=== PATIENT | male | born 1940 | race Caucasian/White ===

== ENCOUNTER 2019-01-07 20:50 | Emergency (ER) | payer MEDICARE, BC ==
[2019-01-07] MEDS ORDERED: Adenocard IV 6 MG/2 ML IV ONE ×2 (21:03→21:07)
[2019-01-07] MEDS ORDERED: Sodium Chloride 0.9% 1000 ML 1,000 ML ONE (21:03)
--- NOTE | 2019-01-07 21:14 | ERPHSYRPT ---
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 He denies any shortness of breath no nausea no chest pain. Past medical history includes high blood pressure, diabetes type 2, osteoarthritis, atrial fibrillation, SVT, bilateral knee arthroplasty, bilateral shoulder replacement, osteoarthritis past surgical history includes appendectomy, hernia surgery, bilateral knee replacement, bilateral shoulder replacement Social history patient states occasional alcohol use denies tobacco use Timing/Duration: today (one hour prior to arrival) Severity: moderate Modifying Factors: Improves With: nothing Associated Symptoms: other (rapid heart rate, dizziness.), No nausea, No vomiting, No abdominal pain, No shortness of breath, No heartburn, No diaphoresis, No cough, No chills, No chest pain, No fever, No headaches, No loss of appetite, No malaise, No rash, No syncope, No seizure, No weakness Allergies/Adverse Reactions: No Known Drug Allergies Allergy (Verified 01/07/19 20:57) Home Medications: Carvedilol 3.125 mg [Coreg 3.125 MG] 3.125 mg PO BID 01/12/16 [History] Clopidogrel Bisulfate 75 mg [PLAVIX 75 MG Tablet] 75 mg PO DAILY 01/12/16 [History] Famotidine [Pepcid] 40 mg PO HS 01/12/16 [History] Ferrous Sulfate 325 mg [Feosol 325 mg] 325 mg PO BID 01/12/16 [History] Glipizide [Glucotrol Xl] 10 mg PO BID 01/12/16 [History] Insulin Glargine [Lantus Insulin] 20 unit SQ DAILY 01/12/16 [History] Metformin HCl [Metformin HCl ER] 1,000 mg PO BID 01/12/16 [History] Simvastatin 10 mg PO HS 01/12/16 [History] Hx Tetanus, Diphtheria Vaccination/Date Given: Yes Hx Influenza Vaccination/Date Given: No Hx Pneumococcal Vaccination/Date Given: No - Review of Systems Constitutional: No Fever, No Chills Eyes: No Symptoms Ears, Nose, & Throat: No Symptoms Respiratory: No Cough, No Dyspnea Cardiac: Palpitations, Other (rapid heart rate), No Chest Pain, No Edema, No Orthopnea, No PND Abdominal/Gastrointestinal: No Abdominal Pain, No Nausea, No Vomiting, No Diarrhea Genitourinary Symptoms: No Dysuria Musculoskeletal: No Back Pain, No Neck Pain Skin: No Rash Neurological: Dizziness, No Focal Weakness, No Gait Changes, No Headache, No Irritability, No Lethargy, No Paralysis, No Parasthesia, No Seizure, No Sensory Changes, No Speech Changes, No Tics, No Tremors, No Vertigo Psychological: No Symptoms Endocrine: No Symptoms All Other Systems: Reviewed and Negative - Past Medical History Pertinent Past Medical History: Yes Neurological History: Peripheral Neuropathy Cardiac History: Arrhythmia Respiratory History: Sleep Apnea Endocrine Medical History: Diabetes Type II Musculoskeletal History: Osteoarthritis Other Medical History: A-fib, B TSA, B TKA - Past Surgical History Past Surgical History: Yes Gastrointestinal: Appendectomy, Hernia Repair Musculoskeletal: Joint Replacement, Orthopedic Surgery - Social History Smoking Status: Never smoker Exposure to second hand smoke: No Drug Use: none Patient Lives Alone: No - Nursing Vital Signs Nursing Vital Signs: Initial Vital Signs Temperature 98.1 F 01/07/19 20:57 Pulse Rate 162 H 01/07/19 20:57 Respiratory Rate 22 01/07/19 20:57 Blood Pressure 96/77 01/07/19 20:57 O2 Sat by Pulse Oximetry 96 01/07/19 20:57 Pain Scale Pain Intensity 0 - Physical Exam General Appearance: mild distress, alert Eye Exam: PERRL/EOMI (mild stress it really d), eyes nml inspection Ears, Nose, Throat Exam: normal ENT inspection, TMs normal, pharynx normal, moist mucous membranes Neck Exam: normal inspection, non-tender, supple, full range of motion Respiratory Exam: normal breath sounds, lungs clear, No respiratory distress Cardiovascular Exam: normal heart sounds, normal peripheral pulses, tachycardia , capillary refill <2 sec Gastrointestinal/Abdomen Exam: soft Back Exam: normal inspection, normal range of motion, No CVA tenderness, No vertebral tenderness Extremity Exam: normal inspection, normal range of motion, pelvis stable Neurologic Exam: alert, oriented x 3, cooperative, baggage handler II-XII nml as tested, normal mood/affect, nml cerebellar function, nml station & gait, sensation nml, No motor deficits Skin Exam: normal color, warm, dry, No rash Lymphatic Exam: No adenopathy SpO2 Interpretation: normal (95%) - Course Nursing assessment & vital signs reviewed: Yes EKG Interpreted by Me: RATE (168bpm), NORMAL AXIS, Other (EKG: Supraventricular tacchycardia, 168 bpm, complete right bundle branch block ) Ordered Tests: Active Orders 24 hr Category Date Time Status Biological Technician STAT Care 01/07/19 21:13 Active EKG-ER Only STAT Care 01/07/19 21:07 Active IV Insertion STAT Care 01/07/19 21:07 Active IV Insertion-2nd Peripheral STAT Care 01/07/19 21:26 Active Pulse Oximetry (ED) STAT Care 01/07/19 21:07 Active CBC W DIFF Stat Lab 01/07/19 21:10 Completed CMP Stat Lab 01/07/19 21:10 Completed D-DIMER QUANTITATION Stat Lab 01/07/19 21:10 Completed PROTIME WITH INR Stat Lab 01/07/19 21:10 Completed PTT Stat Lab 01/07/19 21:10 Completed TROPONIN Q3H Lab 01/07/19 21:10 Completed TROPONIN Q3H Lab 01/08/19 00:23 Completed TROPONIN Q3H Lab 01/08/19 03:15 Ordered TROPONIN Q3H Lab 01/08/19 06:15 Ordered TROPONIN Q3H Lab 01/08/19 09:15 Ordered Medication Summary Generic Name Dose Route Start Last Admin Trade Name Freq PRN Reason Stop Dose Admin Sodium Chloride 1,000 mls @ 100 mls/hr 01/07/19 21:15 01/07/19 21:01 Sodium Chloride 0.9% 1000 Ml IV 02/06/19 21:14 100 mls/hr .Q10H VAUGHN Administration Discontinued Medications Generic Name Dose Route Start Last Admin Trade Name Freq PRN Reason Stop Dose Admin Adenosine Confirm 01/07/19 21:03 Adenocard Iv 6 Mg/2 Ml Administered 01/07/19 21:04 Dose 6 mg IV .STK-MED ONE Adenosine 6 mg 01/07/19 21:07 01/07/19 21:02 Adenocard Iv 6 Mg/2 Ml IV 01/07/19 21:08 6 mg STAT ONE Administration Sodium Chloride Confirm 01/07/19 21:03 Sodium Chloride 0.9% 1000 Ml Administered 01/07/19 21:04 Dose 1,000 mls @ ud .ROUTE .STK-MED ONE Lorazepam 1 mg 01/07/19 21:32 01/07/19 21:36 Ativan 1 Mg PO 01/07/19 21:33 1 mg STAT ONE Administration Lorazepam Confirm 01/07/19 21:35 Ativan 1 Mg Administered 01/07/19 21:36 Dose 1 mg .ROUTE .STK-MED ONE Lab/Rad Data: Laboratory Result Diagrams 01/07/19 21:10 01/07/19 21:10 Laboratory Results 01/08/19 01/07/19 01/07/19 Range/Units 00:23 21:10 21:10 WBC (4.0-10.5) K/mm3 RBC (4.1-5.6) M/mm3 Hgb (12.5-18.0) gm/dl Hct (42-50) % MCV (78-100) fl MCH (26-32) pg MCHC (32-36) g/dl RDW (11.5-14.0) % Plt Count (150-450) K/mm3 MPV (6-9.5) fl Gran % (36.0-66.0) % Eos # (Auto) (0-0.5) Absolute Lymphs (auto) (1.0-4.6) Absolute Monos (auto) (0.0-1.3) Lymphocytes % (24.0-44.0) % Monocytes % (0.0-12.0) % Eosinophils % (0.00-5.0) % Basophils % (0.0-0.4) % Absolute Granulocytes (1.4-6.9) Basophils # (0-0.4) PT 14.4 H (8.83-12.87) SECONDS INR 1.24 (0.8-3.0) APTT 27.4 (24.1-36.1) SECONDS D-Dimer < 215 L (215-500) ng/mL Sodium (137-145) mmol/L Potassium (3.5-5.1) mmol/L Chloride (98-107) mmol/L Carbon Dioxide (22-30) mmol/L Anion Gap (5-15) MEQ/L BUN (9-20) mg/dL Creatinine (0.66-1.25) mg/dL Estimated GFR ML/MIN Glucose (74-106) mg/dL Calcium (8.4-10.2) mg/dL Total Bilirubin (0.2-1.3) mg/dL AST (17-59) U/L ALT (0-50) U/L Alkaline Phosphatase (38-126) U/L Troponin I < 0.012 < 0.012 (0.000-0.034) ng/mL Serum Total Protein (6.3-8.2) g/dL Albumin (3.5-5.0) g/dL 01/07/19 01/07/19 Range/Units 21:10 21:10 WBC 6.7 (4.0-10.5) K/mm3 RBC 4.46 (4.1-5.6) M/mm3 Hgb 14.0 (12.5-18.0) gm/dl Hct 39.3 L (42-50) % MCV 88.1 (78-100) fl MCH 31.4 (26-32) pg MCHC 35.6 (32-36) g/dl RDW 12.8 (11.5-14.0) % Plt Count 234 (150-450) K/mm3 MPV 9.4 (6-9.5) fl Gran % 40.0 (36.0-66.0) % Eos # (Auto) 0.58 H (0-0.5) Absolute Lymphs (auto) 2.45 (1.0-4.6) Absolute Monos (auto) 0.94 (0.0-1.3) Lymphocytes % 36.4 (24.0-44.0) % Monocytes % 14.0 H (0.0-12.0) % Eosinophils % 8.6 H (0.00-5.0) % Basophils % 1.0 (0.0-0.4) % Absolute Granulocytes 2.69 (1.4-6.9) Basophils # 0.07 (0-0.4) PT (8.83-12.87) SECONDS INR (0.8-3.0) APTT (24.1-36.1) SECONDS D-Dimer (215-500) ng/mL Sodium 133 L (137-145) mmol/L Potassium 4.1 (3.5-5.1) mmol/L Chloride 93 L (98-107) mmol/L Carbon Dioxide 26 (22-30) mmol/L Anion Gap 17.8 H (5-15) MEQ/L BUN 21 H (9-20) mg/dL Creatinine 0.95 (0.66-1.25) mg/dL Estimated GFR > 60.0 ML/MIN Glucose 232 H (74-106) mg/dL Calcium 9.3 (8.4-10.2) mg/dL Total Bilirubin 0.50 (0.2-1.3) mg/dL AST 28 (17-59) U/L ALT 22 (0-50) U/L Alkaline Phosphatase 100 (38-126) U/L Troponin I (0.000-0.034) ng/mL Serum Total Protein 7.4 (6.3-8.2) g/dL Albumin 4.5 (3.5-5.0) g/dL - Progress Progress: improved Progress Note: 01/07/19 21:14 78-year-old white male with history of diabetes, high blood pressure, atrial fibrillation,, SVT, who is on Elequis, Arrives with complaint of sudden onset of rapid heart rate one hour prior to arrival states he had some mild dizziness with this no chest pain no shortness of breath. Patient arrives with an EKG and monitor which shows SVT 1 68 bpm normal axis complete right bundle branch block changes are rate related. Patient is given adenosine 6 mg IV with conversion EKG dated 01/07/2019 at 9:09 PM Sinus rhythm 93 bpm complete right bundle branch block no acute ST or T wave changes Patient without chest pain Will go ahead and obtain CBC CMP troponin and d-dimer patient is receiving IV normal saline at 100 mL per hour. 01/07/19 22:27 This is a 78-year-old white male with history of diabetes high blood pressure atrial fibrillation and SVT who is on Elequis, patient arrives with complaint of a sensation of a rapid heart rate which occurred approximately one hour prior to arrival. When the patient arrived in the emergency room patient had a SVT on EKG rate was 167 bpm temperature is 90.8 one respiration 22 blood pressure 96/77 sats were 95% he denies any chest pain he did state he had some mild dizziness Patient apparently is on cold rag he is also on [place] in addition to his other medications Patient is given adenosine 6 mg IV with conversion of his rhythm repeat EKG is remarkable for sinus rhythm 93 bpm normal axis complete right bundle-branch block no acute ST or T wave changes. Patient was also given IV normal saline at 100 mL per hour as well as Ativan 1 mg by mouth. Patient has had no further problems I had discussed possibly coming in for observation patient will not do this he states he will not come in the hospital until after his 's . I've contacted Dr. Farmer image consultant for Dr. Perez he states that we may release the patient. The patient did give conflicting reports as to whether or not he is taking his Coreg he told his nurse he might have missed a few doses he tells me he has been taking it. Will go ahead and plan on discharging the patient he is in no pain at this time he is in normal sinus rhythm on monitor vitals are stable. Patient is to follow-up with Dr. Perez he is to call the office and arrange follow-up appointment he is return for acute distress or for severe symptoms. 01/08/19 01:08 Patient had asked for medication for anxiety apparently his recently he was given 1 mg of Ativan. Patient has had no problems since arrival and initial SVT. Troponins were repeated and normal patient did not want admission or transfer. I did talk with Dr. Farmer as noted above. Will release patient will write for a small amount of Ativan (0.5 mg orally 3 times a day as needed for anxiety #8 tablets) Patient to contact Dr. Perez tomorrow to arrange follow-up appointment, Patient to return for acute distress or for severe symptoms, - Departure Time of Disposition: 01:11 Departure Disposition: Home Clinical Impression: SVT (supraventricular tachycardia) Condition: Fair Critical Care Time: No Referrals: BENNIE GARCIA [Primary Care Provider] - Instructions: Arrhythmias (DC) Additional Instructions: Return home., Rest Medications as prescribed by your family doctor and Dr. Perez. Ativan as prescribed. Follow up with Dr Perez or your family doctor. Return for acute distress or for severe symptoms. Prescriptions: Lorazepam 0.5 mg [Ativan 0.5 MG] 0.5 mg PO TIDPRN #9 tablet
[2019-01-07] MEDS ORDERED: Sodium Chloride 0.9% 1000 ML 1,000 ML IV SCH (21:15)
[2019-01-07 21:20] LABS: Basophil (Absolute #) 0.07 (0-0.4); Eosinophil % 8.6 % (0.00-5.0); Eosinophil (Absolute #) 0.58 (0-0.5); Granulocyte Absolute (ANC) 2.69 (1.4-6.9); Hematocrit 39.3 % (42-50); Lymphocyte (Absolute #) 2.45 (1.0-4.6); Lymphocytes % 36.4 % (24.0-44.0); Mean Cell Volume 88.1 fl (78-100); Mean Corpuscular Hemoglobin 31.4 pg (26-32); Mean Corpuscular Hgb Concent. 35.6 g/dl (32-36); Mean Platelet Volume 9.4 fl (6-9.5); Monocyte (Absolute #) 0.94 (0.0-1.3); Platelet Count 234 K/mm3 (150-450); Red Blood Count 4.46 M/mm3 (4.1-5.6); Red Cell Distribution Width 12.8 % (11.5-14.0); White Blood Count 6.7 K/mm3 (4.0-10.5)
[2019-01-07 21:28] LABS: INR 1.24 (0.8-3.0); PROTIME 14.4 SECONDS (8.83-12.87)
[2019-01-07 21:31] LABS: PTT 27.4 SECONDS (24.1-36.1)
[2019-01-07 21:32] LABS: ALBUMIN 4.5 g/dL (3.5-5.0); ALKALINE PHOSPHATASE 100 U/L (38-126); ANION GAP 17.8 MEQ/L (5-15); BLOOD UREA NITROGEN 21 mg/dL (9-20); CHLORIDE 93 mmol/L (98-107); Calcium 9.3 mg/dL (8.4-10.2); Carbon Dioxide 26 mmol/L (22-30); Creatinine 1 0.95 mg/dL (0.66-1.25); Glucose 232 mg/dL (74-106); Potassium 4.1 mmol/L (3.5-5.1); SGOT/AST 28 U/L (17-59); SGPT/ALT 22 U/L (0-50); SODIUM 133 mmol/L (137-145); Total Protein 7.4 g/dL (6.3-8.2)
[2019-01-07] MEDS ORDERED: Ativan 1 MG PO ONE (21:32)
[2019-01-07] MEDS ORDERED: Ativan 1 MG ONE (21:35)
[2019-01-07 21:38] LABS: D-DIMER QUANTITATION < 215 ng/mL (215-500)
[2019-01-07 22:40] VITALS: O2SAT 96
[2019-01-08 01:09] VITALS: BP 118/80; PULSE 83
== END 2019-01-08 01:28 | disposition home or self-care (01) ==
LOC: ED 20:50
DX: I47.1 Supraventricular tachycardia (principal); E11.9 Type 2 diabetes mellitus without complications; I10 Essential (primary) hypertension; M19.90 Unspecified osteoarthritis, unspecified site; I48.91 Unspecified atrial fibrillation; Z79.899 Other long term (current) drug therapy
CPT/HCPCS: 36000; 36415; 80053; 82962; 84484; 85025; 85379; 85610; 85730; 93005; 93041; 96360; 96361; 96374; 99284; J0153; A9270-GY

== ENCOUNTER 2019-10-11 16:54 | Inpatient (IN) | payer MEDICARE, BC ==
--- NOTE | 2019-10-11 16:56 | ERPHSYRPT ---
- History of Present Illness Time Seen by Provider: 10/11/19 16:55 Source: patient, family Exam Limitations: no limitations Physician History: 79 y/o diabetic white male with h/o htn and chronic afib presents with left knee pain after a fall. he felt a pop and has had pain in left knee ever since. additionally, pt has had a 4 day h/o abdominal pain and assoc n/v/d. pt has a h/ o irritable bowel syndrome and diverticulitis and bilat knee replacement. pt underwent a recent plain xray of left knee and was negative for acute process. however, left knee pain worse and having difficult bearing weight. pt lives alone Method of Injury: fell Occurred: days ago Quality: aching (left knee) Severity of Pain-Max: moderate Severity of Pain-Current: moderate Lower Extremities Pain: knee: left Modifying Factors: Improves With: movement Associated Symptoms: unable to bear weight Allergies/Adverse Reactions: No Known Drug Allergies Allergy (Verified 10/11/19 17:18) Home Medications: Clopidogrel Bisulfate 75 mg [PLAVIX 75 MG Tablet] 75 mg PO DAILY 01/12/16 [History] Famotidine [Pepcid] 40 mg PO HS 01/12/16 [History] Ferrous Sulfate 325 mg [Feosol 325 mg] 325 mg PO BID 01/12/16 [History] Glipizide [Glucotrol Xl] 10 mg PO BID 01/12/16 [History] Metformin HCl [Metformin HCl ER] 1,000 mg PO BID 01/12/16 [History] Amiodarone HCl 1 tab PO DAILY 10/11/19 [History] Ascorbic Acid [Vitamin C] 250 mg PO BID 10/11/19 [History] Atorvastatin Calcium 80 mg PO HS 10/11/19 [History] Cinnamon Bark [Cinnamon] 1,000 mg PO DAILY 10/11/19 [History] Desloratadine [Clarinex] 1 tab PO DAILY 10/11/19 [History] Furosemide 20 mg [Lasix 20 mg] 1 tab PO DAILY 10/11/19 [History] Gabapentin 100 mg PO TID 10/11/19 [History] Insulin Glargine,Hum.rec.anlog [Joseagldustin Sanchez U-100] 35 units SQ DAILY [History] Insulin Lispro [Humalog Pb Kwikpen] 1 unit SQ DAILY PRN PRN 10/11/19 [ History] Lidocaine [Lidocaine Pain Relief] 1 patch TOP DAILY 10/11/19 [History] Losartan/Hydrochlorothiazide [Losartan-Hctz 100-25 mg Tab] 1 tab PO DAILY [History] Magnesium Oxide [Magnesium] 400 mg PO DAILY 10/11/19 [History] Multivitamin [Multivitamins] 1 tab PO DAILY 10/11/19 [History] Potassium Chloride 10 Meq Tab* [Klor Con 10 MEQ] 2 tab PO DAILY 10/11/19 [ History] Vit B6/Me-Thfolate/Me-B12/Ala [Nufola Capsule] 1 tab PO DAILY 10/11/19 [History] Warfarin Sodium 2.5 mg [Coumadin 2.5 MG] 1 tab PO DAILY 10/11/19 [History] Hx Tetanus, Diphtheria Vaccination/Date Given: Yes Hx Influenza Vaccination/Date Given: No Hx Pneumococcal Vaccination/Date Given: No - Review of Systems Constitutional: No Symptoms Eyes: No Symptoms Ears, Nose, & Throat: No Symptoms Respiratory: No Symptoms Cardiac: No Symptoms Abdominal/Gastrointestinal: Abdominal Pain, Nausea, Vomiting, Diarrhea Genitourinary Symptoms: No Symptoms Musculoskeletal: Fall, Injury (left knee) Skin: No Symptoms Neurological: No Symptoms Psychological: No Symptoms Endocrine: No Symptoms Hematologic/Lymphatic: No Symptoms Immunological/Allergic: No Symptoms All Other Systems: Reviewed and Negative - Past Medical History Pertinent Past Medical History: Yes Neurological History: Other Cardiac History: Arrhythmia, Hypertension Respiratory History: No Pertinent History Endocrine Medical History: Diabetes Type II Musculoskeletal History: Osteoarthritis GI Medical History: No Pertinent History History: No Pertinent History Psycho-Social History: No Pertinent History Male Reproductive Disorders: No Pertinent History Other Medical History: CYST REMOVED FROM SPINE IN 07/14; B TKA; HAD PRE-EXISTING R FOOT DROP AT TIMES - Past Surgical History Past Surgical History: Yes Neuro Surgical History: No Pertinent History Cardiac: No Pertinent History Respiratory: No Pertinent History Gastrointestinal: Appendectomy, Hernia Repair Genitourinary: No Pertinent History Musculoskeletal: Joint Replacement, Orthopedic Surgery Male Surgical History: No Pertinent History Other Surgical History: pattie knees and Pattie shoulders - Social History Smoking Status: Never smoker Exposure to second hand smoke: No Drug Use: none Patient Lives Alone: No - Nursing Vital Signs Nursing Vital Signs: Initial Vital Signs Temperature 98.1 F 10/11/19 17:04 Pulse Rate 100 H 10/11/19 17:04 Respiratory Rate 20 10/11/19 17:04 Blood Pressure 126/71 10/11/19 17:04 O2 Sat by Pulse Oximetry 94 L 10/11/19 17:04 Pain Scale Pain Intensity 7 - Physical Exam General Appearance: mild distress, alert, anxiety Eyes, Ears, Nose, Throat Exam: normal ENT inspection, moist mucous membranes Neck Exam: normal inspection, non-tender, supple, full range of motion Cardiovascular/Respiratory Exam: chest non-tender, normal breath sounds, regular rate/rhythm, heart sounds normal, no respiratory distress Gastrointestinal/Abdominal Exam: guarding (no rebound), tenderness (mild diffuse ) Back Exam: normal inspection, normal range of motion, No CVA tenderness, No vertebral tenderness Hips Exam: bilateral: non-tender, normal inspection, normal range of motion, no evidence of injury Legs Exam: bilateral leg: non-tender, normal inspection, normal range of motion , no evidence of injury Knees Exam: bilateral knee: no evidence of injury, soft tissue tenderness Ankle Exam: bilateral ankle: non-tender, normal inspection, normal range of motion, no evidence of injury Foot Exam: bilateral foot: non-tender, normal inspection, normal range of motion , no evidence of injury Neuro/Tendon Exam: normal sensation, normal motor functions, normal tendon functions Mental Status Exam: alert, oriented x 3 Skin Exam: normal color, warm, dry SpO2 Interpretation: normal O2 Delivery: Room Air - Course Nursing assessment & vital signs reviewed: Yes Ordered Tests: Active Orders 24 hr Category Date Time Status IV Insertion STAT Care 10/11/19 18:33 Active ABDOMEN AND PELVIS W/0 CONTRAS [CT] Stat Exams 10/11/19 18:33 Taken LOWER EXTREMITY WO CONTRAST [CT] Stat Exams 10/11/19 18:34 Taken AMYLASE Stat Lab 10/11/19 19:15 Completed CBC W DIFF Stat Lab 10/11/19 19:15 Completed CMP Stat Lab 10/11/19 19:15 Completed LIPASE Stat Lab 10/11/19 19:15 Completed Lactic Acid Stat Lab 10/11/19 19:23 Results Manual Differential NC Stat Lab 10/11/19 19:15 Completed UA W/RFX UR CULTURE Stat Lab 10/11/19 20:20 Completed Transfer Order Routine Transfer 10/11/19 Ordered Medication Summary Generic Name Dose Route Start Last Admin Trade Name Mag PRN Reason Stop Dose Admin Sodium Chloride 1,000 mls @ 100 mls/hr 10/11/19 18:45 10/11/19 18:43 Sodium Chloride 0.9% 1000 Ml IV 11/10/19 18:44 100 mls/hr .Q10H VAUGHN Administration Discontinued Medications Generic Name Dose Route Start Last Admin Trade Name Mag PRN Reason Stop Dose Admin Metronidazole 500 mg in 100 mls @ 200 mls/hr 10/11/19 19:38 10/11/19 19:51 Flagyl 500 Mg Ivpb IV 10/11/19 20:07 200 mls/hr STAT STA Administration Metronidazole Confirm 10/11/19 19:47 Flagyl 500 Mg Ivpb Administered 10/11/19 19:48 Dose 500 mg in 100 mls @ ud IV .STK-MED ONE Ondansetron HCl 4 mg 10/11/19 18:33 10/11/19 18:43 Zofran 4 Mg/2 Ml Vial IV 10/11/19 18:34 4 mg STAT ONE Administration Ondansetron HCl Confirm 10/11/19 18:41 Zofran 4 Mg/2 Ml Vial Administered 10/11/19 18:42 Dose 4 mg .ROUTE .STK-MED ONE Potassium Chloride 10 meq 10/11/19 19:58 10/11/19 20:08 Klor Con 10 Meq PO 10/11/19 19:59 10 meq STAT ONE Administration Potassium Chloride Confirm 10/11/19 20:07 Klor Con 10 Meq Administered 10/11/19 20:08 Dose 10 meq PO .STK-MED ONE Lab/Rad Data: Laboratory Result Diagrams 10/11/19 19:15 10/11/19 19:15 Laboratory Results 10/11/19 10/11/19 10/11/19 Range/Units 20:20 19:23 19:15 WBC (4.0-10.5) K/mm3 RBC (4.1-5.6) M/mm3 Hgb (12.5-18.0) gm/dl Hct (42-50) % MCV (78-100) fl MCH (26-32) pg MCHC (32-36) g/dl RDW (11.5-14.0) % Plt Count (150-450) K/mm3 MPV (6-9.5) fl Absolute Granulocytes (1.4-6.9) Sodium 133 L (137-145) mmol/L Potassium 3.1 L (3.5-5.1) mmol/L Chloride 95 L (98-107) mmol/L Carbon Dioxide 25 (22-30) mmol/L Anion Gap 15.2 H (5-15) MEQ/L BUN 23 H (9-20) mg/dL Creatinine 0.96 (0.66-1.25) mg/dL Estimated GFR > 60.0 ML/MIN Glucose 193 H (74-106) mg/dL Lactic Acid 2.3 H (0.4-2.0) Calcium 8.0 L (8.4-10.2) mg/dL Total Bilirubin 0.70 (0.2-1.3) mg/dL AST 26 (17-59) U/L ALT 18 (0-50) U/L Alkaline Phosphatase 63 (38-126) U/L Serum Total Protein 7.0 (6.3-8.2) g/dL Albumin 3.5 (3.5-5.0) g/dL Amylase < 30 L (30-110) U/L Lipase 22 L (23-300) U/L Urine Color MARIA INES (YELLOW) Urine Appearance SLIGHTLY CLOUDY (CLEAR) Urine pH 5.0 (5-6) Ur Specific [place] 1.023 (1.005-1.025) Urine Protein 30 (Negative) Urine Ketones NEGATIVE (NEGATIVE) Urine Blood LARGE (0-5) Manuel/ul Urine Nitrite NEGATIVE (NEGATIVE) Urine Bilirubin NEGATIVE (NEGATIVE) Urine Urobilinogen NEGATIVE (0-1) mg/dL Ur Leukocyte Esterase NEGATIVE (NEGATIVE) Urine WBC (Auto) 0-2 (0-5) /HPF Urine RBC (Auto) >101 (0-2) /HPF U Epithel Cells (Auto) NONE (FEW) /HPF Urine Bacteria (Auto) NONE (NEGATIVE) /HPF Urine Mucus (Auto) SLIGHT (NEGATIVE) /HPF Urine Culture Reflexed NO (NO) Urine Glucose NEGATIVE (NEGATIVE) mg/dL 15/19 Range/Units 19:15 WBC 9.4 (4.0-10.5) K/mm3 RBC 4.15 (4.1-5.6) M/mm3 Hgb 12.9 (12.5-18.0) gm/dl Hct 36.6 L (42-50) % MCV 88.2 (78-100) fl MCH 31.1 (26-32) pg MCHC 35.2 (32-36) g/dl RDW 13.4 (11.5-14.0) % Plt Count 246 (150-450) K/mm3 MPV 9.2 (6-9.5) fl Absolute Granulocytes 6.24 (1.4-6.9) Sodium (137-145) mmol/L Potassium (3.5-5.1) mmol/L Chloride (98-107) mmol/L Carbon Dioxide (22-30) mmol/L Anion Gap (5-15) MEQ/L BUN (9-20) mg/dL Creatinine (0.66-1.25) mg/dL Estimated GFR ML/MIN Glucose (74-106) mg/dL Lactic Acid (0.4-2.0) Calcium (8.4-10.2) mg/dL Total Bilirubin (0.2-1.3) mg/dL AST (17-59) U/L ALT (0-50) U/L Alkaline Phosphatase (38-126) U/L Serum Total Protein (6.3-8.2) g/dL Albumin (3.5-5.0) g/dL Amylase (30-110) U/L Lipase (23-300) U/L Urine Color (YELLOW) Urine Appearance (CLEAR) Urine pH (5-6) Ur Specific [place] (1.005-1.025) Urine Protein (Negative) Urine Ketones (NEGATIVE) Urine Blood (0-5) Manuel/ul Urine Nitrite (NEGATIVE) Urine Bilirubin (NEGATIVE) Urine Urobilinogen (0-1) mg/dL Ur Leukocyte Esterase (NEGATIVE) Urine WBC (Auto) (0-5) /HPF Urine RBC (Auto) (0-2) /HPF U Epithel Cells (Auto) (FEW) /HPF Urine Bacteria (Auto) (NEGATIVE) /HPF Urine Mucus (Auto) (NEGATIVE) /HPF Urine Culture Reflexed (NO) Urine Glucose (NEGATIVE) mg/dL - Progress Progress: improved, pain not gone completely, re-examined Progress Note: 10/11/19 20:58 ct abd/pelvis-mild enterocolitis ct left knee-no acute process spoke with dr. galloway. i reviewed pt hx, condition, labs, and ct results. she accepts pt for admission. Discussed with : Clara Will see patient in: hospital (full admit) Counseled pt/family regarding: lab results, diagnosis, rad results - Departure Departure Disposition: In-patient Admission Clinical Impression: Enterocolitis, Hypokalemia, Chronic atrial fibrillation Condition: Fair Critical Care Time: No Referrals: MARLON SCHROEDER MD [Primary Care Provider] -
[2019-10-11] MEDS ORDERED: Zofran 4 MG/2 ML VIAL IV ONE (18:33)
[2019-10-11] MEDS ORDERED: Zofran 4 MG/2 ML VIAL ONE (18:41)
[2019-10-11] MEDS ORDERED: Sodium Chloride 0.9% 1000 ML 1,000 ML ONE (18:41)
[2019-10-11] MEDS ORDERED: Sodium Chloride 0.9% 1000 ML 1,000 ML IV SCH (18:45)
[2019-10-11 19:27] LABS: Lactic Acid 2.3 (0.4-2.0)
[2019-10-11 19:37] LABS: Absolute Neutrophil Ct (ANC) 6.24 (1.4-6.9); Hematocrit 36.6 % (42-50); Hemoglobin 12.9 gm/dl (12.5-18.0); Mean Cell Volume 88.2 fl (78-100); Mean Corpuscular Hemoglobin 31.1 pg (26-32); Mean Corpuscular Hgb Concent. 35.2 g/dl (32-36); Mean Platelet Volume 9.2 fl (6-9.5); Platelet Count 246 K/mm3 (150-450); Red Blood Count 4.15 M/mm3 (4.1-5.6); Red Cell Distribution Width 13.4 % (11.5-14.0); White Blood Count 9.4 K/mm3 (4.0-10.5)
[2019-10-11] MEDS ORDERED: FLAGYL 500 MG IVPB 500 MG/100 ML BAG IV STA (19:38)
[2019-10-11 19:47] LABS: ALBUMIN 3.5 g/dL (3.5-5.0); ALKALINE PHOSPHATASE 63 U/L (38-126); AMYLASE < 30 U/L (30-110); ANION GAP 15.2 MEQ/L (5-15); BLOOD UREA NITROGEN 23 mg/dL (9-20); CHLORIDE 95 mmol/L (98-107); Carbon Dioxide 25 mmol/L (22-30); Creatinine 1 0.96 mg/dL (0.66-1.25); Glucose 193 mg/dL (74-106); LIPASE 22 U/L (23-300); Potassium 3.1 mmol/L (3.5-5.1); SGOT/AST 26 U/L (17-59); SGPT/ALT 18 U/L (0-50); SODIUM 133 mmol/L (137-145)
[2019-10-11] MEDS ORDERED: FLAGYL 500 MG IVPB 500 MG/100 ML BAG IV ONE (19:47)
[2019-10-11] MEDS ORDERED: Klor Con 10 MEQ PO ONE ×2 (19:58→20:07)
[2019-10-11 20:32] LABS: Appearance SLIGHTLY CLOUDY (CLEAR); Bilirubin NEGATIVE (NEGATIVE); Blood LARGE Ery/ul (0-5); Glucose NEGATIVE (NEGATIVE); Ketones NEGATIVE (NEGATIVE); Leukocyte Esterase NEGATIVE (NEGATIVE); Mucus SLIGHT /HPF (NEGATIVE); Nitrite NEGATIVE (NEGATIVE); Protein,Urine Dip 30 (Negative); Specific Gravity 1.023 (1.005-1.025); Urobilinogen NEGATIVE mg/dL (0-1); WBC 0-2 /HPF (0-5)
[2019-10-11 20:34] LABS: RBC >101 /HPF (0-2)
[2019-10-11] MEDS ORDERED: Zofran 4 MG/2 ML VIAL IV PRN (21:44)
[2019-10-11] MEDS ORDERED: TYLENOL 325 MG PO PRN (21:44)
[2019-10-11 21:56] LABS: ATYPICAL LYMPHS 2 %; BAND 43 % (0.0-2.0); Dohle Bodies 2+; Lymphocytes 25 % (24-44); Metamyelocyte 1 %; Monocyte 11 % (0.0-12.0); Neutrophils 18 % (36.-66.); Platelet Estimate NORMAL (NORMAL); Total Cells Counted 100; Toxic Granulation 1+
--- NOTE | 2019-10-11 22:17 | XRAY ---
Indication: Pain following fall. Multiple contiguous axial images obtained through the left knee. Two-dimensional sagittal and coronal reformatted images obtained. Comparison: None There has been total knee arthroplasty with prosthesis producing extreme beam artifact limiting these levels. No gross acute fracture, dislocation, or suspicious bony lesions. Extensive scattered vascular calcifications. Visualized noncontrasted soft tissues unremarkable. Impression: Extreme beam artifact from total knee arthroplasty limits exam. Scattered arteriosclerotic disease. Remaining CT left knee is negative. Comment: Preliminary interpretation was made by [facility]. No discrepancy. CTDI 28.07
[2019-10-11 22:19] LABS: Adenovirus F 40/41 NEGATIVE (NEGATIVE); Astrovirus NEGATIVE (NEGATIVE); C. Difficile Organism NEGATIVE (NEGATIVE); Campylobacter POSITIVE (NEGATIVE); Cryptosporidium NEGATIVE (NEGATIVE); Cyclospora cayentanensis NEGATIVE (NEGATIVE); Entamoeaba histolytica NEGATIVE (NEGATIVE); Enteroaggregative E.coli NEGATIVE (NEGATIVE); Enteropathogenic E.coli POSITIVE (NEGATIVE); Enterotoxigenic E.coli NEGATIVE (NEGATIVE); Giardia lamblia NEGATIVE (NEGATIVE); Norovirus GI/GII NEGATIVE (NEGATIVE); Plesiomonas shigelloides NEGATIVE (NEGATIVE); Rotavirus A NEGATIVE (NEGATIVE); Salmonella NEGATIVE (NEGATIVE); Sapovirus NEGATIVE (NEGATIVE); Shiga-like toxin prod.E.coli NEGATIVE (NEGATIVE); Vibrio NEGATIVE (NEGATIVE); Vibrio cholerae NEGATIVE (NEGATIVE); Yersinia enterocolitica NEGATIVE (NEGATIVE)
--- NOTE | 2019-10-11 22:21 | XRAY ---
Indication: Abdominal pain. Nausea and vomiting. Multiple contiguous axial images obtained through the abdomen and pelvis without contrast as ordered. Comparison: None Lung bases demonstrates scattered fibrosis/scarring bilaterally. No infiltrate or effusion. Heart is borderline enlarged. Mild fluid distended stomach, small bowel, and large bowel loops throughout with fluid leveling, gastroenterocolitis versus ileus. Right lower quadrant surgical clips. No focal bowel dilatation, obstruction, or free fluid/air. Gallbladder mildly distended without gallstones. Tiny calcified hepatic/splenic granulomas. Enlarged prostate gland impresses on the base of the bladder. Remaining liver, pancreas, adrenal glands, kidneys, ureters, and bladder appear unremarkable for noncontrast exam. Moderate scattered vascular calcifications without AAA. Osseous structures demonstrates mild/moderate degenerative changes throughout the thoracolumbar spine and mild degenerative changes of both hips. Impression: 1. Mild fluid distended stomach, small bowel, and large bowel loops with fluid leveling, gastroenterocolitis versus ileus. 2. Mildly distended gallbladder. Gallbladder sonogram may yield further information if clinically warranted. 3. Enlarged prostate gland and evidence for old granulomatous disease. Comment: Preliminary interpretation was made by [facility]. No critical discrepancy. CTDI 20.96
[2019-10-11] MEDS ORDERED: Lantus Insulin SQ SCH (23:16)
[2019-10-12] MEDS ORDERED: Glucotrol 5 MG ONE (00:32)
[2019-10-12] MEDS: Sodium Chloride 0.9% W/ 20 mEq KCl/LITER 1,000 ML IV SCH ×2 (00:36→13:16)
[2019-10-12] MEDS: Pepcid 20 MG PO SCH ×2 (00:37→21:21)
[2019-10-12] MEDS: Coreg 6.25 MG PO SCH ×3 (00:38→21:21)
[2019-10-12] MEDS: Neurontin 100 MG PO SCH ×4 (00:41→21:21)
[2019-10-12] MEDS: Glucotrol Xl 10 MG PO SCH ×3 (00:42→17:54)
[2019-10-12 00:51] LABS: Appearance CLOUDY (CLEAR); Bilirubin NEGATIVE (NEGATIVE); Blood LARGE Ery/ul (0-5); Glucose NEGATIVE (NEGATIVE); Ketones NEGATIVE (NEGATIVE); Leukocyte Esterase NEGATIVE (NEGATIVE); Mucus MANY /HPF (NEGATIVE); Nitrite NEGATIVE (NEGATIVE); Protein,Urine Dip 100 (Negative); RBC >101 /HPF (0-2); Specific Gravity 1.025 (1.005-1.025); Urobilinogen NEGATIVE mg/dL (0-1)
[2019-10-12 00:52] LABS: Bacteria FEW /HPF (NEGATIVE)
[2019-10-12] MEDS ORDERED: Levofloxacin 500MG/100ML D5W 500 MG/100 ML BAG IV SCH (01:00)
[2019-10-12] MEDS: FLAGYL 500 MG IVPB 500 MG/100 ML BAG IV SCH ×4 (01:13→19:15)
[2019-10-12 05:48] LABS: Hematocrit 34.3 % (42-50); Mean Cell Volume 88.2 fl (78-100); Mean Corpuscular Hemoglobin 30.8 pg (26-32); Platelet Count 227 K/mm3 (150-450); Red Blood Count 3.89 M/mm3 (4.1-5.6); Red Cell Distribution Width 13.6 % (11.5-14.0); White Blood Count 9.7 K/mm3 (4.0-10.5)
[2019-10-12 06:04] LABS: BLOOD UREA NITROGEN 24 mg/dL (9-20); CHLORIDE 99 mmol/L (98-107); Calcium 7.5 mg/dL (8.4-10.2); Carbon Dioxide 24 mmol/L (22-30); Creatinine 1 0.85 mg/dL (0.66-1.25); Glucose 175 mg/dL (74-106); Potassium 3.4 mmol/L (3.5-5.1); SODIUM 133 mmol/L (137-145)
[2019-10-12 06:12] LABS: INR 6.02 (0.8-3.0)
[2019-10-12 06:34] LABS: BAND 42 % (0.0-2.0); Eosinophil 1 % (0.00-3.0); Lymphocytes 13 % (24-44); Monocyte 11 % (0.0-12.0); Neutrophils 33 % (36.-66.); Platelet Estimate NORMAL (NORMAL); Total Cells Counted 100
[2019-10-12 06:35] LABS: ANISOCYTOSIS 1+; Poikilocytosis 1+; Toxic Granulation 1+
[2019-10-12] MEDS: Glucophage 500 MG PO SCH (08:27)
--- NOTE | 2019-10-12 17:05 | PCM.HP ---
History of Present Illness - Chief Complaint Chief Complaint: nausea vomiting ,diarrhea,abdominal pain,difficulty walking - left knee pain History of Present Illness: is a 79 year old male who presented to ER C/O abdominal pain, nausea and diarrhea with 1 episode of vomiting at the onset. States he ate popcorn and a balogna sandwhich a few hours before the symptoms started and the diarrhea has persisted. 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 - Review of Systems Constitutional: Weakness Respiratory: No Cough, No Short Of Breath Cardiac: Edema (is on Lasix), Other (denies chest pain or syncope) Abdominal/Gastrointestinal: Abdominal Pain, Nausea, Vomiting, Diarrhea Genitourinary Symptoms: Urinary Retention, Other (BPH) Musculoskeletal: Fall (left knee pain) Skin: No Rash Neurological: Focal Weakness (notices some loss of strength lef leg), Gait Changes, Paralysis (LUE) Psychological: No Symptoms Endocrine: Other (DM2) Hematologic/Lymphatic: Easy Bleeding (is on Coumadin and tests home INR) Immunological/Allergic: No Symptoms Medications & Allergies Home Medications: Home Medication List Carvedilol 6.25 mg [Coreg 6.25 MG] 6.25 mg PO BID #60 tablet 01/12/16 [Rx Confirmed 10/11/19] Clopidogrel Bisulfate 75 mg [PLAVIX 75 MG Tablet] 75 mg PO DAILY 01/12/16 [History Confirmed 10/11/19] Famotidine [Pepcid] 40 mg PO HS 01/12/16 [History Confirmed 10/11/19] Ferrous Sulfate 325 mg [Feosol 325 mg] 325 mg PO BID 01/12/16 [History Confirmed 10/11/19] Glipizide [Glucotrol Xl] 10 mg PO BID 01/12/16 [History Confirmed 10/11/19] Metformin HCl [Metformin HCl ER] 1,000 mg PO BID 01/12/16 [History Confirmed ] Amiodarone HCl 1 tab PO DAILY 10/11/19 [History Confirmed 10/11/19] Ascorbic Acid [Vitamin C] 250 mg PO BID 10/11/19 [History Confirmed 10/11/19] Atorvastatin Calcium 80 mg PO HS 10/11/19 [History Confirmed 10/11/19] Cinnamon Bark [Cinnamon] 1,000 mg PO DAILY 10/11/19 [History Confirmed 10/11/19] Desloratadine [Clarinex] 1 tab PO DAILY 10/11/19 [History Confirmed 10/11/19] Furosemide 20 mg [Lasix 20 mg] 1 tab PO DAILY 10/11/19 [History Confirmed 10/11/19] Gabapentin 100 mg PO TID 10/11/19 [History Confirmed 10/11/19] Insulin Glargine,Hum.rec.anlog [Basaglar Kwikpen U-100] 35 units SQ DAILY [History Confirmed 10/11/19] Lidocaine [Lidocaine Pain Relief] 1 patch TOP DAILY PRN 10/11/19 [History Confirmed 10/11/19] Losartan/Hydrochlorothiazide [Losartan-Hctz 100-25 mg Tab] 0.5 tab PO DAILY [History Confirmed 10/11/19] Magnesium Oxide [Magnesium] 400 mg PO DAILY 10/11/19 [History Confirmed 10/11/19 ] Multivitamin [Multivitamins] 1 tab PO DAILY 10/11/19 [History Confirmed 10/11/19 ] Potassium Chloride 10 Meq Tab* [Klor Con 10 MEQ] 2 tab PO DAILY 10/11/19 [ History Confirmed 10/11/19] Vit B6/Me-Thfolate/Me-B12/Ala [Nufola Capsule] 1 tab PO DAILY 10/11/19 [History Confirmed 10/11/19] Warfarin Sodium 2 mg [Coumadin 2 MG] 2 mg PO DAILY 10/11/19 [History Confirmed 10/11/19] Allergies/Adverse Reactions: Allergies Allergy/AdvReac Type Severity Reaction Status Date / Time No Known Drug Allergies Allergy Verified 10/11/19 17:18 - Past Medical History Past Medical History: Yes Neurological History: Paralysis (LUE), Peripheral Neuropathy, Stroke (MARCH 2019) , Other ENT History: No Pertinent History Cardiac History: Arrhythmia, High Cholesterol, Hypertension CARDIAC HISTORY: Other (CAF) Respiratory History: Sleep Apnea Endocrine Medical History: Diabetes Type II Musculoskelatal History: Arthritis, Osteoarthritis GI Medical History: No Pertinent History, Diverticulosis, Polyps History: No Pertinent History, Other (BPH) Pyscho-Social History: No Pertinent History Male Reproductive Disorders: No Pertinent History Comment: CYST REMOVED FROM SPINE IN 07/14; B TKA; HAD PRE-EXISTING R FOOT DROP AT TIMES - Past Surgical History Past Surgical History: Yes Neuro Surgical History: No Pertinent History Cardiac History: No Pertinent History Respiratory Surgery: No Pertinent History GI Surgical History: Appendectomy, Hernia Repair Genitourinary Surgical Hx: No Pertinent History Musculskeletal Surgical Hx: Joint Replacement, Orthopedic Surgery Male Surgical History: No Pertinent History Other Surgical History: pattie knees and Pattie shoulders - Social History Smoking Status: Never smoker Exposure to second hand smoke: Yes Alcohol: Rarely Drug Use: none - Physical Exam Vital Signs: Vital Signs - 24 hr Temp Pulse Resp BP BP Pulse Ox 10/12/19 16:00 16 10/12/19 12:00 18 10/12/19 11:08 97.8 F 93 H 20 135/73 93 L 10/12/19 08:00 20 10/12/19 07:07 98 F 84 20 129/62 95 10/12/19 06:57 95 10/12/19 04:00 23 10/12/19 03:39 98.0 F 89 23 108/56 96 10/12/19 00:00 97.9 F 99 H 20 127/59 93 L 10/11/19 22:36 93 L 10/11/19 22:14 98.3 F 92 H 18 132/63 98 10/11/19 21:18 116 H 118/64 97 10/11/19 20:09 104 H 23 114/69 96 10/11/19 19:16 104 H 26 H 139/68 10/11/19 18:35 101 H 26 H 159/80 97 10/11/19 17:04 98.1 F 100 H 20 126/71 94 L Oxygen-Last 24 hours O2 Percentage 2 Liters = 28% O2 Percentage 2 Liters = 28% General Appearance: no apparent distress, obese Neurologic Exam: alert, oriented x 3, cooperative, No normal mood/affect Eye Exam: PERRL/EOMI Ears, Nose, Throat Exam: normal ENT inspection Neck Exam: normal inspection Respiratory Exam: normal breath sounds (no rales,ronchi or wheeze) Cardiovascular Exam: irregular (rate 70s) Gastrointestinal/Abdomen Exam: soft, tenderness (periumbilical,no guarding,no rebound.), distention (increased BS) Male Genitalia Exam: prostate enlargement (per nursing noted when inserting catheter) Back Exam: other (no CVA tenderness) Extremity Exam: paralysis, pedal edema, other (left knee not red or hot,ER Xray negative for acute changes) Skin Exam: normal color, warm Results - Labs Lab/Micro Results: Lab Results-Last 24 Hours 10/11/19 10/11/19 10/11/19 Range/Units 19:15 19:15 19:23 WBC 9.4 (4.0-10.5) K/mm3 RBC 4.15 (4.1-5.6) M/mm3 Hgb 12.9 (12.5-18.0) gm/dl Hct 36.6 L (42-50) % MCV 88.2 (78-100) fl MCH 31.1 (26-32) pg MCHC 35.2 (32-36) g/dl RDW 13.4 (11.5-14.0) % Plt Count 246 (150-450) K/mm3 MPV 9.2 (6-9.5) fl Absolute Granulocytes 6.24 (1.4-6.9) Segmented Neutrophils 18 L (36.-66.) % Band Neutrophils 43 H (0.0-2.0) % Lymphocytes (Manual) 25 (24-44) % Monocytes (Manual) 11 (0.0-12.0) % Eosinophils (Manual) (0.00-3.0) % Metamyelocytes 1 % Atypical Lymphocytes 2 % Toxic Granulation 1+ Dohle Bodies 2+ Platelet Estimate NORMAL (NORMAL) RBC Morphology NORMAL Poikilocytosis Anisocytosis PT (8.83-12.87) SECONDS INR (0.8-3.0) Sodium 133 L (137-145) mmol/L Potassium 3.1 L (3.5-5.1) mmol/L Chloride 95 L (98-107) mmol/L Carbon Dioxide 25 (22-30) mmol/L Anion Gap 15.2 H (5-15) MEQ/L BUN 23 H (9-20) mg/dL Creatinine 0.96 (0.66-1.25) mg/dL Estimated GFR > 60.0 ML/MIN Glucose 193 H (74-106) mg/dL Lactic Acid 2.3 H (0.4-2.0) Calcium 8.0 L (8.4-10.2) mg/dL Total Bilirubin 0.70 (0.2-1.3) mg/dL AST 26 (17-59) U/L ALT 18 (0-50) U/L Alkaline Phosphatase 63 (38-126) U/L Serum Total Protein 7.0 (6.3-8.2) g/dL Albumin 3.5 (3.5-5.0) g/dL Amylase < 30 L (30-110) U/L Lipase 22 L (23-300) U/L Urine Color (YELLOW) Urine Appearance (CLEAR) Urine pH (5-6) Ur Specific Sur[place] (1.005-1.025) Urine Protein (Negative) Urine Ketones (NEGATIVE) Urine Blood (0-5) Manuel/ul Urine Nitrite (NEGATIVE) Urine Bilirubin (NEGATIVE) Urine Urobilinogen (0-1) mg/dL Ur Leukocyte Esterase (NEGATIVE) Urine WBC (Auto) (0-5) /HPF Urine RBC (Auto) (0-2) /HPF U Hyaline Cast (Auto) (0-2) /LPF U Epithel Cells (Auto) (FEW) /HPF Urine Bacteria (Auto) (NEGATIVE) /HPF Urine Mucus (Auto) (NEGATIVE) /HPF Urine Culture Reflexed (NO) Urine Glucose (NEGATIVE) mg/dL Stl C. cayetanensis PCR (NEGATIVE) Stl Adenov F 40/41 PCR (NEGATIVE) Stool Astrovirus (PCR) (NEGATIVE) Stool Cryptosporidium PCR (NEGATIVE) Stool EPEC (PCR) (NEGATIVE) Stool EAEC (PCR) (NEGATIVE) Stl E. histolytica PCR (NEGATIVE) Stl P. shigelloides PCR (NEGATIVE) Stool Sapovirus (PCR) (NEGATIVE) St Y.enterocolitica PCR (NEGATIVE) Stool Vibrio (PCR) (NEGATIVE) Stl Vibrio cholerae PCR (NEGATIVE) Stl Norovirus GI/GII PCR (NEGATIVE) Campylobacter (PCR) (NEGATIVE) C. difficile (PCR) (NEGATIVE) Enterotoxigenic E. coli (NEGATIVE) E.coli Shiga Toxins (NEGATIVE) Giardia lamblia (NEGATIVE) Rotavirus A (PCR) (NEGATIVE) Salmonella (PCR) (NEGATIVE) Shigella (PCR) (NEGATIVE) 10/11/19 10/11/19 10/11/19 Range/Units 20:15 20:20 22:32 WBC (4.0-10.5) K/mm3 RBC (4.1-5.6) M/mm3 Hgb (12.5-18.0) gm/dl Hct (42-50) % MCV (78-100) fl MCH (26-32) pg MCHC (32-36) g/dl RDW (11.5-14.0) % Plt Count (150-450) K/mm3 MPV (6-9.5) fl Absolute Granulocytes (1.4-6.9) Segmented Neutrophils (36.-66.) % Band Neutrophils (0.0-2.0) % Lymphocytes (Manual) (24-44) % Monocytes (Manual) (0.0-12.0) % Eosinophils (Manual) (0.00-3.0) % Metamyelocytes % Atypical Lymphocytes % Toxic Granulation Dohle Bodies Platelet Estimate (NORMAL) RBC Morphology Poikilocytosis Anisocytosis PT (8.83-12.87) SECONDS INR (0.8-3.0) Sodium (137-145) mmol/L Potassium (3.5-5.1) mmol/L Chloride (98-107) mmol/L Carbon Dioxide (22-30) mmol/L Anion Gap (5-15) MEQ/L BUN (9-20) mg/dL Creatinine (0.66-1.25) mg/dL Estimated GFR ML/MIN Glucose (74-106) mg/dL Lactic Acid 2.0 (0.4-2.0) Calcium (8.4-10.2) mg/dL Total Bilirubin (0.2-1.3) mg/dL AST (17-59) U/L ALT (0-50) U/L Alkaline Phosphatase (38-126) U/L Serum Total Protein (6.3-8.2) g/dL Albumin (3.5-5.0) g/dL Amylase (30-110) U/L Lipase (23-300) U/L Urine Color MARIA INES (YELLOW) Urine Appearance SLIGHTLY CLOUDY (CLEAR) Urine pH 5.0 (5-6) Ur Specific [place] 1.023 (1.005-1.025) Urine Protein 30 (Negative) Urine Ketones NEGATIVE (NEGATIVE) Urine Blood LARGE (0-5) Manuel/ul Urine Nitrite NEGATIVE (NEGATIVE) Urine Bilirubin NEGATIVE (NEGATIVE) Urine Urobilinogen NEGATIVE (0-1) mg/dL Ur Leukocyte Esterase NEGATIVE (NEGATIVE) Urine WBC (Auto) 0-2 (0-5) /HPF Urine RBC (Auto) >101 (0-2) /HPF U Hyaline Cast (Auto) (0-2) /LPF U Epithel Cells (Auto) NONE (FEW) /HPF Urine Bacteria (Auto) NONE (NEGATIVE) /HPF Urine Mucus (Auto) SLIGHT (NEGATIVE) /HPF Urine Culture Reflexed NO (NO) Urine Glucose NEGATIVE (NEGATIVE) mg/dL Stl C. cayetanensis PCR NEGATIVE (NEGATIVE) Stl Adenov F 40/41 PCR NEGATIVE (NEGATIVE) Stool Astrovirus (PCR) NEGATIVE (NEGATIVE) Stool Cryptosporidium PCR NEGATIVE (NEGATIVE) Stool EPEC (PCR) POSITIVE A (NEGATIVE) Stool EAEC (PCR) NEGATIVE (NEGATIVE) Stl E. histolytica PCR NEGATIVE (NEGATIVE) Stl P. shigelloides PCR NEGATIVE (NEGATIVE) Stool Sapovirus (PCR) NEGATIVE (NEGATIVE) St Y.enterocolitica PCR NEGATIVE (NEGATIVE) Stool Vibrio (PCR) NEGATIVE (NEGATIVE) Stl Vibrio cholerae PCR NEGATIVE (NEGATIVE) Stl Norovirus GI/GII PCR NEGATIVE (NEGATIVE) Campylobacter (PCR) POSITIVE A (NEGATIVE) C. difficile (PCR) NEGATIVE (NEGATIVE) Enterotoxigenic E. coli NEGATIVE (NEGATIVE) E.coli Shiga Toxins NEGATIVE (NEGATIVE) Giardia lamblia NEGATIVE (NEGATIVE) Rotavirus A (PCR) NEGATIVE (NEGATIVE) Salmonella (PCR) NEGATIVE (NEGATIVE) Shigella (PCR) NEGATIVE (NEGATIVE) 10/12/19 10/12/19 10/12/19 Range/Units 00:31 05:43 05:43 WBC 9.7 (4.0-10.5) K/mm3 RBC 3.89 L (4.1-5.6) M/mm3 Hgb 12.0 L (12.5-18.0) gm/dl Hct 34.3 L (42-50) % MCV 88.2 (78-100) fl MCH 30.8 (26-32) pg MCHC 35.0 (32-36) g/dl RDW 13.6 (11.5-14.0) % Plt Count 227 (150-450) K/mm3 MPV 9.0 (6-9.5) fl Absolute Granulocytes (1.4-6.9) Segmented Neutrophils 33 L (36.-66.) % Band Neutrophils 42 H (0.0-2.0) % Lymphocytes (Manual) 13 L (24-44) % Monocytes (Manual) 11 (0.0-12.0) % Eosinophils (Manual) 1 (0.00-3.0) % Metamyelocytes % Atypical Lymphocytes % Toxic Granulation 1+ Dohle Bodies Platelet Estimate NORMAL (NORMAL) RBC Morphology ABNORMAL Poikilocytosis 1+ Anisocytosis 1+ PT (8.83-12.87) SECONDS INR (0.8-3.0) Sodium 133 L (137-145) mmol/L Potassium 3.4 L (3.5-5.1) mmol/L Chloride 99 (98-107) mmol/L Carbon Dioxide 24 (22-30) mmol/L Anion Gap 13.0 (5-15) MEQ/L BUN 24 H (9-20) mg/dL Creatinine 0.85 (0.66-1.25) mg/dL Estimated GFR > 60.0 ML/MIN Glucose 175 H (74-106) mg/dL Lactic Acid (0.4-2.0) Calcium 7.5 L (8.4-10.2) mg/dL Total Bilirubin (0.2-1.3) mg/dL AST (17-59) U/L ALT (0-50) U/L Alkaline Phosphatase (38-126) U/L Serum Total Protein (6.3-8.2) g/dL Albumin (3.5-5.0) g/dL Amylase (30-110) U/L Lipase (23-300) U/L Urine Color MARIA INES (YELLOW) Urine Appearance CLOUDY (CLEAR) Urine pH 5.0 (5-6) Ur Specific Sur[place] 1.025 (1.005-1.025) Urine Protein 100 (Negative) Urine Ketones NEGATIVE (NEGATIVE) Urine Blood LARGE (0-5) Manuel/ul Urine Nitrite NEGATIVE (NEGATIVE) Urine Bilirubin NEGATIVE (NEGATIVE) Urine Urobilinogen NEGATIVE (0-1) mg/dL Ur Leukocyte Esterase NEGATIVE (NEGATIVE) Urine WBC (Auto) 16-25 (0-5) /HPF Urine RBC (Auto) >101 (0-2) /HPF U Hyaline Cast (Auto) 6-10 (0-2) /LPF U Epithel Cells (Auto) NONE (FEW) /HPF Urine Bacteria (Auto) FEW (NEGATIVE) /HPF Urine Mucus (Auto) MANY (NEGATIVE) /HPF Urine Culture Reflexed ORDERED SEPARATELY (NO) Urine Glucose NEGATIVE (NEGATIVE) mg/dL Stl C. cayetanensis PCR (NEGATIVE) Stl Adenov F 40/41 PCR (NEGATIVE) Stool Astrovirus (PCR) (NEGATIVE) Stool Cryptosporidium PCR (NEGATIVE) Stool EPEC (PCR) (NEGATIVE) Stool EAEC (PCR) (NEGATIVE) Stl E. histolytica PCR (NEGATIVE) Stl P. shigelloides PCR (NEGATIVE) Stool Sapovirus (PCR) (NEGATIVE) St Y.enterocolitica PCR (NEGATIVE) Stool Vibrio (PCR) (NEGATIVE) Stl Vibrio cholerae PCR (NEGATIVE) Stl Norovirus GI/GII PCR (NEGATIVE) Campylobacter (PCR) (NEGATIVE) C. difficile (PCR) (NEGATIVE) Enterotoxigenic E. coli (NEGATIVE) E.coli Shiga Toxins (NEGATIVE) Giardia lamblia (NEGATIVE) Rotavirus A (PCR) (NEGATIVE) Salmonella (PCR) (NEGATIVE) Shigella (PCR) (NEGATIVE) 10/12/19 Range/Units 05:43 WBC (4.0-10.5) K/mm3 RBC (4.1-5.6) M/mm3 Hgb (12.5-18.0) gm/dl Hct (42-50) % MCV (78-100) fl MCH (26-32) pg MCHC (32-36) g/dl RDW (11.5-14.0) % Plt Count (150-450) K/mm3 MPV (6-9.5) fl Absolute Granulocytes (1.4-6.9) Segmented Neutrophils (36.-66.) % Band Neutrophils (0.0-2.0) % Lymphocytes (Manual) (24-44) % Monocytes (Manual) (0.0-12.0) % Eosinophils (Manual) (0.00-3.0) % Metamyelocytes % Atypical Lymphocytes % Toxic Granulation Dohle Bodies Platelet Estimate (NORMAL) RBC Morphology Poikilocytosis Anisocytosis PT 70.0 H (8.83-12.87) SECONDS INR 6.02 H* (0.8-3.0) Sodium (137-145) mmol/L Potassium (3.5-5.1) mmol/L Chloride (98-107) mmol/L Carbon Dioxide (22-30) mmol/L Anion Gap (5-15) MEQ/L BUN (9-20) mg/dL Creatinine (0.66-1.25) mg/dL Estimated GFR ML/MIN Glucose (74-106) mg/dL Lactic Acid (0.4-2.0) Calcium (8.4-10.2) mg/dL Total Bilirubin (0.2-1.3) mg/dL AST (17-59) U/L ALT (0-50) U/L Alkaline Phosphatase (38-126) U/L Serum Total Protein (6.3-8.2) g/dL Albumin (3.5-5.0) g/dL Amylase (30-110) U/L Lipase (23-300) U/L Urine Color (YELLOW) Urine Appearance (CLEAR) Urine pH (5-6) Ur Specific Surprise (1.005-1.025) Urine Protein (Negative) Urine Ketones (NEGATIVE) Urine Blood (0-5) Manuel/ul Urine Nitrite (NEGATIVE) Urine Bilirubin (NEGATIVE) Urine Urobilinogen (0-1) mg/dL Ur Leukocyte Esterase (NEGATIVE) Urine WBC (Auto) (0-5) /HPF Urine RBC (Auto) (0-2) /HPF U Hyaline Cast (Auto) (0-2) /LPF U Epithel Cells (Auto) (FEW) /HPF Urine Bacteria (Auto) (NEGATIVE) /HPF Urine Mucus (Auto) (NEGATIVE) /HPF Urine Culture Reflexed (NO) Urine Glucose (NEGATIVE) mg/dL Stl C. cayetanensis PCR (NEGATIVE) Stl Adenov F 40/41 PCR (NEGATIVE) Stool Astrovirus (PCR) (NEGATIVE) Stool Cryptosporidium PCR (NEGATIVE) Stool EPEC (PCR) (NEGATIVE) Stool EAEC (PCR) (NEGATIVE) Stl E. histolytica PCR (NEGATIVE) Stl P. shigelloides PCR (NEGATIVE) Stool Sapovirus (PCR) (NEGATIVE) St Y.enterocolitica PCR (NEGATIVE) Stool Vibrio (PCR) (NEGATIVE) Stl Vibrio cholerae PCR (NEGATIVE) Stl Norovirus GI/GII PCR (NEGATIVE) Campylobacter (PCR) (NEGATIVE) C. difficile (PCR) (NEGATIVE) Enterotoxigenic E. coli (NEGATIVE) E.coli Shiga Toxins (NEGATIVE) Giardia lamblia (NEGATIVE) Rotavirus A (PCR) (NEGATIVE) Salmonella (PCR) (NEGATIVE) Shigella (PCR) (NEGATIVE) - Radiology Impressions Radiology Exams & Impressions: Radiology Procedures Category Date Time Status ABDOMEN AND PELVIS W/0 CONTRAS [CT] Stat Exams 10/11/19 18:33 Completed LOWER EXTREMITY WO CONTRAST [CT] Stat Exams 10/11/19 18:34 Completed - Other Procedures and Tests Respiratory Therapy 10/11/19 22:36 Oxygen Nasal Cannula 2 lpm Assessment/Plan (1) Enterocolitis Current Visit: Yes Status: Acute Assessment & Plan: Camplobacter and EPEC per GIpanel, IV LEvaquin and Flagyl. Code(s): K52.9 - NONINFECTIVE GASTROENTERITIS AND COLITIS, UNSPECIFIED (2) Chronic atrial fibrillation Current Visit: Yes Status: Chronic Assessment & Plan: controlled rate,continue current meds. Code(s): I48.20 - CHRONIC ATRIAL FIBRILLATION, UNSPECIFIED (3) nursing home (current) use of 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 Current Visit: Yes Status: Chronic Assessment & Plan: Coumadin held due to INR=6 Code(s): Z79.01 - SCREEN [employer]END[employer] (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 OF 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 (4) History of CVA with residual deficit Current Visit: Yes Status: Resolved Code(s): I69.30 - UNSPECIFIED SEQUELAE OF CEREBRAL INFARCTION
[2019-10-12] MEDS: Vitamin C 500 MG PO SCH (21:21)
[2019-10-12] MEDS: FEOSOL 325 MG PO SCH (21:21)
[2019-10-12] MEDS: Levofloxacin 500MG/100ML D5W 500 MG/100 ML BAG IV SCH (21:22)
[2019-10-13] MEDS: FLAGYL 500 MG IVPB 500 MG/100 ML BAG IV SCH ×4 (00:16→16:33)
[2019-10-13] MEDS: Sodium Chloride 0.9% W/ 20 mEq KCl/LITER 1,000 ML IV SCH ×2 (02:14→16:46)
[2019-10-13 06:22] LABS: PROTIME 74.1 SECONDS (8.83-12.87)
[2019-10-13 06:24] LABS: INR 6.27 (0.8-3.0)
[2019-10-13] MEDS: Glucophage 500 MG PO SCH (08:21)
[2019-10-13] MEDS: Glucotrol Xl 10 MG PO SCH ×3 (08:21→16:00)
[2019-10-13] MEDS: Vitamin C 500 MG PO SCH ×2 (10:35→21:28)
[2019-10-13] MEDS: Coreg 6.25 MG PO SCH ×2 (10:35→21:28)
[2019-10-13] MEDS: FEOSOL 325 MG PO SCH ×2 (10:35→21:28)
[2019-10-13] MEDS: Neurontin 100 MG PO SCH ×3 (10:35→21:28)
[2019-10-13 15:40] LABS: ISTAT CREA 0.7 mg/dL (0.6-1.3)
[2019-10-13 15:42] LABS: Hematocrit 33.1 % (42-50); Hemoglobin 11.5 gm/dl (12.5-18.0); Mean Corpuscular Hemoglobin 30.9 pg (26-32); Mean Corpuscular Hgb Concent. 34.7 g/dl (32-36); Mean Platelet Volume 9.1 fl (6-9.5); Platelet Count 230 K/mm3 (150-450); Red Blood Count 3.72 M/mm3 (4.1-5.6); Red Cell Distribution Width 13.9 % (11.5-14.0); White Blood Count 7.9 K/mm3 (4.0-10.5)
[2019-10-13] MEDS ORDERED: Klor Con 10 MEQ PO ONE (16:26)
[2019-10-13] MEDS ORDERED: Calcium 500MG W/Vit D Tablet ONE (16:26)
[2019-10-13] MEDS: Klor Con 10 MEQ PO SCH ×2 (16:33→19:23)
[2019-10-13] MEDS: Calcium 500MG W/Vit D Tablet PO SCH ×2 (16:33→19:22)
[2019-10-13] MEDS: NovoLOG Insulin SQ PRN ×2 (16:35→21:30)
[2019-10-13] MEDS ORDERED: Cordarone 200 MG PO ONE (19:45)
[2019-10-13] MEDS ORDERED: Cozaar 50 MG PO ONE (19:45)
[2019-10-13] MEDS ORDERED: LASIX 20 MG PO ONE (19:45)
[2019-10-13] MEDS ORDERED: hydroDIURIL 25 MG PO ONE (19:45)
[2019-10-13] MEDS ORDERED: CLARITIN 10 MG PO ONE (19:45)
[2019-10-13] MEDS ORDERED: THERAGRAN MULTIVITAMIN PO ONE (19:45)
[2019-10-13] MEDS: Pepcid 20 MG PO SCH (21:28)
[2019-10-13] MEDS: Levofloxacin 500MG/100ML D5W 500 MG/100 ML BAG IV SCH (21:28)
--- NOTE | 2019-10-13 22:39 | PCM.NOTE ---
Date and Time: 10/13/192233 - Review of Systems Constitutional: Other (was up in chair 4 hours today.), No Fever, No Chills Respiratory: No Cough, No Short Of Breath Cardiac: No Chest Pain, No Edema, No Syncope Abdominal/Gastrointestinal: Abdominal Pain (mild now in periumbilical area), Diarrhea (has improvedonly 1 episode so far today and ) Genitourinary Symptoms: Hematuria, Other (has indwelling catheter and INR is elevated still) Psychological: No Symptoms Objective Exam Neurologic Exam: alert, oriented x 3 Skin Exam: normal color, warm, dry Respiratory Exam: normal breath sounds Cardiovascular Exam: other (rate 90s) Gastrointestinal/Abdomen Exam: soft (increased BS,tender periumbilical-mild,no guarding) OBJECTIVE DATA Vital Signs: Vital Signs - 24 hr Temp Pulse Resp BP Pulse Ox 10/13/19 20:00 18 10/13/19 19:41 96 10/13/19 19:33 98.4 F 73 18 136/63 98 10/13/19 16:46 97.7 F 76 20 126/72 96 10/13/19 15:05 18 10/13/19 12:29 97.6 F 76 18 112/55 96 10/13/19 12:00 18 10/13/19 08:00 20 10/13/19 07:52 95 10/13/19 07:39 98 F 68 20 109/55 97 10/13/19 06:00 91 L 10/13/19 04:00 19 10/13/19 03:39 97.6 F 78 19 128/65 97 10/13/19 00:00 18 10/12/19 23:52 98.2 F 82 18 119/59 95 Oxygen-Last 24 hours O2 Percentage 3 Liters = 32% O2 Percentage 2 Liters = 28% O2 Percentage 3 Liters = 32% O2 Percentage 2 Liters = 28% Pain Assessment - Last Documented Pain Intensity 0 Pain Scale Used 0-10 Pain Scale Intake and Output: Intake & Output 10/11/19 10/12/19 10/13/19 10/14/19 11:59 11:59 11:59 11:59 Intake Total 1574 4258 120 Output Total 700 2200 1000 Balance 874 8 -880 Weight 85 kg 89.1 kg Lab Results: Lab Results-Last 24 Hours 10/12/19 10/13/19 10/13/19 Range/Units 00:39 05:40 15:02 WBC (4.0-10.5) K/mm3 RBC (4.1-5.6) M/mm3 Hgb (12.5-18.0) gm/dl Hct (42-50) % MCV (78-100) fl MCH (26-32) pg MCHC (32-36) g/dl RDW (11.5-14.0) % Plt Count (150-450) K/mm3 MPV (6-9.5) fl PT 74.1 H (8.83-12.87) SECONDS INR 6.27 H* (0.8-3.0) Sodium Direct 137 L (138-146) mmol/L Potassium 3.3 L (3.5-4.9) mmol/L Chloride 100 (98-109) mmol/L Carbon Dioxide 21 L (24-29) mmol/L Venous BUN 14 (8-26) mg/dL Creatinine 0.7 (0.6-1.3) mg/dL Glucose 234 H (70-105) mg/dL Ionized Calcium 1.10 L (1.12-1.32) mmol/L Stool Occult Bld Scrn NEGATIVE (NEGATIVE) 10/13/19 Range/Units 15:25 WBC 7.9 (4.0-10.5) K/mm3 RBC 3.72 L (4.1-5.6) M/mm3 Hgb 11.5 L (12.5-18.0) gm/dl Hct 33.1 L (42-50) % MCV 89.0 (78-100) fl MCH 30.9 (26-32) pg MCHC 34.7 (32-36) g/dl RDW 13.9 (11.5-14.0) % Plt Count 230 (150-450) K/mm3 MPV 9.1 (6-9.5) fl PT (8.83-12.87) SECONDS INR (0.8-3.0) Sodium Direct (138-146) mmol/L Potassium (3.5-4.9) mmol/L Chloride (98-109) mmol/L Carbon Dioxide (24-29) mmol/L Venous BUN (8-26) mg/dL Creatinine (0.6-1.3) mg/dL Glucose (70-105) mg/dL Ionized Calcium (1.12-1.32) mmol/L Stool Occult Bld Scrn (NEGATIVE) Multi-Disciplinary Progress Notes: Multi-Disciplinary Progress Notes 10/13/19 02:43 Respiratory Note by Marichuy Dorsey CHANGED PT TO OXYMASK DUE TO MOUTH BREATHING AND DECREASED SATS. SATS UP TO 97% ON 3L OXYMASK. Initialized on 10/13/19 02:43 - END OF NOTE Assessment/Plan (1) Enterocolitis Current Visit: Yes Status: Acute Assessment & Plan: clinically improved Code(s): K52.9 - NONINFECTIVE GASTROENTERITIS AND COLITIS, UNSPECIFIED (2) Chronic atrial fibrillation Current Visit: Yes Status: Chronic Code(s): I48.20 - CHRONIC ATRIAL FIBRILLATION, UNSPECIFIED (3) penitentiary (current) use of 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 Current Visit: Yes Status: Chronic Assessment & Plan: elevated INR-continue to hold Coumadin and test daily Code(s): Z79.01 - ACADEMIC REGISTRAR (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 OF 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 (4) History of CVA with residual deficit Current Visit: Yes Status: Resolved Code(s): I69.30 - UNSPECIFIED SEQUELAE OF CEREBRAL INFARCTION (5) Hypokalemia Current Visit: Yes Status: Acute Assessment & Plan: restarted oral potassium and is in IV also ,monitor Code(s): E87.6 - HYPOKALEMIA
[2019-10-14] MEDS: FLAGYL 500 MG IVPB 500 MG/100 ML BAG IV SCH ×5 (00:13→23:35)
[2019-10-14] MEDS: Sodium Chloride 0.9% W/ 20 mEq KCl/LITER 1,000 ML IV SCH ×2 (03:52→20:17)
[2019-10-14 05:18] LABS: Hematocrit 31.5 % (42-50); Hemoglobin 10.8 gm/dl (12.5-18.0); Mean Corpuscular Hgb Concent. 34.3 g/dl (32-36); Mean Platelet Volume 9.6 fl (6-9.5); Platelet Count 246 K/mm3 (150-450); Red Cell Distribution Width 13.9 % (11.5-14.0); White Blood Count 8.5 K/mm3 (4.0-10.5)
[2019-10-14 05:22] LABS: Mean Corpuscular Hemoglobin 30.8 pg (26-32)
[2019-10-14 05:44] LABS: Basophil 1 % (0.0-1.0); Eosinophil 2 % (0.00-3.0); Lymphocytes 27 % (24-44); Monocyte 6 % (0.0-12.0); Neutrophils 64 % (36.-66.); Total Cells Counted 100
[2019-10-14 05:45] LABS: Toxic Granulation 1+
[2019-10-14 05:46] LABS: PROTIME 60.4 SECONDS (8.83-12.87); Platelet Estimate NORMAL (NORMAL); Poikilocytosis 1+; Polychromasia 1+
[2019-10-14 05:47] LABS: INR 5.17 (0.8-3.0)
[2019-10-14] MEDS ORDERED: LIDOCAINE TOP PRN (07:20)
[2019-10-14] MEDS ORDERED: Lidoderm Patch 5% TOP PRN (07:29)
[2019-10-14] MEDS: Glucophage 500 MG PO SCH (07:49)
[2019-10-14] MEDS: Glucotrol Xl 10 MG PO SCH ×2 (07:50→17:04)
[2019-10-14] MEDS: Lantus Insulin SQ SCH (07:50)
--- NOTE | 2019-10-14 08:19 | PCM.NOTE ---
Date and Time: 10/14/19817 Subjective Assessment: still has some diarrhea but is improving well, no specific problems or concerns. tolerating po Objective Exam General Appearance: no apparent distress, alert Skin Exam: normal color, warm, dry Respiratory Exam: normal breath sounds, lungs clear, No respiratory distress Cardiovascular Exam: regular rate/rhythm, normal heart sounds Gastrointestinal/Abdomen Exam: soft, No tenderness, No mass Extremity Exam: normal inspection, normal range of motion OBJECTIVE DATA Vital Signs: Vital Signs - 24 hr Temp Pulse Resp BP Pulse Ox 10/14/19 07:59 98.0 F 119 H 23 149/78 96 10/14/19 06:57 95 10/14/19 04:00 97.9 F 106 H 17 145/70 94 L 10/14/19 00:00 20 10/13/19 23:39 98.4 F 108 H 20 140/60 97 10/13/19 20:00 18 10/13/19 19:41 96 10/13/19 19:33 98.4 F 73 18 136/63 98 10/13/19 16:46 97.7 F 76 20 126/72 96 10/13/19 15:05 18 10/13/19 12:29 97.6 F 76 18 112/55 96 10/13/19 12:00 18 Oxygen-Last 24 hours O2 Percentage 3 Liters = 32% O2 Percentage 3 Liters = 32% O2 Percentage 3 Liters = 32% Pain Assessment - Last Documented Pain Intensity 0 Pain Scale Used FLACC Intake and Output: Intake & Output 10/11/19 10/12/19 10/13/19 10/14/19 11:59 11:59 11:59 11:59 Intake Total 1574 4258 3038 Output Total 700 2200 1625 Balance 874 2058 1413 Weight 85 kg 89.1 kg 88.7 kg Lab Results: Lab Results-Last 24 Hours 10/13/19 10/13/19 10/14/19 Range/Units 15:02 15:25 04:40 WBC 7.9 (4.0-10.5) K/mm3 RBC 3.72 L (4.1-5.6) M/mm3 Hgb 11.5 L (12.5-18.0) gm/dl Hct 33.1 L (42-50) % MCV 89.0 (78-100) fl MCH 30.9 (26-32) pg MCHC 34.7 (32-36) g/dl RDW 13.9 (11.5-14.0) % Plt Count 230 (150-450) K/mm3 MPV 9.1 (6-9.5) fl Segmented Neutrophils (36.-66.) % Lymphocytes (Manual) (24-44) % Monocytes (Manual) (0.0-12.0) % Eosinophils (Manual) (0.00-3.0) % Basophils (Manual) (0.0-1.0) % Toxic Granulation Platelet Estimate (NORMAL) RBC Morphology Polychromasia Poikilocytosis PT 60.4 H (8.83-12.87) SECONDS INR 5.17 H* (0.8-3.0) Sodium Direct 137 L (138-146) mmol/L Potassium 3.3 L (3.5-4.9) mmol/L Chloride 100 (98-109) mmol/L Carbon Dioxide 21 L (24-29) mmol/L Venous BUN 14 (8-26) mg/dL Creatinine 0.7 (0.6-1.3) mg/dL Glucose 234 H (70-105) mg/dL Ionized Calcium 1.10 L (1.12-1.32) mmol/L 10/14/19 10/14/19 Range/Units 04:40 04:40 WBC 8.5 (4.0-10.5) K/mm3 RBC 3.50 L (4.1-5.6) M/mm3 Hgb 10.8 L (12.5-18.0) gm/dl Hct 31.5 L (42-50) % MCV 90.0 (78-100) fl MCH 30.8 (26-32) pg MCHC 34.3 (32-36) g/dl RDW 13.9 (11.5-14.0) % Plt Count 246 (150-450) K/mm3 MPV 9.6 H (6-9.5) fl Segmented Neutrophils 64 (36.-66.) % Lymphocytes (Manual) 27 (24-44) % Monocytes (Manual) 6 (0.0-12.0) % Eosinophils (Manual) 2 (0.00-3.0) % Basophils (Manual) 1 (0.0-1.0) % Toxic Granulation 1+ Platelet Estimate NORMAL (NORMAL) RBC Morphology ABNORMAL Polychromasia 1+ Poikilocytosis 1+ PT (8.83-12.87) SECONDS INR (0.8-3.0) Sodium Direct (138-146) mmol/L Potassium (3.5-4.9) mmol/L Chloride (98-109) mmol/L Carbon Dioxide (24-29) mmol/L Venous BUN (8-26) mg/dL Creatinine (0.6-1.3) mg/dL Glucose SUPERVISOR CRACK OFF (70-105) mg/dL Ionized Calcium (1.12-1.32) mmol/L Assessment/Plan (1) Enterocolitis Current Visit: Yes Status: Acute Assessment & Plan: continue levaquin/flagyl, clinically improving. 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
[2019-10-14] MEDS ORDERED: B12 PO SCH (10:00)
[2019-10-14] MEDS ORDERED: DESLORATADINE PO SCH (10:00)
[2019-10-14] MEDS ORDERED: INSULIN GLARGINE HUM REC ANLOG 35 UNIT SQ SCH (10:00)
[2019-10-14] MEDS ORDERED: LOSARTAN PO SCH (10:00)
[2019-10-14] MEDS ORDERED: ALA PO SCH (10:00)
[2019-10-14] MEDS ORDERED: THFOLATE PO SCH (10:00)
[2019-10-14] MEDS ORDERED: VIT B6 PO SCH (10:00)
[2019-10-14] MEDS ORDERED: NON-FORMULARY ITEM (Multivitamin [Multivitamins] 1 TAB) PO SCH (10:00)
[2019-10-14] MEDS ORDERED: HYDROCHLOROTHIAZIDE PO SCH (10:00)
[2019-10-14] MEDS ORDERED: NON-FORMULARY ITEM (Magnesium Oxide [Magnesium] 400 MG) PO SCH (10:00)
[2019-10-14] MEDS: CLARITIN 10 MG PO SCH (10:06)
[2019-10-14] MEDS: THERAGRAN MULTIVITAMIN PO SCH (10:07)
[2019-10-14] MEDS: Neurontin 100 MG PO SCH ×3 (10:07→20:51)
[2019-10-14] MEDS: hydroDIURIL 25 MG PO SCH (10:07)
[2019-10-14] MEDS: Cozaar 50 MG PO SCH (10:09)
[2019-10-14] MEDS: Coreg 6.25 MG PO SCH ×2 (10:09→20:51)
[2019-10-14] MEDS: Vitamin C 500 MG PO SCH ×2 (10:09→20:48)
[2019-10-14] MEDS: LASIX 20 MG PO SCH (10:09)
[2019-10-14] MEDS: FEOSOL 325 MG PO SCH ×2 (10:10→20:51)
[2019-10-14] MEDS: Cordarone 200 MG PO SCH (10:11)
[2019-10-14] MEDS: NovoLOG Insulin SQ PRN ×2 (11:57→18:35)
[2019-10-14] MEDS ORDERED: Cozaar 50 MG PO ONE (19:45)
[2019-10-14] MEDS: Levofloxacin 500MG/100ML D5W 500 MG/100 ML BAG IV SCH (20:48)
[2019-10-14] MEDS: ZOCOR 20MG PO SCH (20:48)
[2019-10-14] MEDS: Klor Con 10 MEQ PO SCH (20:51)
[2019-10-14] MEDS: Pepcid 20 MG PO SCH (20:51)
[2019-10-14] MEDS: Calcium 500MG W/Vit D Tablet PO SCH (20:51)
[2019-10-15] MEDS: PATIENT OWN MEDICATION IH PRN ×2 (00:10→07:50)
[2019-10-15 05:07] LABS: Hematocrit 32.1 % (42-50); Mean Cell Volume 89.4 fl (78-100); Mean Corpuscular Hemoglobin 30.6 pg (26-32); Mean Corpuscular Hgb Concent. 34.3 g/dl (32-36); Mean Platelet Volume 9.1 fl (6-9.5); Platelet Count 281 K/mm3 (150-450); Red Blood Count 3.59 M/mm3 (4.1-5.6); Red Cell Distribution Width 14.1 % (11.5-14.0); White Blood Count 9.4 K/mm3 (4.0-10.5)
[2019-10-15 05:21] LABS: ANION GAP 12.5 MEQ/L (5-15); BLOOD UREA NITROGEN 9 mg/dL (9-20); CHLORIDE 106 mmol/L (98-107); Carbon Dioxide 26 mmol/L (22-30); Glucose 97 mg/dL (74-106); Potassium 3.4 mmol/L (3.5-5.1); SODIUM 141 mmol/L (137-145)
[2019-10-15 05:22] LABS: INR 4.97 (0.8-3.0)
[2019-10-15] MEDS: FLAGYL 500 MG IVPB 500 MG/100 ML BAG IV SCH ×4 (06:14→23:15)
[2019-10-15] MEDS: Sodium Chloride 0.9% W/ 20 mEq KCl/LITER 1,000 ML IV SCH (08:18)
[2019-10-15 08:29] LABS: BAND 4 % (0.0-2.0); Basophil 1 % (0.0-1.0); Eosinophil 2 % (0.00-3.0); Lymphocytes 31 % (24-44); Metamyelocyte 2 %; Monocyte 5 % (0.0-12.0); Neutrophils 55 % (36.-66.); Platelet Estimate NORMAL (NORMAL); Total Cells Counted 100
[2019-10-15] MEDS: MAG-OX 400 PO SCH (08:39)
[2019-10-15] MEDS: Cozaar 50 MG PO SCH (08:39)
[2019-10-15] MEDS: Glucotrol Xl 10 MG PO SCH ×2 (08:39→17:31)
[2019-10-15] MEDS: Neurontin 100 MG PO SCH ×3 (08:39→23:15)
[2019-10-15] MEDS: Glucophage 500 MG PO SCH (08:39)
[2019-10-15] MEDS: CLARITIN 10 MG PO SCH (08:39)
[2019-10-15] MEDS: hydroDIURIL 25 MG PO SCH (08:40)
[2019-10-15] MEDS: THERAGRAN MULTIVITAMIN PO SCH (08:40)
[2019-10-15] MEDS: PLAVIX 75 MG Tablet PO SCH (08:40)
[2019-10-15] MEDS: Coreg 6.25 MG PO SCH ×2 (08:40→23:15)
[2019-10-15] MEDS: Vitamin C 500 MG PO SCH ×2 (08:40→23:15)
[2019-10-15] MEDS: LASIX 20 MG PO SCH (08:41)
[2019-10-15] MEDS: Cordarone 200 MG PO SCH (08:41)
[2019-10-15] MEDS: FOLTX (FOLBIC) PO SCH (08:41)
[2019-10-15] MEDS: Lantus Insulin SQ SCH (08:41)
[2019-10-15] MEDS: FEOSOL 325 MG PO SCH ×2 (08:43→23:16)
--- NOTE | 2019-10-15 08:49 | PCM.NOTE ---
Date and Time: 10/15/19 0844 Subjective Assessment: Pt denies any BMs since yesterday a.m. about 7. He is not having abd pain. Said he has been up and walked twice yesterday with staff. Arely po. Objective Exam General Appearance: no apparent distress, alert Neurologic Exam: cooperative, normal mood/affect Skin Exam: normal color, warm, dry, No rash Ears, Nose, Throat Exam: moist mucous membranes Neck Exam: normal inspection Respiratory Exam: lungs clear, diminished breath sounds, No crackles/rales, No rhonchi, No wheezing Cardiovascular Exam: normal heart sounds, irregular, No murmur Gastrointestinal/Abdomen Exam: soft, normal bowel sounds, No tenderness, No distention, No mass, No guarding, No rebound Extremity Exam: normal inspection, No pedal edema, No swelling Back Exam: normal inspection, No rash OBJECTIVE DATA Vital Signs: Vital Signs - 24 hr Temp Pulse Resp BP Pulse Ox 10/15/19 07:57 98.1 F 70 19 144/66 96 10/15/19 07:50 68 18 93 L 10/15/19 04:00 97.6 F 67 20 128/67 97 10/15/19 00:10 67 20 97 10/15/19 00:00 97.6 F 67 20 128/67 97 10/14/19 20:00 20 10/14/19 19:37 84 20 110/73 95 10/14/19 19:04 95 10/14/19 16:00 20 10/14/19 15:53 98.2 F 73 20 110/59 98 10/14/19 12:00 21 10/14/19 11:53 98.2 F 93 H 21 137/69 96 Pain Assessment - Last Documented Pain Intensity 0 Pain Scale Used 0-10 Pain Scale Intake and Output: Intake & Output 10/12/19 10/13/19 10/14/19 10/15/19 11:59 11:59 11:59 11:59 Intake Total 1574 4258 3338 3312 Output Total 700 2200 1625 2900 Balance 874 2058 1713 412 Weight 85 kg 89.1 kg 88.7 kg 89.8 kg Lab Results: Lab Results-Last 24 Hours 10/15/19 10/15/19 10/15/19 Range/Units 04:55 04:55 04:55 WBC 9.4 (4.0-10.5) K/mm3 RBC 3.59 L (4.1-5.6) M/mm3 Hgb 11.0 L (12.5-18.0) gm/dl Hct 32.1 L (42-50) % MCV 89.4 (78-100) fl MCH 30.6 (26-32) pg MCHC 34.3 (32-36) g/dl RDW 14.1 H (11.5-14.0) % Plt Count 281 (150-450) K/mm3 MPV 9.1 (6-9.5) fl Segmented Neutrophils 55 (36.-66.) % Band Neutrophils 4 H (0.0-2.0) % Lymphocytes (Manual) 31 (24-44) % Monocytes (Manual) 5 (0.0-12.0) % Eosinophils (Manual) 2 (0.00-3.0) % Basophils (Manual) 1 (0.0-1.0) % Metamyelocytes 2 % Platelet Estimate NORMAL (NORMAL) RBC Morphology NORMAL PT 58.0 H (8.83-12.87) SECONDS INR 4.97 H (0.8-3.0) Sodium 141 (137-145) mmol/L Potassium 3.4 L (3.5-5.1) mmol/L Chloride 106 (98-107) mmol/L Carbon Dioxide 26 (22-30) mmol/L Anion Gap 12.5 (5-15) MEQ/L BUN 9 (9-20) mg/dL Creatinine 0.60 L (0.66-1.25) mg/dL Estimated GFR > 60.0 ML/MIN Glucose 97 (74-106) mg/dL Calcium 8.0 L (8.4-10.2) mg/dL Multi-Disciplinary Progress Notes: Multi-Disciplinary Progress Notes 10/14/19 17:13 Case Management Note by Mary Castle SPOKE TO PATIENT IN DEPTH IN REGARDS TO D/C PLANS. SEE CASE MANAGEMENT D/C SUMMARY. PT PLANS TO D/C TO HOME WITH [facility]. GIVEN A LIST OF PROVIDERS FOR D/C. PT HAS HOME O2 AT NIGHT BUT DOES NOT ALWAYS WEAR. MAY NEED REFERRAL TO OXYGEN PROVIDER, THINKS KER[facility] IS THE PROVIDER. HAS [facility]. WILL FOLLOW UNTIL D/C Initialized on 11/18/19 17:13 - END OF NOTE 10/14/19 15:15 Pharmacy Note by Harvinder Horner Tomorrow (10/15/19) is day 4 of Levaquin IV and Flagyl IV. Recommend changing to oral when able. Initialized on 10/14/19 15:15 - END OF NOTE Assessment/Plan (1) Enterocolitis Current Visit: Yes Status: Acute Assessment & Plan: Much improved. On IV levaquin and flagyl. Code(s): K52.9 - NONINFECTIVE GASTROENTERITIS AND COLITIS, UNSPECIFIED (2) Chronic atrial fibrillation Current Visit: Yes Status: Chronic Code(s): I48.20 - CHRONIC ATRIAL FIBRILLATION, UNSPECIFIED (3) shelter (current) use of 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 Current Visit: Yes Status: Chronic Assessment & Plan: INR still elevated, 4.97 this a.m. down from 5.17 yesterday. Will continue to hold coumadin today and recheck again in the morning. Code(s): Z79.01 - RETIREMENT (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 OF 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 (4) History of CVA with residual deficit Current Visit: Yes Status: Chronic Assessment & Plan: Would like to ensure he is functionally appropriate to go home before discharge ; he states he lives by himself. Code(s): I69.30 - UNSPECIFIED SEQUELAE OF CEREBRAL INFARCTION
[2019-10-15] MEDS: NovoLOG Insulin SQ PRN ×2 (12:13→17:31)
[2019-10-15] MEDS: Levofloxacin 500MG/100ML D5W 500 MG/100 ML BAG IV SCH (23:13)
[2019-10-15] MEDS: Klor Con 10 MEQ PO SCH (23:14)
[2019-10-15] MEDS: Pepcid 20 MG PO SCH (23:15)
[2019-10-15] MEDS: ZOCOR 20MG PO SCH (23:15)
[2019-10-15] MEDS: Calcium 500MG W/Vit D Tablet PO SCH (23:16)
[2019-10-16] MEDS: Sodium Chloride 0.9% W/ 20 mEq KCl/LITER 1,000 ML IV SCH ×2 (01:45→07:47)
[2019-10-16 06:35] LABS: INR 4.2 (0.8-3.0); PROTIME 48.9 SECONDS (8.83-12.87)
[2019-10-16] MEDS: FLAGYL 500 MG IVPB 500 MG/100 ML BAG IV SCH ×4 (06:56→23:15)
[2019-10-16] MEDS: Lantus Insulin SQ SCH (07:48)
[2019-10-16] MEDS: Glucotrol Xl 10 MG PO SCH ×2 (07:48→17:51)
[2019-10-16] MEDS: Glucophage 500 MG PO SCH (07:48)
--- NOTE | 2019-10-16 08:39 | PCM.NOTE ---
Date and Time: 10/16/19 0838 Subjective Assessment: patient reports last stool was yesterday morning, tolerating po intake and denies adominal pain or nausea/vomiting Objective Exam General Appearance: no apparent distress, alert Eye Exam: PERRL, EOMI, eyes nml inspection Respiratory Exam: normal breath sounds, lungs clear, No respiratory distress Cardiovascular Exam: regular rate/rhythm, normal heart sounds Gastrointestinal/Abdomen Exam: soft, No tenderness, No mass Extremity Exam: normal inspection, normal range of motion OBJECTIVE DATA Vital Signs: Vital Signs - 24 hr Temp Pulse Resp BP Pulse Ox 10/16/19 08:15 65 18 96 10/16/19 08:00 97.8 F 66 17 138/66 96 10/16/19 04:00 98.0 F 59 L 20 136/65 97 10/16/19 00:00 98.3 F 80 18 177/80 95 10/15/19 20:00 98.3 F 70 18 157/70 95 10/15/19 19:24 98 10/15/19 16:00 98.2 F 69 22 194/86 94 L 10/15/19 12:00 22 10/15/19 11:57 98.4 F 65 22 148/70 93 L Pain Assessment - Last Documented Pain Intensity 0 Pain Scale Used 0-10 Pain Scale Intake and Output: Intake & Output 10/13/19 10/14/19 10/15/19 10/16/19 11:59 11:59 11:59 11:59 Intake Total 4258 3338 3712 1920 Output Total 2200 1625 2900 5100 Balance 2058 1713 812 -3180 Weight 89.1 kg 88.7 kg 89.8 kg 91 kg Lab Results: Lab Results-Last 24 Hours 10/16/19 Range/Units 05:40 PT 48.9 H (8.83-12.87) SECONDS INR 4.20 H (0.8-3.0) Multi-Disciplinary Progress Notes: Multi-Disciplinary Progress Notes 10/15/19 11:01 Case Management Note by Mag Butler VISITED WITH PT AND REVIEWED DISCHARGE PLAN, REPORTS THAT HE IS NORMALLY INDEPENDENT WITH ALL ADL'S. ENCOURAGED C SERVICES FOR DISCHARGE. PT REPORTS THAT HE WILL THINK ABOUT IT, BUT DOESN'T REALLY FEEL THEY WILL BE NECESSARY. DENIES ADDNL NEEDS AT PRESENT TIME. WILL FOLLOW. 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
[2019-10-16 08:53] LABS: Prostate Specific Antigen 12.2 ng/mL (<=7.20)
[2019-10-16] MEDS: Cordarone 200 MG PO SCH (10:37)
[2019-10-16] MEDS: CLARITIN 10 MG PO SCH (10:37)
[2019-10-16] MEDS: THERAGRAN MULTIVITAMIN PO SCH (10:37)
[2019-10-16] MEDS: Coreg 6.25 MG PO SCH ×2 (10:37→21:35)
[2019-10-16] MEDS: MAG-OX 400 PO SCH (10:37)
[2019-10-16] MEDS: Vitamin C 500 MG PO SCH ×2 (10:37→21:37)
[2019-10-16] MEDS: Neurontin 100 MG PO SCH ×3 (10:37→21:36)
[2019-10-16] MEDS: FOLTX (FOLBIC) PO SCH (10:38)
[2019-10-16] MEDS: FEOSOL 325 MG PO SCH ×2 (10:38→21:35)
[2019-10-16] MEDS: PLAVIX 75 MG Tablet PO SCH (10:38)
[2019-10-16] MEDS: Cozaar 50 MG PO SCH (10:38)
[2019-10-16] MEDS: LASIX 20 MG PO SCH (10:38)
[2019-10-16] MEDS: hydroDIURIL 25 MG PO SCH (10:38)
[2019-10-16] MEDS: Calcium 500MG W/Vit D Tablet PO SCH (21:35)
[2019-10-16] MEDS: Klor Con 10 MEQ PO SCH (21:36)
[2019-10-16] MEDS: Levofloxacin 500MG/100ML D5W 500 MG/100 ML BAG IV SCH (21:36)
[2019-10-16] MEDS: Pepcid 20 MG PO SCH (21:36)
[2019-10-16] MEDS: ZOCOR 20MG PO SCH (21:38)
[2019-10-16] MEDS: NovoLOG Insulin SQ PRN (21:38)
[2019-10-17] MEDS: Sodium Chloride 0.9% W/ 20 mEq KCl/LITER 1,000 ML IV SCH (01:28)
[2019-10-17 05:11] LABS: Hematocrit 33.7 % (42-50); Hemoglobin 11.6 gm/dl (12.5-18.0); Mean Cell Volume 90.1 fl (78-100); Mean Corpuscular Hgb Concent. 34.4 g/dl (32-36); Mean Platelet Volume 11.1 fl (6-9.5); Platelet Count 171 K/mm3 (150-450); Red Blood Count 3.74 M/mm3 (4.1-5.6); White Blood Count 6.3 K/mm3 (4.0-10.5)
[2019-10-17 05:20] LABS: INR 3.05 (0.8-3.0); PROTIME 35.3 SECONDS (8.83-12.87)
[2019-10-17 05:21] LABS: ANION GAP 10.6 MEQ/L (5-15); BLOOD UREA NITROGEN 10 mg/dL (9-20); CHLORIDE 102 mmol/L (98-107); Calcium 8.4 mg/dL (8.4-10.2); Carbon Dioxide 28 mmol/L (22-30); Creatinine 1 0.56 mg/dL (0.66-1.25); Glucose 237 mg/dL (74-106); Potassium 3.9 mmol/L (3.5-5.1); SODIUM 137 mmol/L (137-145)
[2019-10-17] MEDS: FLAGYL 500 MG IVPB 500 MG/100 ML BAG IV SCH (06:12)
[2019-10-17 07:07] LABS: ANISOCYTOSIS 1+; BAND 2 % (0.0-2.0); Eosinophil 1 % (0.00-3.0); Lymphocytes 17 % (24-44); Monocyte 6 % (0.0-12.0); Neutrophils 74 % (36.-66.); Platelet Estimate NORMAL (NORMAL); Poikilocytosis 1+; Polychromasia 1+; Total Cells Counted 100
[2019-10-17 07:42] VITALS: BP 123/58; PULSE 66
[2019-10-17 07:52] VITALS: O2SAT 94
--- NOTE | 2019-10-17 08:04 | PCM.DS ---
Discharge Summary Date of Admission: 10/11/19 21:38 Admitting Physician: MARLON SCHROEDER Primary Care Provider: MARLON SCHROEDER Allergies Allergies No Known Drug Allergies Allergy (Verified 10/11/19 17:18) Hospital Summary - Hospital Course Hospital Course: patient was admitted with abdominal pain and diarrhea, found to have enterocolitis and treated with levaquin and flagyl, diarrhea and pain have resolved and he is tolerating a regular diet without difficulty. has weakness residual from CVA and is deconditioned. - Vitals & Intake/Output Vital Signs: Vital Signs Temperature 97.6 F 10/17/19 07:41 Pulse Rate 66 10/17/19 07:41 Respiratory Rate 22 10/17/19 07:41 Blood Pressure 123/58 10/17/19 07:41 O2 Sat by Pulse Oximetry 94 L 10/17/19 07:50 Oxygen-Last Documented O2 Percentage 3 Liters = 32% Intake & Output: Intake & Output 10/14/19 10/15/19 10/16/19 10/17/19 11:59 11:59 11:59 11:59 Intake Total 3338 3712 2040 2200 Output Total 1625 2900 5100 1250 Balance 1713 812 -3060 950 Weight 88.7 kg 89.8 kg 91 kg 91.2 kg - Lab Result Diagrams: 10/15/19 04:55 10/17/19 04:30 Lab Results-Last 24 Hrs: Lab Results-Last 24 Hours 10/15/19 10/17/19 10/17/19 Range/Units 04:55 04:30 04:30 WBC Pending RBC Pending Hgb Pending Hct Pending MCV Pending MCH Pending MCHC Pending RDW Pending Plt Count Pending MPV Pending Segmented Neutrophils 74 H (36.-66.) % Band Neutrophils 2 (0.0-2.0) % Lymphocytes (Manual) 17 L (24-44) % Monocytes (Manual) 6 (0.0-12.0) % Eosinophils (Manual) 1 (0.00-3.0) % Platelet Estimate NORMAL (NORMAL) RBC Morphology ABNORMAL Polychromasia 1+ Poikilocytosis 1+ Anisocytosis 1+ PT (8.83-12.87) SECONDS INR (0.8-3.0) Sodium 137 (137-145) mmol/L Potassium 3.9 (3.5-5.1) mmol/L Chloride 102 (98-107) mmol/L Carbon Dioxide 28 (22-30) mmol/L Anion Gap 10.6 (5-15) MEQ/L BUN 10 (9-20) mg/dL Creatinine 0.56 L (0.66-1.25) mg/dL Estimated GFR > 60.0 ML/MIN Glucose 237 H (74-106) mg/dL Calcium 8.4 (8.4-10.2) mg/dL Prostate Specific Ag 12.20 H (<=7.20) ng/mL Free PSA 10 % 10/17/19 Range/Units 04:30 WBC RBC Hgb Hct MCV MCH MCHC RDW Plt Count MPV Segmented Neutrophils (36.-66.) % Band Neutrophils (0.0-2.0) % Lymphocytes (Manual) (24-44) % Monocytes (Manual) (0.0-12.0) % Eosinophils (Manual) (0.00-3.0) % Platelet Estimate (NORMAL) RBC Morphology Polychromasia Poikilocytosis Anisocytosis PT 35.3 H (8.83-12.87) SECONDS INR 3.05 H (0.8-3.0) Sodium (137-145) mmol/L Potassium (3.5-5.1) mmol/L Chloride (98-107) mmol/L Carbon Dioxide (22-30) mmol/L Anion Gap (5-15) MEQ/L BUN (9-20) mg/dL Creatinine (0.66-1.25) mg/dL Estimated GFR ML/MIN Glucose (74-106) mg/dL Calcium (8.4-10.2) mg/dL Prostate Specific Ag (<=7.20) ng/mL Free PSA % Micro Results-Entire Visit: Microbiology 10/12/19 00:31 Urine Culture - Final Catherized NO GROWTH - Procedures and Test Procedures and Tests throughout Hospitalization: Therapy Orders & Screens 10/11/19 22:36 Oxygen Nasal Cannula 2 lpm Comment: Diagnosis: enterocolitis 10/14/19 08:00 PT Eval & Treat (MD Order) ROUTINE Reason for Eval:: Weakness Diagnosis: enterocolitis 10/15/19 00:10 Respiratory MDI PRN Comment: PT'S HOME MEDICATION PROAIR HFA Q4HPRN 2 PUFFS Diagnosis: nausea vomiting ,diarrhea,abdominal pain,difficulty walking -left knee pain 10/15/19 00:17 Peak Expiratory Flow Rate ONCE Comment: Reason For Exam: Diagnosis: nausea vomiting ,diarrhea,abdominal pain,difficulty walking -left knee pain Respiratory Therapy Assessment DAILY Comment: Diagnosis: nausea vomiting ,diarrhea,abdominal pain,difficulty walking -left knee pain Discharge Exam General Appearance: no apparent distress, alert Eye Exam: PERRL, EOMI, eyes nml inspection Respiratory Exam: normal breath sounds, lungs clear, No respiratory distress Cardiovascular Exam: regular rate/rhythm, normal heart sounds Gastrointestinal/Abdomen Exam: soft, No tenderness, No mass Skin Exam: normal color, warm, dry Final Diagnosis/Problem List - Final Discharge Diagnosis/Problem (1) Enterocolitis Current Visit: Yes Status: Acute Assessment & Plan: symptoms resolved, will d/c abx and fluids since tolerating po and no pain or diarrhea. Code(s): K52.9 - NONINFECTIVE GASTROENTERITIS AND COLITIS, UNSPECIFIED (2) Chronic atrial fibrillation Current Visit: Yes Status: Chronic Code(s): I48.20 - CHRONIC ATRIAL FIBRILLATION, UNSPECIFIED (3) residential (current) use of 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 Current Visit: Yes Status: Chronic Assessment & Plan: INR is improving, coumadin on hold, has been supratherapeutic on arrival Code(s): Z79.01 - LONGTERM (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 OF 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 (4) History of CVA with residual deficit Current Visit: Yes Status: Chronic Assessment & Plan: swingbed for weakness and deconditioning for PT/OT Code(s): I69.30 - UNSPECIFIED SEQUELAE OF CEREBRAL INFARCTION (5) Muscular deconditioning Current Visit: Yes Status: Acute Code(s): R29.898 - OTH SYMPTOMS AND SIGNS INVOLVING THE MUSCULOSKELETAL SYSTEM - Discharge Disposition: Swing Bed @ [facility] Condition: Fair Prescriptions: No Action Glipizide [Glucotrol Xl] 10 mg PO BID Ferrous Sulfate 325 mg [Feosol 325 mg] 325 mg PO BID Metformin HCl [Metformin HCl ER] 1,000 mg PO BID Clopidogrel Bisulfate 75 mg [PLAVIX 75 MG Tablet] 75 mg PO DAILY Famotidine [Pepcid] 40 mg PO HS Carvedilol 6.25 mg [Coreg 6.25 MG] 6.25 mg PO BID #60 tablet Desloratadine [Clarinex] 1 tab PO DAILY Cinnamon Bark [Cinnamon] 1,000 mg PO DAILY Atorvastatin Calcium 80 mg PO HS Ascorbic Acid [Vitamin C] 250 mg PO BID Insulin Glargine,Hum.rec.anlog [Basaglar Kwikpen U-100] 35 units SQ DAILY Gabapentin 100 mg PO TID Furosemide 20 mg [Lasix 20 mg] 1 tab PO DAILY Vit B6/Me-Thfolate/Me-B12/Ala [Nufola Capsule] 1 tab PO DAILY Potassium Chloride 10 Meq Tab* [Klor Con 10 MEQ] 2 tab PO DAILY Multivitamin [Multivitamins] 1 tab PO DAILY Magnesium Oxide [Magnesium] 400 mg PO DAILY Losartan/Hydrochlorothiazide [Losartan-Hctz 100-25 mg Tab] 0.5 tab PO DAILY Lidocaine [Lidocaine Pain Relief] 1 patch TOP DAILY PRN PRN Reason: Pain Amiodarone HCl 1 tab PO DAILY Warfarin Sodium 2 mg [Coumadin 2 MG] 2 mg PO DAILY Follow up with: MARLON SCHROEDER MD [Primary Care Provider] - 1 Week
[2019-10-17] MEDS: Glucotrol Xl 10 MG PO SCH (08:08)
[2019-10-17] MEDS: Glucophage 500 MG PO SCH (08:08)
[2019-10-17] MEDS: Lantus Insulin SQ SCH (08:09)
[2019-10-17] MEDS: PLAVIX 75 MG Tablet PO SCH (09:13)
[2019-10-17] MEDS: FEOSOL 325 MG PO SCH (09:14)
[2019-10-17] MEDS: Cozaar 50 MG PO SCH (09:14)
[2019-10-17] MEDS: Neurontin 100 MG PO SCH (09:14)
[2019-10-17] MEDS: MAG-OX 400 PO SCH (09:15)
[2019-10-17] MEDS: THERAGRAN MULTIVITAMIN PO SCH (09:15)
[2019-10-17] MEDS: LASIX 20 MG PO SCH (09:15)
[2019-10-17] MEDS: Cordarone 200 MG PO SCH (09:15)
[2019-10-17] MEDS: hydroDIURIL 25 MG PO SCH (09:16)
[2019-10-17] MEDS: CLARITIN 10 MG PO SCH (09:17)
[2019-10-17] MEDS: Vitamin C 500 MG PO SCH (09:17)
[2019-10-17] MEDS: Coreg 6.25 MG PO SCH (09:17)
[2019-10-17] MEDS: FOLTX (FOLBIC) PO SCH (09:20)
== END 2019-10-17 10:45 | disposition swing bed (61) | DRG 392 ==
LOC: ED 16:54 → MED SURG 21:38
PROVIDERS: ADMIT Family Medicine; ATTEND Family Medicine
DX: K52.9 Noninfective gastroenteritis and colitis, unspecified (principal); I48.20 Chronic atrial fibrillation, unspecified; Z79.01 Long term (current) use of 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; I69.30 Unspecified sequelae of cerebral infarction; R29.898 Other symptoms and signs involving the musculoskeletal system; M25.562 Pain in left knee; E87.6 Hypokalemia; E11.9 Type 2 diabetes mellitus without complications; Z79.4 Long term (current) use of insulin; I10 Essential (primary) hypertension; Z79.899 Other long term (current) drug therapy; Z86.010 Personal history of colon polyps; W19.XXXS Unspecified fall, sequela
CPT/HCPCS: 36000; 36415; 73700; 74176; 80047; 80048; 80053; 81001; 82150; 82270; 83605; 83690; 84153; 84154; 85025; 85027; 85610; 87086; 87507; 94640; 94760; 94762; 96374; 99285; J1956; J2405; 97110-GP; A9270-GY

== ENCOUNTER 2019-10-17 10:45 | Inpatient (IN) | payer MEDICARE, BC ==
[2019-10-17] MEDS ORDERED: Lidoderm Patch 5% TOP PRN (11:08)
[2019-10-17] MEDS ORDERED: PATIENT OWN MEDICATION IH PRN (11:08)
[2019-10-17] MEDS ORDERED: Zofran 4 MG/2 ML VIAL IV PRN (11:08)
[2019-10-17] MEDS: NovoLOG Insulin SQ PRN ×3 (13:01→22:40)
[2019-10-17] MEDS: Neurontin 100 MG PO SCH ×2 (16:18→22:39)
[2019-10-17] MEDS: Glucotrol Xl 10 MG PO SCH (16:18)
[2019-10-17] MEDS: Coreg 6.25 MG PO SCH (22:38)
[2019-10-17] MEDS: FEOSOL 325 MG PO SCH (22:38)
[2019-10-17] MEDS: Calcium 500MG W/Vit D Tablet PO SCH (22:38)
[2019-10-17] MEDS: Vitamin C 500 MG PO SCH (22:39)
[2019-10-17] MEDS: Pepcid 20 MG PO SCH (22:39)
[2019-10-17] MEDS: Klor Con 10 MEQ PO SCH (22:39)
[2019-10-17] MEDS: ZOCOR 20MG PO SCH (22:40)
[2019-10-17] MEDS: Aplisol ID ONE ×2 (22:57→23:14)
[2019-10-17] MEDS ORDERED: Aplisol ID ONE (23:10)
[2019-10-18] MEDS: Sodium Chloride 0.9% 10 ML FLUSH Syringe IV SCH ×3 (05:10→21:35)
[2019-10-18] MEDS: TYLENOL 325 MG PO PRN (05:21)
[2019-10-18] MEDS: Glucotrol Xl 10 MG PO SCH ×2 (08:16→16:29)
[2019-10-18] MEDS: Glucophage 500 MG PO SCH (08:16)
[2019-10-18] MEDS: Lantus Insulin SQ SCH (08:17)
--- NOTE | 2019-10-18 08:24 | PCM.NOTE ---
Date and Time: 10/18/19822 Subjective Assessment: patient tolerating po, stools are loose but no diarrhea. having some difficulty voiding Objective Exam General Appearance: no apparent distress, alert Neurologic Exam: motor weakness Respiratory Exam: normal breath sounds, lungs clear, No respiratory distress Cardiovascular Exam: regular rate/rhythm, normal heart sounds Gastrointestinal/Abdomen Exam: soft, No tenderness, No mass OBJECTIVE DATA Vital Signs: Vital Signs - 24 hr Temp Pulse Resp BP Pulse Ox 10/18/19 07:33 82 20 96 10/18/19 06:53 97.8 F 82 20 134/70 96 10/17/19 20:10 86 16 95 10/17/19 20:00 98.1 F 78 18 142/73 93 L 10/17/19 11:30 92 L 10/17/19 11:15 97.6 F 72 20 118/55 96 10/17/19 11:06 97.6 F 72 20 118/55 96 Pain Assessment - Last Documented Pain Intensity 2 Pain Scale Used 0-10 Pain Scale Intake and Output: Intake & Output 10/15/19 10/16/19 10/17/19 10/18/19 11:59 11:59 11:59 11:59 Intake Total 1020 Output Total 2450 176 Balance -2450 844 Weight 91.2 kg 90.3 kg Lab Results: Accuchecks Date 10/18/19 Date 10/17/19 Date 10/17/19 Time 07:30 Time 16:30 Time 11:30 Accucheck Value: 135 Accucheck Value: 272 Accucheck Value: 207 Accucheck Value: 337 Lab Results-Last 24 Hours 10/17/19 Range/Units 04:30 Hemoglobin A1c 7.64 H (4.5-6.0) % Assessment/Plan (1) Enterocolitis Current Visit: No Status: Acute Assessment & Plan: resolved with levaquin and flagyl, IV antibiotics have been discontinued at this time Code(s): K52.9 - NONINFECTIVE GASTROENTERITIS AND COLITIS, UNSPECIFIED (2) Muscular deconditioning Current Visit: No Status: Acute Code(s): R29.898 - OT SYMPTOMS AND SIGNS INVOLVING THE MUSCULOSKELETAL SYSTEM (3) Chronic atrial fibrillation Current Visit: No Status: Chronic Assessment & Plan: repeat INR today, was too high on arrival so warfarin has been on hold Code(s): I48.20 - CHRONIC ATRIAL FIBRILLATION, UNSPECIFIED (4) History of CVA with residual deficit Current Visit: No Status: Chronic Code(s): I69.30 - UNSPECIFIED SEQUELAE OF CEREBRAL INFARCTION
[2019-10-18] MEDS: Neurontin 100 MG PO SCH ×3 (09:16→21:26)
[2019-10-18] MEDS: Cozaar 50 MG PO SCH (09:17)
[2019-10-18] MEDS: hydroDIURIL 25 MG PO SCH (09:17)
[2019-10-18] MEDS: Vitamin C 500 MG PO SCH ×2 (09:17→21:27)
[2019-10-18] MEDS: PLAVIX 75 MG Tablet PO SCH (09:18)
[2019-10-18] MEDS: FEOSOL 325 MG PO SCH ×2 (09:18→21:26)
[2019-10-18] MEDS: Coreg 6.25 MG PO SCH ×2 (09:18→21:26)
[2019-10-18] MEDS: Cordarone 200 MG PO SCH (09:18)
[2019-10-18] MEDS: MAG-OX 400 PO SCH (09:19)
[2019-10-18] MEDS: Flomax 0.4 MG PO SCH (09:20)
[2019-10-18] MEDS: CLARITIN 10 MG PO SCH (09:20)
[2019-10-18] MEDS: LASIX 20 MG PO SCH (09:20)
[2019-10-18] MEDS: THERAGRAN MULTIVITAMIN PO SCH (09:21)
[2019-10-18] MEDS: FOLTX (FOLBIC) PO SCH (09:21)
[2019-10-18 09:58] LABS: INR 2.26 (0.8-3.0)
[2019-10-18] MEDS: NovoLOG Insulin SQ PRN ×3 (11:14→21:28)
[2019-10-18] MEDS: Coumadin 1 MG PO SCH (18:14)
[2019-10-18] MEDS: Pepcid 20 MG PO SCH (21:26)
[2019-10-18] MEDS: Klor Con 10 MEQ PO SCH (21:26)
[2019-10-18] MEDS: Calcium 500MG W/Vit D Tablet PO SCH (21:26)
[2019-10-18] MEDS: ZOCOR 20MG PO SCH (21:27)
[2019-10-19] MEDS: Sodium Chloride 0.9% 10 ML FLUSH Syringe IV SCH ×2 (05:00→14:50)
[2019-10-19 05:22] LABS: INR 1.9 (0.8-3.0); PROTIME 21.7 SECONDS (8.83-12.87)
[2019-10-19] MEDS: Glucotrol Xl 10 MG PO SCH ×2 (08:50→17:04)
[2019-10-19] MEDS: Glucophage 500 MG PO SCH (08:50)
[2019-10-19] MEDS: Lantus Insulin SQ SCH (08:50)
[2019-10-19] MEDS: FEOSOL 325 MG PO SCH ×2 (10:00→22:35)
[2019-10-19] MEDS: THERAGRAN MULTIVITAMIN PO SCH (10:00)
[2019-10-19] MEDS: Cordarone 200 MG PO SCH (10:00)
[2019-10-19] MEDS: Coreg 6.25 MG PO SCH ×2 (10:00→22:36)
[2019-10-19] MEDS: MAG-OX 400 PO SCH (10:00)
[2019-10-19] MEDS: hydroDIURIL 25 MG PO SCH (10:00)
[2019-10-19] MEDS: Cozaar 50 MG PO SCH (10:00)
[2019-10-19] MEDS: Vitamin C 500 MG PO SCH ×2 (10:00→22:35)
[2019-10-19] MEDS: Flomax 0.4 MG PO SCH (10:00)
[2019-10-19] MEDS: PLAVIX 75 MG Tablet PO SCH (10:01)
[2019-10-19] MEDS: CLARITIN 10 MG PO SCH (10:01)
[2019-10-19] MEDS: FOLTX (FOLBIC) PO SCH (10:01)
[2019-10-19] MEDS: LASIX 20 MG PO SCH (10:01)
[2019-10-19] MEDS: Neurontin 100 MG PO SCH ×3 (10:01→22:34)
[2019-10-19] MEDS: NovoLOG Insulin SQ PRN ×3 (12:34→22:36)
[2019-10-19] MEDS: Coumadin 1 MG PO SCH (17:04)
[2019-10-19] MEDS: Calcium 500MG W/Vit D Tablet PO SCH (22:34)
[2019-10-19] MEDS: Klor Con 10 MEQ PO SCH (22:34)
[2019-10-19] MEDS: ZOCOR 20MG PO SCH (22:36)
[2019-10-19] MEDS: Pepcid 20 MG PO SCH (22:36)
[2019-10-19] MEDS: TYLENOL 325 MG PO PRN (22:38)
[2019-10-20 05:10] LABS: INR 1.65 (0.8-3.0); PROTIME 18.8 SECONDS (8.83-12.87)
[2019-10-20] MEDS: Lantus Insulin SQ SCH (08:58)
[2019-10-20] MEDS: Glucotrol Xl 10 MG PO SCH ×2 (08:58→17:55)
[2019-10-20] MEDS: Glucophage 500 MG PO SCH (08:58)
[2019-10-20] MEDS: Coreg 6.25 MG PO SCH ×2 (09:57→21:13)
[2019-10-20] MEDS: CLARITIN 10 MG PO SCH (09:57)
[2019-10-20] MEDS: hydroDIURIL 25 MG PO SCH (09:58)
[2019-10-20] MEDS: Vitamin C 500 MG PO SCH ×2 (09:59→21:11)
[2019-10-20] MEDS: PLAVIX 75 MG Tablet PO SCH (10:00)
[2019-10-20] MEDS: Flomax 0.4 MG PO SCH (10:00)
[2019-10-20] MEDS: Neurontin 100 MG PO SCH ×3 (10:00→21:15)
[2019-10-20] MEDS: Cozaar 50 MG PO SCH (10:00)
[2019-10-20] MEDS: Cordarone 200 MG PO SCH (10:00)
[2019-10-20] MEDS: MAG-OX 400 PO SCH (10:01)
[2019-10-20] MEDS: THERAGRAN MULTIVITAMIN PO SCH (10:01)
[2019-10-20] MEDS: FOLTX (FOLBIC) PO SCH (10:01)
[2019-10-20] MEDS: LASIX 20 MG PO SCH (10:01)
[2019-10-20] MEDS: FEOSOL 325 MG PO SCH ×2 (10:01→21:14)
[2019-10-20] MEDS: NovoLOG Insulin SQ PRN ×2 (12:31→17:56)
[2019-10-20] MEDS: Coumadin 1 MG PO SCH (17:54)
[2019-10-20] MEDS: TYLENOL 325 MG PO PRN (21:11)
[2019-10-20] MEDS: Calcium 500MG W/Vit D Tablet PO SCH (21:13)
[2019-10-20] MEDS: Pepcid 20 MG PO SCH (21:14)
[2019-10-20] MEDS: ZOCOR 20MG PO SCH (21:14)
[2019-10-20] MEDS: Klor Con 10 MEQ PO SCH (21:14)
[2019-10-21 05:22] LABS: INR 1.46 (0.8-3.0); PROTIME 16.6 SECONDS (8.83-12.87)
[2019-10-21] MEDS: Glucophage 500 MG PO SCH (07:54)
[2019-10-21] MEDS: Lantus Insulin SQ SCH (07:54)
[2019-10-21] MEDS: Glucotrol Xl 10 MG PO SCH (07:54)
[2019-10-21 08:04] VITALS: PULSE 66; O2SAT 95
[2019-10-21 08:05] VITALS: BP 131/63
--- NOTE | 2019-10-21 08:49 | PCM.DS ---
Discharge Summary Date of Admission: 10/17/19 10:45 Admitting Physician: MARLON SCHROEDER Primary Care Provider: MARLON SCHROEDER Allergies Allergies No Known Drug Allergies Allergy (Verified 10/11/19 17:18) Hospital Summary - Hospital Course Hospital Course: patient was admitted with diarrhea and abd pain, found to have enterocolitis. symptoms resolved with treatment of levaquin and flagyl, diarrhea has resolved and he is ambulating well. will return to home and declines any home health - Vitals & Intake/Output Vital Signs: Vital Signs Temperature 98.2 F 10/21/19 08:00 Pulse Rate 66 10/21/19 08:03 Respiratory Rate 18 10/21/19 08:03 Blood Pressure 131/63 10/21/19 08:00 O2 Sat by Pulse Oximetry 95 10/21/19 08:03 Intake & Output: Intake & Output 10/18/19 10/19/19 10/20/19 10/21/19 11:59 11:59 11:59 11:59 Intake Total 1260 7721 375 6482 Output Total 176 2225 1650 2150 Balance 1084 -905 -690 -1050 Weight 90.3 kg - Lab Lab Results-Last 24 Hrs: Accuchecks Date 10/20/19 Time 21:30 Accucheck Value: 369 Accucheck Value: 279 Accucheck Value: 366 Lab Results-Last 24 Hours 10/21/19 Range/Units 04:25 PT 16.6 H (8.83-12.87) SECONDS INR 1.46 (0.8-3.0) Micro Results-Entire Visit: Accuchecks Date 10/20/19 Time 21:30 Accucheck Value: 369 Accucheck Value: 279 Accucheck Value: 366 - Procedures and Test Procedures and Tests throughout Hospitalization: Therapy Orders & Screens 10/17/19 11:08 PT Eval & Treat (MD Order) ROUTINE Reason for Eval:: DECONDITIONING R/T ENTEROCOLITIS HX: CVA Diagnosis: DECONDITIONING R/T ENTEROCOLITIS Oxygen Nasal Cannula 2 lpm Comment: Diagnosis: enterocolitis Peak Expiratory Flow Rate ONCE Comment: Reason For Exam: Diagnosis: nausea vomiting ,diarrhea,abdominal pain,difficulty walking -left knee pain Respiratory MDI Comment: PT'S HOME MEDICATION PROAIR HFA Q4HPRN 2 PUFFS Diagnosis: nausea vomiting ,diarrhea,abdominal pain,difficulty walking -left knee pain Respiratory Therapy Assessment DAILY Comment: Diagnosis: nausea vomiting ,diarrhea,abdominal pain,difficulty walking -left knee pain Discharge Exam General Appearance: no apparent distress, alert Respiratory Exam: normal breath sounds, lungs clear, No respiratory distress Cardiovascular Exam: regular rate/rhythm, normal heart sounds Gastrointestinal/Abdomen Exam: soft, No tenderness, No mass Extremity Exam: normal inspection, normal range of motion Final Diagnosis/Problem List - Final Discharge Diagnosis/Problem (1) Enterocolitis Current Visit: No Status: Acute Code(s): K52.9 - NONINFECTIVE GASTROENTERITIS AND COLITIS, UNSPECIFIED (2) Muscular deconditioning Current Visit: No Status: Acute Code(s): R29.898 - OTH SYMPTOMS AND SIGNS INVOLVING THE MUSCULOSKELETAL SYSTEM (3) Chronic atrial fibrillation Current Visit: No Status: Chronic Code(s): I48.20 - CHRONIC ATRIAL FIBRILLATION, UNSPECIFIED (4) History of CVA with residual deficit Current Visit: No Status: Chronic Code(s): I69.30 - UNSPECIFIED SEQUELAE OF CEREBRAL INFARCTION - Discharge Disposition: Home, Self-Care Condition: Stable Prescriptions: Continue Glipizide [Glucotrol Xl] 10 mg PO BID Ferrous Sulfate 325 mg [Feosol 325 mg] 325 mg PO BID Metformin HCl [Metformin ER Osmotic] 1,000 mg PO BID Clopidogrel Bisulfate 75 mg [PLAVIX 75 MG Tablet] 75 mg PO DAILY Famotidine [Pepcid] 40 mg PO HS Carvedilol 6.25 mg [Coreg 6.25 MG] 6.25 mg PO BID #60 tablet Desloratadine [Clarinex] 1 tab PO DAILY Cinnamon Bark [Cinnamon] 1,000 mg PO DAILY Atorvastatin Calcium 80 mg PO HS Ascorbic Acid [Vitamin C] 250 mg PO BID Insulin Glargine,Hum.rec.anlog [Basaglar Kwikpen U-100] 35 units SQ DAILY Gabapentin 100 mg PO TID Furosemide 20 mg [Lasix 20 mg] 1 tab PO DAILY Vit B6/Me-Thfolate/Me-B12/Ala [Nufola Capsule] 1 tab PO DAILY Potassium Chloride 10 Meq Tab* [Klor Con 10 MEQ] 2 tab PO DAILY Multivitamin [Multivitamins] 1 tab PO DAILY Magnesium Oxide [Magnesium] 400 mg PO DAILY Losartan/Hydrochlorothiazide [Losartan-Hctz 100-25 mg Tab] 0.5 tab PO DAILY Lidocaine [Lidocaine Pain Relief] 1 patch TOP DAILY PRN PRN Reason: Pain Amiodarone HCl 1 tab PO DAILY Warfarin Sodium 2 mg [Coumadin 2 MG] 2 mg PO DAILY Additional Instructions: resume warfarin 2mg daily, have INR checked in 5 days Follow up with: BENNIE GARCIA [NON-STAFF PHY W/O PRIVILEGES] - 1 Week
[2019-10-21] MEDS: Flomax 0.4 MG PO SCH (09:20)
[2019-10-21] MEDS: Coreg 6.25 MG PO SCH (09:20)
[2019-10-21] MEDS: Vitamin C 500 MG PO SCH (09:20)
[2019-10-21] MEDS: Cordarone 200 MG PO SCH (09:21)
[2019-10-21] MEDS: Cozaar 50 MG PO SCH (09:22)
[2019-10-21] MEDS: hydroDIURIL 25 MG PO SCH (09:23)
[2019-10-21] MEDS: Neurontin 100 MG PO SCH (09:23)
[2019-10-21] MEDS: FEOSOL 325 MG PO SCH (09:24)
[2019-10-21] MEDS: FOLTX (FOLBIC) PO SCH (09:24)
[2019-10-21] MEDS: MAG-OX 400 PO SCH (09:24)
[2019-10-21] MEDS: CLARITIN 10 MG PO SCH (09:24)
[2019-10-21] MEDS: LASIX 20 MG PO SCH (09:24)
[2019-10-21] MEDS: PLAVIX 75 MG Tablet PO SCH (09:24)
[2019-10-21] MEDS: THERAGRAN MULTIVITAMIN PO SCH (09:24)
== END 2019-10-21 11:13 | disposition home or self-care (01) | DRG 392 ==
LOC: MED SURG 10:45
PROVIDERS: ADMIT Family Medicine; ATTEND Family Medicine
DX: K52.9 Noninfective gastroenteritis and colitis, unspecified (principal); I48.20 Chronic atrial fibrillation, unspecified; R29.898 Other symptoms and signs involving the musculoskeletal system; I69.30 Unspecified sequelae of cerebral infarction; I10 Essential (primary) hypertension; E78.00 Pure hypercholesterolemia, unspecified; Z79.899 Other long term (current) drug therapy; Z79.01 Long term (current) use of 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; E11.9 Type 2 diabetes mellitus without complications; Z74.9 Problem related to care provider dependency, unspecified
CPT/HCPCS: 36415; 82962; 83036; 85610; 94760; 97110-GP; A9270-GY

== ENCOUNTER 2019-12-15 11:00 | Emergency (ER) | payer MEDICARE, BC ==
--- NOTE | 2019-12-15 11:30 | ERPHSYRPT ---
- History of Present Illness Time Seen by Provider: 12/15/19 11:14 Source: patient Exam Limitations: no limitations Physician History: pt states he stumbled and fell in his kitchen 1 week ago after drinking alcohol with resultant pain in his left ribs and left thigh; also states he has had a non-productive cough for the past 2 weeks. pt denies fever, vomiting, abdominal pain, headache. Allergies/Adverse Reactions: No Known Drug Allergies Allergy (Verified 12/15/19 11:08) Home Medications: Clopidogrel Bisulfate 75 mg [PLAVIX 75 MG Tablet] 75 mg PO DAILY 01/12/16 [History] Famotidine [Pepcid] 40 mg PO HS 01/12/16 [History] Ferrous Sulfate 325 mg [Feosol 325 mg] 325 mg PO BID 01/12/16 [History] Glipizide [Glucotrol Xl] 10 mg PO BID 01/12/16 [History] Metformin HCl [Metformin ER Osmotic] 1,000 mg PO BID 01/12/16 [History] Amiodarone HCl 1 tab PO DAILY 10/11/19 [History] Ascorbic Acid [Vitamin C] 250 mg PO BID 10/11/19 [History] Atorvastatin Calcium 80 mg PO HS 10/11/19 [History] Cinnamon Bark [Cinnamon] 1,000 mg PO DAILY 10/11/19 [History] Desloratadine [Clarinex] 1 tab PO DAILY 10/11/19 [History] Furosemide 20 mg [Lasix 20 mg] 1 tab PO DAILY 10/11/19 [History] Gabapentin 100 mg PO TID 10/11/19 [History] Insulin Glargine,Hum.rec.anlog [Basaglar Kwikpen U-100] 35 units SQ DAILY [History] Lidocaine [Lidocaine Pain Relief] 1 patch TOP DAILY PRN 10/11/19 [History] Losartan/Hydrochlorothiazide [Losartan-Hctz 100-25 mg Tab] 0.5 tab PO DAILY [History] Magnesium Oxide [Magnesium] 400 mg PO DAILY 10/11/19 [History] Multivitamin [Multivitamins] 1 tab PO DAILY 10/11/19 [History] Potassium Chloride 10 Meq Tab* [Klor Con 10 MEQ] 2 tab PO DAILY 10/11/19 [ History] Vit B6/Me-Thfolate/Me-B12/Ala [Nufola Capsule] 1 tab PO DAILY 10/11/19 [History] Warfarin Sodium 2 mg [Coumadin 2 MG] 2 mg PO DAILY 10/11/19 [History] Hx Tetanus, Diphtheria Vaccination/Date Given: Yes Hx Influenza Vaccination/Date Given: No Hx Pneumococcal Vaccination/Date Given: No - Review of Systems Constitutional: No Fever Respiratory: Cough (for the past 2 weeks) Cardiac: Chest Pain (left ribs for the past week) Abdominal/Gastrointestinal: No Abdominal Pain, No Vomiting Musculoskeletal: Fall (left thigh pain for the past week.) Neurological: Other (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.), No Headache All Other Systems: Reviewed and Negative - Past Medical History Pertinent Past Medical History: Yes Neurological History: Stroke ENT History: No Pertinent History Cardiac History: Arrhythmia, High Cholesterol, Hypertension Respiratory History: Sleep Apnea Endocrine Medical History: Diabetes Type II Musculoskeletal History: Arthritis, Osteoarthritis GI Medical History: No Pertinent History, Diverticulosis, Polyps History: No Pertinent History, Other (BPH) Psycho-Social History: No Pertinent History Male Reproductive Disorders: No Pertinent History Other Medical History: A-FIB - Past Surgical History Past Surgical History: Yes Neuro Surgical History: No Pertinent History Cardiac: No Pertinent History Respiratory: No Pertinent History Gastrointestinal: Appendectomy, Hernia Repair Genitourinary: No Pertinent History Musculoskeletal: Joint Replacement, Orthopedic Surgery Male Surgical History: No Pertinent History Other Surgical History: pattie knees and Pattie shoulders - Social History Smoking Status: Never smoker Exposure to second hand smoke: Yes Drug Use: none Patient Lives Alone: No - Nursing Vital Signs Nursing Vital Signs: Initial Vital Signs Temperature 98.1 F 12/15/19 11:13 Pulse Rate 68 12/15/19 11:13 Respiratory Rate 18 12/15/19 11:13 Blood Pressure 166/73 12/15/19 11:13 O2 Sat by Pulse Oximetry 93 L 12/15/19 11:13 Pain Scale Pain Intensity 5 - Kiki Coma Score Best Eye Response ([place]): (4) open spontaneously Best Verbal Response ([place]): (5) oriented Best Motor Response ([place]): (6) obeys commands Kiki Total: 15 - Physical Exam General Appearance: alert Head Injury: no evidence of injury Eye Exam: PERRL/EOMI ENT Exam: airway nml, other (hearing augmentation right ear.) Neck Exam: normal inspection Respiratory/Chest Exam: chest tenderness (mild - left anteriolateral ribs - without crepitus) Cardiovascular Exam: No gallop Gastrointestinal Exam: soft, normal bowel sounds, No tenderness Back Exam: normal inspection Extremity Exam: motor deficit (weakness of left upper extremity(ongoing since march 2019).), No pedal edema Peripheral Pulses: dorsalis-pedis (R): 2+, dorsalis-pedis (L): 2+ Neurologic Exam: alert, cooperative, sensation nml Skin Exam: other (mild tenderness over large bruise over upper lateral left thigh and left hip.) SpO2 Interpretation: normal SpO2: 93 O2 Delivery: Room Air - Course Nursing assessment & vital signs reviewed: Yes EKG Interpreted by Me: RATE (64), Sinus Rhythm (sinus arrhythmia), NORMAL AXIS, Non-specific ST Changes - Radiology Exams Left Ribs X-ray Interpretation: Discussed w/ radiologist (slightly angulated and displaced fracture of the anterolateral left 8th rib.) Pelvis X-ray Interpretation: Discussed w/ radiologist (unremarkable exam for age.) Left Femur X-ray Interpretation: Discussed w/ radiologist (no acute abnormality.) Chest X-ray Interpretation: Discussed w/ radiologist (no acute cardiopulmonary disease.) Ordered Tests: Active Orders 24 hr Category Date Time Status EKG-ER Only STAT Care 12/15/19 13:08 Active IV Insertion STAT Care 12/15/19 13:08 Active Oxygen-ED Only Nasal Cannula 2 lpm Care 12/15/19 13:08 Active Pulse Oximetry (ED) STAT Care 12/15/19 13:08 Active CHEST 2 VIEWS (PA AND LAT) Stat Exams 12/15/19 11:36 Taken FEMUR Stat Exams 12/15/19 11:35 Taken PELVIS (1 OR 2 VIEWS) Stat Exams 12/15/19 11:35 Taken RIBS UNILATERAL Stat Exams 12/15/19 11:36 Taken CBC W DIFF Stat Lab 12/15/19 13:30 Completed CMP Stat Lab 12/15/19 13:30 Completed D-DIMER QUANTITATIVE Stat Lab 12/15/19 13:30 Completed NT PRO BNP Stat Lab 12/15/19 13:30 Completed TROPONIN Q3H Lab 12/15/19 13:30 Completed TROPONIN Q3H Lab 12/15/19 16:15 Ordered TROPONIN Q3H Lab 12/15/19 19:15 Ordered TROPONIN Q3H Lab 12/15/19 22:15 Ordered TROPONIN Q3H Lab 12/16/19 01:15 Ordered Medication Summary Generic Name Dose Route Start Last Admin Trade Name Mag PRN Reason Stop Dose Admin Sodium Chloride 1,000 mls @ 100 mls/hr 12/15/19 13:15 12/15/19 13:39 Sodium Chloride 0.9% 1000 Ml IV 01/14/20 13:14 100 mls/hr .Q10H VAUGHN Administration Discontinued Medications Generic Name Dose Route Start Last Admin Trade Name Freq PRN Reason Stop Dose Admin Hydrocodone Bitart/Acetaminophen 2 tab 12/15/19 11:36 12/15/19 11:39 [place] 5/325 Mg PO 12/15/19 11:37 2 tab STAT ONE Administration Hydrocodone Bitart/Acetaminophen Confirm 12/15/19 11:38 [place] 5/325 Mg Administered 12/15/19 11:39 Dose 2 tab .ROUTE .STK-MED ONE Lab/Rad Data: Laboratory Result Diagrams 12/15/19 13:30 12/15/19 13:30 Laboratory Results 12/15/19 12/15/19 12/15/19 Range/Units 13:30 13:30 13:30 WBC (4.0-10.5) K/mm3 RBC (4.1-5.6) M/mm3 Hgb (12.5-18.0) gm/dl Hct (42-50) % MCV (78-100) fl MCH (26-32) pg MCHC (32-36) g/dl RDW (11.5-14.0) % Plt Count (150-450) K/mm3 MPV (7.5-11.0) fl Gran % (36.0-66.0) % Eos # (Auto) (0-0.5) Absolute Lymphs (auto) (1.0-4.6) Absolute Monos (auto) (0.0-1.3) Lymphocytes % (24.0-44.0) % Monocytes % (0.0-12.0) % Eosinophils % (0.00-5.0) % Basophils % (0.0-0.4) % Absolute Granulocytes (1.4-6.9) Basophils # (0-0.4) D-Dimer 313 (215-500) ng/mL Sodium 141 (137-145) mmol/L Potassium 3.7 (3.5-5.1) mmol/L Chloride 104 (98-107) mmol/L Carbon Dioxide 29 (22-30) mmol/L Anion Gap 11.7 (5-15) MEQ/L BUN 20 (9-20) mg/dL Creatinine 0.73 (0.66-1.25) mg/dL Estimated GFR > 60.0 ML/MIN Glucose 155 H (74-106) mg/dL Calcium 8.6 (8.4-10.2) mg/dL Total Bilirubin 0.50 (0.2-1.3) mg/dL AST 26 (17-59) U/L ALT 16 (0-50) U/L Alkaline Phosphatase 70 (38-126) U/L Troponin I < 0.012 (0.000-0.034) ng/mL NT-Pro-B Natriuret Pep 65.0 (0-1800) pg/mL Serum Total Protein 7.0 (6.3-8.2) g/dL Albumin 3.7 (3.5-5.0) g/dL 12/15/19 Range/Units 13:30 WBC 8.7 (4.0-10.5) K/mm3 RBC 3.58 L (4.1-5.6) M/mm3 Hgb 11.4 L (12.5-18.0) gm/dl Hct 33.9 L (42-50) % MCV 94.7 (78-100) fl MCH 31.8 (26-32) pg MCHC 33.6 (32-36) g/dl RDW 14.1 H (11.5-14.0) % Plt Count 239 (150-450) K/mm3 MPV 9.3 (7.5-11.0) fl Gran % 58.7 (36.0-66.0) % Eos # (Auto) 0.46 (0-0.5) Absolute Lymphs (auto) 2.08 (1.0-4.6) Absolute Monos (auto) 0.98 (0.0-1.3) Lymphocytes % 23.9 L (24.0-44.0) % Monocytes % 11.3 (0.0-12.0) % Eosinophils % 5.3 H (0.00-5.0) % Basophils % 0.8 (0.0-0.4) % Absolute Granulocytes 5.10 (1.4-6.9) Basophils # 0.07 (0-0.4) D-Dimer (215-500) ng/mL Sodium (137-145) mmol/L Potassium (3.5-5.1) mmol/L Chloride (98-107) mmol/L Carbon Dioxide (22-30) mmol/L Anion Gap (5-15) MEQ/L BUN (9-20) mg/dL Creatinine (0.66-1.25) mg/dL Estimated GFR ML/MIN Glucose (74-106) mg/dL Calcium (8.4-10.2) mg/dL Total Bilirubin (0.2-1.3) mg/dL AST (17-59) U/L ALT (0-50) U/L Alkaline Phosphatase (38-126) U/L Troponin I (0.000-0.034) ng/mL NT-Pro-B Natriuret Pep (0-1800) pg/mL Serum Total Protein (6.3-8.2) g/dL Albumin (3.5-5.0) g/dL - Progress Progress: unchanged Progress Note: 12/15/19 15:41 pt refuses hospitalization. 12/15/19 15:45 pt states he has a few pain pills at home. - Departure Departure Disposition: Home Clinical Impression: fractured left 8th rib, contusion of left hip/left upper thigh, chest pain Condition: Fair Critical Care Time: No Referrals: BENNIE GARCIA [Primary Care Provider] - Instructions: Contusion (DC), Preventing Falls Additional Instructions: sleep on right side. follow up with private doctor tomorrow.
[2019-12-15] MEDS ORDERED: NORCO 5/325 MG PO ONE (11:36)
[2019-12-15] MEDS ORDERED: NORCO 5/325 MG ONE (11:38)
[2019-12-15] MEDS ORDERED: Sodium Chloride 0.9% 1000 ML 1,000 ML IV SCH (13:15)
[2019-12-15] MEDS ORDERED: Sodium Chloride 0.9% 1000 ML 1,000 ML ONE (13:36)
[2019-12-15 13:39] LABS: BASOPHIL % 0.8 % (0.0-0.4); Basophil (Absolute #) 0.07 (0-0.4); Eosinophil % 5.3 % (0.00-5.0); Eosinophil (Absolute #) 0.46 (0-0.5); Hematocrit 33.9 % (42-50); Hemoglobin 11.4 gm/dl (12.5-18.0); Lymphocyte (Absolute #) 2.08 (1.0-4.6); Lymphocytes % 23.9 % (24.0-44.0); Mean Cell Volume 94.7 fl (78-100); Mean Corpuscular Hemoglobin 31.8 pg (26-32); Mean Corpuscular Hgb Concent. 33.6 g/dl (32-36); Mean Platelet Volume 9.3 fl (7.5-11.0); Monocyte (Absolute #) 0.98 (0.0-1.3); Monocytes % 11.3 % (0.0-12.0); Neutrophil % 58.7 % (36.0-66.0); Platelet Count 239 K/mm3 (150-450); Red Blood Count 3.58 M/mm3 (4.1-5.6); Red Cell Distribution Width 14.1 % (11.5-14.0); White Blood Count 8.7 K/mm3 (4.0-10.5)
[2019-12-15 14:07] LABS: ALBUMIN 3.7 g/dL (3.5-5.0); ALKALINE PHOSPHATASE 70 U/L (38-126); ANION GAP 11.7 MEQ/L (5-15); BLOOD UREA NITROGEN 20 mg/dL (9-20); CHLORIDE 104 mmol/L (98-107); Calcium 8.6 mg/dL (8.4-10.2); Carbon Dioxide 29 mmol/L (22-30); Creatinine 1 0.73 mg/dL (0.66-1.25); Glucose 155 mg/dL (74-106); Potassium 3.7 mmol/L (3.5-5.1); SGOT/AST 26 U/L (17-59); SGPT/ALT 16 U/L (0-50); SODIUM 141 mmol/L (137-145)
[2019-12-15] MEDS ORDERED: TORAdol 30 mg Injection IV ONE (15:36)
[2019-12-15] MEDS ORDERED: TORAdol 30 mg Injection ONE (15:37)
[2019-12-15 15:48] VITALS: BP 140/77; PULSE 60; O2SAT 95
--- NOTE | 2019-12-15 18:26 | XRAY ---
Indication: Left-sided pain following fall weeks ago. Comparison: January 12, 2016. PA/lateral chest rotated and patient's arms obscures lateral view. Lungs are hyperinflated and clear again with incidental calcified granulomas. Heart and mediastinal structures within normal limits again with tiny calcified nodes. Bony thorax again demonstrates mild osteopenia, degenerative changes, and bilateral shoulder arthroplasty. Query nondisplaced lateral left 8 rib fracture. Impression: Query nondisplaced left 8 rib fracture. Otherwise nonacute limited chest with chronic features. Comment: Preliminary interpretation was made by [facility]. No critical discrepancy.
--- NOTE | 2019-12-15 18:29 | XRAY ---
Indication: Pain following fall weeks ago. Comparison: None 2 views of the left ribs demonstrates nondisplaced lateral 8 rib acute fracture with minimal lung base atelectasis. Elsewhere osteopenia, old 7 rib fracture, degenerative changes throughout the spine, and left shoulder arthroplasty. Comment: Preliminary interpretation was made by [facility]. No critical discrepancy.
--- NOTE | 2019-12-15 18:31 | XRAY ---
Indication: Pain following fall weeks ago. Comparison: None 2 views of the left femur demonstrates mild osteopenia, total knee arthroplasty with intact prosthesis/articulation, and extensive vascular calcifications. No other bony, articular, or soft tissue abnormalities. Comment: Preliminary interpretation was made by [facility]. No critical discrepancy
--- NOTE | 2019-12-15 18:33 | XRAY ---
Indication: Pain following fall weeks ago. Comparison: None Single AP pelvis demonstrates mild osteopenia, mild right hip degenerative arthropathy, lower lumbar degenerative spondylosis, and extensive vascular calcifications. No other bony, articular, or soft tissue abnormalities. Comment: Preliminary interpretation was made by [facility]. No critical discrepancy
== END 2019-12-15 15:55 | disposition home or self-care (01) ==
LOC: ED 11:00
DX: S22.32XA Fracture of one rib, left side, initial encounter for closed fracture (principal); S70.02XA Contusion of left hip, initial encounter; S70.12XA Contusion of left thigh, initial encounter; R07.9 Chest pain, unspecified
CPT/HCPCS: 36000; 36415; 71046; 71100; 72170; 73552; 80053; 83880; 84484; 85025; 85379; 93005; 94760; 96360; 96374; 99284; J1885; A9270-GY

== ENCOUNTER 2020-09-14 11:33 | Emergency (ER) | payer MEDICARE, BC ==
--- NOTE | 2020-09-14 11:48 | ERPHSYRPT ---
- History of Present Illness Time Seen by Provider: 09/14/20 11:35 Source: patient, EMS Exam Limitations: no limitations Physician History: Patient fell out of his motorized scooter while shopping, hitting his left side of his forehead. Patient is on anticoagulation Occurred: just prior to arrival Severity: mild Head Injury Location: frontal Method of Injury: fell (Out of his motorized chair) Loss of Consciousness: no loss of consciousness Associated Symptoms: No nausea, No vomiting, No abdominal pain, No shortness of breath, No diaphoresis, No cough, No chest pain, No fever, No headaches, No malaise, No syncope, No seizure, No weakness Allergies/Adverse Reactions: No Known Drug Allergies Allergy (Verified 12/15/19 11:08) Home Medications: Clopidogrel Bisulfate 75 mg [PLAVIX 75 MG Tablet] 75 mg PO DAILY 01/12/16 [History] Famotidine [Pepcid] 40 mg PO HS 01/12/16 [History] Ferrous Sulfate 325 mg [Feosol 325 mg] 325 mg PO BID 01/12/16 [History] Glipizide [Glucotrol Xl] 10 mg PO BID 01/12/16 [History] Metformin HCl [Metformin ER Osmotic] 1,000 mg PO BID 01/12/16 [History] Amiodarone HCl 1 tab PO DAILY 10/11/19 [History] Ascorbic Acid [Vitamin C] 250 mg PO BID 10/11/19 [History] Atorvastatin Calcium 80 mg PO HS 10/11/19 [History] Cinnamon Bark [Cinnamon] 1,000 mg PO DAILY 10/11/19 [History] Desloratadine [Clarinex] 1 tab PO DAILY 10/11/19 [History] Furosemide 20 mg [Lasix 20 mg] 1 tab PO DAILY 10/11/19 [History] Gabapentin 100 mg PO TID 10/11/19 [History] Insulin Glargine,Hum.rec.anlog [Basaglar Kwikpen U-100] 35 units SQ DAILY 10/11/19 [History] Lidocaine [Lidocaine Pain Relief] 1 patch TOP DAILY PRN 10/11/19 [History] Losartan/Hydrochlorothiazide [Losartan-Hctz 100-25 mg Tab] 0.5 tab PO DAILY 10/11/19 [History] Magnesium Oxide [Magnesium] 400 mg PO DAILY 10/11/19 [History] Multivitamin [Multivitamins] 1 tab PO DAILY 10/11/19 [History] Potassium Chloride 10 Meq Tab* [Klor Con 10 MEQ] 2 tab PO DAILY 10/11/19 [H istory] Vit B6/Me-Thfolate/Me-B12/Ala [Nufola Capsule] 1 tab PO DAILY 10/11/19 [History] Warfarin Sodium 2 mg [Coumadin 2 MG] 2 mg PO DAILY 10/11/19 [History] Hx Tetanus, Diphtheria Vaccination/Date Given: Yes Hx Influenza Vaccination/Date Given: No Hx Pneumococcal Vaccination/Date Given: No - Review of Systems Constitutional: No Fever, No Chills Eyes: No Eye Pain, No Eye Redness, No Vision Changes Ears, Nose, & Throat: No Ear Discharge, No Nose Congestion, No Epistaxis Respiratory: No Cough, No Dyspnea Cardiac: No Chest Pain, No Edema, No Syncope Abdominal/Gastrointestinal: No Abdominal Pain, No Nausea, No Vomiting, No Diarrhea Genitourinary Symptoms: No Hematuria Musculoskeletal: No Back Pain, No Neck Pain Skin: No Rash Neurological: No Dizziness, No Focal Weakness, No Headache, No Sensory Changes Psychological: No Emotional Lability Endocrine: No Symptoms Hematologic/Lymphatic: Easy Bruising All Other Systems: Reviewed and Negative - Past Medical History Pertinent Past Medical History: Yes Neurological History: Peripheral Neuropathy, Stroke ENT History: No Pertinent History Cardiac History: Coronary Artery Disease, High Cholesterol, Hypertension Respiratory History: Sleep Apnea Endocrine Medical History: Diabetes Type II Musculoskeletal History: Osteoarthritis GI Medical History: No Pertinent History, Diverticulosis, Polyps History: No Pertinent History, Other Psycho-Social History: Anxiety, Depression Male Reproductive Disorders: No Pertinent History Other Medical History: PMHX: ANXIETY, DEPRESSION, ANEMIA, GERD - Past Surgical History Past Surgical History: Yes Neuro Surgical History: No Pertinent History Cardiac: No Pertinent History Respiratory: No Pertinent History Gastrointestinal: Appendectomy, Hernia Repair Genitourinary: No Pertinent History Musculoskeletal: Joint Replacement, Orthopedic Surgery Male Surgical History: No Pertinent History Other Surgical History: eduardo knees and Eduardo shoulders - Social History Smoking Status: Never smoker Exposure to second hand smoke: Yes Drug Use: none Patient Lives Alone: No - Nursing Vital Signs Nursing Vital Signs: Initial Vital Signs Temperature 97.2 F 09/14/20 11:40 Pulse Rate 64 09/14/20 11:40 Respiratory Rate 16 09/14/20 11:40 Blood Pressure 160/78 09/14/20 11:40 O2 Sat by Pulse Oximetry 98 09/14/20 11:40 Pain Scale Pain Intensity 2 - [place] Coma Score Best Eye Response (Kiki): (4) open spontaneously Best Verbal Response ([place]): (5) oriented Best Motor Response ([place]): (6) obeys commands Kiki Total: 15 - Physical Exam General Appearance: no apparent distress, alert Head Injury: contusions (Left forehead), swelling (Left forehead), No Padilla's Sign, No flap, No lacerations, No raccoon eyes Eye Exam: bilateral eye: PERRL, EOMI ENT Exam: airway nml, No dental injury, No clear fluid (ears), No clear fluid (nose), No midface instability, No clotted nasal blood Neck Exam: supple, trachea midline, full range of motion, No muscle spasm, No paraspinous muscle tender, No pain on movement of neck, No stiff neck, No tenderness, No mid-line tenderness Cardiovascular/Respiratory Exam: chest non-tender, normal breath sounds, regular rate/rhythm, no JVD Gastrointestinal/Abdominal Exam: soft, non tender, no distention, normal bowel sounds, No guarding, No rebound, No tenderness Back Exam: No CVA tenderness, No vertebral tenderness, No muscle spasm, No point tenderness Extremity Exam: non-tender, normal range of motion, normal inspection, pelvis stable Mental Status Exam: alert, oriented x 3, cooperative drying oven tender Exam: normal speech, PERRL, No abnormal speech, No facial asymmetry, No facial droop, No facial weakness Coordination/Gait Exam: normal finger to nose Motor/Sensory Exam: no motor deficit, no sensory deficit, CN II-XII intact Skin Exam: normal color, warm, dry, No rash, No ecchymosis, No laceration SpO2 Interpretation: normal - Course Nursing assessment & vital signs reviewed: Yes - CT Exams Head CT Interpretation: No Fracture, No/Intracranial Hemorrhag, Old Stroke (Right parietal lobe near the vertex. Tiny remote lacunar infarct right periventricular white matter), Other (Per radiologist interpretation: Left frontoparietal scalp hematoma. No underlying fracture or acute intracranial abnormalities. Atrophy, degenerative microischemia, and remote infarcts as detailed. Incidental paranasal sinus disease with minimal mucosal thickening both ethmoid and left maxillary;) Other CT Interpretation: Other (Repeat CT of the head showed interval enlarging left scalp hematoma but otherwise no new/acute intracranial abnormalities) Ordered Tests: Active Orders 24 hr Category Date Time Status IV Insertion STAT Care 09/14/20 11:55 Active House Regular Diet Diet 09/14/20 Dinner Active HEAD WITHOUT CONTRAST [CT] Stat Exams 09/14/20 11:35 Completed HEAD WITHOUT CONTRAST [CT] Stat Exams 09/14/20 16:37 Taken CBC W DIFF Stat Lab 09/14/20 11:20 Completed CMP Stat Lab 09/14/20 11:20 Completed PROTIME WITH INR Stat Lab 09/14/20 11:20 Completed PTT Stat Lab 09/14/20 11:20 Completed Lab/Rad Data: Laboratory Result Diagrams 09/14/20 11:20 09/14/20 11:20 Laboratory Results 09/14/20 09/14/20 09/14/20 Range/Units 11:20 11:20 11:20 WBC 6.8 (4.0-10.5) K/mm3 RBC 3.72 L (4.1-5.6) M/mm3 Hgb 11.3 L (12.5-18.0) gm/dl Hct 35.0 L (42-50) % MCV 94.1 (78-100) fl MCH 30.4 (26-32) pg MCHC 32.3 (32-36) g/dl RDW 13.4 (11.5-14.0) % Plt Count 363 (150-450) K/mm3 MPV 9.3 (7.5-11.0) fl Gran % 68.8 H (36.0-66.0) % Eos # (Auto) 0.26 (0-0.5) Absolute Lymphs (auto) 1.10 (1.0-4.6) Absolute Monos (auto) 0.69 (0.0-1.3) Lymphocytes % 16.2 L (24.0-44.0) % Monocytes % 10.2 (0.0-12.0) % Eosinophils % 3.8 (0.00-5.0) % Basophils % 1.0 (0.0-0.4) % Absolute Granulocytes 4.65 (1.4-6.9) Basophils # 0.07 (0-0.4) PT 45.1 H (8.83-12.87) SECONDS INR 3.94 H (0.8-3.0) APTT 42.8 H (24.1-36.1) SECONDS Sodium 136 L (137-145) mmol/L Potassium 4.1 (3.5-5.1) mmol/L Chloride 102 (98-107) mmol/L Carbon Dioxide 26 (22-30) mmol/L Anion Gap 11.1 (5-15) MEQ/L BUN 13 (9-20) mg/dL Creatinine 0.68 (0.66-1.25) mg/dL Estimated GFR > 60.0 ML/MIN Glucose 153 H (74-106) mg/dL Calcium 8.5 (8.4-10.2) mg/dL Total Bilirubin 0.40 (0.2-1.3) mg/dL AST 39 (17-59) U/L ALT 23 (0-50) U/L Alkaline Phosphatase 260 H (38-126) U/L Serum Total Protein 7.5 (6.3-8.2) g/dL Albumin 4.1 (3.5-5.0) g/dL - Progress Progress: unchanged Progress Note: 09/14/20 12:56 Patient is doing well with GCS 15, no focal neurologic deficits from his baseline, and no symptoms of headache, nausea, or any episodes of vomiting or change in mental status while in the emergency department; reviewed with him the plan of repeat CT scan in 4 to 6 hours 09/14/20 16:13 Patient still maintains GCS of 15 with no focal neurologic deficits from his baseline; will repeat CT of the head in 1 hour due to patient being on warfarin 09/14/20 17:57 Patient GCS is 15 with no focal neurologic deficits; repeat CT scan was negative, and with a low mechanism of injury, [address] scans over 5 hours apart, patient was discussed his treatment options. Patient did not want to be admitted overnight in the hospital and with everything being negative, he will be discharged home with follow-up in the morning of 09/15/2020 with his primary care provider to recheck his INR since a slightly supratherapeutic and he is to hold his warfarin in the evening of 09/14/2020 09/14/20 18:03 Patient had a mild injury to his left forehead as he fell out of his motorized chair while at the store reaching for applesauce and causing a contusion to the left side of his forehead. His initial CT scan was negative, and he had lab work drawn which showed a slightly supratherapeutic INR. Patient socially was monitored in the emergency department and had normal GCS of 15 throughout his time in the emergency department and no focal neurologic deficits, and had a repeat CT of his head over 5 hours later which was negative also. Due to patient's low mechanism of injury, negative CT scans x2 with a time duration between, it was discussed with the patient whether he wanted monitored in the e mergency department further or admitted for observation and patient declined at this time. Patient understands he may return back to the emergency room at any time for immediate reevaluation for his symptoms, but with his low mechanism injury and negative CT scans even though he is slightly elevated INR, he can be discharged home and he is to hold his Coumadin/warfarin this evening and recheck his INR in the morning of 09/15/2020 through his primary care physician's office. Reviewed with patient and his family in detail what signs and symptoms to return back to the emergency department and they are both in agreement with discharge at this time and follow-up as an outpatient 09/14/20 18:29 I reviewed with the patient and his granddaughter about potential risks of a intracranial bleed showing up later and they both are in agreement with patient being discharged per his preference and following up in the morning with his INR and his primary care provider. They both understand they may return back to the emergency room at any time for immediate reevaluation for any condition. Patient had no change in his mental status throughout his time in the emergency department with no new focal neurologic deficit and patient's granddaughter understands to hold is Coumadin/warfarin this evening and getting his INR checked the morning of 09/15/2020 with follow-up with his primary care physician for the emergency department Counseled pt/family regarding: lab results, diagnosis, need for follow-up, rad results - Departure Departure Disposition: Home Clinical Impression: Supratherapeutic INR, Elevated blood pressure reading without diagnosis of hypertension Mild closed head injury Qualifiers: Encounter type: initial encounter Qualified Code(s): S09.90XA - Unspecified injury of head, initial encounter Traumatic hematoma of forehead Qualifiers: Encounter type: initial encounter Qualified Code(s): S00.83XA - Contusion of other part of head, initial encounter Condition: Good Critical Care Time: Yes Critical Care Time(excluding separately billable procedures): Critical 30-74 mins Referrals: BENNIE GARCIA [Primary Care Provider] - 09/15/20 (Follow-up on 09/15/2020 to check your PT/INR again: Hold your Coumadin/Warfarin tonight) Instructions: High Blood Pressure in Adults, Closed Head Injury (DC), Contusion (DC), What to Do When Your INR Is Too High Additional Instructions: You had 2 - CT scans of your head over 5 hours apart from each other. With your low mechanism of injury and negative CT scans, you have are at low risk of having a new bleed to your brain, but you are still at risk due to being on Coumadin/warfarin. Hold your Coumadin/warfarin tonight and follow-up with your primary care physician on 09/15/2020 to recheck your INR. Return immediately back to the emergency department for any vomiting, headache, change in vision, new weakness, new neck pain, new chest pain, new shortness of breath, new blood in your urine, new blood in your stool, vomiting up blood, coughing up blood or any other concerning signs or symptoms that were not present at today's emergency room visit for immediate reevaluation in the emergency department.
--- NOTE | 2020-09-14 11:56 | XRAY ---
Indication: Head injury. Blood thinner therapy. Multiple contiguous axial images obtained through the head without contrast. Comparison: None Age-appropriate global atrophy, moderate/advanced periventricular degenerative micro-ischemia bilaterally, and small focus old infarct right parietal lobe near the vertex. Tiny remote lacunar infarct right periventricular white matter. No acute intracranial hemorrhage, abnormal extra-axial fluid collection, or mass effect. Benign physiologic basal ganglia calcifications. Several bilateral extra axial punctate calcifications probably sequela from old injury, insult, or infection. Fourth ventricle is midline. Moderate sized left frontoparietal scalp hematoma. Bony calvarium intact. Minimal mucosal thickening both ethmoid and left maxillary sinuses. Remaining visualized paranasal sinuses and mastoid air cells are clear. Impression: 1. Left frontoparietal scalp hematoma. No underlying fracture or acute intracranial abnormalities. 2. Atrophy, degenerative micro-ischemia, and remote infarcts as detailed. 3. Incidental paranasal sinus disease.
[2020-09-14 12:40] LABS: INR 3.94 (0.8-3.0); PROTIME 45.1 SECONDS (8.83-12.87)
[2020-09-14 12:41] LABS: Absolute Neutrophil Ct (ANC) 4.65 (1.4-6.9); Basophil (Absolute #) 0.07 (0-0.4); Eosinophil % 3.8 % (0.00-5.0); Eosinophil (Absolute #) 0.26 (0-0.5); Hemoglobin 11.3 gm/dl (12.5-18.0); Lymphocytes % 16.2 % (24.0-44.0); Mean Cell Volume 94.1 fl (78-100); Mean Corpuscular Hemoglobin 30.4 pg (26-32); Mean Corpuscular Hgb Concent. 32.3 g/dl (32-36); Mean Platelet Volume 9.3 fl (7.5-11.0); Monocyte (Absolute #) 0.69 (0.0-1.3); Monocytes % 10.2 % (0.0-12.0); Neutrophil % 68.8 % (36.0-66.0); Platelet Count 363 K/mm3 (150-450); Red Blood Count 3.72 M/mm3 (4.1-5.6); Red Cell Distribution Width 13.4 % (11.5-14.0); White Blood Count 6.8 K/mm3 (4.0-10.5)
[2020-09-14 12:42] LABS: PTT 42.8 SECONDS (24.1-36.1)
[2020-09-14 12:45] LABS: ALBUMIN 4.1 g/dL (3.5-5.0); ALKALINE PHOSPHATASE 260 U/L (38-126); ANION GAP 11.1 MEQ/L (5-15); BLOOD UREA NITROGEN 13 mg/dL (9-20); CHLORIDE 102 mmol/L (98-107); Calcium 8.5 mg/dL (8.4-10.2); Carbon Dioxide 26 mmol/L (22-30); Creatinine 1 0.68 mg/dL (0.66-1.25); EST GLOMERULAR FILTRATION RATE > 60.0 ML/MIN; Glucose 153 mg/dL (74-106); Potassium 4.1 mmol/L (3.5-5.1); SGOT/AST 39 U/L (17-59); SGPT/ALT 23 U/L (0-50); SODIUM 136 mmol/L (137-145); Total Protein 7.5 g/dL (6.3-8.2)
[2020-09-14 16:06] VITALS: O2SAT 97
[2020-09-14 18:31] VITALS: BP 128/80; PULSE 78
--- NOTE | 2020-09-15 08:43 | XRAY ---
Indication: Status post fall. Current Coumadin therapy. Multiple contiguous axial images obtained through the head without contrast. Comparison: Taken earlier today. Stable age-appropriate global atrophy, moderate/advanced periventricular degenerative micro-ischemia, small focus old infarct right parietal lobe, remote right periventricular lacunar infarct, and benign appearing intracranial calcifications. Again no acute intracranial hemorrhage, abnormal extra-axial fluid collection, or mass effect. Fourth ventricle is midline. Interval enlarging left frontoparietal scalp hematoma. Bony calvarium intact with stable paranasal sinus disease. Impression: 1. Enlarging left frontoparietal scalp hematoma. No new or acute intracranial abnormalities. 2. Stable atrophy, degenerative micro-ischemia, remote infarcts, benign intracranial calcifications, and paranasal sinus disease.
== END 2020-09-14 18:35 | disposition home or self-care (01) ==
LOC: ED 11:33
DX: R79.1 Abnormal coagulation profile (principal); R03.0 Elevated blood-pressure reading, without diagnosis of hypertension; S09.90XA Unspecified injury of head, initial encounter; S00.83XA Contusion of other part of head, initial encounter; V00.831A Fall from motorized mobility scooter, initial encounter; Y93.89 Activity, other specified; Y92.89 Other specified places as the place of occurrence of the external cause; Z79.01 Long term (current) use of 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; Z79.899 Other long term (current) drug therapy; I10 Essential (primary) hypertension; I25.10 Atherosclerotic heart disease of native coronary artery without angina pectoris; E11.9 Type 2 diabetes mellitus without complications; G47.30 Sleep apnea, unspecified; E78.00 Pure hypercholesterolemia, unspecified; G62.9 Polyneuropathy, unspecified
CPT/HCPCS: 36000; 36415; 70450; 80053; 85025; 85610; 85730; 99284; 99291

== ENCOUNTER 2021-04-15 21:29 | Inpatient (IN) | payer MEDICARE, BC ==
--- NOTE | 2021-04-15 21:45 | ERPHSYRPT ---
- History of Present Illness Time Seen by Provider: 04/15/21 21:44 Historian: patient, family Exam Limitations: no limitations Physician History: This is an 80-year-old white male has a history of diverticulosis and is on Plavix and warfarin because a history of a stroke in the past. Patient is an insulin-dependent diabetic and has has history of elevated cholesterol and hypertension. He takes iron sulfate supplements. Patient had a colonoscopy approximately 3 years ago and there was benign polyps present. Patient presents to the emergency department with sudden onset of bright red blood per rectum approximately 2 PM on the afternoon of 04/15/2021. He has no abdominal pain. He said no nausea or vomiting. He has had a few episodes of bowel movement today w ith blood in it. He was concerned about the number of bowel movements he has had and the amount of blood present. Patient patient states he thinks he has a history of atrial fibrillation. Timing/Duration: today Activities at Onset: none Quality: other Severity of Pain-Max: none Severity of Pain-Current: none Modifying Factors: Improves With: nothing Associated Symptoms: weakness Previous symptoms: same symptoms as today Allergies/Adverse Reactions: No Known Drug Allergies Allergy (Verified 04/15/21 22:21) Home Medications: Clopidogrel Bisulfate 75 mg [PLAVIX 75 MG Tablet] 75 mg PO DAILY 01/12/16 [History] Famotidine [Pepcid] 40 mg PO HS 01/12/16 [History] Ferrous Sulfate 325 mg [Feosol 325 mg] 325 mg PO DAILY 01/12/16 [History] Glipizide [Glucotrol Xl] 10 mg PO BID 01/12/16 [History] Metformin HCl [Metformin ER Osmotic] 1,000 mg PO BID 01/12/16 [History] Amiodarone HCl 1 tab PO DAILY 10/11/19 [History] Ascorbic Acid [Vitamin C] 250 mg PO DAILY 10/11/19 [History] Atorvastatin Calcium 80 mg PO HS 10/11/19 [History] Cinnamon Bark [Cinnamon] 1,000 mg PO DAILY 10/11/19 [History] Desloratadine [Clarinex] 1 tab PO DAILY 10/11/19 [History] Furosemide 20 mg [Lasix 20 mg] 1 tab PO DAILY 10/11/19 [History] Gabapentin 100 mg PO TID 10/11/19 [History] Insulin Glargine,Hum.rec.anlog [Basaglar Kwikpen U-100] 35 units SQ DAILY 10/11/19 [History] Lidocaine [Lidocaine Pain Relief] 1 patch TOP DAILY PRN 10/11/19 [History] Losartan/Hydrochlorothiazide [Losartan-Hctz 100-25 mg Tab] 0.5 tab PO DAILY 10/11/19 [History] Magnesium Oxide [Magnesium] 400 mg PO DAILY 10/11/19 [History] Multivitamin [Multivitamins] 1 tab PO DAILY 10/11/19 [History] Potassium Chloride 10 Meq Tab* [Klor Con 10 MEQ] 2 tab PO DAILY 10/11/19 [History] Vit B6/Me-Thfolate/Me-B12/Ala [Nufola Capsule] 1 tab PO DAILY 10/11/19 [History] Warfarin Sodium 2 mg [Coumadin 2 MG] 2 mg PO DAILY 10/11/19 [History] Carvedilol 6.25 mg [Coreg 6.25 MG] 3.25 mg PO BID 04/15/21 [History] Hx Tetanus, Diphtheria Vaccination/Date Given: Yes Hx Influenza Vaccination/Date Given: No Hx Pneumococcal Vaccination/Date Given: No Travel Risk - International Travel Have you traveled outside of the country in past 3 weeks: No - Coronavirus Screening Are you exhibiting any of the following symptoms?: No Close contact with a COVID-19 positive Pt in past 14-21 Days: No - Review of Systems Constitutional: Weakness Eyes: No Symptoms Ears, Nose, & Throat: No Symptoms Respiratory: No Symptoms Cardiac: No Symptoms Abdominal/Gastrointestinal: Hematochezia, No Abdominal Pain, No Nausea, No Vomiting Genitourinary Symptoms: No Symptoms Musculoskeletal: No Symptoms Skin: No Symptoms Neurological: No Symptoms Psychological: No Symptoms Endocrine: No Symptoms Hematologic/Lymphatic: No Symptoms Immunological/Allergic: No Symptoms All Other Systems: Reviewed and Negative - Past Medical History Pertinent Past Medical History: Yes Neurological History: Stroke ENT History: No Pertinent History Cardiac History: High Cholesterol, Hypertension Respiratory History: Other Endocrine Medical History: Diabetes Type II Musculoskeletal History: Osteoarthritis GI Medical History: No Pertinent History, Diverticulosis, Polyps History: No Pertinent History, Other Psycho-Social History: Anxiety, Depression Male Reproductive Disorders: No Pertinent History Other Medical History: HX COVID IN FEBRUARY 2020. HX OF BILATERAL SHOULDER AND KNEE REPLACEMENTS. HX OF BACK SURGERY DUE TO CYST 2017 OR 2019 PER PATIENT. CVA 03/30/2019 - Past Surgical History Past Surgical History: Yes Neuro Surgical History: No Pertinent History Cardiac: No Pertinent History Respiratory: No Pertinent History Gastrointestinal: Appendectomy, Hernia Repair Genitourinary: No Pertinent History Musculoskeletal: Joint Replacement, Orthopedic Surgery Male Surgical History: No Pertinent History Other Surgical History: pattie knees and Pattie shoulders - Social History Smoking Status: Never smoker Exposure to second hand smoke: Yes Drug Use: none Patient Lives Alone: No - Nursing Vital Signs Nursing Vital Signs: Initial Vital Signs Temperature 98.3 F 04/15/21 21:30 Pulse Rate 75 04/15/21 21:30 Respiratory Rate 20 04/15/21 21:30 Blood Pressure 127/62 04/15/21 21:30 O2 Sat by Pulse Oximetry 96 04/15/21 21:30 Pain Scale Pain Intensity 4 - Physical Exam General Appearance: no apparent distress, alert, anxiety Eye Exam: PERRL/EOMI, eyes nml inspection Ears, Nose, Throat Exam: normal ENT inspection, moist mucous membranes Neck Exam: normal inspection, non-tender, supple, full range of motion Respiratory Exam: normal breath sounds, lungs clear, airway intact, No chest tenderness, No respiratory distress Cardiovascular Exam: regular rate/rhythm, normal heart sounds, normal peripheral pulses Gastrointestinal/Abdomen Exam: soft, normal bowel sounds, No tenderness Rectal Exam: not done Back Exam: normal inspection, normal range of motion, No CVA tenderness, No vertebral tenderness Extremity Exam: normal inspection, normal range of motion, pelvis stable Neurologic Exam: alert, oriented x 3, cooperative, research & analytics 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 II-XII nml as tested, normal mood/affect, nml cerebellar function, nml station & gait, sensation nml Skin Exam: pale Lymphatic Exam: No adenopathy SpO2 Interpretation: normal - Course Nursing assessment & vital signs reviewed: Yes Ordered Tests: Active Orders 24 hr Category Date Time Status IV Insertion STAT Care 04/15/21 22:02 Active ABDOMEN AND PELVIS W/0 CONTRAS [CT] Stat Exams 04/15/21 22:06 Taken AMYLASE Stat Lab 04/15/21 22:41 Completed CBC W DIFF Stat Lab 04/15/21 22:41 Completed CMP Stat Lab 04/15/21 22:41 Completed LIPASE Stat Lab 04/15/21 22:41 Completed Lactic Acid Stat Lab 04/15/21 22:19 Completed PROTIME WITH INR Stat Lab 04/15/21 22:41 Completed UA W/RFX UR CULTURE Stat Lab 04/15/21 22:04 Ordered Transfer Order Routine Transfer 04/16/21 Ordered Medication Summary Generic Name Dose Route Start Last Admin Trade Name Mag PRN Reason Stop Dose Admin Sodium Chloride 1,000 mls @ 100 mls/hr 04/15/21 22:15 04/15/21 22:50 Sodium Chloride 0.9% 1000 Ml IV 05/15/21 22:14 100 mls/hr .Q10H VAUGHN Administration Lab/Rad Data: Laboratory Result Diagrams 04/15/21 22:41 04/15/21 22:41 Laboratory Results 04/15/21 04/15/21 04/15/21 Range/Units 22:41 22:41 22:41 WBC 9.8 (4.0-10.5) K/mm3 RBC 2.83 L (4.1-5.6) M/mm3 Hgb 8.6 L (12.5-18.0) gm/dl Hct 26.3 L (42-50) % MCV 92.9 (78-100) fl MCH 30.4 (26-32) pg MCHC 32.7 (32-36) g/dl RDW 13.2 (11.5-14.0) % Plt Count 285 (150-450) K/mm3 MPV 9.4 (7.5-11.0) fl Gran % 77.7 H (36.0-66.0) % Eos # (Auto) 0.06 (0-0.5) Absolute Lymphs (auto) 1.73 (1.0-4.6) Absolute Monos (auto) 0.34 (0.0-1.3) Lymphocytes % 17.7 L (24.0-44.0) % Monocytes % 3.5 (0.0-12.0) % Eosinophils % 0.6 (0.00-5.0) % Basophils % 0.5 (0.0-0.4) % Absolute Granulocytes 7.62 H (1.4-6.9) Basophils # 0.05 (0-0.4) PT 30.3 H (8.83-12.87) SECONDS INR 2.66 (0.8-3.0) Sodium 134 L (137-145) mmol/L Potassium 4.3 (3.5-5.1) mmol/L Chloride 103 (98-107) mmol/L Carbon Dioxide 21 L (22-30) mmol/L Anion Gap 15.2 H (5-15) MEQ/L BUN 25 H (9-20) mg/dL Creatinine 1.27 H (0.66-1.25) mg/dL Estimated GFR 57.7 ML/MIN Glucose 276 H (74-106) mg/dL Lactic Acid (0.4-2.0) Calcium 8.3 L (8.4-10.2) mg/dL Total Bilirubin 0.30 (0.2-1.3) mg/dL AST 26 (17-59) U/L ALT 19 (0-50) U/L Alkaline Phosphatase 75 (38-126) U/L Serum Total Protein 5.7 L (6.3-8.2) g/dL Albumin 3.2 L (3.5-5.0) g/dL Amylase 40 (30-110) U/L Lipase 111 (23-300) U/L 05/20/21 Range/Units 22:19 WBC (4.0-10.5) K/mm3 RBC (4.1-5.6) M/mm3 Hgb (12.5-18.0) gm/dl Hct (42-50) % MCV (78-100) fl MCH (26-32) pg MCHC (32-36) g/dl RDW (11.5-14.0) % Plt Count (150-450) K/mm3 MPV (7.5-11.0) fl Gran % (36.0-66.0) % Eos # (Auto) (0-0.5) Absolute Lymphs (auto) (1.0-4.6) Absolute Monos (auto) (0.0-1.3) Lymphocytes % (24.0-44.0) % Monocytes % (0.0-12.0) % Eosinophils % (0.00-5.0) % Basophils % (0.0-0.4) % Absolute Granulocytes (1.4-6.9) Basophils # (0-0.4) PT (8.83-12.87) SECONDS INR (0.8-3.0) Sodium (137-145) mmol/L Potassium (3.5-5.1) mmol/L Chloride (98-107) mmol/L Carbon Dioxide (22-30) mmol/L Anion Gap (5-15) MEQ/L BUN (9-20) mg/dL Creatinine (0.66-1.25) mg/dL Estimated GFR ML/MIN Glucose (74-106) mg/dL Lactic Acid 3.0 H (0.4-2.0) Calcium (8.4-10.2) mg/dL Total Bilirubin (0.2-1.3) mg/dL AST (17-59) U/L ALT (0-50) U/L Alkaline Phosphatase (38-126) U/L Serum Total Protein (6.3-8.2) g/dL Albumin (3.5-5.0) g/dL Amylase (30-110) U/L Lipase (23-300) U/L - Progress Progress: improved, re-examined Progress Note: 04/16/21 00:08 CAT scan of the abdomen pelvis without contrast shows diverticulosis without diverticulitis. There are no acute intra-abdominal or intrapelvic abnormalities 04/16/21 00:09 Medical decision making: This patient has symptomatic anemia. Patient is on anticoagulation therapy and he has an elevated INR of 2.66. That level is nearly therapeutic. The patient complains of weakness and his blood pressure is lower than typical for him. The plan is to hold his Plavix and Coumadin. We will place him in observation and provide him with 2 units of packed red blood cells transfusion with Lasix in between dosing. I spoke with Dr. Gagnon who is the hospitalist on for unassigned patients. He agrees with this plan. Discussed with : Carlos Counseled pt/family regarding: lab results, diagnosis, need for follow-up, rad results - Departure Departure Disposition: Observation Clinical Impression: Rectal bleeding, Symptomatic anemia Condition: Fair Critical Care Time: Yes Critical Care Time(excluding separately billable procedures): Critical 30-74 mins Referrals: BENNIE GARCIA [Primary Care Provider] -
[2021-04-15] MEDS ORDERED: Sodium Chloride 0.9% 1000 ML 1,000 ML IV SCH (22:15)
[2021-04-15 22:45] LABS: Absolute Neutrophil Ct (ANC) 7.62 (1.4-6.9); BASOPHIL % 0.5 % (0.0-0.4); Basophil (Absolute #) 0.05 (0-0.4); Eosinophil % 0.6 % (0.00-5.0); Eosinophil (Absolute #) 0.06 (0-0.5); Hematocrit 26.3 % (42-50); Hemoglobin 8.6 gm/dl (12.5-18.0); Lymphocyte (Absolute #) 1.73 (1.0-4.6); Lymphocytes % 17.7 % (24.0-44.0); Mean Cell Volume 92.9 fl (78-100); Mean Corpuscular Hemoglobin 30.4 pg (26-32); Mean Corpuscular Hgb Concent. 32.7 g/dl (32-36); Mean Platelet Volume 9.4 fl (7.5-11.0); Monocyte (Absolute #) 0.34 (0.0-1.3); Monocytes % 3.5 % (0.0-12.0); Neutrophil % 77.7 % (36.0-66.0); Platelet Count 285 K/mm3 (150-450); Red Blood Count 2.83 M/mm3 (4.1-5.6); Red Cell Distribution Width 13.2 % (11.5-14.0); White Blood Count 9.8 K/mm3 (4.0-10.5)
[2021-04-15] MEDS ORDERED: Sodium Chloride 0.9% 1000 ML 1,000 ML ONE (22:48)
[2021-04-15 22:50] LABS: INR 2.66 (0.8-3.0); PROTIME 30.3 SECONDS (8.83-12.87)
[2021-04-15 22:55] LABS: ALBUMIN 3.2 g/dL (3.5-5.0); ANION GAP 15.2 MEQ/L (5-15); BILIRUBIN,TOTAL 0.3 mg/dL (0.2-1.3); Calcium 8.3 mg/dL (8.4-10.2); Creatinine 1 1.27 mg/dL (0.66-1.25); EST GLOMERULAR FILTRATION RATE 57.7 ML/MIN; Potassium 4.3 mmol/L (3.5-5.1); Total Protein 5.7 g/dL (6.3-8.2)
[2021-04-16 01:18] LABS: INFLUENZA A NEGATIVE (NEGATIVE); INFLUENZA B NEGATIVE (NEGATIVE); RESPIRATORY SYNCTIAL VIRUS NEGATIVE (Negative)
[2021-04-16] MEDS ORDERED: Zofran 4 MG/2 ML VIAL IV PRN (01:39)
[2021-04-16 01:48] LABS: ABO TYPING B; Antibody Screen NEGATIVE (NEGATIVE); RH TYPING POSITIVE
[2021-04-16 01:51] LABS: CROSS MATCH (PRBC) COMPATIBLE (COMPATIBLE)
[2021-04-16] MEDS ORDERED: Lasix 20 MG/2 ML IV PRN (02:14)
[2021-04-16] MEDS ORDERED: Sodium Chloride 0.9% 500 ML 500 ML IV ONE (02:18)
[2021-04-16] MEDS: Sodium Chloride 0.9% 500 ML 500 ML IV SCH ×2 (02:22→13:51)
[2021-04-16] MEDS: Sodium Chloride 0.9% 1000 ML 1,000 ML IV SCH ×2 (03:17→20:22)
[2021-04-16 03:28] LABS: Appearance SLIGHTLY CLOUDY (CLEAR); Bilirubin NEGATIVE (NEGATIVE); Blood NEGATIVE Ery/ul (0-5); Glucose NEGATIVE (NEGATIVE); Ketones TRACE (NEGATIVE); Leukocyte Esterase NEGATIVE (NEGATIVE); Mucus SLIGHT /HPF (NEGATIVE); Nitrite NEGATIVE (NEGATIVE); Protein,Urine Dip 30 (Negative); RBC 26-50 /HPF (0-2); Specific Gravity 1.023 (1.005-1.025); Urobilinogen 2 mg/dL (0-1); WBC 0-2 /HPF (0-5)
--- NOTE | 2021-04-16 09:16 | XRAY ---
Indication: Rectal pain and bleeding. Coumadin therapy. Multiple contiguous images obtained through the abdomen and pelvis without contrast. Comparison: October 11, 2019. Lung bases again demonstrates diffuse scattered fibrosis/scarring more than before. No consolidation or effusion. Heart is not enlarged. Again incidental subcarinal calcified nodes and tiny inferior right middle lobe calcified granuloma. Noncontrasted stomach and bowel loops nonobstructed. Appendectomy reported. Diffuse scattered colonic diverticulosis without diverticulitis. No free fluid/air. Stable enlarged prostate gland and tiny hepatic/splenic calcified granulomas. Remaining liver, gallbladder, pancreas, spleen, adrenal glands, kidneys, ureters, and bladder are unremarkable for noncontrast exam. Stable moderate scattered vascular calcifications without AAA. Osseous structures again demonstrates osteopenia, mild/moderate degenerative changes throughout the thoracolumbar spine, and mild degenerative changes both hips. Impression: 1. Interval worsening bibasilar pulmonary fibrosis/scarring. 2. Incidental colonic diverticulosis, enlarged prostate gland, scattered arteriosclerotic disease, chronic bony findings, and old granulomatous disease. 3. Remaining CT abdomen/pelvis without contrast exam is negative. Comment: Preliminary interpretation was made by [facility]. No critical discrepancy.
[2021-04-16] MEDS ORDERED: LIDOCAINE TOP PRN (09:45)
[2021-04-16 09:56] LABS: Hematocrit 28.5 % (42-50); Hemoglobin 9.1 gm/dl (12.5-18.0); Mean Cell Volume 87.7 fl (78-100); Mean Corpuscular Hgb Concent. 31.9 g/dl (32-36); Mean Platelet Volume 9.3 fl (7.5-11.0); Platelet Count 211 K/mm3 (150-450); Red Blood Count 3.25 M/mm3 (4.1-5.6); Red Cell Distribution Width 15.6 % (11.5-14.0); White Blood Count 13.2 K/mm3 (4.0-10.5)
[2021-04-16] MEDS ORDERED: HYDROCHLOROTHIAZIDE PO SCH (10:00)
[2021-04-16] MEDS ORDERED: NON-FORMULARY ITEM (Multivitamin [Multivitamins] 1 TAB) PO SCH (10:00)
[2021-04-16] MEDS ORDERED: LOSARTAN PO SCH (10:00)
[2021-04-16] MEDS ORDERED: NON-FORMULARY ITEM (Magnesium Oxide [Magnesium] 400 MG) PO SCH (10:00)
[2021-04-16] MEDS ORDERED: THFOLATE PO SCH (10:00)
[2021-04-16] MEDS ORDERED: NON-FORMULARY ITEM (Ascorbic Acid [Vitamin C] 250 MG) PO SCH (10:00)
[2021-04-16] MEDS ORDERED: DESLORATADINE PO SCH (10:00)
[2021-04-16] MEDS ORDERED: VIT B6 PO SCH (10:00)
[2021-04-16] MEDS ORDERED: B12 PO SCH (10:00)
[2021-04-16] MEDS ORDERED: ALA PO SCH (10:00)
[2021-04-16] MEDS ORDERED: CINNAMON BARK 1000 MG PO SCH (10:00)
[2021-04-16] MEDS ORDERED: INSULIN GLARGINE HUM REC ANLOG 35 UNIT SQ SCH (10:00)
[2021-04-16] MEDS ORDERED: METFORMIN HCL 1000 MG PO SCH (10:00)
[2021-04-16] MEDS: CLARITIN 10 MG PO SCH (10:11)
[2021-04-16] MEDS: Coreg 3.125 MG PO SCH ×2 (10:11→22:08)
[2021-04-16] MEDS: Cozaar 50 MG PO SCH (10:11)
[2021-04-16] MEDS: FEOSOL 325 MG PO SCH (10:15)
[2021-04-16] MEDS: Cordarone 200 MG PO SCH (10:15)
[2021-04-16] MEDS ORDERED: MEDICATION INTERVENTION PO SCH ×2 (10:15)
[2021-04-16] MEDS: Glucophage XR 500 MG PO SCH ×2 (10:15→14:49)
[2021-04-16] MEDS: Glucotrol Xl 10 MG PO SCH ×2 (10:15→14:49)
[2021-04-16] MEDS: Klor Con 10 MEQ PO SCH (10:16)
[2021-04-16] MEDS: THERAGRAN MULTIVITAMIN PO SCH (10:16)
[2021-04-16] MEDS: LASIX 20 MG PO SCH (10:16)
[2021-04-16] MEDS: MAG-OX 400 PO SCH (10:16)
[2021-04-16] MEDS: hydroDIURIL 25 MG PO SCH (10:16)
[2021-04-16] MEDS: Lantus Insulin SQ SCH (10:16)
[2021-04-16] MEDS: Neurontin 100 MG PO SCH ×3 (10:16→22:08)
[2021-04-16] MEDS: Vitamin C 500 MG PO SCH (10:17)
[2021-04-16 10:18] LABS: Calcium 7.6 mg/dL (8.4-10.2); Creatinine 1 1.26 mg/dL (0.66-1.25); EST GLOMERULAR FILTRATION RATE 58.2 ML/MIN; Potassium 4.4 mmol/L (3.5-5.1)
[2021-04-16 10:22] LABS: BAND 5 % (0.0-2.0); Lymphocytes 16 % (24-44); Monocyte 6 % (0.0-12.0); Neutrophils 73 % (36.-66.); Total Cells Counted 100
[2021-04-16 10:23] LABS: ANISOCYTOSIS 2+; Platelet Estimate NORMAL (NORMAL)
[2021-04-16 10:24] LABS: Absolute Neutrophil Ct (ANC) 10.33 (1.4-6.9)
[2021-04-16] MEDS ORDERED: DIPRIVAN 200 MG/20 ML IV ONE (16:30)
[2021-04-16] MEDS ORDERED: NON-FORMULARY ITEM (Famotidine [Pepcid] 40 MG) PO SCH (22:00)
[2021-04-16] MEDS ORDERED: LIPITOR 40MG PO SCH (22:00)
[2021-04-16] MEDS: ZOCOR 20MG PO SCH (22:09)
[2021-04-16] MEDS: Pepcid 20 MG PO SCH (22:09)
[2021-04-17 07:28] LABS: ANION GAP 11.6 MEQ/L (5-15); BLOOD UREA NITROGEN 56 mg/dL (9-20); CHLORIDE 109 mmol/L (98-107); Carbon Dioxide 19 mmol/L (22-30); Creatinine 1 1.16 mg/dL (0.66-1.25); EST GLOMERULAR FILTRATION RATE > 60.0 ML/MIN; Glucose 202 mg/dL (74-106); Potassium 3.5 mmol/L (3.5-5.1); SODIUM 136 mmol/L (137-145)
[2021-04-17] MEDS: Glucotrol Xl 10 MG PO SCH ×2 (08:28→17:58)
[2021-04-17] MEDS: Glucophage XR 500 MG PO SCH ×2 (08:28→17:58)
[2021-04-17] MEDS: HUMULIN R SQ PRN ×3 (08:28→17:58)
[2021-04-17] MEDS ORDERED: Vitamin K 10 MG/ML PO ONE (10:30)
[2021-04-17] MEDS: MAG-OX 400 PO SCH (11:51)
[2021-04-17] MEDS: Neurontin 100 MG PO SCH ×3 (11:51→22:07)
[2021-04-17] MEDS: THERAGRAN MULTIVITAMIN PO SCH (11:51)
[2021-04-17] MEDS: LASIX 20 MG PO SCH (11:51)
[2021-04-17] MEDS: Klor Con 10 MEQ PO SCH (11:52)
[2021-04-17] MEDS: Vitamin C 500 MG PO SCH (11:52)
[2021-04-17] MEDS: Cordarone 200 MG PO SCH (11:52)
[2021-04-17] MEDS: CLARITIN 10 MG PO SCH (11:53)
[2021-04-17 11:56] LABS: Hematocrit 17.2 % (42-50); INR 4.97 (0.8-3.0); Mean Cell Volume 89.1 fl (78-100); Mean Corpuscular Hgb Concent. 32.6 g/dl (32-36); Mean Platelet Volume 9.8 fl (7.5-11.0); PROTIME 57.1 SECONDS (8.83-12.87); Platelet Count 210 K/mm3 (150-450); Red Blood Count 1.93 M/mm3 (4.1-5.6); Red Cell Distribution Width 17.2 % (11.5-14.0); White Blood Count 11.9 K/mm3 (4.0-10.5)
[2021-04-17] MEDS: Cozaar 50 MG PO SCH (11:56)
[2021-04-17] MEDS: hydroDIURIL 25 MG PO SCH (11:56)
[2021-04-17] MEDS: Coreg 3.125 MG PO SCH ×2 (11:56→22:06)
[2021-04-17] MEDS: FEOSOL 325 MG PO SCH (11:56)
[2021-04-17 12:24] LABS: Hemoglobin 5.6 gm/dl (12.5-18.0)
[2021-04-17] MEDS: Lantus Insulin SQ SCH (12:54)
[2021-04-17 16:53] LABS: ABO TYPING B; Antibody Screen NEGATIVE (NEGATIVE); RH TYPING POSITIVE
[2021-04-17 16:55] LABS: CROSS MATCH (PRBC) COMPATIBLE (COMPATIBLE)
[2021-04-17 18:15] LABS: ANISOCYTOSIS 1+; BAND 1 % (0.0-2.0); Lymphocytes 39 % (24-44); Monocyte 3 % (0.0-12.0); Neutrophils 57 % (36.-66.); Platelet Estimate NORMAL (NORMAL); Polychromasia 1+; Total Cells Counted 100
[2021-04-17 18:22] LABS: Ovalocytes 1+
[2021-04-17] MEDS: ZOCOR 20MG PO SCH (22:07)
[2021-04-17] MEDS: Pepcid 20 MG PO SCH (22:07)
[2021-04-18] MEDS: Sodium Chloride 0.9% 1000 ML 1,000 ML IV SCH (00:27)
[2021-04-18 01:38] LABS: Hemoglobin 8.8 gm/dl (12.5-18.0)
[2021-04-18 06:36] LABS: Absolute Neutrophil Ct (ANC) 8.37 (1.4-6.9); BASOPHIL % 0.5 % (0.0-0.4); Basophil (Absolute #) 0.07 (0-0.4); Eosinophil % 2.5 % (0.00-5.0); Eosinophil (Absolute #) 0.35 (0-0.5); Hematocrit 24.8 % (42-50); Hemoglobin 8.1 gm/dl (12.5-18.0); Lymphocytes % 25.6 % (24.0-44.0); Mean Corpuscular Hemoglobin 28.4 pg (26-32); Mean Corpuscular Hgb Concent. 32.7 g/dl (32-36); Mean Platelet Volume 9.7 fl (7.5-11.0); Monocyte (Absolute #) 1.66 (0.0-1.3); Monocytes % 11.8 % (0.0-12.0); Neutrophil % 59.6 % (36.0-66.0); Platelet Count 168 K/mm3 (150-450); Red Blood Count 2.85 M/mm3 (4.1-5.6); Red Cell Distribution Width 16.5 % (11.5-14.0); White Blood Count 14.1 K/mm3 (4.0-10.5)
[2021-04-18 06:57] LABS: ALBUMIN 2.4 g/dL (3.5-5.0); ANION GAP 7.9 MEQ/L (5-15); BILIRUBIN,TOTAL 0.2 mg/dL (0.2-1.3); Calcium 6.9 mg/dL (8.4-10.2); Creatinine 1 1.3 mg/dL (0.66-1.25); EST GLOMERULAR FILTRATION RATE 56.2 ML/MIN; Total Protein 4.4 g/dL (6.3-8.2)
[2021-04-18] MEDS: POTASSIUM CHLORIDE 20 mEq IN WATER 100ML 20 MEQ/100 ML BAG IV SCH ×2 (07:39→09:24)
[2021-04-18] MEDS: Glucophage XR 500 MG PO SCH ×2 (07:42→18:02)
[2021-04-18] MEDS: Glucotrol Xl 10 MG PO SCH ×2 (07:42→18:02)
[2021-04-18 08:04] LABS: Slide Review 1 YES
[2021-04-18] MEDS ORDERED: PHARMACY DOSING REQUEST MC ONE (10:22)
[2021-04-18] MEDS ORDERED: Vitamin K 10 MG/ML PO ONE (11:00)
[2021-04-18 11:01] LABS: INR 1.62 (0.8-3.0); PROTIME 18.4 SECONDS (8.83-12.87)
[2021-04-18] MEDS: hydroDIURIL 25 MG PO SCH (11:30)
[2021-04-18] MEDS: Neurontin 100 MG PO SCH ×3 (11:31→21:21)
[2021-04-18] MEDS: THERAGRAN MULTIVITAMIN PO SCH (11:31)
[2021-04-18] MEDS: Vitamin C 500 MG PO SCH (11:31)
[2021-04-18] MEDS: MAG-OX 400 PO SCH (11:31)
[2021-04-18] MEDS: Cordarone 200 MG PO SCH (11:32)
[2021-04-18] MEDS: LASIX 20 MG PO SCH (11:32)
[2021-04-18] MEDS: FEOSOL 325 MG PO SCH (11:32)
[2021-04-18] MEDS: Coreg 3.125 MG PO SCH ×2 (11:32→21:22)
[2021-04-18] MEDS: CLARITIN 10 MG PO SCH (11:32)
[2021-04-18] MEDS: Cozaar 50 MG PO SCH (11:32)
[2021-04-18] MEDS: Klor Con 10 MEQ PO SCH (11:35)
[2021-04-18] MEDS: Lantus Insulin SQ SCH (11:35)
[2021-04-18] MEDS: D5W/0.45NS W/ 20mEq KCl 1000 ML 1,000 ML IV SCH (11:38)
[2021-04-18] MEDS: HUMULIN R SQ PRN ×2 (12:21→21:48)
[2021-04-18] MEDS: Zosyn 2.25 GM 2.25 GM in Sodium Chloride 100ML MINI-BAG PLUS 100 ML IV SCH ×3 (14:14→23:33)
[2021-04-18 15:11] LABS: Adenovirus F 40/41 NEGATIVE (NEGATIVE); Astrovirus NEGATIVE (NEGATIVE); C. Difficile Organism NEGATIVE (NEGATIVE); Campylobacter NEGATIVE (NEGATIVE); Cryptosporidium NEGATIVE (NEGATIVE); Cyclospora cayentanensis NEGATIVE (NEGATIVE); Entamoeaba histolytica NEGATIVE (NEGATIVE); Enteroaggregative E.coli NEGATIVE (NEGATIVE); Enteropathogenic E.coli NEGATIVE (NEGATIVE); Enterotoxigenic E.coli NEGATIVE (NEGATIVE); Giardia lamblia NEGATIVE (NEGATIVE); Norovirus GI/GII NEGATIVE (NEGATIVE); Plesiomonas shigelloides NEGATIVE (NEGATIVE); Rotavirus A NEGATIVE (NEGATIVE); Salmonella NEGATIVE (NEGATIVE); Shiga-like toxin prod.E.coli NEGATIVE (NEGATIVE); Vibrio NEGATIVE (NEGATIVE); Vibrio cholerae NEGATIVE (NEGATIVE); Yersinia enterocolitica NEGATIVE (NEGATIVE)
[2021-04-18 15:12] LABS: Sapovirus NEGATIVE (NEGATIVE)
[2021-04-18] MEDS: Pepcid 20 MG PO SCH (21:20)
[2021-04-18] MEDS: ZOCOR 20MG PO SCH (21:21)
[2021-04-19] MEDS: D5W/0.45NS W/ 20mEq KCl 1000 ML 1,000 ML IV SCH ×4 (02:06→21:31)
[2021-04-19 05:41] LABS: Hematocrit 22.7 % (42-50); Hemoglobin 7.2 gm/dl (12.5-18.0); Mean Corpuscular Hemoglobin 28.2 pg (26-32); Mean Corpuscular Hgb Concent. 31.7 g/dl (32-36); Mean Platelet Volume 9.5 fl (7.5-11.0); Platelet Count 205 K/mm3 (150-450); Red Blood Count 2.55 M/mm3 (4.1-5.6); Red Cell Distribution Width 16.6 % (11.5-14.0); White Blood Count 11.9 K/mm3 (4.0-10.5)
[2021-04-19 05:55] LABS: ALBUMIN 2.7 g/dL (3.5-5.0); ALKALINE PHOSPHATASE 59 U/L (38-126); ANION GAP 8.5 MEQ/L (5-15); BLOOD UREA NITROGEN 35 mg/dL (9-20); CHLORIDE 109 mmol/L (98-107); Calcium 7.3 mg/dL (8.4-10.2); Carbon Dioxide 23 mmol/L (22-30); Creatinine 1 1.05 mg/dL (0.66-1.25); EST GLOMERULAR FILTRATION RATE > 60.0 ML/MIN; Glucose 119 mg/dL (74-106); Potassium 3.2 mmol/L (3.5-5.1); SGOT/AST 23 U/L (17-59); SGPT/ALT 17 U/L (0-50); SODIUM 138 mmol/L (137-145); Total Protein 4.9 g/dL (6.3-8.2)
[2021-04-19] MEDS: Zosyn 2.25 GM 2.25 GM in Sodium Chloride 100ML MINI-BAG PLUS 100 ML IV SCH (06:12)
[2021-04-19 08:15] LABS: BAND 1 % (0.0-2.0); Eosinophil 6 % (0.00-3.0); Lymphocytes 26 % (24-44); Neutrophils 67 % (36.-66.); Total Cells Counted 100
[2021-04-19 08:22] LABS: Platelet Estimate NORMAL (NORMAL)
[2021-04-19] MEDS ORDERED: Klor Con 10 MEQ PO ONE (09:07)
--- NOTE | 2021-04-19 09:37 | OP ---
SURGERY DATE/TIME: 04/16/2021 1640 PREOPERATIVE DIAGNOSIS: GI bleed. POSTOPERATIVE DIAGNOSIS: Normal upper exam. PROCEDURE: EGD. SURGEON: Phu Spear M.D. ANESTHESIA: MAC. COMPLICATIONS: None. CONDITION: Stable. INDICATION: The patient has blood per rectum. He also has blood per urine. His PT is 30. He is on Coumadin and Plavix. DESCRIPTION OF PROCEDURE: He is taken to endoscopy. Left lateral decubitus position. Pharyngoesophageal junction normal. Esophagus normal. Gastroesophageal junction normal. Fundus, body and antrum normal. Pylorus normal. Duodenal bulb normal. Second portion of the duodenum normal and the ampulla is particularly well visualized today and there is no blood coming from the ampulla. IMPRESSION: Abdominal examination and no blood. I suspect his lower GI bleeding is the same etiology as his hematuria. I think there is too much anticoagulation. We are available but at this time I would not do lower examination until his condition improves.
[2021-04-19] MEDS: Glucophage XR 500 MG PO SCH ×2 (09:47→18:01)
[2021-04-19] MEDS: Glucotrol Xl 10 MG PO SCH ×2 (09:47→18:01)
[2021-04-19] MEDS: Neurontin 100 MG PO SCH ×3 (09:48→21:25)
[2021-04-19] MEDS: THERAGRAN MULTIVITAMIN PO SCH (09:48)
[2021-04-19] MEDS: hydroDIURIL 25 MG PO SCH (09:48)
[2021-04-19] MEDS: FEOSOL 325 MG PO SCH (09:48)
[2021-04-19] MEDS: Vitamin C 500 MG PO SCH (09:49)
[2021-04-19] MEDS: MAG-OX 400 PO SCH (09:49)
[2021-04-19] MEDS: Klor Con 10 MEQ PO SCH (09:49)
[2021-04-19] MEDS: Coreg 3.125 MG PO SCH ×2 (09:49→21:25)
[2021-04-19] MEDS: LASIX 20 MG PO SCH (09:50)
[2021-04-19] MEDS: Cordarone 200 MG PO SCH (09:50)
[2021-04-19] MEDS: Lantus Insulin SQ SCH (09:50)
[2021-04-19] MEDS: CLARITIN 10 MG PO SCH (09:50)
[2021-04-19] MEDS: Cozaar 50 MG PO SCH (09:50)
[2021-04-19] MEDS: TYLENOL 325 MG PO PRN (10:36)
[2021-04-19] MEDS ORDERED: Zosyn 3.375 GM Vial 3.375 GM in Sodium Chloride 100ML MINI-BAG PLUS 100 ML IV SCH (12:00)
[2021-04-19] MEDS: HUMULIN R SQ PRN ×3 (12:41→21:30)
[2021-04-19 12:59] LABS: Hemoglobin 7.3 gm/dl (12.5-18.0)
[2021-04-19 13:10] LABS: INR 1.17 (0.8-3.0); PROTIME 13.2 SECONDS (8.83-12.87)
--- NOTE | 2021-04-19 16:27 | XRAY ---
Indication: Central line placement. Comparison: December 15, 2019. Portable chest demonstrates new right IJ central venous access catheter with tip projecting over SVC. No pneumothorax. Lungs underinflated accentuating cardiopulmonary structures. No focal infiltrate, consolidation, or large effusion. Bony thorax intact again with mild osteopenia, degenerative changes, and bilateral shoulder arthroplasty. Impression: New right IJ central venous access catheter without complications.
[2021-04-19] MEDS: Zosyn 3.375 GM Vial 3.375 GM in Sodium Chloride 100ML MINI-BAG PLUS 100 ML IV SCH ×2 (16:58→23:56)
[2021-04-19] MEDS ORDERED: Sodium Chloride 0.9% 10 ML FLUSH Syringe IV PRN (17:00)
[2021-04-19] MEDS: Lidoderm Patch 5% TOP PRN (18:09)
--- NOTE | 2021-04-19 18:36 | PCM.NOTE ---
Date and Time: 04/19/211835 Subjective Assessment: 80 yr old male seen and examined this am. Patient reports that he is doing ok this am. He reports his main complaint was fatigue prior to admission. He reports that since admission his fatigue has improved. He reported significant amount of bloody stools that have decreased. - Review of Systems Constitutional: Fatigue, No Fever Eyes: No Symptoms Ears, Nose, & Throat: No Symptoms Respiratory: No Cough, No Short Of Breath Cardiac: No Chest Pain, No Edema, No Palpitations Abdominal/Gastrointestinal: Diarrhea, Hematochezia, No Abdominal Pain, No Nausea, No Vomiting, No Constipation Genitourinary Symptoms: No Symptoms Musculoskeletal: No Symptoms Skin: No Symptoms Neurological: No Dizziness, No Headache Psychological: No Symptoms Objective Exam General Appearance: no apparent distress, other (overweight) Neurologic Exam: alert, cooperative, normal mood/affect, other (oriented) Skin Exam: normal color, warm, dry, No rash Ears, Nose, Throat Exam: moist mucous membranes Neck Exam: normal inspection Respiratory Exam: normal breath sounds, lungs clear, No chest tenderness, No diminished breath sounds, No crackles/rales, No wheezing Cardiovascular Exam: regular rate/rhythm, normal heart sounds, No murmur, No friction rub, No gallop Gastrointestinal/Abdomen Exam: soft, normal bowel sounds, No tenderness, No distention, No mass Extremity Exam: No pedal edema, No swelling OBJECTIVE DATA Vital Signs: Vital Signs - 24 hr Temp Pulse Resp BP Pulse Ox 04/19/21 16:00 97.6 F 66 19 150/79 92 L 04/19/21 15:40 97.7 F 67 21 151/67 93 L 04/19/21 15:37 67 04/19/21 12:00 97.7 F 70 19 151/67 93 L 04/19/21 08:00 69 04/19/21 07:49 98.1 F 67 19 137/69 93 L 04/19/21 04:00 97.2 F 63 22 132/46 96 04/19/21 00:30 97.7 F 73 17 104/67 96 04/19/21 00:00 98.2 F 72 19 96/35 96 04/18/21 20:00 98.0 F 65 18 126/63 97 Pain Assessment - Last Documented Pain Intensity 10 Pain Scale Used 0-10 Pain Scale Intake and Output: Intake & Output 04/17/21 04/18/21 04/19/21 04/20/21 11:59 11:59 11:59 11:59 Intake Total 1594 2168 3045 240 Output Total 1600 1999 1999 1300 Balance -6 168 1045 -1060 Weight 84.4 kg 85.7 kg 86.1 kg 86.1 kg Lab Results: Lab Results-Last 24 Hours 04/18/21 04/19/21 04/19/21 Range/Units 21:36 04:30 04:30 WBC 11.9 H (4.0-10.5) K/mm3 RBC 2.55 L (4.1-5.6) M/mm3 Hgb 7.2 L (12.5-18.0) gm/dl Hct 22.7 L (42-50) % MCV 89.0 (78-100) fl MCH 28.2 (26-32) pg MCHC 31.7 L (32-36) g/dl RDW 16.6 H (11.5-14.0) % Plt Count 205 (150-450) K/mm3 MPV 9.5 (7.5-11.0) fl Segmented Neutrophils 67 H (36.-66.) % Band Neutrophils 1 (0.0-2.0) % Lymphocytes (Manual) 26 (24-44) % Eosinophils (Manual) 6 H (0.00-3.0) % Platelet Estimate NORMAL (NORMAL) RBC Morphology NORMAL PT (8.83-12.87) SECONDS INR (0.8-3.0) Sodium 138 (137-145) mmol/L Potassium 3.2 L (3.5-5.1) mmol/L Chloride 109 H (98-107) mmol/L Carbon Dioxide 23 (22-30) mmol/L Anion Gap 8.5 (5-15) MEQ/L BUN 35 H (9-20) mg/dL Creatinine 1.05 (0.66-1.25) mg/dL Estimated GFR > 60.0 ML/MIN Glucose 119 H (74-106) mg/dL POC Glucometer 289 H (74 to 106) mg/dL Calcium 7.3 L (8.4-10.2) mg/dL Total Bilirubin 0.20 (0.2-1.3) mg/dL AST 23 (17-59) U/L ALT 17 (0-50) U/L Alkaline Phosphatase 59 (38-126) U/L Serum Total Protein 4.9 L (6.3-8.2) g/dL Albumin 2.7 L (3.5-5.0) g/dL 04/19/21 04/19/21 04/19/21 Range/Units 07:14 11:11 12:40 WBC (4.0-10.5) K/mm3 RBC (4.1-5.6) M/mm3 Hgb (12.5-18.0) gm/dl Hct (42-50) % MCV (78-100) fl MCH (26-32) pg MCHC (32-36) g/dl RDW (11.5-14.0) % Plt Count (150-450) K/mm3 MPV (7.5-11.0) fl Segmented Neutrophils (36.-66.) % Band Neutrophils (0.0-2.0) % Lymphocytes (Manual) (24-44) % Eosinophils (Manual) (0.00-3.0) % Platelet Estimate (NORMAL) RBC Morphology PT 13.2 H (8.83-12.87) SECONDS INR 1.17 (0.8-3.0) Sodium (137-145) mmol/L Potassium (3.5-5.1) mmol/L Chloride (98-107) mmol/L Carbon Dioxide (22-30) mmol/L Anion Gap (5-15) MEQ/L BUN (9-20) mg/dL Creatinine (0.66-1.25) mg/dL Estimated GFR ML/MIN Glucose (74-106) mg/dL POC Glucometer 101 242 H (74 to 106) mg/dL Calcium (8.4-10.2) mg/dL Total Bilirubin (0.2-1.3) mg/dL AST (17-59) U/L ALT (0-50) U/L Alkaline Phosphatase (38-126) U/L Serum Total Protein (6.3-8.2) g/dL Albumin (3.5-5.0) g/dL 04/19/21 04/19/21 Range/Units 12:40 16:46 WBC (4.0-10.5) K/mm3 RBC (4.1-5.6) M/mm3 Hgb 7.3 L (12.5-18.0) gm/dl Hct 23.0 L (42-50) % MCV (78-100) fl MCH (26-32) pg MCHC (32-36) g/dl RDW (11.5-14.0) % Plt Count (150-450) K/mm3 MPV (7.5-11.0) fl Segmented Neutrophils (36.-66.) % Band Neutrophils (0.0-2.0) % Lymphocytes (Manual) (24-44) % Eosinophils (Manual) (0.00-3.0) % Platelet Estimate (NORMAL) RBC Morphology PT (8.83-12.87) SECONDS INR (0.8-3.0) Sodium (137-145) mmol/L Potassium (3.5-5.1) mmol/L Chloride (98-107) mmol/L Carbon Dioxide (22-30) mmol/L Anion Gap (5-15) MEQ/L BUN (9-20) mg/dL Creatinine (0.66-1.25) mg/dL Estimated GFR ML/MIN Glucose (74-106) mg/dL POC Glucometer 215 H (74 to 106) mg/dL Calcium (8.4-10.2) mg/dL Total Bilirubin (0.2-1.3) mg/dL AST (17-59) U/L ALT (0-50) U/L Alkaline Phosphatase (38-126) U/L Serum Total Protein (6.3-8.2) g/dL Albumin (3.5-5.0) g/dL Radiology Exams: Radiology Procedures Category Date Time Status CHEST 1 VIEW (PORTABLE) Routine Exams 04/19/21 16:04 Completed Multi-Disciplinary Progress Notes: Multi-Disciplinary Progress Notes 04/19/21 13:28 Case Management Note by Karyna Kelley PATIENT STILL ACUTELY ILL- WILL CONTINUE TO FOLLOW Initialized on 04/19/21 13:28 - END OF NOTE Assessment/Plan (1) Symptomatic anemia Current Visit: Yes Status: Acute Assessment & Plan: Patient has received blood products due to GI bleed. His hgb initially trended b ack down and this am has trended up slowly. He was anticoag on plavix and coumadin which have been held. He also received vit k. INR was wnl this am. If patient's repeat hgb in am is still decreased will transfuse an additional unit. Code(s): D64.9 - ANEMIA, UNSPECIFIED (2) Rectal bleeding Current Visit: Yes Status: Acute Assessment & Plan: Surgery consulted and recommended against having lower scope due to critical state of patient. They would be available if needed to get the scope. Code(s): K62.5 - HEMORRHAGE OF ANUS AND RECTUM (3) Enterocolitis Current Visit: No Status: Acute Code(s): K52.9 - NONINFECTIVE GASTROENTERITIS AND COLITIS, UNSPECIFIED (4) Hypokalemia Current Visit: No Status: Acute Assessment & Plan: Patient has required iv and po repletion. Will continue to trend. I dont see a mg level so will draw a level to see if it needs repleted and could be contributing to low K Code(s): E87.6 - HYPOKALEMIA (5) Supratherapeutic INR Current Visit: No Status: Acute Assessment & Plan: Patient was supratherapeutic with his INR. His coumadin is being held and plavix as well. He was given vit K Code(s): R79.1 - ABNORMAL COAGULATION PROFILE (6) Chronic atrial fibrillation Current Visit: No Status: Chronic Assessment & Plan: As soon as possible will attempt to restart patient's anticoags. Patient is also on coreg and amiodarone. Will attempt to resume his home medications as soon as possible however he has had some hypotension while in hospital. Code(s): I48.20 - CHRONIC ATRIAL FIBRILLATION, UNSPECIFIED (7) History of CVA with residual deficit Current Visit: No Status: Chronic Assessment & Plan: Patient does have residual left sided deficit. He has a leg brace that he uses during ambulation Code(s): I69.30 - UNSPECIFIED SEQUELAE OF CEREBRAL INFARCTION (8) long-term (current) use of 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 Current Visit: No Status: Chronic Code(s): Z79.01 - SENIOR CARE (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 OF 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
[2021-04-19] MEDS: Sodium Chloride 0.9% 500 ML 500 ML IV SCH (20:14)
[2021-04-19] MEDS: Pepcid 20 MG PO SCH (21:24)
[2021-04-19] MEDS: ZOCOR 20MG PO SCH (21:25)
[2021-04-20 05:30] LABS: Absolute Neutrophil Ct (ANC) 5.44 (1.4-6.9); BASOPHIL % 0.3 % (0.0-0.4); Basophil (Absolute #) 0.03 (0-0.4); Eosinophil % 6.5 % (0.00-5.0); Eosinophil (Absolute #) 0.58 (0-0.5); Hematocrit 19.8 % (42-50); Lymphocyte (Absolute #) 1.97 (1.0-4.6); Lymphocytes % 22.1 % (24.0-44.0); Mean Cell Volume 90.4 fl (78-100); Mean Corpuscular Hemoglobin 28.8 pg (26-32); Mean Corpuscular Hgb Concent. 31.8 g/dl (32-36); Mean Platelet Volume 9.8 fl (7.5-11.0); Monocyte (Absolute #) 0.91 (0.0-1.3); Monocytes % 10.2 % (0.0-12.0); Neutrophil % 60.9 % (36.0-66.0); Platelet Count 220 K/mm3 (150-450); Red Blood Count 2.19 M/mm3 (4.1-5.6); Red Cell Distribution Width 16.8 % (11.5-14.0); White Blood Count 8.9 K/mm3 (4.0-10.5)
[2021-04-20] MEDS: TYLENOL 325 MG PO PRN ×3 (05:46→22:24)
[2021-04-20] MEDS: Zosyn 3.375 GM Vial 3.375 GM in Sodium Chloride 100ML MINI-BAG PLUS 100 ML IV SCH ×3 (05:46→17:52)
[2021-04-20 05:50] LABS: Hemoglobin 6.3 gm/dl (12.5-18.0)
[2021-04-20 06:16] LABS: ALBUMIN 2.6 g/dL (3.5-5.0); ALKALINE PHOSPHATASE 63 U/L (38-126); ANION GAP 8.1 MEQ/L (5-15); BLOOD UREA NITROGEN 18 mg/dL (9-20); CHLORIDE 110 mmol/L (98-107); Calcium 7.4 mg/dL (8.4-10.2); Carbon Dioxide 26 mmol/L (22-30); Creatinine 1 0.85 mg/dL (0.66-1.25); EST GLOMERULAR FILTRATION RATE > 60.0 ML/MIN; Glucose 140 mg/dL (74-106); Potassium 3.4 mmol/L (3.5-5.1); SGOT/AST 28 U/L (17-59); SGPT/ALT 16 U/L (0-50); SODIUM 140 mmol/L (137-145); Total Protein 4.6 g/dL (6.3-8.2)
[2021-04-20] MEDS: D5W/0.45NS W/ 20mEq KCl 1000 ML 1,000 ML IV SCH ×2 (06:50→22:22)
[2021-04-20 08:13] LABS: ABO TYPING B; Antibody Screen NEGATIVE (NEGATIVE); RH TYPING POSITIVE
[2021-04-20 08:14] LABS: CROSS MATCH (PRBC) COMPATIBLE (COMPATIBLE)
[2021-04-20] MEDS: Glucophage XR 500 MG PO SCH ×2 (08:44→17:45)
[2021-04-20] MEDS: Glucotrol Xl 10 MG PO SCH ×2 (08:44→17:45)
[2021-04-20] MEDS ORDERED: Sodium Chloride 0.9% 500 ML 500 ML IV SCH (09:45)
--- NOTE | 2021-04-20 10:12 | OP ---
SURGERY DATE/TIME: 04/19/2021 1555 PREOPERATIVE DIAGNOSIS: Poor IV access, history of GI bleed need for central access with radiology undergo PICC line. POSTOPERATIVE DIAGNOSIS: Poor IV access, history of GI bleed need for central access with radiology undergo PICC line. PROCEDURE: Ultrasound guided interpretation and management, placement of right jugular central venous catheter again with ultrasound interpretation and management. SURGEON: Dr. Tonny Wu. ANESTHESIA: 1% lidocaine. ESTIMATED BLOOD LOSS: Minimal. INDICATIONS: As noted above. Risks and benefits explained in detail and not limited to and consent obtained. DESCRIPTION OF PROCEDURE AND FINDINGS: Consent had been signed and there was no disagreement with planned procedure. The patient is taken to the operating room. In Trendelenburg position, the neck and chest prepped and draped in usual sterile fashion. Ultrasound guided sterile probe covered with sterile jelly easy transduction. Compressible internal jugular vein on the right was identified this was anesthetized with 1% lidocaine local under ultrasound guidance and interpretation managed. An 18 gauge cannulation needle is inserted on first pass with good dark nonpulsatile venous return. Guide wire passed without difficulty followed by the skin leandro dilator and triple lumen catheter placed about 16 to 15.5 cm skin level, secured the accessory flange with a silk suture. All three lumens aspirated dark, nonpulsatile venous return with ease. The OR staff placed sterile dressing. Portable chest x-ray obtained to check line placement.
[2021-04-20] MEDS: Cordarone 200 MG PO SCH (10:58)
[2021-04-20] MEDS: FEOSOL 325 MG PO SCH (10:58)
[2021-04-20] MEDS: Neurontin 100 MG PO SCH ×3 (10:58→22:06)
[2021-04-20] MEDS: LASIX 20 MG PO SCH (10:58)
[2021-04-20] MEDS: Vitamin C 500 MG PO SCH (10:58)
[2021-04-20] MEDS: THERAGRAN MULTIVITAMIN PO SCH (10:58)
[2021-04-20] MEDS: Klor Con 10 MEQ PO SCH (10:58)
[2021-04-20] MEDS: Coreg 3.125 MG PO SCH ×2 (10:58→22:06)
[2021-04-20] MEDS: MAG-OX 400 PO SCH (10:58)
[2021-04-20] MEDS: Cozaar 50 MG PO SCH (10:58)
[2021-04-20] MEDS: CLARITIN 10 MG PO SCH (10:58)
[2021-04-20] MEDS: hydroDIURIL 25 MG PO SCH (10:59)
[2021-04-20] MEDS: Lantus Insulin SQ SCH (11:05)
[2021-04-20] MEDS: Lidoderm Patch 5% TOP PRN (15:05)
[2021-04-20 18:55] LABS: Hematocrit 26.4 % (42-50)
[2021-04-20 18:59] LABS: Hemoglobin 8.5 gm/dl (12.5-18.0)
[2021-04-20] MEDS: Sodium Chloride 0.9% 500 ML 500 ML IV SCH (20:29)
[2021-04-20] MEDS: ZOCOR 20MG PO SCH (22:06)
[2021-04-20] MEDS: Pepcid 20 MG PO SCH (22:06)
[2021-04-20] MEDS: HUMULIN R SQ PRN (22:06)
[2021-04-21] MEDS: Zosyn 3.375 GM Vial 3.375 GM in Sodium Chloride 100ML MINI-BAG PLUS 100 ML IV SCH ×4 (00:34→18:07)
[2021-04-21 05:34] LABS: Hematocrit 26.7 % (42-50); Hemoglobin 8.6 gm/dl (12.5-18.0); Mean Cell Volume 90.2 fl (78-100); Mean Corpuscular Hemoglobin 29.1 pg (26-32); Mean Corpuscular Hgb Concent. 32.2 g/dl (32-36); Mean Platelet Volume 9.2 fl (7.5-11.0); Platelet Count 214 K/mm3 (150-450); Red Blood Count 2.96 M/mm3 (4.1-5.6); Red Cell Distribution Width 16.9 % (11.5-14.0); White Blood Count 8.3 K/mm3 (4.0-10.5)
[2021-04-21 05:40] LABS: INR 1.16 (0.8-3.0); PROTIME 13.1 SECONDS (8.83-12.87)
[2021-04-21 05:48] LABS: ALBUMIN 2.7 g/dL (3.5-5.0); ALKALINE PHOSPHATASE 57 U/L (38-126); ANION GAP 6.1 MEQ/L (5-15); BLOOD UREA NITROGEN 14 mg/dL (9-20); CHLORIDE 108 mmol/L (98-107); Calcium 7.4 mg/dL (8.4-10.2); Carbon Dioxide 28 mmol/L (22-30); Creatinine 1 0.92 mg/dL (0.66-1.25); EST GLOMERULAR FILTRATION RATE > 60.0 ML/MIN; Potassium 3.3 mmol/L (3.5-5.1); SGOT/AST 40 U/L (17-59); SGPT/ALT 19 U/L (0-50); SODIUM 139 mmol/L (137-145); Total Protein 4.9 g/dL (6.3-8.2)
[2021-04-21 05:55] LABS: Glucose 40 mg/dL (74-106)
[2021-04-21] MEDS ORDERED: Glutose 15 GM ORAL GEL PO ONE ×2 (06:00→06:09)
[2021-04-21] MEDS: TYLENOL 325 MG PO PRN ×2 (07:59→21:29)
[2021-04-21] MEDS: Lidoderm Patch 5% TOP PRN (07:59)
[2021-04-21] MEDS ORDERED: Klor Con 10 MEQ PO SCH (09:15)
[2021-04-21] MEDS: D5W/0.45NS W/ 20mEq KCl 1000 ML 1,000 ML IV SCH (09:50)
[2021-04-21] MEDS: FEOSOL 325 MG PO SCH (09:51)
[2021-04-21] MEDS: hydroDIURIL 25 MG PO SCH (09:51)
[2021-04-21] MEDS: CLARITIN 10 MG PO SCH (09:51)
[2021-04-21] MEDS: Neurontin 100 MG PO SCH ×3 (09:51→21:29)
[2021-04-21] MEDS: Klor Con 10 MEQ PO SCH (09:51)
[2021-04-21] MEDS: Coreg 3.125 MG PO SCH ×2 (09:51→21:28)
[2021-04-21] MEDS: Cordarone 200 MG PO SCH (09:51)
[2021-04-21] MEDS: MAG-OX 400 PO SCH (09:51)
[2021-04-21] MEDS: LASIX 20 MG PO SCH (09:52)
[2021-04-21] MEDS: THERAGRAN MULTIVITAMIN PO SCH (09:52)
[2021-04-21] MEDS: Cozaar 50 MG PO SCH (09:52)
[2021-04-21] MEDS: Vitamin C 500 MG PO SCH (09:52)
[2021-04-21] MEDS: Glucophage XR 500 MG PO SCH ×2 (11:11→17:24)
[2021-04-21] MEDS: Glucotrol Xl 10 MG PO SCH ×2 (11:11→17:24)
[2021-04-21] MEDS: Lantus Insulin SQ SCH (11:12)
[2021-04-21] MEDS: HUMULIN R SQ PRN ×2 (17:24→21:37)
[2021-04-21] MEDS: Pepcid 20 MG PO SCH (21:28)
[2021-04-21] MEDS: ZOCOR 20MG PO SCH (21:29)
[2021-04-22] MEDS: Zosyn 3.375 GM Vial 3.375 GM in Sodium Chloride 100ML MINI-BAG PLUS 100 ML IV SCH ×2 (00:40→05:56)
[2021-04-22] MEDS: D5W/0.45NS W/ 20mEq KCl 1000 ML 1,000 ML IV SCH ×2 (00:40→18:12)
[2021-04-22] MEDS: TYLENOL 325 MG PO PRN ×2 (01:45→05:57)
[2021-04-22 05:17] LABS: Hematocrit 27.7 % (42-50); Hemoglobin 8.7 gm/dl (12.5-18.0); Mean Cell Volume 91.4 fl (78-100); Mean Corpuscular Hemoglobin 28.7 pg (26-32); Mean Corpuscular Hgb Concent. 31.4 g/dl (32-36); Mean Platelet Volume 9.3 fl (7.5-11.0); Platelet Count 242 K/mm3 (150-450); Red Blood Count 3.03 M/mm3 (4.1-5.6); Red Cell Distribution Width 17.3 % (11.5-14.0); White Blood Count 7.4 K/mm3 (4.0-10.5)
[2021-04-22 05:29] LABS: INR 1.18 (0.8-3.0); PROTIME 13.3 SECONDS (8.83-12.87)
[2021-04-22 05:37] LABS: ALBUMIN 2.8 g/dL (3.5-5.0); ALKALINE PHOSPHATASE 62 U/L (38-126); BLOOD UREA NITROGEN 13 mg/dL (9-20); CHLORIDE 104 mmol/L (98-107); Calcium 7.8 mg/dL (8.4-10.2); Carbon Dioxide 30 mmol/L (22-30); Creatinine 1 0.92 mg/dL (0.66-1.25); EST GLOMERULAR FILTRATION RATE > 60.0 ML/MIN; Potassium 3.5 mmol/L (3.5-5.1); SGOT/AST 41 U/L (17-59); SGPT/ALT 20 U/L (0-50); SODIUM 138 mmol/L (137-145)
[2021-04-22 05:44] LABS: Glucose 45 mg/dL (74-106)
[2021-04-22] MEDS: CLARITIN 10 MG PO SCH (09:40)
[2021-04-22] MEDS: Klor Con 10 MEQ PO SCH (09:40)
[2021-04-22] MEDS: Vitamin C 500 MG PO SCH (09:40)
[2021-04-22] MEDS: MAG-OX 400 PO SCH (09:41)
[2021-04-22] MEDS: LASIX 20 MG PO SCH (09:41)
[2021-04-22] MEDS: Coreg 3.125 MG PO SCH ×2 (09:41→21:53)
[2021-04-22] MEDS: Cozaar 50 MG PO SCH (09:41)
[2021-04-22] MEDS: Cordarone 200 MG PO SCH (09:41)
[2021-04-22] MEDS: THERAGRAN MULTIVITAMIN PO SCH (09:41)
[2021-04-22] MEDS: hydroDIURIL 25 MG PO SCH (09:41)
[2021-04-22] MEDS: FEOSOL 325 MG PO SCH (09:41)
[2021-04-22] MEDS: NORCO 5/325 MG PO PRN ×2 (09:41→17:45)
[2021-04-22] MEDS: Neurontin 100 MG PO SCH ×3 (09:42→22:01)
[2021-04-22] MEDS: Glucophage XR 500 MG PO SCH ×2 (10:23→16:57)
[2021-04-22] MEDS: Lantus Insulin SQ SCH (10:23)
[2021-04-22] MEDS: Glucotrol Xl 10 MG PO SCH ×2 (10:23→16:57)
[2021-04-22] MEDS ORDERED: Lantus Insulin SQ SCH (10:25)
[2021-04-22] MEDS: HUMULIN R SQ PRN ×2 (13:46→16:57)
--- NOTE | 2021-04-22 14:36 | XRAY ---
Indication: Black tarry and bloody stools. Comparison: None Patient received 23 mCi technetium 99 tagged RBCs. Immediate anterior abdominal flow images obtained for 60 minutes. Normal expected radiopharmaceutical activity in the aortocaval system and visualized heart. There is no abnormal focal radiopharmaceutical activity to suggest active GI bleed. Impression: Negative nuclear medicine GI bleed exam.
[2021-04-22] MEDS: ZOCOR 20MG PO SCH (21:52)
[2021-04-22] MEDS: Pepcid 20 MG PO SCH (21:53)
[2021-04-23] MEDS: NORCO 5/325 MG PO PRN (01:45)
[2021-04-23] MEDS: D5W/0.45NS W/ 20mEq KCl 1000 ML 1,000 ML IV SCH (03:23)
[2021-04-23 04:51] LABS: Hematocrit 29.5 % (42-50); Hemoglobin 9.3 gm/dl (12.5-18.0); Mean Cell Volume 90.5 fl (78-100); Mean Corpuscular Hemoglobin 28.5 pg (26-32); Mean Corpuscular Hgb Concent. 31.5 g/dl (32-36); Mean Platelet Volume 9.2 fl (7.5-11.0); Platelet Count 275 K/mm3 (150-450); Red Blood Count 3.26 M/mm3 (4.1-5.6); Red Cell Distribution Width 16.9 % (11.5-14.0); White Blood Count 8.6 K/mm3 (4.0-10.5)
[2021-04-23 05:14] LABS: ANION GAP 6.7 MEQ/L (5-15); BLOOD UREA NITROGEN 11 mg/dL (9-20); CHLORIDE 103 mmol/L (98-107); Carbon Dioxide 30 mmol/L (22-30); Creatinine 1 0.82 mg/dL (0.66-1.25); EST GLOMERULAR FILTRATION RATE > 60.0 ML/MIN; Glucose 132 mg/dL (74-106); Potassium 4.1 mmol/L (3.5-5.1); SODIUM 136 mmol/L (137-145)
[2021-04-23 07:52] VITALS: BP 160/76; PULSE 83; O2SAT 96
[2021-04-23] MEDS ORDERED: HYDROCODONE-ACETAMIN 10-325 MG PO PRN (09:04)
[2021-04-23] MEDS: Glucophage XR 500 MG PO SCH (09:09)
[2021-04-23] MEDS: LASIX 20 MG PO SCH (09:10)
[2021-04-23] MEDS: Cordarone 200 MG PO SCH (09:10)
[2021-04-23] MEDS: Cozaar 50 MG PO SCH (09:10)
[2021-04-23] MEDS: MAG-OX 400 PO SCH (09:10)
[2021-04-23] MEDS: Klor Con 10 MEQ PO SCH (09:10)
[2021-04-23] MEDS: Coreg 3.125 MG PO SCH (09:10)
[2021-04-23] MEDS: hydroDIURIL 25 MG PO SCH (09:10)
[2021-04-23] MEDS: Neurontin 100 MG PO SCH (09:10)
[2021-04-23] MEDS: FEOSOL 325 MG PO SCH (09:10)
[2021-04-23] MEDS: CLARITIN 10 MG PO SCH (09:10)
[2021-04-23] MEDS: Glucotrol Xl 10 MG PO SCH (09:10)
[2021-04-23] MEDS: THERAGRAN MULTIVITAMIN PO SCH (09:10)
[2021-04-23] MEDS: Vitamin C 500 MG PO SCH (09:11)
--- NOTE | 2021-05-01 12:08 | PCM.DS ---
Discharge Summary Date of Admission: 04/17/21 12:50 Date of Discharge: 04/23/2021 Admitting Physician: AUGUST RAMIREZ Consults: Consults on Case 04/19/21 14:25 Consult Surgery ROUTINE Primary Care Provider: AUGUST RAMIREZ Allergies Allergies No Known Drug Allergies Allergy (Verified 04/15/21 22:21) Hospital Summary - Hospital Course Hospital Course: Pt. was admitted with marked anemia from gi bleed, pt. was very week and unable to tolerate prep for colonoscopy, his warfarin and plavix were d/c'd upon admission, but his INR continued to rise and continued to have bloody stools whi ch were treated with vitamin K and blood transfusions. Pt. continued to be weak but blood levels finally stabilized at hgb 8.3 prior to getting his bleeding scan, which did not find any active bleeding, pt. 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 with blood stable for several days it was felt the patient would benefit from a stay in swing bed with formal colonoscopy next week when patient strength returns to a more normal level. - Vitals & Intake/Output Vital Signs: Vital Signs Temperature 97.4 F 04/23/21 07:51 Pulse Rate 83 04/23/21 07:51 Respiratory Rate 22 04/23/21 07:51 Blood Pressure 160/76 04/23/21 07:51 O2 Sat by Pulse Oximetry 96 04/23/21 07:51 - Lab Result Diagrams: 04/23/21 04:30 04/23/21 04:30 Micro Results-Entire Visit: Microbiology 04/16/21 03:13 Urine Culture - Final Catherized NO GROWTH - Procedures and Test Procedures and Tests throughout Hospitalization: Therapy Orders & Screens 04/22/21 08:53 PT Eval & Treat ( Order) ONCE Reason for Eval:: WEAKNESS Diagnosis: GI BLEED, ANEMIA Discharge Exam General Appearance: no apparent distress, alert Neurologic Exam: alert, cooperative, normal mood/affect, nml cerebellar function, sensation nml, No motor deficits Eye Exam: PERRL, EOMI, eyes nml inspection Ears, Nose, Throat Exam: normal ENT inspection, pharynx normal, moist mucous membranes Neck Exam: normal inspection, non-tender, supple, full range of motion Respiratory Exam: normal breath sounds, lungs clear, No respiratory distress Cardiovascular Exam: regular rate/rhythm, normal heart sounds Gastrointestinal/Abdomen Exam: soft, No tenderness, No mass Male Genitalia Exam: deferred Rectal Exam: deferred Back Exam: normal inspection, normal range of motion, No CVA tenderness, No vertebral tenderness Extremity Exam: normal inspection, limited range of motion (left leg, and left arm from prior cva) Skin Exam: normal color, warm, dry Final Diagnosis/Problem List - Final Discharge Diagnosis/Problem (1) Rectal bleeding Status: Acute Code(s): K62.5 - HEMORRHAGE OF ANUS AND RECTUM (2) Supratherapeutic INR Status: Acute Code(s): R79.1 - ABNORMAL COAGULATION PROFILE (3) Symptomatic anemia Status: Acute Code(s): D64.9 - ANEMIA, UNSPECIFIED - Discharge Discharge Date: 04/23/21 Disposition: Swing Bed @ [facility] Condition: Fair Prescriptions: New Blood Sugar Diagnostic [Freestyle Lite Test Strip] 1 each MC TID #2 box No Action Glipizide [Glucotrol Xl] 10 mg PO BID Ferrous Sulfate 325 mg [Feosol 325 mg] 325 mg PO DAILY Metformin HCl [Metformin ER Osmotic] 1,000 mg PO BID Clopidogrel Bisulfate 75 mg [PLAVIX 75 MG Tablet] 75 mg PO DAILY Famotidine [Pepcid] 40 mg PO HS Desloratadine [Clarinex] 1 tab PO DAILY Cinnamon Bark [Cinnamon] 1,000 mg PO DAILY Atorvastatin Calcium 80 mg PO HS Ascorbic Acid [Vitamin C] 250 mg PO DAILY Insulin Glargine,Hum.rec.anlog [Basaglar Kwikpen U-100] 35 units SQ DAILY Gabapentin 100 mg PO TID Furosemide 20 mg [Lasix 20 mg] 1 tab PO DAILY Vit B6/Me-Thfolate/Me-B12/Ala [Nufola Capsule] 1 tab PO DAILY Potassium Chloride 10 Meq Tab* [Klor Con 10 MEQ] 2 tab PO DAILY Multivitamin [Multivitamins] 1 tab PO DAILY Magnesium Oxide [Magnesium] 400 mg PO DAILY Losartan/Hydrochlorothiazide [Losartan-Hctz 100-25 mg Tab] 0.5 tab PO DAILY Lidocaine [Lidocaine Pain Relief] 1 patch TOP DAILY PRN PRN Reason: Pain Amiodarone HCl 1 tab PO DAILY Warfarin Sodium 2 mg [Coumadin 2 MG] 2 mg PO DAILY Carvedilol 6.25 mg [Coreg 6.25 MG] 3.25 mg PO BID Cyclobenzaprine HCl 10 mg [Cyclobenzaprine 10 MG] 10 mg PO TID PRN PRN #60 tablet PRN Reason: Muscle Spasms Lidocaine [Salonpas] 1 each TP BID PRN #1 adh..patch PRN Reason: Pain Diclofenac Sodium Gel [Voltaren GEL] 1 gm TOP TID #1 gel..gm. Additional Instructions: [facility] WILL [facility]TA[facility] AFTER YOU GET HOME TO ARRANGE A VISIT. THEIR PHONE NUMBER IS [phone] IF YOU HAVE ANY QUESTIONS OR CONCERNS Follow up with: AUGUST RAMIREZ [Primary Care Provider] -
--- NOTE | 2021-05-01 12:10 | PCM.DS ---
Discharge Summary Date of Admission: 04/17/21 12:50 Date of Discharge: 04/23/2021 Admitting Physician: AUGUST RAMIREZ Consults: Consults on Case 04/19/21 14:25 Consult Surgery ROUTINE Primary Care Provider: AUGUST RAMIREZ Allergies Allergies No Known Drug Allergies Allergy (Verified 04/15/21 22:21) Hospital Summary - Hospital Course Hospital Course: Pt. admitted to hospital for acute gi bleed and elevated INR, which continued to rise requiring vitamin K and continued blood transfusions. Pt. was too weak to tolerate colonoscopy and after several days were able to stabilize his hgb at about 8.3, bleeding scan after stabilization was unhelpful showing no bleeding. Pt. continued to have pain in the extremities related to contractures. Pt. was felt to be stable to discharge to swing bed with colonoscopy to be done next week. - Vitals & Intake/Output Vital Signs: Vital Signs Temperature 97.4 F 04/23/21 07:51 Pulse Rate 83 04/23/21 07:51 Respiratory Rate 22 04/23/21 07:51 Blood Pressure 160/76 04/23/21 07:51 O2 Sat by Pulse Oximetry 96 04/23/21 07:51 - Lab Result Diagrams: 04/23/21 04:30 04/23/21 04:30 Micro Results-Entire Visit: Microbiology 04/16/21 03:13 Urine Culture - Final Catherized NO GROWTH - Procedures and Test Procedures and Tests throughout Hospitalization: Therapy Orders & Screens 04/22/21 08:53 PT Eval & Treat (MD Order) ONCE Reason for Eval:: WEAKNESS Diagnosis: GI BLEED, ANEMIA Discharge Exam General Appearance: no apparent distress, alert Neurologic Exam: alert, oriented x 3, cooperative, normal mood/affect, nml cerebellar function, sensation nml, No motor deficits Eye Exam: PERRL, EOMI, eyes nml inspection Ears, Nose, Throat Exam: normal ENT inspection, pharynx normal, moist mucous membranes Neck Exam: normal inspection, non-tender, supple, full range of motion Respiratory Exam: normal breath sounds, lungs clear, No respiratory distress Cardiovascular Exam: regular rate/rhythm, normal heart sounds Gastrointestinal/Abdomen Exam: soft, No tenderness, No mass Male Genitalia Exam: deferred Rectal Exam: deferred Back Exam: normal inspection, normal range of motion, No CVA tenderness, No vertebral tenderness Extremity Exam: normal inspection, limited range of motion (left arm and leg secondary to prior cva) Skin Exam: normal color, warm, dry Final Diagnosis/Problem List - Final Discharge Diagnosis/Problem (1) Muscular deconditioning Status: Acute Code(s): R29.898 - OTH SYMPTOMS AND SIGNS INVOLVING THE MUSCULOS KELETAL SYSTEM (2) Rectal bleeding Status: Acute Code(s): K62.5 - HEMORRHAGE OF ANUS AND RECTUM (3) Supratherapeutic INR Status: Acute Code(s): R79.1 - ABNORMAL COAGULATION PROFILE (4) Symptomatic anemia Status: Acute Code(s): D64.9 - ANEMIA, UNSPECIFIED - Discharge Disposition: Swing Bed @ [facility] Condition: Fair Prescriptions: New Blood Sugar Diagnostic [Freestyle Lite Test Strip] 1 each MC TID #2 box No Action Glipizide [Glucotrol Xl] 10 mg PO BID Ferrous Sulfate 325 mg [Feosol 325 mg] 325 mg PO DAILY Metformin HCl [Metformin ER Osmotic] 1,000 mg PO BID Clopidogrel Bisulfate 75 mg [PLAVIX 75 MG Tablet] 75 mg PO DAILY Famotidine [Pepcid] 40 mg PO HS Desloratadine [Clarinex] 1 tab PO DAILY Cinnamon Bark [Cinnamon] 1,000 mg PO DAILY Atorvastatin Calcium 80 mg PO HS Ascorbic Acid [Vitamin C] 250 mg PO DAILY Insulin Glargine,Hum.rec.anlog [Basaglar Kwikpen U-100] 35 units SQ DAILY Gabapentin 100 mg PO TID Furosemide 20 mg [Lasix 20 mg] 1 tab PO DAILY Vit B6/Me-Thfolate/Me-B12/Ala [Nufola Capsule] 1 tab PO DAILY Potassium Chloride 10 Meq Tab* [Klor Con 10 MEQ] 2 tab PO DAILY Multivitamin [Multivitamins] 1 tab PO DAILY Magnesium Oxide [Magnesium] 400 mg PO DAILY Losartan/Hydrochlorothiazide [Losartan-Hctz 100-25 mg Tab] 0.5 tab PO DAILY Lidocaine [Lidocaine Pain Relief] 1 patch TOP DAILY PRN PRN Reason: Pain Amiodarone HCl 1 tab PO DAILY Warfarin Sodium 2 mg [Coumadin 2 MG] 2 mg PO DAILY Carvedilol 6.25 mg [Coreg 6.25 MG] 3.25 mg PO BID Cyclobenzaprine HCl 10 mg [Cyclobenzaprine 10 MG] 10 mg PO TID PRN PRN #60 tablet PRN Reason: Muscle Spasms Lidocaine [Salonpas] 1 each TP BID PRN #1 adh..patch PRN Reason: Pain Diclofenac Sodium Gel [Voltaren GEL] 1 gm TOP TID #1 gel..gm. Additional Instructions: [facility] AFTER YOU GET HOME TO ARRANGE A VISIT. THEIR PHONE NUMBER IS [phone] IF YOU HAVE ANY QUESTIONS OR CONCERNS Follow up with: AUGUST RAMIREZ [Primary Care Provider] -
== END 2021-04-23 10:50 | disposition swing bed (61) | DRG 378 ==
LOC: ED 21:29 → OBSVTOIN 04-16 01:27 → INTOOBSV 04-16 01:27 → MED SURG 04-16 01:27 → ICU 04-17 12:43 → OBSVTOIN 04-17 12:50
PROVIDERS: ADMIT Family Medicine; ATTEND Family Medicine
PROC: 05HM33Z Insertion of Infusion Device into Right Internal Jugular Vein, Percutaneous Approach (ICD-10-PCS; principal; 2021-04-19)
DX: K62.5 Hemorrhage of anus and rectum (principal); I48.20 Chronic atrial fibrillation, unspecified; Z79.899 Other long term (current) drug therapy; Z79.01 Long term (current) use of 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; E11.9 Type 2 diabetes mellitus without complications; I10 Essential (primary) hypertension; E78.00 Pure hypercholesterolemia, unspecified; R53.83 Other fatigue; I69.30 Unspecified sequelae of cerebral infarction; M79.605 Pain in left leg; D64.9 Anemia, unspecified; K52.9 Noninfective gastroenteritis and colitis, unspecified; E87.6 Hypokalemia; R79.1 Abnormal coagulation profile; Z20.828 Contact with and (suspected) exposure to other viral communicable diseases
CPT/HCPCS: 0097U; 0241U; 36000; 36415; 36430; 36569; 43235; 71045; 74176; 78278; 80048; 80053; 81001; 82150; 82947; 83036; 83605; 83690; 83735; 84132; 85014; 85018; 85025; 85027; 85610; 86850; 86900; 86901; 86922; 87086; 93268; 94762; 97161; 99284; 99291; A9512; A9560; G0378; P9016; 99100; J1642; J1815; J1940; J2543; J2704; J3430; J3480; A9270-GY

== ENCOUNTER 2021-04-23 10:40 | Inpatient (IN) | payer MEDICARE, BC ==
[2021-04-23] MEDS ORDERED: MEDICATION INTERVENTION PO SCH (12:43)
[2021-04-23] MEDS ORDERED: Aplisol ID ONE (12:43)
[2021-04-23] MEDS ORDERED: TYLENOL 325 MG PO PRN (12:43)
[2021-04-23] MEDS ORDERED: Zofran 4 MG/2 ML VIAL IV PRN (12:43)
[2021-04-23] MEDS: D5W/0.45NS W/ 20mEq KCl 1000 ML 1,000 ML IV SCH ×2 (13:14→21:31)
[2021-04-23] MEDS: Neurontin 100 MG PO SCH ×2 (15:57→21:32)
[2021-04-23] MEDS: Glucotrol Xl 10 MG PO SCH (17:49)
[2021-04-23] MEDS: Glucophage XR 500 MG PO SCH (17:49)
[2021-04-23] MEDS ORDERED: Pepcid 20 MG ONE (19:49)
[2021-04-23] MEDS ORDERED: Coreg 3.125 MG ONE (19:49)
[2021-04-23] MEDS ORDERED: ZOCOR 20MG ONE (19:50)
[2021-04-23] MEDS: ZOCOR 20MG PO SCH (21:32)
[2021-04-23] MEDS: Pepcid 20 MG PO SCH (21:32)
[2021-04-23] MEDS: Coreg 3.125 MG PO SCH (21:32)
[2021-04-23] MEDS: HYDROCODONE-ACETAMIN 10-325 MG PO PRN (21:41)
[2021-04-23] MEDS: HUMULIN R SQ PRN (22:25)
[2021-04-24] MEDS: D5W/0.45NS W/ 20mEq KCl 1000 ML 1,000 ML IV SCH (06:43)
[2021-04-24 06:52] LABS: Hematocrit 30.5 % (42-50); Hemoglobin 9.5 gm/dl (12.5-18.0); Mean Cell Volume 92.7 fl (78-100); Mean Corpuscular Hemoglobin 28.9 pg (26-32); Mean Corpuscular Hgb Concent. 31.1 g/dl (32-36); Mean Platelet Volume 9.3 fl (7.5-11.0); Platelet Count 308 K/mm3 (150-450); Red Blood Count 3.29 M/mm3 (4.1-5.6); Red Cell Distribution Width 16.5 % (11.5-14.0); White Blood Count 6.9 K/mm3 (4.0-10.5)
[2021-04-24 07:26] LABS: ANION GAP 6.7 MEQ/L (5-15); BLOOD UREA NITROGEN 10 mg/dL (9-20); CHLORIDE 101 mmol/L (98-107); Calcium 8.4 mg/dL (8.4-10.2); Carbon Dioxide 31 mmol/L (22-30); Creatinine 1 0.82 mg/dL (0.66-1.25); EST GLOMERULAR FILTRATION RATE > 60.0 ML/MIN; Glucose 133 mg/dL (74-106); Potassium 4.1 mmol/L (3.5-5.1); SODIUM 135 mmol/L (137-145)
[2021-04-24] MEDS: Glucophage XR 500 MG PO SCH ×2 (07:36→16:29)
[2021-04-24] MEDS: HYDROCODONE-ACETAMIN 10-325 MG PO PRN ×3 (07:36→22:03)
[2021-04-24] MEDS: Glucotrol Xl 10 MG PO SCH ×2 (07:37→16:29)
[2021-04-24] MEDS: Lantus Insulin SQ SCH (09:31)
[2021-04-24] MEDS: MAG-OX 400 PO SCH (09:31)
[2021-04-24] MEDS: FEOSOL 325 MG PO SCH (09:31)
[2021-04-24] MEDS: CLARITIN 10 MG PO SCH (09:32)
[2021-04-24] MEDS: LASIX 20 MG PO SCH (09:32)
[2021-04-24] MEDS: Klor Con 10 MEQ PO SCH (09:32)
[2021-04-24] MEDS: hydroDIURIL 25 MG PO SCH (09:32)
[2021-04-24] MEDS: Vitamin C 500 MG PO SCH (09:32)
[2021-04-24] MEDS: Cordarone 200 MG PO SCH (09:33)
[2021-04-24] MEDS: Cozaar 50 MG PO SCH (09:33)
[2021-04-24] MEDS: THERAGRAN MULTIVITAMIN PO SCH (09:33)
[2021-04-24] MEDS: Coreg 3.125 MG PO SCH ×2 (09:33→22:03)
[2021-04-24] MEDS: Neurontin 100 MG PO SCH ×3 (09:33→22:03)
[2021-04-24] MEDS ORDERED: Aplisol ID ONE (10:00)
[2021-04-24] MEDS: HUMULIN R SQ PRN (11:39)
[2021-04-24] MEDS: Lidoderm Patch 5% TOP PRN (20:30)
[2021-04-24] MEDS: ZOCOR 20MG PO SCH (22:02)
[2021-04-24] MEDS: Pepcid 20 MG PO SCH (22:02)
[2021-04-25] MEDS: Glucotrol Xl 10 MG PO SCH ×2 (07:56→17:00)
[2021-04-25] MEDS: Glucophage XR 500 MG PO SCH ×2 (07:57→17:00)
[2021-04-25] MEDS: Lantus Insulin SQ SCH (09:45)
[2021-04-25] MEDS: Vitamin C 500 MG PO SCH (09:46)
[2021-04-25] MEDS: Klor Con 10 MEQ PO SCH (09:46)
[2021-04-25] MEDS: Neurontin 100 MG PO SCH ×3 (09:47→21:18)
[2021-04-25] MEDS: Cozaar 50 MG PO SCH (09:47)
[2021-04-25] MEDS: LASIX 20 MG PO SCH (09:47)
[2021-04-25] MEDS: Coreg 3.125 MG PO SCH ×2 (09:47→21:18)
[2021-04-25] MEDS: CLARITIN 10 MG PO SCH (09:47)
[2021-04-25] MEDS: THERAGRAN MULTIVITAMIN PO SCH (09:48)
[2021-04-25] MEDS: Cordarone 200 MG PO SCH (09:48)
[2021-04-25] MEDS: MAG-OX 400 PO SCH (09:48)
[2021-04-25] MEDS: FEOSOL 325 MG PO SCH (09:48)
[2021-04-25] MEDS: hydroDIURIL 25 MG PO SCH (09:48)
[2021-04-25] MEDS: HYDROCODONE-ACETAMIN 10-325 MG PO PRN ×2 (12:20→18:35)
[2021-04-25] MEDS: HUMULIN R SQ PRN ×2 (12:20→17:00)
[2021-04-25] MEDS: Lidoderm Patch 5% TOP PRN (21:18)
[2021-04-25] MEDS: Pepcid 20 MG PO SCH (21:18)
[2021-04-25] MEDS: ZOCOR 20MG PO SCH (21:18)
[2021-04-26] MEDS: HYDROCODONE-ACETAMIN 10-325 MG PO PRN ×3 (01:53→15:14)
[2021-04-26] MEDS: Glucophage XR 500 MG PO SCH ×2 (09:16→17:31)
[2021-04-26] MEDS: Cozaar 50 MG PO SCH (09:16)
[2021-04-26] MEDS: Neurontin 100 MG PO SCH ×3 (09:16→22:06)
[2021-04-26] MEDS: Glucotrol Xl 10 MG PO SCH ×2 (09:16→17:31)
[2021-04-26] MEDS: MAG-OX 400 PO SCH (09:16)
[2021-04-26] MEDS: FEOSOL 325 MG PO SCH (09:17)
[2021-04-26] MEDS: Coreg 3.125 MG PO SCH ×2 (09:17→22:06)
[2021-04-26] MEDS: Vitamin C 500 MG PO SCH (09:17)
[2021-04-26] MEDS: hydroDIURIL 25 MG PO SCH (09:18)
[2021-04-26] MEDS: Klor Con 10 MEQ PO SCH (09:18)
[2021-04-26] MEDS: THERAGRAN MULTIVITAMIN PO SCH (09:18)
[2021-04-26] MEDS: LASIX 20 MG PO SCH (09:18)
[2021-04-26] MEDS: CLARITIN 10 MG PO SCH (09:18)
[2021-04-26] MEDS: Cordarone 200 MG PO SCH (09:18)
[2021-04-26] MEDS: Lantus Insulin SQ SCH (09:24)
[2021-04-26] MEDS: Cyclobenzaprine 10 MG PO PRN (20:36)
[2021-04-26] MEDS: Pepcid 20 MG PO SCH (22:06)
[2021-04-26] MEDS: ZOCOR 20MG PO SCH (22:07)
[2021-04-27] MEDS: Glucotrol Xl 10 MG PO SCH ×2 (08:04→17:25)
[2021-04-27] MEDS: Glucophage XR 500 MG PO SCH ×2 (08:04→17:25)
[2021-04-27] MEDS: THERAGRAN MULTIVITAMIN PO SCH (09:22)
[2021-04-27] MEDS: Lantus Insulin SQ SCH (09:22)
[2021-04-27] MEDS: FEOSOL 325 MG PO SCH (09:22)
[2021-04-27] MEDS: hydroDIURIL 25 MG PO SCH (09:22)
[2021-04-27] MEDS: Klor Con 10 MEQ PO SCH (09:23)
[2021-04-27] MEDS: MAG-OX 400 PO SCH (09:23)
[2021-04-27] MEDS: Neurontin 100 MG PO SCH ×3 (09:23→21:19)
[2021-04-27] MEDS: Vitamin C 500 MG PO SCH (09:23)
[2021-04-27] MEDS: Coreg 3.125 MG PO SCH ×2 (09:23→21:19)
[2021-04-27] MEDS: LASIX 20 MG PO SCH (09:23)
[2021-04-27] MEDS: CLARITIN 10 MG PO SCH (09:23)
[2021-04-27] MEDS: Cordarone 200 MG PO SCH (09:23)
[2021-04-27] MEDS: Cozaar 50 MG PO SCH (09:23)
[2021-04-27] MEDS: Cyclobenzaprine 10 MG PO PRN ×2 (09:29→21:19)
[2021-04-27] MEDS: HUMULIN R SQ PRN ×2 (12:24→21:57)
[2021-04-27] MEDS: Pepcid 20 MG PO SCH (21:19)
[2021-04-27] MEDS: ZOCOR 20MG PO SCH (21:19)
[2021-04-28] MEDS ORDERED: D50W 50 ml Abboject IV ONE (08:03)
[2021-04-28] MEDS ORDERED: D50W 50ML Vial IV ONE (08:04)
[2021-04-28] MEDS: HYDROCODONE-ACETAMIN 10-325 MG PO PRN ×5 (08:06→21:54)
[2021-04-28] MEDS: Glucophage XR 500 MG PO SCH ×2 (08:14→17:01)
[2021-04-28] MEDS: Glucotrol Xl 10 MG PO SCH ×2 (08:14→17:02)
[2021-04-28] MEDS: CLARITIN 10 MG PO SCH (09:49)
[2021-04-28] MEDS: hydroDIURIL 25 MG PO SCH (09:49)
[2021-04-28] MEDS: Klor Con 10 MEQ PO SCH (09:50)
[2021-04-28] MEDS: Cordarone 200 MG PO SCH (09:50)
[2021-04-28] MEDS: LASIX 20 MG PO SCH (09:50)
[2021-04-28] MEDS: FEOSOL 325 MG PO SCH (09:50)
[2021-04-28] MEDS: Neurontin 100 MG PO SCH ×3 (09:50→21:52)
[2021-04-28] MEDS: MAG-OX 400 PO SCH (09:50)
[2021-04-28] MEDS: Coreg 3.125 MG PO SCH ×2 (09:50→21:52)
[2021-04-28] MEDS: Vitamin C 500 MG PO SCH (09:50)
[2021-04-28] MEDS: Cozaar 50 MG PO SCH (09:50)
[2021-04-28] MEDS: THERAGRAN MULTIVITAMIN PO SCH (09:50)
[2021-04-28] MEDS: Lantus Insulin SQ SCH (09:51)
[2021-04-28] MEDS ORDERED: Golytely Solution 4000 ML PO SCH (10:00)
[2021-04-28] MEDS: Cyclobenzaprine 10 MG PO PRN (14:59)
[2021-04-28] MEDS: Augmentin 875-125 Tablet PO SCH ×2 (15:00→21:52)
[2021-04-28] MEDS: Lidoderm Patch 5% TOP PRN (18:17)
[2021-04-28] MEDS: Pepcid 20 MG PO SCH (21:52)
[2021-04-28] MEDS: ZOCOR 20MG PO SCH (21:52)
[2021-04-29] MEDS: Glucophage XR 500 MG PO SCH ×2 (07:27→18:24)
[2021-04-29] MEDS: Glucotrol Xl 10 MG PO SCH ×2 (07:27→18:24)
[2021-04-29] MEDS: HYDROCODONE-ACETAMIN 10-325 MG PO PRN (07:57)
[2021-04-29] MEDS ORDERED: Golytely Solution 4000 ML PO SCH (10:00)
[2021-04-29] MEDS: hydroDIURIL 25 MG PO SCH (10:56)
[2021-04-29] MEDS: Coreg 3.125 MG PO SCH ×2 (10:56→22:06)
[2021-04-29] MEDS: Cozaar 50 MG PO SCH (10:56)
[2021-04-29] MEDS: Cordarone 200 MG PO SCH (10:56)
[2021-04-29] MEDS: CLARITIN 10 MG PO SCH (10:56)
[2021-04-29] MEDS: MAG-OX 400 PO SCH (10:56)
[2021-04-29] MEDS: Vitamin C 500 MG PO SCH (10:56)
[2021-04-29] MEDS: Klor Con 10 MEQ PO SCH (10:56)
[2021-04-29] MEDS: FEOSOL 325 MG PO SCH (10:57)
[2021-04-29] MEDS: THERAGRAN MULTIVITAMIN PO SCH (10:57)
[2021-04-29] MEDS: LASIX 20 MG PO SCH (10:57)
[2021-04-29] MEDS: Augmentin 875-125 Tablet PO SCH ×2 (10:57→22:06)
[2021-04-29] MEDS: Neurontin 100 MG PO SCH ×3 (10:57→22:06)
[2021-04-29] MEDS ORDERED: Duragesic 25MCG Patch TOP SCH (14:00)
[2021-04-29] MEDS: Lantus Insulin SQ SCH (14:15)
[2021-04-29] MEDS: Voltaren GEL TOP SCH ×2 (15:12→19:56)
[2021-04-29] MEDS: Pepcid 20 MG PO SCH (22:15)
[2021-04-29] MEDS: ZOCOR 20MG PO SCH (22:16)
[2021-04-30] MEDS: Lidoderm Patch 5% TOP PRN (01:44)
[2021-04-30] MEDS: HYDROCODONE-ACETAMIN 10-325 MG PO PRN ×2 (01:44→09:47)
[2021-04-30] MEDS: Cyclobenzaprine 10 MG PO PRN ×2 (01:44→09:45)
[2021-04-30] MEDS ORDERED: Lactated Ringers 1,000 ML IV ONE (05:54)
[2021-04-30] MEDS ORDERED: Lactated Ringers 1,000 ML IV SCH (07:00)
[2021-04-30] MEDS: Glucotrol Xl 10 MG PO SCH (08:44)
[2021-04-30] MEDS: Glucophage XR 500 MG PO SCH (08:44)
[2021-04-30] MEDS: Lantus Insulin SQ SCH (08:45)
[2021-04-30 09:19] VITALS: BP 189/79; PULSE 72; O2SAT 98
[2021-04-30] MEDS: Vitamin C 500 MG PO SCH (09:45)
[2021-04-30] MEDS: Klor Con 10 MEQ PO SCH (09:46)
[2021-04-30] MEDS: THERAGRAN MULTIVITAMIN PO SCH (09:46)
[2021-04-30] MEDS: Augmentin 875-125 Tablet PO SCH (09:46)
[2021-04-30] MEDS: FEOSOL 325 MG PO SCH (09:46)
[2021-04-30] MEDS: LASIX 20 MG PO SCH (09:46)
[2021-04-30] MEDS: CLARITIN 10 MG PO SCH (09:46)
[2021-04-30] MEDS: Coreg 3.125 MG PO SCH (09:46)
[2021-04-30] MEDS: Cordarone 200 MG PO SCH (09:46)
[2021-04-30] MEDS: Cozaar 50 MG PO SCH (09:46)
[2021-04-30] MEDS: hydroDIURIL 25 MG PO SCH (09:46)
[2021-04-30] MEDS: MAG-OX 400 PO SCH (09:46)
[2021-04-30] MEDS: Neurontin 100 MG PO SCH (09:46)
[2021-04-30] MEDS: Voltaren GEL TOP SCH (09:47)
[2021-04-30] MEDS ORDERED: ENOXAPARIN SODIUM SQ SCH (12:00)
== END 2021-04-30 13:30 | DRG 948 ==
LOC: MED SURG 10:50
PROVIDERS: ADMIT Family Medicine; ATTEND Family Medicine
DX: R53.81 Other malaise (principal); K62.5 Hemorrhage of anus and rectum; R79.1 Abnormal coagulation profile; D64.9 Anemia, unspecified; Z79.899 Other long term (current) drug therapy; Z79.01 Long term (current) use of 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; M79.605 Pain in left leg; Z86.73 Personal history of transient ischemic attack (TIA), and cerebral infarction without residual deficits
CPT/HCPCS: 36415; 80048; 82947; 84134; 85027; 99100; J1642; J1650; J1815; 97110-GP; A9270-GY

== ENCOUNTER → 2021-04-30 | Day surgery (SDC) | payer MEDICARE, BC ==
[~2021-04-30] MED LIST: DIPRIVAN 200 MG/20 ML IV ONE; PHENYLEPHRINE HCL ONE
--- NOTE | 2021-04-30 11:22 | OP ---
SURGERY DATE/TIME: 04/30/2021 0820 PREOPERATIVE DIAGNOSIS: GI bleeding. POSTOPERATIVE DIAGNOSIS: Severe sigmoid diverticulosis but no active or recent bleeding. PROCEDURE: Colonoscopy complete to cecum. SURGEON: Phu Spear M.D. ANESTHESIA: MAC. COMPLICATIONS: None. CONDITION: Stable. INDICATION: An 80 year-old was in with severe bleeding from both the urinary system and the colon. He is doing better at this time. He tolerated his prep. He has been successfully prepped. DESCRIPTION OF PROCEDURE: He is taken to endoscopy. Left lateral decubitus position. MAC sedation provided, satisfactory anesthetic was present. Anal digital examination was normal. Scope introduced. There was a fair amount of liquid stool about 500 cc bulb suctioned out with care and patience. The rectum was satisfactory. The sigmoid severe diverticulosis but no bleeding. There was no blood either old or new in any of today's examination. Scope advanced up to the base of the cecum. Base of the cecum, ileocecal valve normal. Circumferential withdrawal ascending, hepatic, transverse, splenic, descending, sigmoid severe diverticulosis rectum/anus. IMPRESSION: Severe diverticulosis but no current bleed.
== END | disposition home or self-care (01) ==
LOC: SDC 06:45
PROVIDERS: ATTEND Surgery
DX: K57.30 Diverticulosis of large intestine without perforation or abscess without bleeding (principal); R31.9 Hematuria, unspecified
CPT/HCPCS: J2370; J2704

== ENCOUNTER 2022-03-12 17:57 | Observation (INO) | payer MEDICARE ==
[2022-03-12] MEDS ORDERED: MORPHINE SULFATE 4 MG INJ IV ONE (18:06)
[2022-03-12] MEDS ORDERED: MORPHINE SULFATE 4 MG INJ ONE (18:32)
[2022-03-12 18:36] LABS: Absolute Neutrophil Ct (ANC) 5.37 (1.4-6.9); Basophil (Absolute #) 0.06 (0-0.4); Eosinophil % 7.8 % (0.00-5.0); Eosinophil (Absolute #) 0.65 (0-0.5); Hematocrit 35.7 % (42-50); Hemoglobin 12.6 gm/dl (12.5-18.0); Lymphocyte (Absolute #) 1.37 (1.0-4.6); Lymphocytes % 16.4 % (24.0-44.0); Mean Cell Volume 92.2 fl (78-100); Mean Corpuscular Hemoglobin 32.6 pg (26-32); Mean Corpuscular Hgb Concent. 35.3 g/dl (32-36); Mean Platelet Volume 9.2 fl (7.5-11.0); Monocyte (Absolute #) 0.91 (0.0-1.3); Monocytes % 10.9 % (0.0-12.0); Neutrophil % 64.2 % (36.0-66.0); Platelet Count 286 K/mm3 (150-450); Red Blood Count 3.87 M/mm3 (4.1-5.6); White Blood Count 8.4 K/mm3 (4.0-10.5)
[2022-03-12 19:08] LABS: ALBUMIN 4.4 g/dL (3.5-5.0); ALKALINE PHOSPHATASE 114 U/L (38-126); ANION GAP 16.3 MEQ/L (5-15); BLOOD UREA NITROGEN 14 mg/dL (9-20); CHLORIDE 94 mmol/L (98-107); Calcium 8.9 mg/dL (8.4-10.2); Carbon Dioxide 26 mmol/L (22-30); Creatinine 1 0.85 mg/dL (0.66-1.25); EST GLOMERULAR FILTRATION RATE > 60.0 ML/MIN; Glucose 250 mg/dL (74-106); NT PRO BNP 190 pg/mL (0-1800); Potassium 4.1 mmol/L (3.5-5.1); SGOT/AST 26 U/L (17-59); SGPT/ALT 17 U/L (0-50); SODIUM 132 mmol/L (137-145); Total Protein 7.3 g/dL (6.3-8.2)
--- NOTE | 2022-03-12 19:35 | ERPHSYRPT ---
- History of Present Illness Time Seen by Provider: 03/12/22 18:05 Source: patient, family Exam Limitations: no limitations Patient Subjective Stated Complaint: pt reports falling one hour [employer], states he was bent over trying to reach something and fell landing on his bottom. pt reports decreased mobility from a stroke in the past, with deficits to the L side. pt reports mid back pain and increased struggle of breathing when he leans to the right. Triage Nursing Assessment: pt is aox3, pupils perrl, pt is [place], pt is afebrile, pt with audible wheezes upon arrival, radial pulses strong and equal, cap refill < 3 seconds, pt skin pink warm dry. no obvious injury or deformity noted at this time. Physician History: Patient is an 81-year-old white male who suffered a fall when he got off balance approximately an hour prior to arrival. He denies any loss of consciousness his only complaint of pain is in the mid back. 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 Family also reports that for several days he has been increasingly short of breath and coughing. Timing/Duration: today (Suffered a fall), day(s) (4-day history of cough and increasing shortness of breath) Cough Quality/Degree: productive cough Possible Cause: occasional episodes Modifying Factors: Improves With: albuterol inhaler Associated Symptoms: cough, lightheadedness, nasal congestion, shortness of breath Allergies/Adverse Reactions: No Known Drug Allergies Allergy (Verified 03/12/22 18:09) Home Medications: Clopidogrel Bisulfate 75 mg [PLAVIX 75 MG Tablet] 75 mg PO DAILY 01/12/16 [History] Famotidine [Pepcid] 40 mg PO HS 01/12/16 [History] Ferrous Sulfate 325 mg [Feosol 325 mg] 325 mg PO DAILY 01/12/16 [History] Glipizide [Glucotrol Xl] 10 mg PO DAILY 01/12/16 [History] Metformin HCl [Metformin ER Osmotic] 1,000 mg PO BID 01/12/16 [History] Amiodarone HCl 1 tab PO DAILY 10/11/19 [History] Ascorbic Acid [Vitamin C] 250 mg PO DAILY 10/11/19 [History] Atorvastatin Calcium 40 mg PO HS 10/11/19 [History] Cinnamon Bark [Cinnamon] 1,000 mg PO DAILY 10/11/19 [History] Desloratadine [Clarinex] 1 tab PO DAILY 10/11/19 [History] Furosemide 20 mg [Lasix 20 mg] 1 tab PO DAILY 10/11/19 [History] Gabapentin 100 mg PO TID 10/11/19 [History] Lidocaine [Lidocaine Pain Relief] 1 patch TOP DAILY PRN 10/11/19 [History] Losartan/Hydrochlorothiazide [Losartan-Hctz 100-25 mg Tab] 0.5 tab PO DAILY 10/11/19 [History] Magnesium Oxide [Magnesium] 400 mg PO DAILY 10/11/19 [History] Multivitamin [Multivitamins] 1 tab PO DAILY 10/11/19 [History] Potassium Chloride 10 Meq Tab* [Klor Con 10 MEQ] 2 tab PO DAILY 10/11/19 [History] Vit B6/Me-Thfolate/Me-B12/Ala [Nufola Capsule] 1 tab PO DAILY 10/11/19 [History] Carvedilol 6.25 mg [Coreg 6.25 MG] 3.25 mg PO BID 04/15/21 [History] Hx Tetanus, Diphtheria Vaccination/Date Given: Yes Hx Influenza Vaccination/Date Given: Yes Hx Pneumococcal Vaccination/Date Given: Yes Immunizations Up to Date: Yes Travel Risk - International Travel Have you traveled outside of the country in past 3 weeks: No - Coronavirus Screening Are you exhibiting any of the following symptoms?: No Close contact with a COVID-19 positive Pt in past 14-21 Days: No - Vaccine Status Have you recieved a Covid-19 vaccination: Yes Interchange Agent: Unknown - Vaccination Dates Dates if Unknown: unk - Review of Systems Constitutional: No Fever, No Chills Eyes: No Symptoms Ears, Nose, & Throat: No Symptoms Respiratory: Cough, Dyspnea, Wheezing Cardiac: No Chest Pain, No Edema, No Syncope Abdominal/Gastrointestinal: No Abdominal Pain, No Nausea, No Vomiting, No Diarrhea Genitourinary Symptoms: No Dysuria Musculoskeletal: Back Pain, No Neck Pain Skin: No Rash Neurological: Other (Left-sided weakness), No Dizziness, No Focal Weakness, No Sensory Changes Psychological: No Symptoms Endocrine: No Symptoms Hematologic/Lymphatic: No Symptoms Immunological/Allergic: No Symptoms All Other Systems: Reviewed and Negative - Past Medical History Pertinent Past Medical History: Yes Neurological History: Stroke, Other ENT History: No Pertinent History Cardiac History: Other Respiratory History: Other Endocrine Medical History: Other Musculoskeletal History: Other GI Medical History: GI Bleed History: No Pertinent History Psycho-Social History: No Pertinent History Male Reproductive Disorders: No Pertinent History Other Medical History: Multiple Co-Morbidities. Please see medical chart for complete medical history. - Past Surgical History Past Surgical History: Yes Neuro Surgical History: No Pertinent History Cardiac: No Pertinent History Respiratory: No Pertinent History Gastrointestinal: Hernia Repair Genitourinary: No Pertinent History Musculoskeletal: Joint Replacement Male Surgical History: No Pertinent History Other Surgical History: pattie knees and Pattie shoulders - Social History Smoking Status: Former smoker Exposure to second hand smoke: Yes Drug Use: none Patient Lives Alone: No - Nursing Vital Signs Nursing Vital Signs: Initial Vital Signs Temperature 96.8 F 03/12/22 17:58 Pulse Rate 78 03/12/22 17:58 Blood Pressure 206/97 03/12/22 17:58 Pain Scale Pain Intensity 9 - Physical Exam General Appearance: mild distress, alert Eye Exam: PERRL/EOMI, eyes nml inspection Ears, Nose, Throat Exam: normal ENT inspection, TMs normal, pharynx normal, moist mucous membranes Neck Exam: normal inspection, non-tender, supple, full range of motion Respiratory Exam: respiratory distress (Mild), crackles/rales, rhonchi, wheezing Cardiovascular Exam: regular rate/rhythm, normal heart sounds Gastrointestinal/Abdomen Exam: soft, No tenderness Back Exam: normal inspection, vertebral tenderness, muscle spasm, point tenderness, No CVA tenderness Extremity Exam: normal inspection, normal range of motion Neurologic Exam: alert, oriented x 3, cooperative, normal mood/affect, sensation nml, No motor deficits Skin Exam: normal color, warm, dry, No rash Lymphatic Exam: No adenopathy SpO2 Interpretation: normal SpO2: 96 O2 Delivery: Room Air - Course Nursing assessment & vital signs reviewed: Yes - CT Exams Chest CT Interpretation: Tele-radiologist Report Lumbar Spine CT Interpretation: Tele-radiologist Report Ordered Tests: Active Orders 24 hr Category Date Time Status EKG-ER Only STAT Care 03/12/22 18:06 Active IV Insertion STAT Care 03/12/22 18:06 Active CHEST WITHOUT CONTRAST [CT] Routine Exams 03/12/22 18:51 Taken LUMBAR SPINE W/O [CT] Routine Exams 03/12/22 18:56 Taken CBC W DIFF Stat Lab 03/12/22 18:32 Completed CMP Stat Lab 03/12/22 18:32 Completed Lactic Acid Stat Lab 03/12/22 18:39 Completed NT PRO BNP Stat Lab 03/12/22 18:32 Completed TROPONIN Q3H Lab 03/12/22 18:32 Completed TROPONIN Q3H Lab 03/12/22 21:15 Ordered TROPONIN Q3H Lab 03/13/22 00:15 Ordered TROPONIN Q3H Lab 03/13/22 03:15 Ordered TROPONIN Q3H Lab 03/13/22 06:15 Ordered UA W/RFX UR CULTURE Stat Lab 03/12/22 18:07 Ordered Medication Summary Discontinued Medications Generic Name Dose Route Start Last Admin Trade Name Mag PRN Reason Stop Dose Admin Morphine Sulfate 4 mg 03/12/22 18:06 03/12/22 18:35 Morphine Sulfate 4 Mg/Ml Injection IV 03/12/22 18:07 4 mg STAT ONE Administration Morphine Sulfate Confirm 03/12/22 18:32 Morphine Sulfate 4 Mg/Ml Injection Administered 03/12/22 18:33 Dose 4 mg .ROUTE .STK-MED ONE Lab/Rad Data: Laboratory Result Diagrams 03/12/22 18:32 03/12/22 18:32 Laboratory Results 03/12/22 03/12/22 03/12/22 Range/Units 18:39 18:32 18:32 WBC (4.0-10.5) K/mm3 RBC (4.1-5.6) M/mm3 Hgb (12.5-18.0) gm/dl Hct (42-50) % MCV (78-100) fl MCH (26-32) pg MCHC (32-36) g/dl RDW (11.5-14.0) % Plt Count (150-450) K/mm3 MPV (7.5-11.0) fl Gran % (36.0-66.0) % Eos # (Auto) (0-0.5) Absolute Lymphs (auto) (1.0-4.6) Absolute Monos (auto) (0.0-1.3) Lymphocytes % (24.0-44.0) % Monocytes % (0.0-12.0) % Eosinophils % (0.00-5.0) % Basophils % (0.0-0.4) % Absolute Granulocytes (1.4-6.9) Basophils # (0-0.4) Sodium 132 L (137-145) mmol/L Potassium 4.1 (3.5-5.1) mmol/L Chloride 94 L (98-107) mmol/L Carbon Dioxide 26 (22-30) mmol/L Anion Gap 16.3 H (5-15) MEQ/L BUN 14 (9-20) mg/dL Creatinine 0.85 (0.66-1.25) mg/dL Estimated GFR > 60.0 ML/MIN Glucose 250 H (74-106) mg/dL Lactic Acid 2.5 H (0.4-2.0) Calcium 8.9 (8.4-10.2) mg/dL Total Bilirubin 0.50 (0.2-1.3) mg/dL AST 26 (17-59) U/L ALT 17 (0-50) U/L Alkaline Phosphatase 114 (38-126) U/L Troponin I < 0.012 (0.000-0.034) ng/mL NT-Pro-B Natriuret Pep 190 (0-1800) pg/mL Serum Total Protein 7.3 (6.3-8.2) g/dL Albumin 4.4 (3.5-5.0) g/dL 03/12/22 Range/Units 18:32 WBC 8.4 (4.0-10.5) K/mm3 RBC 3.87 L (4.1-5.6) M/mm3 Hgb 12.6 (12.5-18.0) gm/dl Hct 35.7 L (42-50) % MCV 92.2 (78-100) fl MCH 32.6 H (26-32) pg MCHC 35.3 (32-36) g/dl RDW 13.0 (11.5-14.0) % Plt Count 286 (150-450) K/mm3 MPV 9.2 (7.5-11.0) fl Gran % 64.2 (36.0-66.0) % Eos # (Auto) 0.65 H (0-0.5) Absolute Lymphs (auto) 1.37 (1.0-4.6) Absolute Monos (auto) 0.91 (0.0-1.3) Lymphocytes % 16.4 L (24.0-44.0) % Monocytes % 10.9 (0.0-12.0) % Eosinophils % 7.8 H (0.00-5.0) % Basophils % 0.7 (0.0-0.4) % Absolute Granulocytes 5.37 (1.4-6.9) Basophils # 0.06 (0-0.4) Sodium (137-145) mmol/L Potassium (3.5-5.1) mmol/L Chloride (98-107) mmol/L Carbon Dioxide (22-30) mmol/L Anion Gap (5-15) MEQ/L BUN (9-20) mg/dL Creatinine (0.66-1.25) mg/dL Estimated GFR ML/MIN Glucose (74-106) mg/dL Lactic Acid (0.4-2.0) Calcium (8.4-10.2) mg/dL Total Bilirubin (0.2-1.3) mg/dL AST (17-59) U/L ALT (0-50) U/L Alkaline Phosphatase (38-126) U/L Troponin I (0.000-0.034) ng/mL NT-Pro-B Natriuret Pep (0-1800) pg/mL Serum Total Protein (6.3-8.2) g/dL Albumin (3.5-5.0) g/dL - Progress Progress: unchanged Air Movement: fair Blood Culture(s) Obtained: No Antibiotics given: Yes Discussed with : Joseluis - Departure Departure Disposition: Observation Clinical Impression: Interstitial pneumonia, Back pain Condition: Fair Critical Care Time: No Referrals: AUGUST RAMIREZ MD [Primary Care Provider] - Follow up/PCP as directed Instructions: Pneumonia, Adult (DC)
--- NOTE | 2022-03-12 20:01 | XRAY ---
Indication: Pain following fall. Cough. Multiple contiguous axial images obtained through the chest without contrast. Comparison: None Bilateral shoulder arthroplasty produces beam artifact. Lungs demonstrates diffuse bilateral pulmonary fibrosis/scarring and tiny right base calcific granuloma. No suspicious pulmonary mass, infiltrate, effusion, or pneumothorax. Heart is borderline enlarged. Aorta is mildly arteriosclerotic. Small mediastinal calcified nodes. No pathologic mediastinal lymphadenopathy. Bony thorax intact with osteopenia and moderate degenerative changes throughout the spine. Limited upper abdomen demonstrates food/fluid distended stomach, moderate colonic fecal stasis, and tiny splenic calcified granulomas. Impression: 1. Beam artifact from bilateral shoulder arthroplasty. 2. Diffuse pulmonary fibrosis/scarring. Interstitial pneumonia not completely excluded in the right clinical setting. 3. Incidental osteopenia, multilevel degenerative spondylosis, fecal stasis, and old granulomatous disease. Comment: Preliminary interpretation made by [facility]. No critical discrepancy.
--- NOTE | 2022-03-12 20:06 | XRAY ---
Indication: Pain following fall. Multiple contiguous axial images obtained through the lumbar spine. Sagittal and coronal reformatted images obtained. Comparison: April 15, 2021. Osseous structures remain demineralized consistent with patient's age. Again mild/moderate multilevel thoracal lumbar degenerative spondylosis including L1-L2/L3-L4 degenerative vacuum disc phenomena. No acute fracture, suspicious bony lesions, or spinal canal stenosis. Sagittal and coronal reformatted images again demonstrates normal lumbar lordosis with minimal levoscoliosis centered at L3. Stable L1-L2 and L3-L4 disc space narrowing. No acute compression fracture or subluxation. Visualized noncontrasted soft tissues again demonstrates diffuse scattered vascular calcifications and tiny hepatic/splenic calcified granulomas. Impression: 1. Negative acute fracture/subluxation. 2. Stable osteopenia, multilevel degenerative spondylosis, scoliosis, arteriosclerotic disease, and old granulomatous disease. Comment: Preliminary interpretation made by [facility]. No critical discrepancy.
[2022-03-12 20:19] LABS: INFLUENZA A NEGATIVE (NEGATIVE); INFLUENZA B NEGATIVE (NEGATIVE); RESPIRATORY SYNCTIAL VIRUS NEGATIVE (Negative); SARS-CoV-2 Xpert Express NEGATIVE (NEGATIVE)
[2022-03-12] MEDS ORDERED: Zofran 4 MG/2 ML VIAL IV PRN (21:35)
[2022-03-12] MEDS: MORPHINE SULFATE 10 MG/ML IV PRN (21:44)
[2022-03-12] MEDS: Sodium Chloride 0.9% 1000 ML 1,000 ML IV SCH (21:45)
[2022-03-12] MEDS: PROVENTIL 2.5 MG/3 ML NEB IH PRN (23:00)
[2022-03-12] MEDS ORDERED: PROVENTIL 2.5 MG/3 ML NEB IH ONE (23:08)
[2022-03-13] MEDS ORDERED: solu-MEDROL ONE ×2 (00:21→05:24)
[2022-03-13] MEDS ORDERED: Sterile H2O 10 ml IJ ONE (00:21)
[2022-03-13] MEDS: solu-MEDROL 60 MG, Sterile H2O 10 ml 2 ML IV SCH ×8 (00:22→18:05)
[2022-03-13 04:45] LABS: Hematocrit 33.2 % (42-50); Hemoglobin 12.1 gm/dl (12.5-18.0); Mean Cell Volume 93.3 fl (78-100); Mean Corpuscular Hgb Concent. 36.4 g/dl (32-36); Mean Platelet Volume 9.6 fl (7.5-11.0); Platelet Count 286 K/mm3 (150-450); Red Blood Count 3.56 M/mm3 (4.1-5.6); Red Cell Distribution Width 13.2 % (11.5-14.0); White Blood Count 8.6 K/mm3 (4.0-10.5)
[2022-03-13 05:08] LABS: ALBUMIN 3.9 g/dL (3.5-5.0); ALKALINE PHOSPHATASE 92 U/L (38-126); ANION GAP 14.6 MEQ/L (5-15); BLOOD UREA NITROGEN 16 mg/dL (9-20); CHLORIDE 97 mmol/L (98-107); Calcium 8.2 mg/dL (8.4-10.2); Carbon Dioxide 24 mmol/L (22-30); Creatinine 1 0.84 mg/dL (0.66-1.25); EST GLOMERULAR FILTRATION RATE > 60.0 ML/MIN; Glucose 217 mg/dL (74-106); Potassium 4.2 mmol/L (3.5-5.1); SGOT/AST 25 U/L (17-59); SGPT/ALT 15 U/L (0-50); SODIUM 132 mmol/L (137-145); Total Protein 6.7 g/dL (6.3-8.2)
[2022-03-13] MEDS: PROVENTIL 2.5 MG/3 ML NEB IH PRN (07:38)
[2022-03-13] MEDS ORDERED: LIDOCAINE TP PRN (09:29)
[2022-03-13] MEDS ORDERED: LIDOCAINE TOP PRN (09:29)
[2022-03-13] MEDS ORDERED: Lidoderm Patch 5% TP PRN (09:46)
[2022-03-13] MEDS ORDERED: TADALAFIL 20 MG PO PRN (09:51)
[2022-03-13] MEDS ORDERED: Glucotrol Xl 10 MG PO SCH (10:00)
[2022-03-13] MEDS ORDERED: BLOOD SUGAR DIAGNOSTIC MC SCH (10:00)
[2022-03-13] MEDS ORDERED: NON-FORMULARY ITEM (Losartan/Hydrochlorothiazide [Losartan-Hctz 100-25 Mg Tab] 1 EACH Tabl PO SCH (10:00)
[2022-03-13] MEDS ORDERED: DESLORATADINE 5 MG PO SCH (10:00)
[2022-03-13] MEDS ORDERED: MEDICATION INTERVENTION MC SCH (10:00)
[2022-03-13] MEDS ORDERED: NON-FORMULARY ITEM (Magnesium Oxide [Magnesium] 400 MG Tablet) PO SCH (10:00)
[2022-03-13] MEDS: Lidoderm Patch 5% TOP PRN (10:28)
[2022-03-13] MEDS: hydroDIURIL 25 MG PO SCH (10:29)
[2022-03-13] MEDS: Klor Con 10 MEQ PO SCH (10:29)
[2022-03-13] MEDS: Cozaar 50 MG PO SCH (10:29)
[2022-03-13] MEDS: MAG-OX 400 PO SCH (10:29)
[2022-03-13] MEDS: Cordarone 200 MG PO SCH (10:29)
[2022-03-13] MEDS: LASIX 20 MG PO SCH (10:29)
[2022-03-13] MEDS: PLAVIX 75 MG Tablet PO SCH (10:30)
[2022-03-13] MEDS: CLARITIN 10 MG PO SCH (10:30)
[2022-03-13] MEDS: Neurontin 100 MG PO SCH ×3 (10:30→22:19)
[2022-03-13] MEDS: Coreg 6.25 MG PO SCH ×2 (10:30→22:18)
[2022-03-13] MEDS: ROCEPHIN 1 Gm-D5w 50 ml Bag** 1 G/50 ML IVPB IV SCH (10:30)
[2022-03-13] MEDS: HUMALOG SQ PRN ×3 (11:38→22:19)
--- NOTE | 2022-03-13 12:08 | PCM.HP ---
History of Present Illness - Chief Complaint Chief Complaint: Fall/Pneumonia History of Present Illness: is a 81 year old male pt of Dr. Gagnon with PMHx CCVA, GI bleed, DM II, HTN, arrhythmia, peripheral neuropathy, and BPH who came to ER after a fall with back pain; he was found to have PNA and admitted on IV Rocephin (no zithromax due to interaction with amiodarone). Pt was having back pain with deep breathing; not having any pain today. He was getting into his lift chair yesterday, backing up, when he missed it and fell quite hard onto the flood. He typically walks with a cane. Family noted, once in the ER, that pt had several days of increased SOB and cough. Pt does note he thinks he's been getting sick for a while. His CT chest with diffuse pulmonary fibrosis/scarring, possible interstitial pneumonia. CT lumbar spine nonacute. - Review of Systems Respiratory: Cough, Short Of Breath Genitourinary Symptoms: Dysuria (x1 this a.m.) Musculoskeletal: Back Pain, Fall Neurological: Other (poor balance) All Other Systems: Reviewed and Negative Medications & Allergies Home Medications: Home Medication List Clopidogrel Bisulfate 75 mg [PLAVIX 75 MG Tablet] 75 mg PO DAILY 01/12/16 [History Confirmed 03/12/22] Famotidine [Pepcid] 40 mg PO HS 01/12/16 [History Confirmed 03/12/22] Ferrous Sulfate 325 mg [Feosol 325 mg] 325 mg PO DAILY 01/12/16 [History Confirmed 03/12/22] Glipizide [Glucotrol Xl] 10 mg PO DAILY 01/12/16 [History Confirmed 03/12/22] Metformin HCl [Metformin ER Osmotic] 1,000 mg PO BID 01/12/16 [History Confirmed 03/12/22] Amiodarone HCl 200 mg PO DAILY 10/11/19 [History Confirmed 03/13/22] Ascorbic Acid [Vitamin C] 250 mg PO DAILY 10/11/19 [History Confirmed 03/12/22] Atorvastatin Calcium 40 mg PO HS 10/11/19 [History Confirmed 03/12/22] Cinnamon Bark [Cinnamon] 1,000 mg PO DAILY 10/11/19 [History Confirmed 03/12/22] Desloratadine [Clarinex] 1 tab PO DAILY 10/11/19 [History Confirmed 03/12/22] Furosemide 20 mg [Lasix 20 mg] 1 tab PO DAILY 10/11/19 [History Confirmed 03/12/22] Gabapentin 100 mg PO TID 10/11/19 [History Confirmed 03/12/22] Lidocaine [Lidocaine Pain Relief] 1 patch TOP DAILY PRN 10/11/19 [History Confirmed 03/12/22] Losartan/Hydrochlorothiazide [Losartan-Hctz 100-25 mg Tab] 0.5 tab PO DAILY 10/11/19 [History Confirmed 03/12/22] Magnesium Oxide [Magnesium] 400 mg PO DAILY 10/11/19 [History Confirmed 03/12/22] Multivitamin [Multivitamins] 1 tab PO DAILY 10/11/19 [History Confirmed 03/12/22] Potassium Chloride 10 Meq Tab* [Klor Con 10 MEQ] 2 tab PO DAILY 10/11/19 [History Confirmed 03/12/22] Vit B6/Me-Thfolate/Me-B12/Ala [Nufola Capsule] 1 tab PO DAILY 10/11/19 [History Confirmed 03/12/22] Carvedilol 6.25 mg [Coreg 6.25 MG] 3.25 mg PO BID 04/15/21 [History Confirmed 03/12/22] Blood Sugar Diagnostic [Freestyle Lite Test Strip] 1 each MC TID #2 box 04/16/21 [Rx Confirmed 03/12/22] Lidocaine [Salonpas] 1 each TP BID PRN #1 adh..patch 04/30/21 [Rx Confirmed 03/12/22] Tadalafil [Cialis] 1 tab PO DIRECTIONS UNKNOWN PRN 03/13/22 [History Confirmed 03/13/22] Allergies/Adverse Reactions: Allergies Allergy/AdvReac Type Severity Reaction Status Date / Time No Known Drug Allergies Allergy Verified 03/12/22 18:09 - Past Medical History Past Medical History: Yes Neurological History: Peripheral Neuropathy, Stroke ENT History: Cataracts Cardiac History: Arrhythmia, Coronary Artery Disease CARDIAC HISTORY: Other Respiratory History: CHF, Pneumonia, Sleep Apnea Endocrine Medical History: Diabetes Type II Musculoskelatal History: Arthritis GI Medical History: Diverticulitis, Gallbladder Disease, GI Bleed, Hemorrhoids History: No Pertinent History Pyscho-Social History: No Pertinent History Male Reproductive Disorders: Prostate Problems Comment: Multiple Co-Morbidities. Please see medical chart for complete medical history. - Past Surgical History Past Surgical History: Yes Neuro Surgical History: No Pertinent History Cardiac History: No Pertinent History Respiratory Surgery: No Pertinent History GI Surgical History: Appendectomy, Cholecystectomy Genitourinary Surgical Hx: No Pertinent History Musculskeletal Surgical Hx: Joint Replacement, Orthopedic Surgery Male Surgical History: Vasectomy Other Surgical History: bilat knees and shoulders - Social History Smoking Status: Never smoker Exposure to second hand smoke: Yes Alcohol: Occasionally Drug Use: none - Physical Exam Vital Signs: Vital Signs - 24 hr Temp Pulse Resp BP BP Pulse Ox 03/13/22 11:27 98.7 F 77 20 149/70 93 L 03/13/22 07:52 97.3 F 72 20 142/76 91 L 03/13/22 07:44 69 22 96 03/13/22 03:48 97.7 F 66 16 134/63 95 03/13/22 00:00 99.3 F 73 23 166/77 93 L 03/12/22 23:00 66 22 91 L 03/12/22 21:17 98.2 F 72 24 205/91 227/111 94 L 03/12/22 19:39 92 L 03/12/22 19:36 96 03/12/22 19:14 69 16 188/91 96 03/12/22 17:58 96.8 F 78 206/97 General Appearance: no apparent distress, alert Neurologic Exam: oriented x 3, cooperative Eye Exam: eyes nml inspection Ears, Nose, Throat Exam: moist mucous membranes Neck Exam: normal inspection, non-tender, No lymphadenopathy, No thyromegaly Respiratory Exam: normal breath sounds, lungs clear, No crackles/rales, No rhonchi, No wheezing Cardiovascular Exam: regular rate/rhythm, normal heart sounds, No murmur Gastrointestinal/Abdomen Exam: soft, normal bowel sounds, distention (pt noted less distended than yesterday), No tenderness, No mass, No guarding, No rebound Back Exam: normal inspection, No rash Extremity Exam: normal inspection, No pedal edema, No swelling Skin Exam: normal color, warm, dry, No rash Results - Labs Lab/Micro Results: Lab Results-Last 24 Hours 03/12/22 03/12/22 03/12/22 Range/Units 18:32 18:32 18:32 WBC 8.4 (4.0-10.5) K/mm3 RBC 3.87 L (4.1-5.6) M/mm3 Hgb 12.6 (12.5-18.0) gm/dl Hct 35.7 L (42-50) % MCV 92.2 (78-100) fl MCH 32.6 H (26-32) pg MCHC 35.3 (32-36) g/dl RDW 13.0 (11.5-14.0) % Plt Count 286 (150-450) K/mm3 MPV 9.2 (7.5-11.0) fl Gran % 64.2 (36.0-66.0) % Eos # (Auto) 0.65 H (0-0.5) Absolute Lymphs (auto) 1.37 (1.0-4.6) Absolute Monos (auto) 0.91 (0.0-1.3) Lymphocytes % 16.4 L (24.0-44.0) % Monocytes % 10.9 (0.0-12.0) % Eosinophils % 7.8 H (0.00-5.0) % Basophils % 0.7 (0.0-0.4) % Absolute Granulocytes 5.37 (1.4-6.9) Basophils # 0.06 (0-0.4) Sodium 132 L (137-145) mmol/L Potassium 4.1 (3.5-5.1) mmol/L Chloride 94 L (98-107) mmol/L Carbon Dioxide 26 (22-30) mmol/L Anion Gap 16.3 H (5-15) MEQ/L BUN 14 (9-20) mg/dL Creatinine 0.85 (0.66-1.25) mg/dL Estimated GFR > 60.0 ML/MIN Glucose 250 H (74-106) mg/dL POC Glucometer (74 to 106) mg/dL Lactic Acid (0.4-2.0) Calcium 8.9 (8.4-10.2) mg/dL Total Bilirubin 0.50 (0.2-1.3) mg/dL AST 26 (17-59) U/L ALT 17 (0-50) U/L Alkaline Phosphatase 114 (38-126) U/L Troponin I < 0.012 (0.000-0.034) ng/mL NT-Pro-B Natriuret Pep 190 (0-1800) pg/mL Serum Total Protein 7.3 (6.3-8.2) g/dL Albumin 4.4 (3.5-5.0) g/dL Influenza Type A Ag (NEGATIVE) Influenza Type B Ag (NEGATIVE) RSV (PCR) (Negative) SARS-CoV-2 (PCR) (NEGATIVE) 03/12/22 03/12/22 03/12/22 Range/Units 18:39 19:45 20:44 WBC (4.0-10.5) K/mm3 RBC (4.1-5.6) M/mm3 Hgb (12.5-18.0) gm/dl Hct (42-50) % MCV (78-100) fl MCH (26-32) pg MCHC (32-36) g/dl RDW (11.5-14.0) % Plt Count (150-450) K/mm3 MPV (7.5-11.0) fl Gran % (36.0-66.0) % Eos # (Auto) (0-0.5) Absolute Lymphs (auto) (1.0-4.6) Absolute Monos (auto) (0.0-1.3) Lymphocytes % (24.0-44.0) % Monocytes % (0.0-12.0) % Eosinophils % (0.00-5.0) % Basophils % (0.0-0.4) % Absolute Granulocytes (1.4-6.9) Basophils # (0-0.4) Sodium (137-145) mmol/L Potassium (3.5-5.1) mmol/L Chloride (98-107) mmol/L Carbon Dioxide (22-30) mmol/L Anion Gap (5-15) MEQ/L BUN (9-20) mg/dL Creatinine (0.66-1.25) mg/dL Estimated GFR ML/MIN Glucose (74-106) mg/dL POC Glucometer (74 to 106) mg/dL Lactic Acid 2.5 H 2.3 H (0.4-2.0) Calcium (8.4-10.2) mg/dL Total Bilirubin (0.2-1.3) mg/dL AST (17-59) U/L ALT (0-50) U/L Alkaline Phosphatase (38-126) U/L Troponin I (0.000-0.034) ng/mL NT-Pro-B Natriuret Pep (0-1800) pg/mL Serum Total Protein (6.3-8.2) g/dL Albumin (3.5-5.0) g/dL Influenza Type A Ag NEGATIVE (NEGATIVE) Influenza Type B Ag NEGATIVE (NEGATIVE) RSV (PCR) NEGATIVE (Negative) SARS-CoV-2 (PCR) NEGATIVE (NEGATIVE) 03/12/22 03/12/22 03/12/22 Range/Units 21:09 21:47 23:01 WBC (4.0-10.5) K/mm3 RBC (4.1-5.6) M/mm3 Hgb (12.5-18.0) gm/dl Hct (42-50) % MCV (78-100) fl MCH (26-32) pg MCHC (32-36) g/dl RDW (11.5-14.0) % Plt Count (150-450) K/mm3 MPV (7.5-11.0) fl Gran % (36.0-66.0) % Eos # (Auto) (0-0.5) Absolute Lymphs (auto) (1.0-4.6) Absolute Monos (auto) (0.0-1.3) Lymphocytes % (24.0-44.0) % Monocytes % (0.0-12.0) % Eosinophils % (0.00-5.0) % Basophils % (0.0-0.4) % Absolute Granulocytes (1.4-6.9) Basophils # (0-0.4) Sodium (137-145) mmol/L Potassium (3.5-5.1) mmol/L Chloride (98-107) mmol/L Carbon Dioxide (22-30) mmol/L Anion Gap (5-15) MEQ/L BUN (9-20) mg/dL Creatinine (0.66-1.25) mg/dL Estimated GFR ML/MIN Glucose (74-106) mg/dL POC Glucometer 184 H (74 to 106) mg/dL Lactic Acid 1.7 (0.4-2.0) Calcium (8.4-10.2) mg/dL Total Bilirubin (0.2-1.3) mg/dL AST (17-59) U/L ALT (0-50) U/L Alkaline Phosphatase (38-126) U/L Troponin I < 0.012 (0.000-0.034) ng/mL NT-Pro-B Natriuret Pep (0-1800) pg/mL Serum Total Protein (6.3-8.2) g/dL Albumin (3.5-5.0) g/dL Influenza Type A Ag (NEGATIVE) Influenza Type B Ag (NEGATIVE) RSV (PCR) (Negative) SARS-CoV-2 (PCR) (NEGATIVE) 03/13/22 03/13/22 03/13/22 Range/Units 04:20 04:20 07:30 WBC 8.6 (4.0-10.5) K/mm3 RBC 3.56 L (4.1-5.6) M/mm3 Hgb 12.1 L (12.5-18.0) gm/dl Hct 33.2 L (42-50) % MCV 93.3 (78-100) fl MCH 34.0 H (26-32) pg MCHC 36.4 H (32-36) g/dl RDW 13.2 (11.5-14.0) % Plt Count 286 (150-450) K/mm3 MPV 9.6 (7.5-11.0) fl Gran % (36.0-66.0) % Eos # (Auto) (0-0.5) Absolute Lymphs (auto) (1.0-4.6) Absolute Monos (auto) (0.0-1.3) Lymphocytes % (24.0-44.0) % Monocytes % (0.0-12.0) % Eosinophils % (0.00-5.0) % Basophils % (0.0-0.4) % Absolute Granulocytes (1.4-6.9) Basophils # (0-0.4) Sodium 132 L (137-145) mmol/L Potassium 4.2 (3.5-5.1) mmol/L Chloride 97 L (98-107) mmol/L Carbon Dioxide 24 (22-30) mmol/L Anion Gap 14.6 (5-15) MEQ/L BUN 16 (9-20) mg/dL Creatinine 0.84 (0.66-1.25) mg/dL Estimated GFR > 60.0 ML/MIN Glucose 217 H (74-106) mg/dL POC Glucometer 267 H (74 to 106) mg/dL Lactic Acid (0.4-2.0) Calcium 8.2 L (8.4-10.2) mg/dL Total Bilirubin 0.60 (0.2-1.3) mg/dL AST 25 (17-59) U/L ALT 15 (0-50) U/L Alkaline Phosphatase 92 (38-126) U/L Troponin I (0.000-0.034) ng/mL NT-Pro-B Natriuret Pep (0-1800) pg/mL Serum Total Protein 6.7 (6.3-8.2) g/dL Albumin 3.9 (3.5-5.0) g/dL Influenza Type A Ag (NEGATIVE) Influenza Type B Ag (NEGATIVE) RSV (PCR) (Negative) SARS-CoV-2 (PCR) (NEGATIVE) 03/13/22 Range/Units 11:18 WBC (4.0-10.5) K/mm3 RBC (4.1-5.6) M/mm3 Hgb (12.5-18.0) gm/dl Hct (42-50) % MCV (78-100) fl MCH (26-32) pg MCHC (32-36) g/dl RDW (11.5-14.0) % Plt Count (150-450) K/mm3 MPV (7.5-11.0) fl Gran % (36.0-66.0) % Eos # (Auto) (0-0.5) Absolute Lymphs (auto) (1.0-4.6) Absolute Monos (auto) (0.0-1.3) Lymphocytes % (24.0-44.0) % Monocytes % (0.0-12.0) % Eosinophils % (0.00-5.0) % Basophils % (0.0-0.4) % Absolute Granulocytes (1.4-6.9) Basophils # (0-0.4) Sodium (137-145) mmol/L Potassium (3.5-5.1) mmol/L Chloride (98-107) mmol/L Carbon Dioxide (22-30) mmol/L Anion Gap (5-15) MEQ/L BUN (9-20) mg/dL Creatinine (0.66-1.25) mg/dL Estimated GFR ML/MIN Glucose (74-106) mg/dL POC Glucometer 447 H (74 to 106) mg/dL Lactic Acid (0.4-2.0) Calcium (8.4-10.2) mg/dL Total Bilirubin (0.2-1.3) mg/dL AST (17-59) U/L ALT (0-50) U/L Alkaline Phosphatase (38-126) U/L Troponin I (0.000-0.034) ng/mL NT-Pro-B Natriuret Pep (0-1800) pg/mL Serum Total Protein (6.3-8.2) g/dL Albumin (3.5-5.0) g/dL Influenza Type A Ag (NEGATIVE) Influenza Type B Ag (NEGATIVE) RSV (PCR) (Negative) SARS-CoV-2 (PCR) (NEGATIVE) Accuchecks Date 03/13/22 Date 03/13/22 Date 03/12/22 Time 11:15 Time 07:30 - Radiology Impressions Radiology Exams & Impressions: Radiology Procedures Category Date Time Status CHEST WITHOUT CONTRAST [CT] Routine Exams 03/12/22 18:51 Completed LUMBAR SPINE W/O [CT] Routine Exams 03/12/22 18:56 Completed - Other Procedures and Tests Respiratory Therapy 03/13/22 00:17 Respiratory Therapy Assessment DAILY 03/13/22 07:44 Oxygen Nasal Cannula 2 lpm Assessment/Plan (1) Interstitial pneumonia Current Visit: Yes Status: Acute Assessment & Plan: ON IV rocephin and steroids. Stable. Code(s): J84.9 - INTERSTITIAL PULMONARY DISEASE, UNSPECIFIED (2) Back pain Current Visit: Yes Status: Resolved Qualifiers: Back pain location: thoracic back pain Chronicity: acute Back pain laterality: bilateral Qualified Code(s): M54.6 - Pain in thoracic spine Assessment & Plan: Could be due to the fall, or possibly the pneumonia. Code(s): M54.9 - DORSALGIA, UNSPECIFIED (3) Fall Current Visit: Yes Status: Acute Qualifiers: Encounter type: initial encounter Qualified Code(s): W19.XXXA - Unspecified fall, initial encounter Code(s): W19.XXXA - UNSPECIFIED FALL, INITIAL ENCOUNTER (4) Diabetes mellitus type II, uncontrolled Current Visit: Yes Status: Chronic Qualifiers: Glycemic state: with hyperglycemia Qualified Code(s): E11.65 - Type 2 diabetes mellitus with hyperglycemia Code(s): VCN0401 - (5) Hypertension Current Visit: Yes Status: Chronic Qualifiers: Hypertension type: primary hypertension Qualified Code(s): I10 - Essential (primary) hypertension Assessment & Plan: prn hydralazine. Code(s): I10 - ESSENTIAL (PRIMARY) HYPERTENSION
[2022-03-13] MEDS: Sodium Chloride 0.9% 1000 ML 1,000 ML IV SCH (13:56)
[2022-03-13 19:20] LABS: Hyaline Casts 0-2 /LPF (0-2); Mucus SLIGHT /HPF (NEGATIVE)
[2022-03-13 19:21] LABS: Appearance CLEAR (CLEAR); Bilirubin NEGATIVE (NEGATIVE); Dipstick done @ ? MAIN LAB; Glucose 500 mg/dL (NEGATIVE); Ketones NEGATIVE (NEGATIVE); Nitrite NEGATIVE (NEGATIVE); Ph 5.5 (5-6); Protein,Urine Dip NEGATIVE (Negative); RBC NEGATIVE Ery/ul (0-5); Urobilinogen 0.2 mg/dL (0-1)
[2022-03-13 19:22] LABS: Bacteria NONE SEEN /HPF (NEGATIVE); RBC NONE SEEN /HPF (0-2); Urine Cultured Indicated? NO; WBC NONE SEEN /HPF (0-5)
[2022-03-13] MEDS ORDERED: NON-FORMULARY ITEM (Famotidine [Pepcid] 40 MG Tablet) PO SCH (22:00)
[2022-03-13] MEDS ORDERED: LIPITOR 40MG PO SCH (22:00)
[2022-03-13] MEDS: ZOCOR 20MG PO SCH (22:18)
[2022-03-13] MEDS: Pepcid 20 MG PO SCH (22:18)
[2022-03-14] MEDS: solu-MEDROL 60 MG, Sterile H2O 10 ml 2 ML IV SCH ×10 (00:08→23:34)
[2022-03-14] MEDS: Lidoderm Patch 5% TOP PRN (07:42)
[2022-03-14] MEDS: Glucotrol Xl 10 MG PO SCH (07:42)
[2022-03-14] MEDS: HUMALOG SQ PRN ×4 (07:47→21:31)
[2022-03-14] MEDS: MORPHINE SULFATE 10 MG/ML IV PRN (08:46)
[2022-03-14] MEDS: ROCEPHIN 1 Gm-D5w 50 ml Bag** 1 G/50 ML IVPB IV SCH (09:06)
[2022-03-14] MEDS: PLAVIX 75 MG Tablet PO SCH (09:08)
[2022-03-14] MEDS: CLARITIN 10 MG PO SCH (09:08)
[2022-03-14] MEDS: Neurontin 100 MG PO SCH ×3 (09:08→21:23)
[2022-03-14] MEDS: hydroDIURIL 25 MG PO SCH (09:09)
[2022-03-14] MEDS: Klor Con 10 MEQ PO SCH (09:10)
[2022-03-14] MEDS: Cozaar 50 MG PO SCH (09:10)
[2022-03-14] MEDS: Coreg 3.125 MG PO SCH ×2 (09:10→21:23)
[2022-03-14] MEDS: LASIX 20 MG PO SCH (09:10)
[2022-03-14] MEDS: Cordarone 200 MG PO SCH (09:10)
[2022-03-14] MEDS: MAG-OX 400 PO SCH (09:11)
--- NOTE | 2022-03-14 11:00 | PCM.NOTE ---
Date and Time: 03/14/22 1058 Subjective Assessment: Patient is c/o pain lateral rib. Rib xrays ordered. Breathing improved,lungs are clear on exam today. OBJECTIVE DATA Vital Signs: Vital Signs - 24 hr Temp Pulse Resp BP Pulse Ox 03/14/22 10:11 99 03/14/22 07:28 98.0 F 78 19 178/85 92 L 03/14/22 06:42 75 20 92 L 03/14/22 03:37 98.6 F 75 19 147/69 95 03/14/22 00:00 98.4 F 81 20 170/76 93 L 03/13/22 20:00 97.7 F 83 20 155/73 93 L 03/13/22 19:20 83 18 90 L 03/13/22 16:00 88 19 164/74 94 L 03/13/22 11:27 98.7 F 77 20 149/70 93 L Pain Assessment - Last Documented Pain Intensity 8 Pain Scale Used 0-10 Pain Scale Intake and Output: Intake & Output 03/11/22 03/12/22 03/13/22 03/14/22 11:59 11:59 11:59 11:59 Intake Total 1380 2826 Output Total 300 700 Balance 1080 2126 Weight 85.2 kg 85.9 kg Lab Results: Lab Results-Last 24 Hours 03/13/22 03/13/22 03/13/22 Range/Units 05:10 11:18 16:37 POC Glucometer 447 H 423 H (74 to 106) mg/dL Hemoglobin A1c 7.78 H (4.5-6.0) % Urinalys Dipstick Clnc Urine Color (YELLOW) Urine Appearance (CLEAR) Urine pH (5-6) Ur Specific [place] (1.005-1.025) POC Urine Protein Conf (Negative) Urine Ketones (NEGATIVE) Urine Nitrite (NEGATIVE) Urine Bilirubin (NEGATIVE) Urine Urobilinogen (0-1) mg/dL Urine Leukocytes (NEGATIVE) Urine WBC (Auto) (0-5) /HPF Urine RBC (Auto) (0-2) /HPF U Hyaline Cast (Auto) (0-2) /LPF U Epithel Cells (Auto) (FEW) /HPF Urine Bacteria (Auto) (NEGATIVE) /HPF Urine RBC (0-5) Manuel/ul Urine Mucus (Auto) (NEGATIVE) /HPF Ur Culture Indicated? Urine Glucose (NEGATIVE) mg/dL 03/13/22 03/13/22 03/14/22 Range/Units 18:58 20:55 07:31 POC Glucometer 360 H 280 H (74 to 106) mg/dL Hemoglobin A1c (4.5-6.0) % Urinalys Dipstick Clnc MAIN LAB Urine Color YELLOW (YELLOW) Urine Appearance CLEAR (CLEAR) Urine pH 5.5 (5-6) Ur Specific [place] 1.020 (1.005-1.025) POC Urine Protein Conf NEGATIVE (Negative) Urine Ketones NEGATIVE (NEGATIVE) Urine Nitrite NEGATIVE (NEGATIVE) Urine Bilirubin NEGATIVE (NEGATIVE) Urine Urobilinogen 0.2 (0-1) mg/dL Urine Leukocytes NEGATIVE (NEGATIVE) Urine WBC (Auto) NONE SEEN (0-5) /HPF Urine RBC (Auto) NONE SEEN (0-2) /HPF U Hyaline Cast (Auto) 0-2 (0-2) /LPF U Epithel Cells (Auto) NONE (FEW) /HPF Urine Bacteria (Auto) NONE SEEN (NEGATIVE) /HPF Urine RBC NEGATIVE (0-5) Manuel/ul Urine Mucus (Auto) SLIGHT (NEGATIVE) /HPF Ur Culture Indicated? NO Urine Glucose 500 (NEGATIVE) mg/dL Radiology Exams: Radiology Procedures Category Date Time Status CHEST 2 VIEWS (PA AND LAT) Routine Exams 03/14/22 08:44 Ordered CHEST WITHOUT CONTRAST [CT] Routine Exams 03/12/22 18:51 Completed LUMBAR SPINE W/O [CT] Routine Exams 03/12/22 18:56 Completed Multi-Disciplinary Progress Notes: Multi-Disciplinary Progress Notes 03/14/22 10:56 Respiratory Note by Sruthi Hilario PT'S O2 SAT ON ROOM AIR WAS 86%. PT PLACED BACK ON 2LPM NASAL CANNULA AND O2 SAT INCREASED TO 96%. Initialized on 03/14/22 10:56 - END OF NOTE
--- NOTE | 2022-03-14 12:40 | XRAY ---
Indication: Right rib pain. Pneumonia. Comparison: April 19, 2021. AP/lateral chest obtained in wheelchair again demonstrates chronic lung markings without focal infiltrate, consolidation, or large effusion. Heart borderline enlarged. Bony thorax intact again with osteopenia, degenerative changes, and bilateral shoulder arthroplasty. Impression: Continued nonacute chest with chronic features.
[2022-03-14] MEDS: APRESOLINE 20 MG/ML INJ IV PRN (17:36)
[2022-03-14] MEDS: ZOCOR 20MG PO SCH (21:22)
[2022-03-14] MEDS: Pepcid 20 MG PO SCH (21:22)
[2022-03-15] MEDS: MORPHINE SULFATE 10 MG/ML IV PRN ×2 (01:28→05:37)
[2022-03-15] MEDS: APRESOLINE 20 MG/ML INJ IV PRN (04:54)
[2022-03-15] MEDS: solu-MEDROL 60 MG, Sterile H2O 10 ml 2 ML IV SCH ×8 (05:36→23:10)
[2022-03-15] MEDS: PROVENTIL 2.5 MG/3 ML NEB IH PRN ×2 (08:02→13:35)
[2022-03-15] MEDS: Glucotrol Xl 10 MG PO SCH (08:10)
[2022-03-15] MEDS: HUMALOG SQ PRN ×4 (08:10→21:24)
[2022-03-15] MEDS ORDERED: Dulcolax 10 MG SUPP PR PRN (09:21)
[2022-03-15] MEDS ORDERED: NORCO 7.5/325 MG TAB PO PRN (09:23)
[2022-03-15] MEDS ORDERED: Hydromorphone 1 mg/ml Injection IV PRN (09:24)
[2022-03-15] MEDS: Sodium Chloride 0.9% W/ 20 mEq KCl/LITER 1,000 ML IV SCH (10:26)
[2022-03-15] MEDS: ROCEPHIN 1 Gm-D5w 50 ml Bag** 1 G/50 ML IVPB IV SCH (10:26)
[2022-03-15] MEDS: Klor Con 10 MEQ PO SCH (10:28)
[2022-03-15] MEDS: Cordarone 200 MG PO SCH (10:29)
[2022-03-15] MEDS: Neurontin 100 MG PO SCH ×3 (10:29→21:23)
[2022-03-15] MEDS: hydroDIURIL 25 MG PO SCH (10:29)
[2022-03-15] MEDS: MAG-OX 400 PO SCH (10:29)
[2022-03-15] MEDS: PLAVIX 75 MG Tablet PO SCH (10:30)
[2022-03-15] MEDS: Coreg 3.125 MG PO SCH ×2 (10:30→21:23)
[2022-03-15] MEDS: CLARITIN 10 MG PO SCH (10:30)
[2022-03-15] MEDS: Cozaar 50 MG PO SCH (10:30)
[2022-03-15] MEDS: LASIX 20 MG PO SCH (10:31)
[2022-03-15] MEDS: Lidoderm Patch 5% TOP PRN (10:32)
[2022-03-15] MEDS: SENOKOT 8.6 MG PO SCH ×2 (11:40→21:22)
--- NOTE | 2022-03-15 12:32 | XRAY ---
Indication: Abdomen swelling. Constipation and diarrhea. Multiple contiguous axial images obtained through the abdomen and pelvis without contrast. Comparison: April 15, 2021. Lung bases again demonstrates diffuse scattered fibrosis/scarring without consolidation/effusion. Heart not enlarged. Stomach is mildly distended with food/fluid. Noncontrasted stomach and bowel loops appear nonobstructed. There is now moderate diffuse scattered colonic fecal debris greatest in the ascending and transverse colon. There remains diffuse scattered colonic diverticulosis without diverticulitis. No free fluid/air. Stable enlarged prostate gland and tiny hepatic/splenic calcified granulomas. Remaining liver, gallbladder, pancreas, spleen, adrenal glands, kidneys, ureters, and bladder are unremarkable for noncontrast exam. There remains moderate diffuse scattered vascular calcifications without AAA. Osseous structures intact again with osteopenia, mild degenerative changes throughout the spine/both hips, and tiny right sacral bone island. Impression: 1. New moderate diffuse fecal stasis greatest in the right hemicolon. 2. Again chronic findings including colonic diverticulosis, enlarged prostate gland, arteriosclerotic disease, chronic bony findings, old granulomatous disease, and pulmonary fibrosis/scarring.
--- NOTE | 2022-03-15 12:49 | XRAY ---
Indication: Pain following fall one week ago. Comparison: None. 2 view left and right ribs demonstrates osteopenia, old left 7/8 lateral rib fractures, mild multilevel thoracolumbar degenerative spondylosis, bilateral shoulder arthroplasty, bilateral scattered pulmonary fibrosis/scarring, and small subcarinal calcified nodes. No other bony, articular, or soft tissue abnormalities.
[2022-03-15] MEDS: Miralax Powder 17GM PACKET PO SCH (14:15)
[2022-03-15] MEDS: Pepcid 20 MG PO SCH (21:23)
[2022-03-15] MEDS: ZOCOR 20MG PO SCH (21:23)
[2022-03-16] MEDS: Sodium Chloride 0.9% W/ 20 mEq KCl/LITER 1,000 ML IV SCH (02:13)
[2022-03-16] MEDS: solu-MEDROL 60 MG, Sterile H2O 10 ml 2 ML IV SCH ×2 (06:17)
[2022-03-16] MEDS: PROVENTIL 2.5 MG/3 ML NEB IH PRN (07:14)
[2022-03-16] MEDS: Glucotrol Xl 10 MG PO SCH (07:45)
[2022-03-16] MEDS: Miralax Powder 17GM PACKET PO SCH (07:46)
[2022-03-16] MEDS: SENOKOT 8.6 MG PO SCH (07:48)
[2022-03-16] MEDS: MAG-OX 400 PO SCH (09:23)
[2022-03-16] MEDS: Coreg 3.125 MG PO SCH (09:23)
[2022-03-16] MEDS: hydroDIURIL 25 MG PO SCH (09:23)
[2022-03-16] MEDS: Klor Con 10 MEQ PO SCH (09:23)
[2022-03-16] MEDS: Cozaar 50 MG PO SCH (09:23)
[2022-03-16] MEDS: CLARITIN 10 MG PO SCH (09:23)
[2022-03-16] MEDS: Cordarone 200 MG PO SCH (09:24)
[2022-03-16] MEDS: PLAVIX 75 MG Tablet PO SCH (09:24)
[2022-03-16] MEDS: LASIX 20 MG PO SCH (09:24)
[2022-03-16] MEDS: Neurontin 100 MG PO SCH (09:26)
[2022-03-16] MEDS: ROCEPHIN 1 Gm-D5w 50 ml Bag** 1 G/50 ML IVPB IV SCH (09:33)
[2022-03-16] MEDS: Lidoderm Patch 5% TOP PRN (11:26)
[2022-03-16] MEDS: HUMALOG SQ PRN (11:54)
[2022-03-16 12:32] VITALS: BP 160/72; PULSE 50; O2SAT 97
--- NOTE | 2022-03-29 22:05 | PCM.DS ---
Discharge Summary Date of Admission: 03/12/22 21:15 Date of Discharge: 03/16/22 Admitting Physician: MITCH HERZOG Primary Care Provider: AUGUST RAMIREZ Allergies Allergies No Known Drug Allergies Allergy (Verified 03/12/22 18:09) Hospital Summary - Hospital Course Hospital Course: Pt. admitted and started on IV antibiotics and supplemental oxygen, patient improved with iv antibiotics and gradually improved to the point it was felt the patient had fully benefited from hospitalization and may be discharged to home for continued healing. - Vitals & Intake/Output Vital Signs: Vital Signs Temperature 97.7 F 03/16/22 12:00 Pulse Rate 50 L 03/16/22 12:00 Respiratory Rate 16 03/16/22 12:00 Blood Pressure 160/72 03/16/22 12:00 O2 Sat by Pulse Oximetry 97 03/16/22 12:00 - Lab Result Diagrams: 03/13/22 04:20 03/13/22 04:20 Micro Results-Entire Visit: Microbiology 03/12/22 19:05 Blood Culture - Final Blood NO GROWTH 03/12/22 21:30 Blood Culture Gram Stain - Final Blood Not Reportable Blood Culture - Final NO GROWTH - Procedures and Test Procedures and Tests throughout Hospitalization: Therapy Orders & Screens 03/12/22 19:39 Respiratory Therapy Consult ROUTINE Comment: Reason For Exam: 03/12/22 23:34 OT Screen per Nursing Assess ONCE Comment: Protocol Order Physician Instructions: Greater than 3 points order OT Admission Screening Reason For Exam: Triggered on Admission Diagnosis: Fall/Pneumonia Open Wound/Cellutlitis/Pressure Ulcers: No Acute Fx/ORIF/Change in wt bearing status: No Severe MUSCULOSKELETAL pain: Yes ADL Dysfunction: Yes Acute CVA w/Hemiparesis/Hemiplegia: No Decreased Functional Mobility/Strength: Yes Sprain/Strain: No Acute Post-op Mobility Dysfunction: No Total Points: 9 PT Screen per Nursing Assess ONCE Comment: Protocol Order Physician Instructions: Greater than 3 points order PT Admission Screenin Reason For Exam: Triggered on Admission Diagnosis: Fall/Pneumonia Open Wound/Cellutlitis/Pressure Ulcers: No Acute Fx/ORIF/Change in wt bearing status: No Severe MUSCULOSKELETAL pain: Yes ADL Dysfunction: Yes Acute CVA w/Hemiparesis/Hemiplegia: No Decreased Functional Mobility/Strength: Yes Sprain/Strain: No Acute Post-op Mobility Dysfunction: No Total Points: 9 RT Screen per Nursing Assess ONCE Comment: Protocol Order Physician Instructions: Greater than 3 points order RT Admission Screen Reason For Exam: Triggered on Admission Diagnosis: Fall/Pneumonia Diagnosis: Fall/Pneumonia Pneumonia: Yes Home O2: No Asthma: No CHF: Yes Home CPAP/BIPAP: No Home Nebs/MDI: Yes Total Points: 11 03/13/22 00:17 Respiratory Therapy Assessment DAILY Comment: Diagnosis: Fall/Pneumonia 03/13/22 07:44 Oxygen Nasal Cannula 2 lpm Comment: Diagnosis: Fall/Pneumonia 03/14/22 11:05 OT Eval and Treat (MD Order) ROUTINE Comment: Consulting Provider: Physician Instructions: evaluate and treat. Reason For Exam: deconditioning r/t pneumonia Evaluate: Yes Treat: Yes Diagnosis: Fall/Pneumonia 03/14/22 14:49 PT Eval & Treat (MD Order) ONCE Reason for Eval:: FALL AT HOME Diagnosis: Fall/Pneumonia Discharge Exam General Appearance: no apparent distress, alert Neurologic Exam: alert, oriented x 3, cooperative, normal mood/affect, nml cerebellar function, sensation nml, No motor deficits Eye Exam: PERRL, EOMI, eyes nml inspection Ears, Nose, Throat Exam: normal ENT inspection, pharynx normal, moist mucous membranes Neck Exam: normal inspection, non-tender, supple, full range of motion Respiratory Exam: lungs clear, diminished breath sounds, prolonged expirations, rhonchi, No respiratory distress Cardiovascular Exam: regular rate/rhythm, normal heart sounds Gastrointestinal/Abdomen Exam: soft, No tenderness, No mass Male Genitalia Exam: deferred Rectal Exam: deferred Back Exam: normal inspection, normal range of motion, No CVA tenderness, No vertebral tenderness Extremity Exam: normal inspection, normal range of motion Skin Exam: normal color, warm, dry Final Diagnosis/Problem List - Final Discharge Diagnosis/Problem (1) Interstitial pneumonia Status: Acute Code(s): J84.9 - INTERSTITIAL PULMONARY DISEASE, UNSPECIFIED - Discharge Discharge Date: 04/15/22 Disposition: HOME HEALTH SERVICE Condition: Fair Prescriptions: New Amox Tr/Potass Clav. 875 mg [Augmentin 875-125 Tablet] 875 mg PO BID 10 Days #20 tablet Azithromycin [Azithromycin 250 mg Pack] 250 mg PO UD 4 Days #5 tablet Polyethylene Glycol 3350 17 gm [Miralax Powder 17GM PACKET] 17 gm PO DAILY 20 Days #20 packet Continue Glipizide [Glucotrol Xl] 10 mg PO DAILY Ferrous Sulfate 325 mg [Feosol 325 mg] 325 mg PO DAILY Metformin HCl [Metformin ER Osmotic] 1,000 mg PO BID Clopidogrel Bisulfate 75 mg [PLAVIX 75 MG Tablet] 75 mg PO DAILY Famotidine [Pepcid] 40 mg PO HS Desloratadine [Clarinex] 1 tab PO DAILY Cinnamon Bark [Cinnamon] 1,000 mg PO DAILY Atorvastatin Calcium 40 mg PO HS Ascorbic Acid [Vitamin C] 250 mg PO DAILY Gabapentin 100 mg PO TID Furosemide 20 mg [Lasix 20 mg] 1 tab PO DAILY Vit B6/Me-Thfolate/Me-B12/Ala [Nufola Capsule] 1 tab PO DAILY Potassium Chloride 10 Meq Tab* [Klor Con 10 MEQ] 2 tab PO DAILY Multivitamin [Multivitamins] 1 tab PO DAILY Magnesium Oxide [Magnesium] 400 mg PO DAILY Losartan/Hydrochlorothiazide [Losartan-Hctz 100-25 mg Tab] 0.5 tab PO DAILY Lidocaine [Lidocaine Pain Relief] 1 patch TOP DAILY PRN PRN Reason: Pain Amiodarone HCl 200 mg PO DAILY Carvedilol 6.25 mg [Coreg 6.25 MG] 3.25 mg PO BID Blood Sugar Diagnostic [Freestyle Lite Test Strip] 1 each MC TID #2 box Lidocaine [Salonpas] 1 each TP BID PRN #1 adh..patch PRN Reason: Pain Tadalafil [Cialis] 1 tab PO DIRECTIONS UNKNOWN PRN PRN Reason: Sexual activity Instructions: Polyethylene Glycol 3350, Pneumonia in Adults, Preventing Falls in the Older Adult, Azithromycin (Systemic), Oxygen Therapy, Adult (DC), Amoxicillin and Clavulanate Additional Instructions: WEAR 2L/NC AT HOME ALL THE TIME, CALL [facility] AT [phone] WHEN YOU GET PICKED UP SO THEY CAN DELIVER YOUR HOME OXYGEN CONCENTRATOR REFERRAL SENT TO [facility]. THEY WILL CALL YOU TO SET UP A TIME TO COME SEE YOU. THEIR PHONE NUMBER IS [phone] Follow up with: AUGUST RAMIREZ MD [Primary Care Provider] - 03/23/22 10:00 am Forms: Discharge Instructions
== END 2022-03-16 12:23 | disposition home health service (06) ==
LOC: ED 17:57 → MED SURG 21:15
PROVIDERS: ADMIT Family Medicine; ATTEND Family Medicine
DX: J84.9 Interstitial pulmonary disease, unspecified (principal); M54.6 Pain in thoracic spine; W19.XXXA Unspecified fall, initial encounter; E11.65 Type 2 diabetes mellitus with hyperglycemia; I10 Essential (primary) hypertension; R07.81 Pleurodynia; I25.10 Atherosclerotic heart disease of native coronary artery without angina pectoris; Z79.899 Other long term (current) drug therapy
CPT/HCPCS: 0241U; 36000; 36415; 71046; 71110; 71250; 72131; 74176; 80053; 81015; 82947; 83036; 83605; 83880; 84484; 85025; 85027; 87040; 93005; 93268; 94640; 94762; 96374; 97110; 97140; 97161; 97165; 97530; 99285; G0378; J0360; J0696; J1817; J2270; J2930; J7609; A9270-GY

== ENCOUNTER 2023-01-02 04:48 | Emergency (ER) | payer MEDICARE ==
--- NOTE | 2023-01-02 05:28 | ERPHSYRPT ---
- History of Present Illness Historian: patient, EMS Exam Limitations: no limitations Patient Subjective Stated Complaint: didn't feel well 2 hours ago, family thought blood sugar might be low, fed patient brownorin, pt began vomiting. Triage Nursing Assessment: Pt arrives to ED bed 5 via EMS for chief complaint of vomiting x 2hours. Per EMS, they were called by family. EMS states family told them pt had hit his life alert and wasn't feeling well. Family thought blood s ugar might be low, so they fed pt brownorin. Pt began vomiting, is vomiting upon arrival. Abdomen is soft and nontender, soft upon palpation. Pt answers questions appropriately. Skin PWD. VSS on RA. Pt reports normal BM's recently, denies diarrhea. No fever. Timing/Duration: today Activities at Onset: none Abdominal Pain Onset Location: generalized abdomen (Mild discomfort) Pain Radiation: no radiation Severity of Pain-Max: mild Severity of Pain-Current: mild Modifying Factors: Improves With: vomiting Associated Symptoms: loss of appetite, nausea, vomiting, weakness, No chest pain, No fever/chills, No headache, No shortness of breath Previous symptoms: no prior history Hx Tetanus, Diphtheria Vaccination/Date Given: Yes Hx Influenza Vaccination/Date Given: Yes Hx Pneumococcal Vaccination/Date Given: Yes <CAITEI MARTINEZ - Last Filed: 01/02/23 06:39> <STANISLAW GILL - Last Filed: 01/02/23 10:00> - History of Present Illness Time Seen by Provider: 01/02/23 05:10 Physician History: This is an 82-year-old white male brought into the emergency department by the ambulance service. I obtained history from the patient directly, from the paramedics and from old chart reviews. Patient was brought into the emergency department because approximately 2 hours prior to arrival, patient states that h e was not feeling well began vomiting. Patient's family thought that the blood sugar was low and therefore gave the patient brownies. Patient began vomiting and had several episodes of vomiting. Blood sugar, according to the patient, was approximately 215. Patient denies chest pain. He is not short of breath. He has some mild abdominal discomfort upon arrival to the emergency department. Despite receiving antiemetic and Protonix and intravenous fluids, the patient still is complaining of nausea and feeling as though he is going to vomit. Patient has a history of [id number] diabetes, hypertension, hyperlipidemia, CVA, peripheral neuropathy, coronary artery disease (on Plavix) CHF and sleep apnea. He has multiple comorbidities as above. There are no other individuals in the family with similar symptoms (CAITIE MARTINEZ) Allergies/Adverse Reactions: No Known Drug Allergies Allergy (Verified 10/12/22 12:41) Home Medications: Clopidogrel Bisulfate [PLAVIX Tablet] 75 mg PO DAILY 01/12/16 [History] Famotidine [Pepcid] 40 mg PO HS 01/12/16 [History] Ferrous Sulfate 325 mg [Feosol 325 mg] 325 mg PO DAILY 01/12/16 [History] Glipizide [Glucotrol Xl] 10 mg PO DAILY 01/12/16 [History] Metformin HCl [Metformin ER Osmotic] 1,000 mg PO BID 01/12/16 [History] Amiodarone HCl 200 mg PO DAILY 10/11/19 [History] Ascorbic Acid [Vitamin C] 250 mg PO DAILY 10/11/19 [History] Atorvastatin Calcium 40 mg PO HS 10/11/19 [History] Cinnamon Bark [Cinnamon] 1,000 mg PO DAILY 10/11/19 [History] Desloratadine [Clarinex] 1 tab PO DAILY 10/11/19 [History] Furosemide 20 mg [Lasix 20 mg] 1 tab PO DAILY 10/11/19 [History] Gabapentin 100 mg PO TID 10/11/19 [History] Lidocaine [Lidocaine Pain Relief] 1 patch TOP DAILY PRN 10/11/19 [History] Losartan/Hydrochlorothiazide [Losartan-Hctz 100-25 mg Tab] 0.5 tab PO DAILY 10/11/19 [History] Magnesium Oxide [Magnesium] 400 mg PO DAILY 10/11/19 [History] Multivitamin [Multivitamins] 1 tab PO DAILY 10/11/19 [History] Potassium Chloride Tab* [Klor Con] 2 tab PO DAILY 10/11/19 [History] Vit B6/Me-Thfolate/Me-B12/Ala [Nufola Capsule] 1 tab PO DAILY 10/11/19 [History] Carvedilol [Coreg ] 3.25 mg PO BID 04/15/21 [History] Tadalafil [Cialis] 1 tab PO DIRECTIONS UNKNOWN PRN 03/13/22 [History] Travel Risk - International Travel Have you traveled outside of the country in past 3 weeks: No - Coronavirus Screening Symptoms: Vomiting/Diarrhea - Vaccine Status Have you recieved a Covid-19 vaccination: (unknown) Tax Agent: Moderna - Vaccination Dates Date of 2cond Vaccination (if applicable): 01/05/21 <CAITIE MARTINEZ - Last Filed: 01/02/23 06:39> - Review of Systems Constitutional: Weakness Eyes: No Symptoms Ears, Nose, & Throat: No Symptoms Respiratory: No Symptoms Cardiac: No Symptoms Abdominal/Gastrointestinal: Nausea, Vomiting, Appetite Changes Genitourinary Symptoms: No Symptoms Musculoskeletal: No Symptoms Skin: No Symptoms Neurological: No Symptoms Psychological: No Symptoms Endocrine: No Symptoms Hematologic/Lymphatic: No Symptoms Immunological/Allergic: No Symptoms All Other Systems: Reviewed and Negative <CAITIE MARTINEZ - Last Filed: 01/02/23 06:39> - Past Medical History Pertinent Past Medical History: Yes Neurological History: Peripheral Neuropathy, Stroke ENT History: Cataracts Cardiac History: Arrhythmia, Coronary Artery Disease Respiratory History: CHF, Pneumonia, Sleep Apnea Endocrine Medical History: Diabetes Type II Musculoskeletal History: Arthritis GI Medical History: Diverticulitis, Gallbladder Disease, GI Bleed, Hemorrhoids History: No Pertinent History Psycho-Social History: No Pertinent History Male Reproductive Disorders: Prostate Problems Other Medical History: Multiple Co-Morbidities. Please see medical chart for complete medical history. - Past Surgical History Past Surgical History: Yes Neuro Surgical History: No Pertinent History Cardiac: No Pertinent History Respiratory: No Pertinent History Gastrointestinal: Appendectomy, Cholecystectomy Genitourinary: No Pertinent History Musculoskeletal: Joint Replacement, Orthopedic Surgery Male Surgical History: Vasectomy Other Surgical History: bilat knees and shoulders - Social History Smoking Status: Never smoker Exposure to second hand smoke: Yes Drug Use: none Patient Lives Alone: No <CAITIE MARTINEZ - Last Filed: 01/02/23 06:39> - Physical Exam General Appearance: no apparent distress, alert, anxiety Eye Exam: PERRL/EOMI, eyes nml inspection Ears, Nose, Throat Exam: dry mucous membranes Neck Exam: normal inspection, non-tender, supple, full range of motion Respiratory Exam: normal breath sounds, lungs clear, airway intact, No chest te nderness, No respiratory distress Cardiovascular Exam: regular rate/rhythm, normal heart sounds, normal peripheral pulses Gastrointestinal/Abdomen Exam: soft, normal bowel sounds, tenderness (Mild discomfort per patient description it is generalized), No guarding, No rebound Rectal Exam: not done Back Exam: normal inspection, normal range of motion, No CVA tenderness, No vertebral tenderness Extremity Exam: normal inspection, normal range of motion, pelvis stable Neurologic Exam: alert, oriented x 3, cooperative, packaging engineer II-XII nml as tested, normal mood/affect, nml cerebellar function, nml station & gait, sensation nml Skin Exam: normal color, warm, dry Lymphatic Exam: No adenopathy SpO2 Interpretation: normal SpO2: 95 O2 Delivery: Room Air <CAITIE MARTINEZ - Last Filed: 01/02/23 06:39> - Nursing Vital Signs Nursing Vital Signs: Initial Vital Signs Temperature 97 F 01/02/23 04:53 Pulse Rate 61 01/02/23 04:53 Respiratory Rate 16 01/02/23 04:53 Blood Pressure 134/60 01/02/23 04:53 O2 Sat by Pulse Oximetry 95 01/02/23 04:53 Pain Scale Pain Intensity 2 - Course Nursing assessment & vital signs reviewed: Yes EKG Interpreted by Me: RATE (73), Sinus Rhythm, NORMAL AXIS, NORMAL INTERVALS, NORMAL QRS, NORMAL ST-T, Other (No acute ischemic changes on today's EKG) <CAITIE MARTINEZ - Last Filed: 01/02/23 06:39> - CT Exams Abdomen/Pelvis CT Interpretation: Tele-radiologist Report (Compared to 11/04/2022 new markedly distended urinary bladder. Rule out outlet obstruction versus neurogenic bladde r. Again mild diffuse fecal stasis with rectal impaction. Diverticulosis enlarged prostate fatty liver and pulmonary fibrosis/scarring) <STANISLAW GILL - Last Filed: 01/02/23 10:00> Ordered Tests: Active Orders 24 hr Category Date Time Status Steele [Catheter-[place] Steele] STAT Care 01/02/23 08:11 Active IV Insertion STAT Care 01/02/23 05:30 Active ABDOMEN AND PELVIS W/0 CONTRAS [CT] Stat Exams 01/02/23 06:39 Completed CHEST 1 VIEW (PORTABLE) Stat Exams 01/02/23 05:29 Completed AMYLASE Stat Lab 01/02/23 05:05 Completed CBC W DIFF Stat Lab 01/02/23 05:05 Completed CMP Stat Lab 01/02/23 05:05 Completed LIPASE Stat Lab 01/02/23 05:05 Completed TROPONIN Q4H Lab 01/02/23 05:45 Completed TROPONIN Q4H Lab 01/02/23 09:22 Received TROPONIN Q4H Lab 01/02/23 13:45 Ordered TROPONIN Q4H Lab 01/02/23 17:45 Ordered TROPONIN Q4H Lab 01/02/23 21:45 Ordered UA W/RFX UR CULTURE Stat Lab 01/02/23 08:45 Completed Medication Summary Discontinued Medications Generic Name Dose Route Start Last Admin Trade Name Freq PRN Reason Stop Dose Admin Sodium Chloride 1,000 mls @ 999 mls/hr 01/02/23 05:30 01/02/23 06:56 Sodium Chloride 0.9% 1000 Ml IV 01/02/23 06:30 Infused .Q1H1M STA Infusion Sodium Chloride Confirm 01/02/23 05:35 Sodium Chloride 0.9% 1000 Ml Administered 01/02/23 05:36 Dose 1,000 mls @ ud .ROUTE .STK-MED ONE Ondansetron HCl 4 mg 01/02/23 05:30 01/02/23 05:39 Ondansetron Hcl 4 Mg/2 Ml Vial IV 01/02/23 05:31 4 mg STAT ONE Administration Ondansetron HCl Confirm 01/02/23 05:35 Ondansetron Hcl 4 Mg/2 Ml Vial Administered 01/02/23 05:36 Dose 4 mg .ROUTE .STK-MED ONE Pantoprazole Sodium 40 mg 01/02/23 05:30 01/02/23 05:38 Pantoprazole 40 Mg Vial IV 01/02/23 05:31 40 mg STAT ONE Administration Pantoprazole Sodium Confirm 01/02/23 05:35 Pantoprazole 40 Mg Vial Administered 01/02/23 05:36 Dose 40 mg IV .STK-MED ONE Lab/Rad Data: Laboratory Result Diagrams 01/02/23 05:05 01/02/23 05:05 Laboratory Results 01/02/23 01/02/23 01/02/23 Range/Units 08:45 05:45 05:38 WBC (4.0-10.5) x10^3/uL RBC (4.1-5.6) x10^6/uL Hgb (12.5-18.0) g/dL Hct (42-50) % MCV (78-100) fL MCH (26-32) pg MCHC (32-36) g/dL RDW (11.5-14.0) % Plt Count (150-450) x10^3/uL MPV (7.5-11.0) fL Gran % (36.0-66.0) % Immature Gran % (Auto) (0.00-0.4) % Nucleat RBC Rel Count (0.00-0.1) % Eos # (Auto) (0-0.5) x10^3/uL Immature Gran # (Auto) (0.00-0.03) x10^3u/L Absolute Lymphs (auto) (1.0-4.6) x10^3/uL Absolute Monos (auto) (0.0-1.3) x10^3/uL Absolute Nucleated RBC (0.00-0.01) x10^3u/L Lymphocytes % (24.0-44.0) % Monocytes % (0.0-12.0) % Eosinophils % (0.00-5.0) % Basophils % (0.0-0.4) % Absolute Granulocytes (1.4-6.9) x10^3/uL Basophils # (0-0.4) x10^3/uL Sodium (137-145) mmol/L Potassium (3.5-5.1) mmol/L Chloride (98-107) mmol/L Carbon Dioxide (22-30) mmol/L Anion Gap (5-15) MEQ/L BUN (9-20) mg/dL Creatinine (0.66-1.25) mg/dL Estimated GFR ML/MIN Glucose (74-106) mg/dL Calcium (8.4-10.2) mg/dL Total Bilirubin (0.2-1.3) mg/dL AST (17-59) U/L ALT (0-50) U/L Alkaline Phosphatase (38-126) U/L Troponin I < 0.012 (0.000-0.034) ng/mL Serum Total Protein (6.3-8.2) g/dL Albumin (3.5-5.0) g/dL Amylase (30-110) U/L Lipase (23-300) U/L Urine Color Yellow (Yellow) Urine Appearance Clear (Clear) Urine pH 5.5 (4.6-8.0) Ur Specific [place] 1.020 (1.005-1.030) Urine Protein Negative (Negative) Urine Glucose (UA) Negative (Negative) mg/dL Urine Ketones Negative (Negative) Urine Blood Negative (Negative) Urine Nitrite Negative (Negative) Urine Bilirubin Negative (Negative) Urine Urobilinogen 0.2 (0.2) mg/dL Ur Leukocyte Esterase Negative (Negative) U Hyaline Cast (Auto) NONE SEEN (0-2) /LPF Urine Microscopic RBC 0-2 (0-5) /HPF Urine Microscopic WBC 0-2 (0-5) /HPF Ur Epithelial Cells None Seen (None Seen) /HPF Urine Bacteria None Seen (None Seen) /HPF Urine Culture Reflexed NO (NO) Influenza Type A Ag NEGATIVE (NEGATIVE) Influenza Type B Ag NEGATIVE (NEGATIVE) RSV (PCR) NEGATIVE (Negative) SARS-CoV-2 (PCR) NEGATIVE (NEGATIVE) 01/02/23 01/02/23 Range/Units 05:05 05:05 WBC 7.3 (4.0-10.5) x10^3/uL RBC 3.47 L (4.1-5.6) x10^6/uL Hgb 10.7 L (12.5-18.0) g/dL Hct 32.3 L (42-50) % MCV 93.1 (78-100) fL MCH 30.8 (26-32) pg MCHC 33.1 (32-36) g/dL RDW 13.7 (11.5-14.0) % Plt Count 262 (150-450) x10^3/uL MPV 9.2 (7.5-11.0) fL Gran % 57.1 (36.0-66.0) % Immature Gran % (Auto) 0.4 (0.00-0.4) % Nucleat RBC Rel Count 0.0 (0.00-0.1) % Eos # (Auto) 0.38 (0-0.5) x10^3/uL Immature Gran # (Auto) 0.03 (0.00-0.03) x10^3u/L Absolute Lymphs (auto) 1.83 (1.0-4.6) x10^3/uL Absolute Monos (auto) 0.80 (0.0-1.3) x10^3/uL Absolute Nucleated RBC 0.00 (0.00-0.01) x10^3u/L Lymphocytes % 25.2 (24.0-44.0) % Monocytes % 11.0 (0.0-12.0) % Eosinophils % 5.2 H (0.00-5.0) % Basophils % 1.1 (0.0-0.4) % Absolute Granulocytes 4.14 (1.4-6.9) x10^3/uL Basophils # 0.08 (0-0.4) x10^3/uL Sodium 137 (137-145) mmol/L Potassium 4.0 (3.5-5.1) mmol/L Chloride 103 (98-107) mmol/L Carbon Dioxide 26 (22-30) mmol/L Anion Gap 12.3 (5-15) MEQ/L BUN 21 H (9-20) mg/dL Creatinine 0.68 (0.66-1.25) mg/dL Estimated GFR > 60.0 ML/MIN Glucose 194 H (74-106) mg/dL Calcium 8.1 L (8.4-10.2) mg/dL Total Bilirubin 0.40 (0.2-1.3) mg/dL AST 24 (17-59) U/L ALT 15 (0-50) U/L Alkaline Phosphatase 102 (38-126) U/L Troponin I (0.000-0.034) ng/mL Serum Total Protein 6.9 (6.3-8.2) g/dL Albumin 3.9 (3.5-5.0) g/dL Amylase 47 (30-110) U/L Lipase 77 (23-300) U/L Urine Color (Yellow) Urine Appearance (Clear) Urine pH (4.6-8.0) Ur Specific [place] (1.005-1.030) Urine Protein (Negative) Urine Glucose (UA) (Negative) mg/dL Urine Ketones (Negative) Urine Blood (Negative) Urine Nitrite (Negative) Urine Bilirubin (Negative) Urine Urobilinogen (0.2) mg/dL Ur Leukocyte Esterase (Negative) U Hyaline Cast (Auto) (0-2) /LPF Urine Microscopic RBC (0-5) /HPF Urine Microscopic WBC (0-5) /HPF Ur Epithelial Cells (None Seen) /HPF Urine Bacteria (None Seen) /HPF Urine Culture Reflexed (NO) Influenza Type A Ag (NEGATIVE) Influenza Type B Ag (NEGATIVE) RSV (PCR) (Negative) SARS-CoV-2 (PCR) (NEGATIVE) - Progress Progress: improved Counseled pt/family regarding: lab results, diagnosis, need for follow-up, rad results <CAITIE MARTINEZ - Last Filed: 01/02/23 06:39> <STANISLAW GILL - Last Filed: 01/02/23 10:00> - Progress Progress Note: 01/02/23 06:44 Chest x-ray was interpreted by me. Patient has right lower lobe atelectasis versus early infiltrate. 01/02/23 06:44 Patient care being transferred to Dr. Stanislaw Gill at shift change. He will follow-up on the results of the lab and radiographic studies and make final disposition. (CAITIE MARTINEZ) Patient endorsed to Dr. Gill at approximately [address] scan pending at that time. Dr. Gill advised to follow-up with CT scan and disposition accordingly. CT scan reveals a markedly distended urinary bladder. Likely urinary obstruction from a known enlarged prostate. We will insert a Steele catheter and reassess patient. We will monitor urine output flow and volume 01/02/23 08:10 We will maintain Steele catheter. Urinalysis negative for UTI. Patient experienced immediate relief after placing Steele catheter. Patient tolerated p.o. No indication for further work-up at this time. Labs reviewed by previous physician. CT scan significant for urinary retention. There is some fecal stasis and impaction. Patient feels he can have a bowel movement on his own. Patient declined disimpaction. Patient 82-year-old male presents to our ED with nausea vomiting abdominal pain. Work-up reveals urinary retention. Patient's complaint is acute. Complexity of problem is moderate. No significant comorbidities contribute to patient's symptoms. Testing orders include laboratory work-up as well as CAT scan. Laboratory work-up essentially noncontributory remarkable. Labs were reviewed by me personally as well as Dr. Martinez. Patient received Zofran for nausea. Patient is a -year-old with a history of (PMH relating to complaints/diagnosis) presents with complaints of ___. Significant ROS/PE findings State whether the complaint is acute versus chronic, acute on chronic \ complexity of complaint mild/moderate/ severe/ critical address any comorbidities that are within the context of the encounter . Laboratory work-up ordered includes chest x-ray CT abdomen pelvis CBC CMP COVID lipase troponin. Patient received IV fluids which will address the hyperglycemia. Zofran administered for nausea and vomiting. Pantoprazole administered for abdominal pain. Patient currently is pain-free. Elevated BUN will also be addressed by the IV fluid administration. Mild hypocalcemia which will require to be monitored by family physician. Plan of care. Patient agrees to follow-up with primary care doctor within 48 hours for reevaluation. Level of EM service provided was moderate. Complexity of problem addressed was moderate. Complexity of data reviewed and analyzed is moderate. Risk for complication and or risk of morbidity/mortality management is moderate. No critical care time. Patient served as the independent historian. Patient able to to provide reliable information. No power hammer operator required. Patient's work sponsored care was successful. Patient's symptoms resolved. Diagnosis achieved. Time spent during discharge approximately 10 to 15 minutes. Referral to urology was provided to our patient to treat and further evaluate the urinary retention and prostate hypertrophy Portions of this note were created with voice recognition technology. There may be grammatical, spelling, punctuation or sound alike errors 01/02/23 09:44 01/02/23 10:00 (STANISLAW GILL) <CAITIE MARTINEZ - Last Filed: 01/02/23 06:39> - Departure Departure Disposition: Home Critical Care Time: No <STANISLAW GILL - Last Filed: 01/02/23 10:00> - Departure Clinical Impression: Abdominal pain, Nausea & vomiting, Urinary retention, Fecal stasis, Fecal impaction in rectum, Diverticulosis, Enlarged prostate, Fatty liver, Pulmonary fibrosis, Normocytic anemia, Elevated BUN, Hyperglycemia, Hypocalcemia Condition: Stable Referrals: BENNIE GARCIA [Primary Care Provider] - Follow up/PCP as directed NONA LASSITER [COURTESY STAFF] - Follow up/PCP as directed Additional Instructions: Discharge/Care Plan CHARLIE JACOBSEN was seen on 01/02/23 in the Emergency Room. The patient was counseled regarding Diagnosis,Lab results, Imaging studies, need for follow up and when to return to the Emergency Room. Prescriptions given: Discharge Note I have spoken with the patient and/or caregivers. I have explained the patient's condition, diagnosis and treatment plan based on the information available to me at this time. I have answered the patient's and/or caregiver's questions and addressed any concerns. The patient and/or caregivers have as good understanding of the patient's diagnosis, condition and treatment plan as can be expected at this point. The vital signs have been stable. The patient's condition is stable and appropriate for discharge from the emergency department. The patient will pursue further outpatient evaluation with the primary care physician or other designated or consulting physician as outlined in the discharge instructions. The patient and/or caregivers are agreeable to this plan of care and follow-up instructions have been explained in detail. The patient and/or caregivers have received these instruction. The patient/and or caregivers are aware that any significant change in condition or worsening of symptoms should prompt an immediate return to this or the closest emergency department or call 911.
[2023-01-02] MEDS ORDERED: Zofran 4 MG/2 ML VIAL IV ONE (05:30)
[2023-01-02] MEDS ORDERED: PROTONIX 40 MG IV IV ONE ×2 (05:30→05:35)
[2023-01-02] MEDS ORDERED: Sodium Chloride 0.9% 1000 ML 1,000 ML IV STA (05:30)
[2023-01-02] MEDS ORDERED: Zofran 4 MG/2 ML VIAL ONE (05:35)
[2023-01-02] MEDS ORDERED: Sodium Chloride 0.9% 1000 ML 1,000 ML ONE (05:35)
[2023-01-02 05:40] LABS: Absolute Neutrophil Ct (ANC) 4.14 x10^3/uL (1.4-6.9); BASOPHIL % 1.1 % (0.0-0.4); Basophil (Absolute #) 0.08 x10^3/uL (0-0.4); Eosinophil % 5.2 % (0.00-5.0); Eosinophil (Absolute #) 0.38 x10^3/uL (0-0.5); Hematocrit 32.3 % (42-50); Hemoglobin 10.7 g/dL (12.5-18.0); IMMATURE GRAN # 0.03 x10^3u/L (0.00-0.03); IMMATURE GRAN % 0.4 % (0.00-0.4); Lymphocyte (Absolute #) 1.83 x10^3/uL (1.0-4.6); Lymphocytes % 25.2 % (24.0-44.0); Mean Cell Volume 93.1 fL (78-100); Mean Corpuscular Hemoglobin 30.8 pg (26-32); Mean Corpuscular Hgb Concent. 33.1 g/dL (32-36); Mean Platelet Volume 9.2 fL (7.5-11.0); Neutrophil % 57.1 % (36.0-66.0); Platelet Count 262 x10^3/uL (150-450); Red Blood Count 3.47 x10^6/uL (4.1-5.6); Red Cell Distribution Width 13.7 % (11.5-14.0); White Blood Count 7.3 x10^3/uL (4.0-10.5)
[2023-01-02 05:52] LABS: ALBUMIN 3.9 g/dL (3.5-5.0); ALKALINE PHOSPHATASE 102 U/L (38-126); AMYLASE 47 U/L (30-110); ANION GAP 12.3 MEQ/L (5-15); BLOOD UREA NITROGEN 21 mg/dL (9-20); CHLORIDE 103 mmol/L (98-107); Calcium 8.1 mg/dL (8.4-10.2); Carbon Dioxide 26 mmol/L (22-30); Creatinine 1 0.68 mg/dL (0.66-1.25); EST GLOMERULAR FILTRATION RATE > 60.0 ML/MIN; Glucose 194 mg/dL (74-106); LIPASE 77 U/L (23-300); SGOT/AST 24 U/L (17-59); SGPT/ALT 15 U/L (0-50); SODIUM 137 mmol/L (137-145); Total Protein 6.9 g/dL (6.3-8.2)
[2023-01-02 06:35] LABS: INFLUENZA A NEGATIVE (NEGATIVE); INFLUENZA B NEGATIVE (NEGATIVE); RESPIRATORY SYNCTIAL VIRUS NEGATIVE (Negative); SARS-CoV-2 Xpert Express NEGATIVE (NEGATIVE)
[2023-01-02 08:47] VITALS: O2SAT 98
--- NOTE | 2023-01-02 09:03 | XRAY ---
Indication: Abdomen discomfort, nausea, and vomiting. Multiple contiguous axial images obtained through the abdomen and pelvis without contrast. Comparison: November 04, 2022 Lung bases again demonstrates diffuse scattered fibrosis/scarring and tiny left base calcified granuloma. Heart is not enlarged. Noncontrasted stomach and bowel loops nonobstructed again with mild diffuse scattered colonic fecal debris throughout including mild rectal impaction. Again scattered colonic diverticulosis without diverticulitis. Urinary bladder is now markedly distended concerning for all objection versus neurogenic bladder. Again enlarged/nodular prostate gland impresses on the base of the bladder. No free fluid/air. Chronic findings including fatty liver and splenic calcified granulomas. Remaining liver, gallbladder, pancreas, spleen, adrenal glands, kidneys, ureters, and bladder are unremarkable for noncontrast exam. Again moderate scattered aortoiliac calcifications without AAA. Osseous structures intact again with osteopenia and moderate degenerative changes throughout the spine and both hips. Impression: 1. New markedly distended urinary bladder. Rule out outlet obstruction versus neurogenic bladder. 2. Again mild diffuse fecal stasis with rectal impaction. 3. Chronic findings including pulmonary fibrosis/scarring, colonic diverticulosis, enlarged prostate gland, fatty liver, arteriosclerotic disease, and chronic bony findings.
--- NOTE | 2023-01-02 09:03 | XRAY ---
Indication: Short of breath and vomiting. Comparison: March 28, 2022 Portable chest again demonstrates chronic lung markings without focal infiltrate, consolidation, or large effusion. Heart not enlarged. Bony thorax intact again with osteopenia, degenerative changes, and bilateral total shoulder arthroplasty. Impression: Continued nonacute chest with chronic features.
[2023-01-02 09:04] LABS: Bacteria None Seen /HPF (None Seen); Bilirubin Negative (Negative); Blood Negative (Negative); Epithelial Cells None Seen /HPF (None Seen); Glucose, Urine Negative (Negative); Hyaline Casts NONE SEEN /LPF (0-2); Ketones Negative (Negative); Leukocyte Esterase Negative (Negative); Nitrite Negative (Negative); Ph 5.5 (4.6-8.0); Protein,Urine Dip Negative (Negative); RBC 0-2 /HPF (0-5); Urobilinogen 0.2 mg/dL (0.2); WBC 0-2 /HPF (0-5)
[2023-01-02 09:07] LABS: ADD URINE CULTURE? NO (NO); Appearance Clear (Clear)
[2023-01-02 10:24] VITALS: BP 178/103; PULSE 65
== END 2023-01-02 10:52 | disposition home or self-care (01) ==
LOC: ED 04:48
DX: N40.1 Benign prostatic hyperplasia with lower urinary tract symptoms (principal); R33.8 Other retention of urine; K59.89 Other specified functional intestinal disorders; K56.41 Fecal impaction; R10.9 Unspecified abdominal pain; R11.2 Nausea with vomiting, unspecified; K57.90 Diverticulosis of intestine, part unspecified, without perforation or abscess without bleeding; K76.0 Fatty (change of) liver, not elsewhere classified; J84.10 Pulmonary fibrosis, unspecified; D64.9 Anemia, unspecified; R79.89 Other specified abnormal findings of blood chemistry; E11.65 Type 2 diabetes mellitus with hyperglycemia; E83.51 Hypocalcemia; N47.1 Phimosis; I10 Essential (primary) hypertension; E78.5 Hyperlipidemia, unspecified; E11.42 Type 2 diabetes mellitus with diabetic polyneuropathy; Z79.02 Long term (current) use of antithrombotics/antiplatelets; Z79.84 Long term (current) use of oral hypoglycemic drugs; Z79.899 Other long term (current) drug therapy; Z20.828 Contact with and (suspected) exposure to other viral communicable diseases
CPT/HCPCS: 0241U; 36000; 36415; 51702; 71045; 74176; 80053; 81001; 82150; 83690; 84484; 85025; 96360; 96374; 96375; 99284; J2405

== ENCOUNTER 2023-01-08 00:20 | Emergency (ER) | payer MEDICARE ==
--- NOTE | 2023-01-08 00:28 | ERPHSYRPT ---
- History of Present Illness Time Seen by Provider: 01/08/23 00:27 Source: patient, EMS Exam Limitations: no limitations Physician History: Pt c/o dysuria for the past 2 days Pt has indwelling brownlee cath that was placed last week No fever, chills. No flank pain. +N, no V + dark red urine from brownlee + suprapubic, LLQ pain + malodorous urine. Timing/Duration: yesterday Activites at Onset: none Quality: burning, sharpness Onset Location: LLQ, suprapubic Pain Radiation: none Severity of Pain-Max: moderate Severity of Pain-Current: mild Modifying Factors: Improves With: analgesics. Worsens With: urinating Associated Symptoms: abdominal pain, nausea, dysuria, urinary frequency, No fever, No chills, No vomiting Prior abdominal problems: none Sexual intercourse history: non-contributory Allergies/Adverse Reactions: No Known Drug Allergies Allergy (Verified 10/12/22 12:41) Home Medications: Clopidogrel Bisulfate [PLAVIX Tablet] 75 mg PO DAILY 01/12/16 [History] Famotidine [Pepcid] 40 mg PO HS 01/12/16 [History] Ferrous Sulfate 325 mg [Feosol 325 mg] 325 mg PO DAILY 01/12/16 [History] Glipizide [Glucotrol Xl] 10 mg PO DAILY 01/12/16 [History] Metformin HCl [Metformin ER Osmotic] 1,000 mg PO BID 01/12/16 [History] Amiodarone HCl 200 mg PO DAILY 10/11/19 [History] Ascorbic Acid [Vitamin C] 250 mg PO DAILY 10/11/19 [History] Atorvastatin Calcium 40 mg PO HS 10/11/19 [History] Cinnamon Bark [Cinnamon] 1,000 mg PO DAILY 10/11/19 [History] Desloratadine [Clarinex] 1 tab PO DAILY 10/11/19 [History] Furosemide 20 mg [Lasix 20 mg] 1 tab PO DAILY 10/11/19 [History] Gabapentin 100 mg PO TID 10/11/19 [History] Lidocaine [Lidocaine Pain Relief] 1 patch TOP DAILY PRN 10/11/19 [History] Losartan/Hydrochlorothiazide [Losartan-Hctz 100-25 mg Tab] 0.5 tab PO DAILY 10/11/19 [History] Magnesium Oxide [Magnesium] 400 mg PO DAILY 10/11/19 [History] Multivitamin [Multivitamins] 1 tab PO DAILY 10/11/19 [History] Potassium Chloride Tab* [Klor Con] 2 tab PO DAILY 10/11/19 [History] Vit B6/Me-Thfolate/Me-B12/Ala [Nufola Capsule] 1 tab PO DAILY 10/11/19 [History] Carvedilol [Coreg ] 3.25 mg PO BID 04/15/21 [History] Tadalafil [Cialis] 1 tab PO DIRECTIONS UNKNOWN PRN 03/13/22 [History] Hx Tetanus, Diphtheria Vaccination/Date Given: Yes Hx Influenza Vaccination/Date Given: Yes Hx Pneumococcal Vaccination/Date Given: Yes Travel Risk - Vaccine Status Have you recieved a Covid-19 vaccination: (unknown) 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 - Vaccination Dates Date of 2cond Vaccination (if applicable): 01/05/21 - Past Medical History Pertinent Past Medical History: Yes Neurological History: Peripheral Neuropathy, Stroke ENT History: Cataracts Cardiac History: Arrhythmia, Coronary Artery Disease Respiratory History: CHF, Pneumonia, Sleep Apnea Endocrine Medical History: Diabetes Type II Musculoskeletal History: Arthritis GI Medical History: Diverticulitis, Gallbladder Disease, GI Bleed, Hemorrhoids History: No Pertinent History Psycho-Social History: No Pertinent History Male Reproductive Disorders: Prostate Problems Other Medical History: Multiple Co-Morbidities. Please see medical chart for complete medical history. - Past Surgical History Past Surgical History: Yes Neuro Surgical History: No Pertinent History Cardiac: No Pertinent History Respiratory: No Pertinent History Gastrointestinal: Appendectomy, Cholecystectomy Genitourinary: No Pertinent History Musculoskeletal: Joint Replacement, Orthopedic Surgery Male Surgical History: Vasectomy Other Surgical History: bilat knees and shoulders - Social History Smoking Status: Never smoker Exposure to second hand smoke: Yes Drug Use: none Patient Lives Alone: No - Review of Systems Constitutional: No Fever, No Chills Eyes: No Symptoms Ears, Nose, & Throat: No Symptoms Respiratory: No Symptoms Cardiac: No Symptoms Abdominal/Gastrointestinal: Abdominal Pain, Nausea, No Vomiting, No Diarrhea, No Constipation, No Hematemesis, No Hematochezia, No Melena, No Appetite Changes Genitourinary Symptoms: Dysuria, No Hematuria, No Penile Discharge Musculoskeletal: No Symptoms Skin: No Symptoms Neurological: No Symptoms Psychological: No Symptoms Endocrine: No Symptoms Hematologic/Lymphatic: No Symptoms Immunological/Allergic: No Symptoms All Other Systems: Reviewed and Negative - Nursing Vital Signs Nursing Vital Signs: Initial Vital Signs Temperature 97.8 F 01/08/23 00:26 Pulse Rate 75 01/08/23 00:26 Respiratory Rate 18 01/08/23 00:26 Blood Pressure 146/77 01/08/23 00:26 O2 Sat by Pulse Oximetry 96 01/08/23 00:26 Pain Scale Pain Intensity 0 - Physical Exam General Appearance: no apparent distress, alert Eye Exam: eyes nml inspection Ears, Nose, Throat Exam: normal ENT inspection Neck Exam: normal inspection Respiratory Exam: normal breath sounds, lungs clear, airway intact, No respiratory distress Cardiovascular Exam: regular rate/rhythm, normal heart sounds, capillary refill <2 sec Gastrointestinal/Abdomen Exam: soft, tenderness (LLQ, suprapubic), No dis tention, No guarding, No rebound Male Genital Exam: uncircumcised, No urethral discharge, No scrotal swellling Back Exam: No CVA tenderness Extremity Exam: normal inspection Neurologic Exam: alert, oriented x 3, cooperative Skin Exam: normal color, warm, dry SpO2 Interpretation: normal O2 Delivery: Room Air - Course Nursing assessment & vital signs reviewed: Yes - CT Exams Abdomen/Pelvis CT Interpretation: Other (ileus vs enteritis vs diverticulitis, prostamegally, bladder wall thickening) Ordered Tests: Active Orders 24 hr Category Date Time Status Catheter-Hubbell Brownlee STAT Care 01/08/23 00:57 Active IV Insertion STAT Care 01/08/23 00:57 Active ABDOMEN AND PELVIS W/0 CONTRAS [CT] Stat Exams 01/08/23 00:58 Taken CBC W DIFF Stat Lab 01/08/23 02:44 Completed CMP Stat Lab 01/08/23 02:44 Completed CULTURE,URINE Stat Lab 01/08/23 02:03 Received UA W/RFX UR CULTURE Stat Lab 01/08/23 02:03 Completed Medication Summary Discontinued Medications Generic Name Dose Route Start Last Admin Trade Name Freq PRN Reason Stop Dose Admin Sodium Chloride 1,000 mls @ 999 mls/hr 01/08/23 00:57 01/08/23 02:55 Sodium Chloride 0.9% 1000 Ml IV 01/08/23 01:57 Infused .Q1H1M STA Infusion Sodium Chloride Confirm 01/08/23 01:05 Sodium Chloride 0.9% 1000 Ml Administered 01/08/23 01:06 Dose 1,000 mls @ ud .ROUTE .STK-MED ONE Ceftriaxone Sodium/Dextrose 2 g in 50 mls @ 100 mls/hr 01/08/23 03:48 01/08/23 04:27 Rocephin 2 Gm-D5w 50ml Bag IV 01/08/23 04:17 Infused STAT STA Infusion Ceftriaxone Sodium/Dextrose Confirm 01/08/23 03:50 Rocephin 2 Gm-D5w 50ml Bag Administered 01/08/23 03:51 Dose 2 g in 50 mls @ ud IV .STK-MED ONE Metronidazole 500 mg 01/08/23 04:28 01/08/23 04:30 Metronidazole 500 Mg Tablet PO 01/08/23 04:29 500 mg STAT ONE Administration Metronidazole Confirm 01/08/23 04:29 Metronidazole 500 Mg Tablet Administered 01/08/23 04:30 Dose 500 mg .ROUTE .STK-MED ONE Morphine Sulfate 2 mg 01/08/23 00:57 01/08/23 01:06 Morphine Sulfate 2 Mg/Ml Inj IV 01/08/23 00:58 2 mg STAT ONE Administration Morphine Sulfate Confirm 01/08/23 01:05 Morphine Sulfate 2 Mg/Ml Inj Administered 01/08/23 01:06 Dose 2 mg .ROUTE .STK-MED ONE Ondansetron HCl 4 mg 01/08/23 02:05 01/08/23 02:09 Ondansetron Hcl 4 Mg/2 Ml Vial IV 01/08/23 02:06 4 mg STAT ONE Administration Ondansetron HCl Confirm 01/08/23 02:06 Ondansetron Hcl 4 Mg/2 Ml Vial Administered 01/08/23 02:07 Dose 4 mg .ROUTE .STK-MED ONE Potassium Chloride 40 meq 01/08/23 03:08 01/08/23 03:24 Potassium Chloride Tab 10 Meq Tab PO 01/08/23 03:09 40 meq STAT ONE Administration Potassium Chloride Confirm 01/08/23 03:23 Potassium Chloride Tab 10 Meq Tab Administered 01/08/23 03:24 Dose 40 meq PO .STK-MED ONE Lab/Rad Data: Laboratory Result Diagrams 01/08/23 02:44 01/08/23 02:44 Laboratory Results 01/08/23 01/08/23 01/08/23 Range/Units 02:44 02:44 02:03 WBC 11.3 H (4.0-10.5) x10^3/uL RBC 3.58 L (4.1-5.6) x10^6/uL Hgb 11.2 L (12.5-18.0) g/dL Hct 33.7 L (42-50) % MCV 94.1 (78-100) fL MCH 31.3 (26-32) pg MCHC 33.2 (32-36) g/dL RDW 13.4 (11.5-14.0) % Plt Count 322 (150-450) x10^3/uL MPV 9.2 (7.5-11.0) fL Gran % 72.5 H (36.0-66.0) % Immature Gran % (Auto) 0.5 H (0.00-0.4) % Nucleat RBC Rel Count 0.0 (0.00-0.1) % Eos # (Auto) 0.33 (0-0.5) x10^3/uL Immature Gran # (Auto) 0.06 H (0.00-0.03) x10^3u/L Absolute Lymphs (auto) 1.50 (1.0-4.6) x10^3/uL Absolute Monos (auto) 1.17 (0.0-1.3) x10^3/uL Absolute Nucleated RBC 0.00 (0.00-0.01) x10^3u/L Lymphocytes % 13.2 L (24.0-44.0) % Monocytes % 10.3 (0.0-12.0) % Eosinophils % 2.9 (0.00-5.0) % Basophils % 0.6 (0.0-0.4) % Absolute Granulocytes 8.20 H (1.4-6.9) x10^3/uL Basophils # 0.07 (0-0.4) x10^3/uL Sodium 137 (137-145) mmol/L Potassium 3.4 L (3.5-5.1) mmol/L Chloride 102 (98-107) mmol/L Carbon Dioxide 26 (22-30) mmol/L Anion Gap 12.0 (5-15) MEQ/L BUN 22 H (9-20) mg/dL Creatinine 0.95 (0.66-1.25) mg/dL Estimated GFR > 60.0 ML/MIN Glucose 156 H (74-106) mg/dL Calcium 8.3 L (8.4-10.2) mg/dL Total Bilirubin 0.30 (0.2-1.3) mg/dL AST 20 (17-59) U/L ALT 15 (0-50) U/L Alkaline Phosphatase 99 (38-126) U/L Serum Total Protein 7.0 (6.3-8.2) g/dL Albumin 3.7 (3.5-5.0) g/dL Urine Color Red A (Yellow) Urine Appearance Turbid A (Clear) Urine pH 5.0 (4.6-8.0) Ur Specific [place] 1.020 (1.005-1.030) Urine Protein 100 A (Negative) Urine Glucose (UA) Negative (Negative) mg/dL Urine Ketones Negative (Negative) Urine Blood Large A (Negative) Urine Nitrite Negative (Negative) Urine Bilirubin Small A (Negative) Urine Urobilinogen 0.2 (0.2) mg/dL Ur Leukocyte Esterase Large A (Negative) U Hyaline Cast (Auto) NONE SEEN (0-2) /LPF Urine Microscopic RBC >100 A (0-5) /HPF Urine Microscopic WBC >100 A (0-5) /HPF Ur Epithelial Cells None Seen (None Seen) /HPF Urine Bacteria Many A (None Seen) /HPF Urine Culture Reflexed ORDERED SEPARATELY (NO) - Progress Progress: improved Progress Note: WBC 11.3, Hb 11.2, K 3.4, UA red, turbid, pH 5, large blood, large LE, >100 WBC, >100 RBC, many bacteria. 40KCl given, 2g Rocephin given. Catheter exchanged and was found to be clogged, once exchanged patient drained >600cc of urine and pain improved. CT abd/pelvis w/o showed enlarged prostate, ileus vs enteritis vs diverticulitis. Due to clinical picture decided to add Flagyl to treat diverticulitis. Patient resting comfortably and will d/c home w/ PO abx. 01/08/23 05:34 Counseled pt/family regarding: lab results, diagnosis, need for follow-up, rad results Medical Desision Making - Diagnostic Testing Diagnostic Testing: Diagnostic tests were ordered,analyzed, and reviewed by me and used in my medical decision making for this patient. Radiologic studies (if ordered) were read by me initially then discussed with the radiologist . - Risk of complications The pt has a mod risk of morbidity or mortality based on: Need for prescription drug management - Departure Departure Disposition: Home Clinical Impression: UTI (urinary tract infection) due to urinary indwelling Brownlee catheter, Diverticulitis, Anemia, Hypokalemia Condition: Good Critical Care Time: No Referrals: BENNIE GARCIA [Primary Care Provider] - Follow up/PCP as directed Instructions: Diverticulitis (DC), How to Care for Your Brownlee Catheter, Male Prescriptions: Metronidazole 500 mg [Flagyl 500 MG] 500 mg PO TID 10 Days #30 tablet Cephalexin Mh 500 mg [Keflex 500 mg] 500 mg PO Q6H 10 Days #40 cap ondansetron HCL [Ondansetron HCl] 4 mg PO TID PRN 30 Days #10 tablet PRN Reason: Nausea/Vomiting
[2023-01-08] MEDS ORDERED: MORPHINE SULFATE 2 MG INJ IV ONE (00:57)
[2023-01-08] MEDS ORDERED: Sodium Chloride 0.9% 1000 ML 1,000 ML IV STA (00:57)
[2023-01-08] MEDS ORDERED: Sodium Chloride 0.9% 1000 ML 1,000 ML ONE (01:05)
[2023-01-08] MEDS ORDERED: MORPHINE SULFATE 2 MG INJ ONE (01:05)
[2023-01-08] MEDS ORDERED: Zofran 4 MG/2 ML VIAL IV ONE (02:05)
[2023-01-08] MEDS ORDERED: Zofran 4 MG/2 ML VIAL ONE (02:06)
[2023-01-08 02:48] LABS: BASOPHIL % 0.6 % (0.0-0.4); Basophil (Absolute #) 0.07 x10^3/uL (0-0.4); Eosinophil % 2.9 % (0.00-5.0); Eosinophil (Absolute #) 0.33 x10^3/uL (0-0.5); Hematocrit 33.7 % (42-50); Hemoglobin 11.2 g/dL (12.5-18.0); IMMATURE GRAN # 0.06 x10^3u/L (0.00-0.03); IMMATURE GRAN % 0.5 % (0.00-0.4); Lymphocytes % 13.2 % (24.0-44.0); Mean Cell Volume 94.1 fL (78-100); Mean Corpuscular Hemoglobin 31.3 pg (26-32); Mean Corpuscular Hgb Concent. 33.2 g/dL (32-36); Mean Platelet Volume 9.2 fL (7.5-11.0); Monocyte (Absolute #) 1.17 x10^3/uL (0.0-1.3); Monocytes % 10.3 % (0.0-12.0); Neutrophil % 72.5 % (36.0-66.0); Platelet Count 322 x10^3/uL (150-450); Red Blood Count 3.58 x10^6/uL (4.1-5.6); Red Cell Distribution Width 13.4 % (11.5-14.0); White Blood Count 11.3 x10^3/uL (4.0-10.5)
[2023-01-08 03:03] LABS: ALBUMIN 3.7 g/dL (3.5-5.0); ALKALINE PHOSPHATASE 99 U/L (38-126); BLOOD UREA NITROGEN 22 mg/dL (9-20); CHLORIDE 102 mmol/L (98-107); Calcium 8.3 mg/dL (8.4-10.2); Carbon Dioxide 26 mmol/L (22-30); Creatinine 1 0.95 mg/dL (0.66-1.25); EST GLOMERULAR FILTRATION RATE > 60.0 ML/MIN; Glucose 156 mg/dL (74-106); Potassium 3.4 mmol/L (3.5-5.1); SGOT/AST 20 U/L (17-59); SGPT/ALT 15 U/L (0-50); SODIUM 137 mmol/L (137-145)
[2023-01-08] MEDS ORDERED: Klor Con PO ONE ×2 (03:08→03:23)
[2023-01-08 03:40] LABS: Appearance Turbid (Clear); Bacteria Many /HPF (None Seen); Bilirubin Small (Negative); Blood Large (Negative); Epithelial Cells None Seen /HPF (None Seen); Glucose, Urine Negative (Negative); Hyaline Casts NONE SEEN /LPF (0-2); Ketones Negative (Negative); Leukocyte Esterase Large (Negative); Nitrite Negative (Negative); Protein,Urine Dip 100 (Negative); RBC >100 /HPF (0-5); Urobilinogen 0.2 mg/dL (0.2); WBC >100 /HPF (0-5)
[2023-01-08 03:41] LABS: ADD URINE CULTURE? ORDERED SEPARATELY (NO)
[2023-01-08] MEDS ORDERED: ROCEPHIN 2 Gm-D5w 50ML BAG** 2 G/50 ML IVPB IV STA (03:48)
[2023-01-08] MEDS ORDERED: ROCEPHIN 2 Gm-D5w 50ML BAG** 2 G/50 ML IVPB IV ONE (03:50)
[2023-01-08] MEDS ORDERED: Flagyl 500 MG PO ONE (04:28)
[2023-01-08] MEDS ORDERED: Flagyl 500 MG ONE (04:29)
[2023-01-08 06:18] VITALS: O2SAT 97
[2023-01-08] MEDS ORDERED: ZOFRAN ODT 4 MG ONE (07:12)
[2023-01-08] MEDS ORDERED: ZOFRAN ODT 4 MG PO ONE (07:12)
[2023-01-08 08:04] VITALS: BP 115/58; PULSE 72
--- NOTE | 2023-01-08 08:28 | XRAY ---
Indication: Left abdomen pain. Nausea, vomiting, diarrhea. Multiple contiguous axial images obtained through the abdomen and pelvis without contrast. Comparison: January 02, 2023 Lung bases again demonstrates diffuse scattered fibrosis/scarring and tiny left base calcified granuloma. Heart not enlarged. Stomach distended with food/fluid. Noncontrasted stomach and bowel loops nonobstructed again with scattered colonic diverticulosis. A few left abdomen ileal bowel loops are now mildly fluid distended with fluid leveling, ileus versus enteritis. No free fluid/air. Nominally distended urinary bladder demonstrates new Steele balloon catheter in situ. Again enlarged/nodular prostate gland, fatty liver, and splenic calcified granulomas. Remaining liver, gallbladder, pancreas, spleen, adrenal glands, kidneys, and ureters are unremarkable for noncontrast exam. Stable moderate scattered aortoiliac calcifications without AAA. Impression: 1. New Steele balloon catheter in situ. 2. Mild fluid distended small bowel loops with fluid leveling, ileus versus enteritis. 3. Again chronic findings including pulmonary fibrosis/scarring, colonic diverticulosis, enlarged prostate gland, fatty liver, arteriosclerotic disease, and old granulomatous disease. Comment: Preliminary interpretation made by [facility]. No critical discrepancy.
== END 2023-01-08 08:04 | disposition home or self-care (01) ==
LOC: ED 00:20
DX: T83.511A Infection and inflammatory reaction due to indwelling urethral catheter, initial encounter (principal); N39.0 Urinary tract infection, site not specified; K57.92 Diverticulitis of intestine, part unspecified, without perforation or abscess without bleeding; D64.9 Anemia, unspecified; E87.6 Hypokalemia; R30.0 Dysuria; E11.42 Type 2 diabetes mellitus with diabetic polyneuropathy; Z79.02 Long term (current) use of antithrombotics/antiplatelets; Z79.84 Long term (current) use of oral hypoglycemic drugs; Z79.899 Other long term (current) drug therapy
CPT/HCPCS: 36000; 36415; 51702; 74176; 80053; 81001; 85025; 87077; 87086; 87186; 96360; 96365; 96374; 96375; 99284; J0696; J2270; J2405; Q0162; A9270-GY

== ENCOUNTER 2023-03-31 00:09 | Emergency (ER) | payer MEDICARE ==
--- NOTE | 2023-03-31 00:38 | ERPHSYRPT ---
- History of Present Illness Time Seen by Provider: 03/31/23 00:34 Source: patient Patient Subjective Stated Complaint: pt states "I can't pee or poo" when asked he urinated earlier today and was recently told he had an enlarged prostrate and had to be cathed. States he hasn't had a BM for a week but incontinent of stool in clothing when undressed. Triage Nursing Assessment: pt to room 6 via EMS cot with full transfer by staff. pt is alert and oriented times three, able to move all extremities, resp even and unlabored, and speaks in complete sentences. pt is very [place] Physician History: Patient is an 82-year-old male presents to our ED via EMS for evaluation of urinary retention. Patient states he has not had a bowel movement in 5 days. However upon arrival patient had stool in his clothing. No abdominal pain. No nausea vomiting or diaphoresis. No trauma. No fever. Patient states he passes gas regularly. Patient reports a history of enlarged prostate. Patient has had urinary retention in the past and required a Steele catheter. Patient hard of hearing. Patient otherwise denies any other complaints. He voices no other complaints or concerns at this time. Portions of this note were created with voice recognition technology. There may be grammatical, spelling, punctuation or sound alike errors Timing/Duration: today Severity: moderate Modifying Factors: Improves With: nothing Associated Symptoms: denies symptoms Allergies/Adverse Reactions: No Known Drug Allergies Allergy (Verified 10/12/22 12:41) Home Medications: Clopidogrel Bisulfate [PLAVIX Tablet] 75 mg PO DAILY 01/12/16 [History] Famotidine [Pepcid] 40 mg PO HS 01/12/16 [History] Ferrous Sulfate 325 mg [Feosol 325 mg] 325 mg PO DAILY 01/12/16 [History] Glipizide [Glucotrol Xl] 10 mg PO DAILY 01/12/16 [History] Metformin HCl [Metformin ER Osmotic] 1,000 mg PO BID 01/12/16 [History] Amiodarone HCl 200 mg PO DAILY 10/11/19 [History] Ascorbic Acid [Vitamin C] 250 mg PO DAILY 10/11/19 [History] Atorvastatin Calcium 40 mg PO HS 10/11/19 [History] Cinnamon Bark [Cinnamon] 1,000 mg PO DAILY 10/11/19 [History] Desloratadine [Clarinex] 1 tab PO DAILY 10/11/19 [History] Furosemide 20 mg [Lasix 20 mg] 1 tab PO DAILY 10/11/19 [History] Gabapentin 100 mg PO TID 10/11/19 [History] Lidocaine [Lidocaine Pain Relief] 1 patch TOP DAILY PRN 10/11/19 [History] Losartan/Hydrochlorothiazide [Losartan-Hctz 100-25 mg Tab] 0.5 tab PO DAILY 10/11/19 [History] Magnesium Oxide [Magnesium] 400 mg PO DAILY 10/11/19 [History] Multivitamin [Multivitamins] 1 tab PO DAILY 10/11/19 [History] Potassium Chloride Tab* [Klor Con] 2 tab PO DAILY 10/11/19 [History] Vit B6/Me-Thfolate/Me-B12/Ala [Nufola Capsule] 1 tab PO DAILY 10/11/19 [History] Carvedilol [Coreg ] 3.25 mg PO BID 04/15/21 [History] Tadalafil [Cialis] 1 tab PO DIRECTIONS UNKNOWN PRN 03/13/22 [History] Hx Tetanus, Diphtheria Vaccination/Date Given: Yes Hx Influenza Vaccination/Date Given: Yes Hx Pneumococcal Vaccination/Date Given: Yes Immunizations Up to Date: Yes Travel Risk - International Travel Have you traveled outside of the country in past 3 weeks: No - Coronavirus Screening Are you exhibiting any of the following symptoms?: No Close contact with a COVID-19 positive Pt in past 14-21 Days: No - Vaccine Status Have you recieved a Covid-19 vaccination: Yes (unknown) 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 - Vaccination Dates Date of 2cond Vaccination (if applicable): 01/05/21 - Review of Systems Constitutional: No Symptoms, No Fever, No Chills Eyes: No Symptoms Ears, Nose, & Throat: No Symptoms Respiratory: No Symptoms, No Cough, No Dyspnea Cardiac: No Symptoms, No Chest Pain, No Edema, No Syncope Abdominal/Gastrointestinal: No Symptoms, No Abdominal Pain, No Nausea, No Vomiting, No Diarrhea Genitourinary Symptoms: No Symptoms, No Dysuria Musculoskeletal: No Symptoms, No Back Pain, No Neck Pain Skin: No Symptoms, No Rash Neurological: No Symptoms, No Dizziness, No Focal Weakness, No Sensory Changes Psychological: No Symptoms Endocrine: No Symptoms Hematologic/Lymphatic: No Symptoms Immunological/Allergic: No Symptoms All Other Systems: Reviewed and Negative - Past Medical History Pertinent Past Medical History: Yes Neurological History: Peripheral Neuropathy, Stroke ENT History: Cataracts Cardiac History: Arrhythmia, Coronary Artery Disease Respiratory History: CHF, Pneumonia, Sleep Apnea Endocrine Medical History: Diabetes Type II Musculoskeletal History: Arthritis GI Medical History: Diverticulitis, Gallbladder Disease, GI Bleed, Hemorrhoids History: No Pertinent History Psycho-Social History: No Pertinent History Male Reproductive Disorders: Prostate Problems Other Medical History: Multiple Co-Morbidities. Please see medical chart for complete medical history. - Past Surgical History Past Surgical History: Yes Neuro Surgical History: No Pertinent History Cardiac: No Pertinent History Respiratory: No Pertinent History Gastrointestinal: Appendectomy, Cholecystectomy Genitourinary: No Pertinent History Musculoskeletal: Joint Replacement, Orthopedic Surgery Male Surgical History: Vasectomy Other Surgical History: bilat knees and shoulders - Social History Smoking Status: Never smoker Exposure to second hand smoke: Yes Drug Use: none Patient Lives Alone: No - Nursing Vital Signs Nursing Vital Signs: Initial Vital Signs Temperature 98.3 F 03/31/23 00:14 Pulse Rate 63 03/31/23 00:14 Respiratory Rate 16 03/31/23 00:14 Blood Pressure 151/68 03/31/23 00:14 O2 Sat by Pulse Oximetry 96 03/31/23 00:14 Pain Scale Pain Intensity 0 - Physical Exam General Appearance: no apparent distress, alert, other (Hard of hearing) Eye Exam: PERRL/EOMI, eyes nml inspection Ears, Nose, Throat Exam: normal ENT inspection, TMs normal, pharynx normal, moist mucous membranes Neck Exam: normal inspection, non-tender, supple, full range of motion Respiratory Exam: normal breath sounds, lungs clear, airway intact, No respiratory distress Cardiovascular Exam: regular rate/rhythm, normal heart sounds, normal peripheral pulses Gastrointestinal/Abdomen Exam: soft, normal bowel sounds, No tenderness, No mass Back Exam: normal inspection, normal range of motion, No CVA tenderness, No vertebral tenderness Extremity Exam: normal inspection, normal range of motion, pelvis stable Neurologic Exam: alert, oriented x 3, cooperative, normal mood/affect, nml cerebellar function, nml station & gait, sensation nml, No motor deficits Skin Exam: normal color, warm, dry, No rash Lymphatic Exam: No adenopathy SpO2 Interpretation: normal SpO2: 96 O2 Delivery: Room Air - Course Nursing assessment & vital signs reviewed: Yes Ordered Tests: Active Orders 24 hr Category Date Time Status CULTURE,URINE Stat Lab 03/31/23 00:39 Received UA W/RFX UR CULTURE Stat Lab 03/31/23 00:36 Completed Lab/Rad Data: Laboratory Results 03/31/23 Range/Units 00:36 Urine Color Yellow (Yellow) Urine Appearance Clear (Clear) Urine pH 5.0 (4.6-8.0) Ur Specific [place] 1.010 (1.005-1.030) Urine Protein Negative (Negative) Urine Glucose (UA) Negative (Negative) mg/dL Urine Ketones Negative (Negative) Urine Blood Negative (Negative) Urine Nitrite Negative (Negative) Urine Bilirubin Negative (Negative) Urine Urobilinogen 0.2 (0.2) mg/dL Ur Leukocyte Esterase Negative (Negative) U Hyaline Cast (Auto) 3-5 A (0-2) /LPF Urine Microscopic RBC 0-2 (0-5) /HPF Urine Microscopic WBC 0-2 (0-5) /HPF Ur Epithelial Cells None Seen (None Seen) /HPF Urine Bacteria None Seen (None Seen) /HPF Urine Culture Reflexed ORDERED SEPARATELY (NO) - Progress Progress: improved Progress Note: Patient is a 82-year-old male presents to our ED via EMS for evaluation of urinary retention. Patient initially complained of constipation for about 5 days. Patient had a bowel movement in our ED. Patient passing gas no abdominal pain. We will insert a Steele catheter due to urinary retention. Patient has a history of BPH. Steele catheter expressed approximately 1 L of urine. Urine was clear. Urinalysis negative for UTI. We will maintain the urinary catheter. Patient sees Dr. [place] urologist for urinary retention. Patient given a referral back to Dr. [place] for follow-up. Patient reassessed. He is resting comfortably. Patient has no pain. No indication for further work-up. Will discharge home. Patient agrees to follow- up with his urologist at his family doctor within 48 hours for reevaluation. We will contact patient's who will pick patient up this morning. Portions of this note were created with voice recognition technology. There may be grammatical, spelling, punctuation or sound alike errors Complexity of problem addressed is low acute uncomplicated. No systemic manifestations. No Critical care time. Complexity of data reviewed and analyzed is moderate. Dr. Gill independently reviewed and analyzed the urinalysis. No UTI observed. Risk of complication and or risk morbidity/mortality of patient management is moderate. We inserted a Steele catheter for relief of urinary retention. Steele catheter will be maintained. Patient agrees to follow-up with his primary care doctor and his urologist within 48 hours for reevaluation. He voices no other complaints or concerns at this time. Portions of this note were created with voice recognition technology. There may be grammatical, spelling, punctuation or sound alike errors 03/31/23 02:03 Counseled pt/family regarding: lab results, diagnosis, need for follow-up - Departure Departure Disposition: Home Clinical Impression: Urinary retention Condition: Stable Critical Care Time: No Referrals: BENNIE GARCIA [Primary Care Provider] - Follow up/PCP as directed NONA MONTANA [COURTESY STAFF] - Follow up/PCP as directed Additional Instructions: Discharge/Care Plan CHARLIE JACOBSEN was seen on 03/31/23 in the Emergency Room. The patient was counseled regarding Diagnosis,Lab results, Imaging studies, need for follow up and when to return to the Emergency Room. Prescriptions given: Discharge Note I have spoken with the patient and/or caregivers. I have explained the patient's condition, diagnosis and treatment plan based on the information available to me at this time. I have answered the patient's and/or caregiver's questions and addressed any concerns. The patient and/or caregivers have as good understanding of the patient's diagnosis, condition and treatment plan as can be expected at this point. The vital signs have been stable. The patient's condition is stable and appropriate for discharge from the emergency department. The patient will pursue further outpatient evaluation with the primary care physician or other designated or consulting physician as outlined in the discharge instructions. The patient and/or caregivers are agreeable to this plan of care and follow-up instructions have been explained in detail. The patient and/or caregivers have received these instruction. The patient/and or caregivers are aware that any significant change in condition or worsening of symptoms should prompt an immediate return to this or the closest emergency department or call 911.
[2023-03-31 00:51] LABS: Appearance Clear (Clear); Bacteria None Seen /HPF (None Seen); Bilirubin Negative (Negative); Blood Negative (Negative); Epithelial Cells None Seen /HPF (None Seen); Glucose, Urine Negative (Negative); Ketones Negative (Negative); Leukocyte Esterase Negative (Negative); Nitrite Negative (Negative); Protein,Urine Dip Negative (Negative); RBC 0-2 /HPF (0-5); Urobilinogen 0.2 mg/dL (0.2); WBC 0-2 /HPF (0-5)
[2023-03-31 00:54] LABS: ADD URINE CULTURE? ORDERED SEPARATELY (NO)
[2023-03-31 03:03] VITALS: BP 130/62; PULSE 56; O2SAT 100
== END 2023-03-31 04:00 | disposition home or self-care (01) ==
LOC: ED 00:09
DX: R33.9 Retention of urine, unspecified (principal); E11.42 Type 2 diabetes mellitus with diabetic polyneuropathy; Z79.02 Long term (current) use of antithrombotics/antiplatelets; Z79.84 Long term (current) use of oral hypoglycemic drugs; Z79.899 Other long term (current) drug therapy
CPT/HCPCS: 51702; 81001; 87086; 99283

== ENCOUNTER 2023-04-02 16:05 | Emergency (ER) | payer MEDICARE ==
[2023-04-02 16:55] VITALS: BP 151/83; PULSE 61; O2SAT 98
--- NOTE | 2023-04-02 17:20 | ERPHSYRPT ---
- History of Present Illness Time Seen by Provider: 04/02/23 16:44 Source: patient Patient Subjective Stated Complaint: C/O that his f/c tubing keeps disconnecting from his leg bag Triage Nursing Assessment: Patient with noted urine to clothing. Cath tubing is disconnected from leg bag tubing. Patient unhappy with leg bag and is requesting a regular cath bag. He is alert and oriented; hard of hearing. No SOB. Physician History: Patient is having a Steele catheter problem. Patient states that disconnected from the side of his leg. Requesting a change in the leg bag. No fever, chills, chest pain, nausea, vomiting Allergies/Adverse Reactions: No Known Drug Allergies Allergy (Verified 04/02/23 16:51) Home Medications: Clopidogrel Bisulfate [PLAVIX Tablet] 75 mg PO DAILY 01/12/16 [History] Famotidine [Pepcid] 40 mg PO HS 01/12/16 [History] Ferrous Sulfate 325 mg [Feosol 325 mg] 325 mg PO DAILY 01/12/16 [History] Glipizide [Glucotrol Xl] 10 mg PO DAILY 01/12/16 [History] Metformin HCl [Metformin ER Osmotic] 1,000 mg PO BID 01/12/16 [History] Amiodarone HCl 200 mg PO DAILY 10/11/19 [History] Ascorbic Acid [Vitamin C] 250 mg PO DAILY 10/11/19 [History] Atorvastatin Calcium 40 mg PO HS 10/11/19 [History] Cinnamon Bark [Cinnamon] 1,000 mg PO DAILY 10/11/19 [History] Desloratadine [Clarinex] 1 tab PO DAILY 10/11/19 [History] Furosemide 20 mg [Lasix 20 mg] 1 tab PO DAILY 10/11/19 [History] Gabapentin 100 mg PO TID 10/11/19 [History] Lidocaine [Lidocaine Pain Relief] 1 patch TOP DAILY PRN 10/11/19 [History] Losartan/Hydrochlorothiazide [Losartan-Hctz 100-25 mg Tab] 0.5 tab PO DAILY 10/11/19 [History] Magnesium Oxide [Magnesium] 400 mg PO DAILY 10/11/19 [History] Multivitamin [Multivitamins] 1 tab PO DAILY 10/11/19 [History] Potassium Chloride Tab* [Klor Con] 2 tab PO DAILY 10/11/19 [History] Vit B6/Me-Thfolate/Me-B12/Ala [Nufola Capsule] 1 tab PO DAILY 10/11/19 [History] Carvedilol [Coreg ] 3.25 mg PO BID 04/15/21 [History] Tadalafil [Cialis] 1 tab PO DIRECTIONS UNKNOWN PRN 03/13/22 [History] Hx Tetanus, Diphtheria Vaccination/Date Given: Yes Hx Influenza Vaccination/Date Given: Yes Hx Pneumococcal Vaccination/Date Given: Yes Immunizations Up to Date: Yes Travel Risk - International Travel Have you traveled outside of the country in past 3 weeks: No - Coronavirus Screening Are you exhibiting any of the following symptoms?: No Close contact with a COVID-19 positive Pt in past 14-21 Days: No - Vaccine Status Have you recieved a Covid-19 vaccination: Yes (unknown) 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 - Vaccination Dates Date of 2cond Vaccination (if applicable): 01/05/21 - Review of Systems Constitutional: No Fever, No Chills Eyes: No Symptoms Ears, Nose, & Throat: No Symptoms Respiratory: No Cough, No Dyspnea Cardiac: No Chest Pain, No Edema, No Syncope Abdominal/Gastrointestinal: No Abdominal Pain, No Nausea, No Vomiting, No Diarrhea Genitourinary Symptoms: No Dysuria Musculoskeletal: No Back Pain, No Neck Pain Skin: No Rash Neurological: No Dizziness, No Focal Weakness, No Sensory Changes Psychological: No Symptoms Endocrine: No Symptoms All Other Systems: Reviewed and Negative - Past Medical History Pertinent Past Medical History: Yes Neurological History: Peripheral Neuropathy, Stroke ENT History: Cataracts Cardiac History: Arrhythmia, Coronary Artery Disease Respiratory History: CHF, Pneumonia, Sleep Apnea Endocrine Medical History: Diabetes Type II Musculoskeletal History: Arthritis GI Medical History: Diverticulitis, Gallbladder Disease, GI Bleed, Hemorrhoids History: No Pertinent History Psycho-Social History: No Pertinent History Male Reproductive Disorders: Prostate Problems Other Medical History: Multiple Co-Morbidities. Please see medical chart for complete medical history. - Past Surgical History Past Surgical History: Yes Neuro Surgical History: No Pertinent History Cardiac: No Pertinent History Respiratory: No Pertinent History Gastrointestinal: Appendectomy, Cholecystectomy Genitourinary: No Pertinent History Musculoskeletal: Joint Replacement, Orthopedic Surgery Male Surgical History: Vasectomy Other Surgical History: bilat knees and shoulders - Social History Smoking Status: Never smoker Exposure to second hand smoke: Yes Drug Use: none Patient Lives Alone: No - Nursing Vital Signs Nursing Vital Signs: Initial Vital Signs Temperature 97.7 F 04/02/23 16:51 Pulse Rate 61 04/02/23 16:51 Respiratory Rate 18 04/02/23 16:51 Blood Pressure 151/83 04/02/23 16:51 O2 Sat by Pulse Oximetry 98 04/02/23 16:51 Pain Scale Pain Intensity 0 - Physical Exam General Appearance: no apparent distress, alert Eye Exam: PERRL/EOMI, eyes nml inspection Ears, Nose, Throat Exam: normal ENT inspection, pharynx normal, moist mucous membranes Neck Exam: normal inspection, non-tender, supple, full range of motion Respiratory Exam: normal breath sounds, lungs clear, No respiratory distress Cardiovascular Exam: regular rate/rhythm, normal heart sounds, normal peripheral pulses Gastrointestinal/Abdomen Exam: soft, normal bowel sounds, No tenderness, No mass Male Genitalia Exam: other (Steele catheter has been changed and is in place. Good urine output no signs of distress) Back Exam: normal inspection, normal range of motion, No CVA tenderness, No vertebral tenderness Extremity Exam: normal inspection, normal range of motion, pelvis stable Neurologic Exam: alert, oriented x 3, cooperative, normal mood/affect, nml cerebellar function, nml station & gait, sensation nml, No motor deficits Skin Exam: normal color, warm, dry, No rash Lymphatic Exam: No adenopathy SpO2: 98 - Course Nursing assessment & vital signs reviewed: Yes - Progress Progress: improved Progress Note: 04/02/23 17:[address] in [address]. Patient is more comfortable. Plan for discharge home. - Departure Departure Disposition: Home Clinical Impression: Steele catheter problem Condition: Stable Critical Care Time: No Referrals: BENNIE GARCIA [Primary Care Provider] - Follow up/PCP as directed Instructions: How to Care for Your Steele Catheter
== END 2023-04-02 17:33 | disposition home or self-care (01) ==
LOC: ED 16:05
DX: T83.028A Displacement of other urinary catheter, initial encounter (principal); E11.42 Type 2 diabetes mellitus with diabetic polyneuropathy; Z79.02 Long term (current) use of antithrombotics/antiplatelets; Z79.84 Long term (current) use of oral hypoglycemic drugs; Z79.899 Other long term (current) drug therapy
CPT/HCPCS: 99281

== ENCOUNTER 2023-06-26 13:56 | Emergency (ER) | payer MEDICARE ==
--- NOTE | 2023-06-26 14:06 | ERPHSYRPT ---
- History of Present Illness Time Seen by Provider: 06/26/23 14:06 Historian: patient, EMS, old records Exam Limitations: no limitations Physician History: This is an 82-year-old white male patient who was sent to us from [facility] [place] because of the presence of diarrhea for approximately 2 weeks. Patient is chronically on iron for anemia. He is on Plavix because of coronary artery disease he has. In the last 2 weeks he has had intermittent bouts of diarrhea. Patient states that those intermittent bouts of diarrhea were blackened. He does admit he has been on iron as well as taking Pepto-Bismol. He has no significant abdominal pain. He has no chest pain. He has no shortness of breath. He does feel as though he has abdominal distention that is mild but present. He is a [id number] diabetic, has hyperlipidemia, CVA, peripheral neuropathy, CHF and sleep apnea. During the nurses triage, they noticed some redness in the left lower extremity below the knee. She inquired about this. It is in the area of a brace that this patient wears in his lower extremity. There is some redness to the right lower extremity skin below the knee as well. Timing/Duration: week(s) (Approximately 2 weeks) Activities at Onset: none Quality: other (No abdominal pain) Abdominal Pain Onset Location: other (No abdominal pain) Pain Radiation: no radiation Severity of Pain-Max: none Severity of Pain-Current: none Associated Symptoms: diarrhea (Black) Previous symptoms: no recent treatment Allergies/Adverse Reactions: No Known Drug Allergies Allergy (Verified 04/02/23 16:51) Home Medications: Clopidogrel Bisulfate [PLAVIX Tablet] 75 mg PO DAILY 01/12/16 [History] Famotidine [Pepcid] 40 mg PO HS 01/12/16 [History] Ferrous Sulfate 325 mg [Feosol 325 mg] 325 mg PO DAILY 01/12/16 [History] Glipizide [Glucotrol Xl] 10 mg PO DAILY 01/12/16 [History] Metformin HCl [Metformin ER Osmotic] 1,000 mg PO BID 01/12/16 [History] Amiodarone HCl 200 mg PO DAILY 10/11/19 [History] Ascorbic Acid [Vitamin C] 250 mg PO DAILY 10/11/19 [History] Atorvastatin Calcium 40 mg PO HS 10/11/19 [History] Cinnamon Bark [Cinnamon] 1,000 mg PO DAILY 10/11/19 [History] Desloratadine [Clarinex] 1 tab PO DAILY 10/11/19 [History] Furosemide 20 mg [Lasix 20 mg] 1 tab PO DAILY 10/11/19 [History] Gabapentin 100 mg PO TID 10/11/19 [History] Lidocaine [Lidocaine Pain Relief] 1 patch TOP DAILY PRN 10/11/19 [History] Losartan/Hydrochlorothiazide [Losartan-Hctz 100-25 mg Tab] 0.5 tab PO DAILY 10/11/19 [History] Magnesium Oxide [Magnesium] 400 mg PO DAILY 10/11/19 [History] Multivitamin [Multivitamins] 1 tab PO DAILY 10/11/19 [History] Potassium Chloride Tab* [Klor Con] 2 tab PO DAILY 10/11/19 [History] Vit B6/Me-Thfolate/Me-B12/Ala [Nufola Capsule] 1 tab PO DAILY 10/11/19 [History] Carvedilol [Coreg ] 3.25 mg PO BID 04/15/21 [History] Tadalafil [Cialis] 1 tab PO DIRECTIONS UNKNOWN PRN 03/13/22 [History] Hx Tetanus, Diphtheria Vaccination/Date Given: Yes Hx Influenza Vaccination/Date Given: Yes Hx Pneumococcal Vaccination/Date Given: Yes Travel Risk - International Travel Have you traveled outside of the country in past 3 weeks: No - Coronavirus Screening Are you exhibiting any of the following symptoms?: No Close contact with a COVID-19 positive Pt in past 14-21 Days: No - Vaccine Status Have you recieved a Covid-19 vaccination: Yes (unknown) 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 - Vaccination Dates Date of 2cond Vaccination (if applicable): 01/05/21 - Review of Systems Constitutional: No Symptoms Eyes: No Symptoms Ears, Nose, & Throat: No Symptoms Respiratory: No Symptoms Cardiac: No Symptoms Abdominal/Gastrointestinal: Diarrhea, No Abdominal Pain, No Nausea, No Vomiting Genitourinary Symptoms: No Symptoms Musculoskeletal: No Symptoms Skin: Cellulitis (Bilateral lower extremities below the knee) Neurological: No Symptoms Psychological: No Symptoms Endocrine: No Symptoms Hematologic/Lymphatic: No Symptoms Immunological/Allergic: No Symptoms All Other Systems: Reviewed and Negative - Past Medical History Pertinent Past Medical History: Yes Neurological History: Peripheral Neuropathy, Stroke ENT History: Cataracts Cardiac History: Arrhythmia, Coronary Artery Disease Respiratory History: CHF, Pneumonia, Sleep Apnea Endocrine Medical History: Diabetes Type II Musculoskeletal History: Arthritis GI Medical History: Diverticulitis, Gallbladder Disease, GI Bleed, Hemorrhoids History: No Pertinent History Psycho-Social History: No Pertinent History Male Reproductive Disorders: Prostate Problems Other Medical History: Multiple Co-Morbidities. Please see medical chart for complete medical history. - Past Surgical History Past Surgical History: Yes Neuro Surgical History: No Pertinent History Cardiac: No Pertinent History Respiratory: No Pertinent History Gastrointestinal: Appendectomy, Cholecystectomy Genitourinary: No Pertinent History Musculoskeletal: Joint Replacement, Orthopedic Surgery Male Surgical History: Vasectomy Other Surgical History: bilat knees and shoulders - Social History Smoking Status: Never smoker Exposure to second hand smoke: Yes Drug Use: none Patient Lives Alone: No - Nursing Vital Signs Nursing Vital Signs: Initial Vital Signs Temperature 97.1 F 06/26/23 14:01 Pulse Rate 60 06/26/23 14:01 Respiratory Rate 18 06/26/23 14:01 Blood Pressure 178/88 06/26/23 14:01 O2 Sat by Pulse Oximetry 97 06/26/23 14:01 Pain Scale Pain Intensity 0 - Physical Exam General Appearance: no apparent distress, alert, anxiety, obese Eye Exam: PERRL/EOMI, eyes nml inspection Ears, Nose, Throat Exam: normal ENT inspection, moist mucous membranes Neck Exam: normal inspection, non-tender, supple, full range of motion Respiratory Exam: normal breath sounds, lungs clear, airway intact, No chest tenderness, No respiratory distress Cardiovascular Exam: regular rate/rhythm, normal heart sounds, normal peripheral pulses Gastrointestinal/Abdomen Exam: soft, normal bowel sounds, No tenderness Rectal Exam: not done Back Exam: normal inspection, normal range of motion, No CVA tenderness, No vertebral tenderness Extremity Exam: swelling, tenderness (And redness. Appearance of cellulitis bilateral lower extremities below the knee.) Neurologic Exam: alert, oriented x 3, cooperative, metal treater II-XII nml as tested, normal mood/affect, nml cerebellar function, nml station & gait, other (A little hard of hearing) Skin Exam: other (See extremity section) SpO2 Interpretation: normal O2 Delivery: Room Air - Course Nursing assessment & vital signs reviewed: Yes Ordered Tests: Active Orders 24 hr Category Date Time Status IV Insertion STAT Care 06/26/23 14:29 Active ABDOMEN AND PELVIS W/0 CONTRAS [CT] Stat Exams 06/26/23 14:30 Completed AMYLASE Stat Lab 06/26/23 14:36 Completed CBC W DIFF Stat Lab 06/26/23 14:36 Completed CMP Stat Lab 06/26/23 14:36 Completed CULTURE,URINE Stat Lab 06/26/23 14:36 Received LIPASE Stat Lab 06/26/23 14:36 Completed Lactic Acid Stat Lab 06/26/23 14:40 Completed PROTIME WITH INR Stat Lab 06/26/23 14:36 Completed UA W/RFX UR CULTURE Stat Lab 06/26/23 14:36 Completed Medication Summary Discontinued Medications Generic Name Dose Route Start Last Admin Trade Name Freq PRN Reason Stop Dose Admin Bacitracin Zinc Confirm 06/26/23 14:08 Bacitracin Packet 1 Each Pckt Administered 06/26/23 14:09 Dose 3 each .ROUTE .STK-MED ONE Bacitracin Zinc 3 each 06/26/23 16:12 06/26/23 16:13 Bacitracin Packet 1 Each Pckt TP 06/26/23 16:13 3 each STAT ONE Administration Levofloxacin/Dextrose 500 mg in 100 mls @ 100 mls/hr 06/26/23 15:09 06/26/23 16:26 Levofloxacin 500mg/100ml D5w IV 06/26/23 16:08 Infused STAT STA Infusion Levofloxacin/Dextrose Confirm 06/26/23 15:14 Levofloxacin 500mg/100ml D5w Administered 06/26/23 15:15 Dose 500 mg in 100 mls @ ud IV .STK-MED ONE Metronidazole 500 mg 06/26/23 16:33 Metronidazole 500 Mg Tablet PO 06/26/23 16:34 STAT ONE Lab/Rad Data: Laboratory Result Diagrams 06/26/23 14:36 06/26/23 14:36 Laboratory Results 06/26/23 06/26/23 06/26/23 Range/Units 14:40 14:36 14:36 WBC (4.0-10.5) x10^3/uL RBC (4.1-5.6) x10^6/uL Hgb (12.5-18.0) g/dL Hct (42-50) % MCV (78-100) fL MCH (26-32) pg MCHC (32-36) g/dL RDW (11.5-14.0) % Plt Count (150-450) x10^3/uL MPV (7.5-11.0) fL Gran % (36.0-66.0) % Immature Gran % (Auto) (0.00-0.4) % Nucleat RBC Rel Count (0.00-0.1) % Eos # (Auto) (0-0.5) x10^3/uL Immature Gran # (Auto) (0.00-0.03) x10^3u/L Absolute Lymphs (auto) (1.0-4.6) x10^3/uL Absolute Monos (auto) (0.0-1.3) x10^3/uL Absolute Nucleated RBC (0.00-0.01) x10^3u/L Lymphocytes % (24.0-44.0) % Monocytes % (0.0-12.0) % Eosinophils % (0.00-5.0) % Basophils % (0.0-0.4) % Absolute Granulocytes (1.4-6.9) x10^3/uL Basophils # (0-0.4) x10^3/uL PT 10.8 (9.4-12.5) SECONDS INR 0.99 (0.8-3.0) Sodium (137-145) mmol/L Potassium (3.5-5.1) mmol/L Chloride (98-107) mmol/L Carbon Dioxide (22-30) mmol/L Anion Gap (5-15) MEQ/L BUN (9-20) mg/dL Creatinine (0.66-1.25) mg/dL Estimated GFR ML/MIN Glucose (74-106) mg/dL Lactic Acid 2.3 H (0.4-2.0) Calcium (8.4-10.2) mg/dL Total Bilirubin (0.2-1.3) mg/dL AST (17-59) U/L ALT (0-50) U/L Alkaline Phosphatase (38-126) U/L Serum Total Protein (6.3-8.2) g/dL Albumin (3.5-5.0) g/dL Amylase (30-110) U/L Lipase (23-300) U/L Urine Color Yellow (Yellow) Urine Appearance Turbid A (Clear) Urine pH 5.0 (4.6-8.0) Ur Specific Giltner 1.020 (1.005-1.030) Urine Protein Negative (Negative) Urine Glucose (UA) >=1000 A (Negative) mg/dL Urine Ketones Negative (Negative) Urine Blood Small A (Negative) Urine Nitrite Positive A (Negative) Urine Bilirubin Negative (Negative) Urine Urobilinogen 0.2 (0.2) mg/dL Ur Leukocyte Esterase Large A (Negative) U Hyaline Cast (Auto) NONE SEEN (0-2) /LPF Urine Microscopic RBC 0-2 (0-5) /HPF Urine Microscopic WBC >100 A (0-5) /HPF Ur Epithelial Cells None Seen (None Seen) /HPF Urine Bacteria Many A (None Seen) /HPF Urine Culture Reflexed YES (NO) 06/26/23 06/26/23 Range/Units 14:36 14:36 WBC 5.8 (4.0-10.5) x10^3/uL RBC 4.15 (4.1-5.6) x10^6/uL Hgb 13.1 (12.5-18.0) g/dL Hct 38.3 L (42-50) % MCV 92.3 (78-100) fL MCH 31.6 (26-32) pg MCHC 34.2 (32-36) g/dL RDW 13.5 (11.5-14.0) % Plt Count 248 (150-450) x10^3/uL MPV 9.3 (7.5-11.0) fL Gran % 50.2 (36.0-66.0) % Immature Gran % (Auto) 0.3 (0.00-0.4) % Nucleat RBC Rel Count 0.0 (0.00-0.1) % Eos # (Auto) 0.30 (0-0.5) x10^3/uL Immature Gran # (Auto) 0.02 (0.00-0.03) x10^3u/L Absolute Lymphs (auto) 1.92 (1.0-4.6) x10^3/uL Absolute Monos (auto) 0.55 (0.0-1.3) x10^3/uL Absolute Nucleated RBC 0.00 (0.00-0.01) x10^3u/L Lymphocytes % 33.2 (24.0-44.0) % Monocytes % 9.5 (0.0-12.0) % Eosinophils % 5.2 H (0.00-5.0) % Basophils % 1.6 (0.0-0.4) % Absolute Granulocytes 2.90 (1.4-6.9) x10^3/uL Basophils # 0.09 (0-0.4) x10^3/uL PT (9.4-12.5) SECONDS INR (0.8-3.0) Sodium 138 (137-145) mmol/L Potassium 4.2 (3.5-5.1) mmol/L Chloride 102 (98-107) mmol/L Carbon Dioxide 23 (22-30) mmol/L Anion Gap 17.4 H (5-15) MEQ/L BUN 20 (9-20) mg/dL Creatinine 1.02 (0.66-1.25) mg/dL Estimated GFR > 60.0 ML/MIN Glucose 353 H (74-106) mg/dL Lactic Acid (0.4-2.0) Calcium 8.9 (8.4-10.2) mg/dL Total Bilirubin 0.50 (0.2-1.3) mg/dL AST 25 (17-59) U/L ALT 19 (0-50) U/L Alkaline Phosphatase 125 (38-126) U/L Serum Total Protein 7.5 (6.3-8.2) g/dL Albumin 4.2 (3.5-5.0) g/dL Amylase 53 (30-110) U/L Lipase 114 (23-300) U/L Urine Color (Yellow) Urine Appearance (Clear) Urine pH (4.6-8.0) Ur Specific Giltner (1.005-1.030) Urine Protein (Negative) Urine Glucose (UA) (Negative) mg/dL Urine Ketones (Negative) Urine Blood (Negative) Urine Nitrite (Negative) Urine Bilirubin (Negative) Urine Urobilinogen (0.2) mg/dL Ur Leukocyte Esterase (Negative) U Hyaline Cast (Auto) (0-2) /LPF Urine Microscopic RBC (0-5) /HPF Urine Microscopic WBC (0-5) /HPF Ur Epithelial Cells (None Seen) /HPF Urine Bacteria (None Seen) /HPF Urine Culture Reflexed (NO) - Progress Progress: improved Progress Note: 06/26/23 15:37 This patient's medical issue is 1 of moderate complexity. Level complexity in the work-up performed is based on review of the patient's past medical history, review of the patient's medication list, review the patient's drug allergy list, history of present illness and physical findings on examination. In this patient, the work-up includes placement of an intravenous line, infusion of normal saline solution, CBC, CMP, amylase and lipase levels, urinalysis and CAT scan of the abdomen pelvis. I reviewed the results thus far and the CAT scan of the abdomen pelvis results are pending. This patient has a significant urinary tract infection. In addition he has some cellulitis and his bilateral lower extremities below the knees. We will infuse Levaquin 500 mg orally at this time. I am awaiting all the results of his CAT scan of his abdomen pelvis without contrast. I am wanted to see if the patient has diverticulitis or colitis contributing to the diarrhea symptoms he is experiencing. He does have a degree of hyperglycemia his electrolytes and remainder of his lab work does not appear to be acutely emergent. 06/26/23 16:34 The CAT scan of the abdomen pelvis without contrast was interpreted by the radiologist and I reviewed the impression. There is new moderate fecal stasis. There is no acute intrapelvic or intra-abdominal process. The patient has cellulitis. In addition there is clinical evidence of colitis but no radiographic findings to support this. We will start him on Flagyl as well and give him the first dose orally now and remotely send a prescription for 7 more days to his pharmacy. Medical Desision Making - Diagnostic Testing Diagnostic test were ordered, analyzed, and reviewed by me: Yes Radiological Interpretation: Reviewed by me, Teleradiologist Report - Risk of complications The pt has a mod risk of morbidity or mortality based on: Need for prescription drug management - Departure Departure Disposition: Home Clinical Impression: Cellulitis, Colitis Condition: Stable Critical Care Time: No Referrals: BENNIE GARCIA [Primary Care Provider] - Follow up/PCP as directed Additional Instructions: Drink plenty of fluids. Take your antibiotics as prescribed. Keep your bilateral lower extremities elevated when not ambulating. Avoid placing your leg brace as best as possible over the next 3 to 5 days. If you need to use the braces to ambulate, make sure that you have the cellulitic sites of your lower extremities bandaged up well. Call your primary care provider tomorrow, 06/27/2023, to make arrangements for further evaluation and management. Prescriptions: Metronidazole 500 mg [Flagyl 500 MG] 500 mg PO TID #21 tablet Levofloxacin [Levaquin 500 MG Tablet] 500 mg PO DAILY #7 tablet
[2023-06-26] MEDS ORDERED: BACIGUENT PACKET ONE (14:08)
[2023-06-26 14:11] VITALS: TEMP 97.1
[2023-06-26 14:41] LABS: BASOPHIL % 1.6 % (0.0-0.4); Basophil (Absolute #) 0.09 x10^3/uL (0-0.4); Eosinophil % 5.2 % (0.00-5.0); Hematocrit 38.3 % (42-50); Hemoglobin 13.1 g/dL (12.5-18.0); IMMATURE GRAN # 0.02 x10^3u/L (0.00-0.03); IMMATURE GRAN % 0.3 % (0.00-0.4); Lymphocyte (Absolute #) 1.92 x10^3/uL (1.0-4.6); Lymphocytes % 33.2 % (24.0-44.0); Mean Cell Volume 92.3 fL (78-100); Mean Corpuscular Hemoglobin 31.6 pg (26-32); Mean Corpuscular Hgb Concent. 34.2 g/dL (32-36); Mean Platelet Volume 9.3 fL (7.5-11.0); Monocyte (Absolute #) 0.55 x10^3/uL (0.0-1.3); Monocytes % 9.5 % (0.0-12.0); Neutrophil % 50.2 % (36.0-66.0); Platelet Count 248 x10^3/uL (150-450); Red Blood Count 4.15 x10^6/uL (4.1-5.6); Red Cell Distribution Width 13.5 % (11.5-14.0); White Blood Count 5.8 x10^3/uL (4.0-10.5)
[2023-06-26 14:54] LABS: INR 0.99 (0.8-3.0); PROTIME 10.8 SECONDS (9.4-12.5)
[2023-06-26 14:56] LABS: ALBUMIN 4.2 g/dL (3.5-5.0); ALKALINE PHOSPHATASE 125 U/L (38-126); AMYLASE 53 U/L (30-110); ANION GAP 17.4 MEQ/L (5-15); BLOOD UREA NITROGEN 20 mg/dL (9-20); CHLORIDE 102 mmol/L (98-107); Calcium 8.9 mg/dL (8.4-10.2); Carbon Dioxide 23 mmol/L (22-30); Creatinine 1 1.02 mg/dL (0.66-1.25); EST GLOMERULAR FILTRATION RATE > 60.0 ML/MIN; Glucose 353 mg/dL (74-106); LIPASE 114 U/L (23-300); Potassium 4.2 mmol/L (3.5-5.1); SGOT/AST 25 U/L (17-59); SGPT/ALT 19 U/L (0-50); SODIUM 138 mmol/L (137-145); Total Protein 7.5 g/dL (6.3-8.2)
[2023-06-26] MEDS ORDERED: Levofloxacin 500MG/100ML D5W 500 MG/100 ML BAG IV STA (15:09)
[2023-06-26] MEDS ORDERED: Levofloxacin 500MG/100ML D5W 500 MG/100 ML BAG IV ONE (15:14)
[2023-06-26 15:28] LABS: Appearance Turbid (Clear); Bacteria Many /HPF (None Seen); Bilirubin Negative (Negative); Blood Small (Negative); Epithelial Cells None Seen /HPF (None Seen); Glucose, Urine >=1000 mg/dL (Negative); Hyaline Casts NONE SEEN /LPF (0-2); Ketones Negative (Negative); Leukocyte Esterase Large (Negative); Protein,Urine Dip Negative (Negative); RBC 0-2 /HPF (0-5); Urobilinogen 0.2 mg/dL (0.2); WBC >100 /HPF (0-5)
[2023-06-26 15:29] LABS: ADD URINE CULTURE? YES (NO); Nitrite Positive (Negative)
[2023-06-26 16:04] VITALS: PULSE 58; O2SAT 92
[2023-06-26] MEDS ORDERED: BACIGUENT PACKET TP ONE (16:12)
--- NOTE | 2023-06-26 16:32 | XRAY ---
Indication: Diarrhea. Dark tarry stools. Multiple contiguous axial images obtained through the abdomen and pelvis without contrast. Comparison: January 08, 2023 Lung bases again demonstrates diffuse fibrosis/scarring. Heart not enlarged. Stomach again mildly distended with food. Noncontrasted stomach and bowel loops nonobstructed. New moderate diffuse scatter colonic fecal debris throughout including the rectum. Again scattered colonic diverticulosis without diverticulitis, fatty liver, splenic calcified granulomas, and enlarged prostate gland. Remaining liver, gallbladder, pancreas, spleen, adrenal glands, kidneys, ureters, and bladder are unremarkable for noncontrast exam. Again moderate scattered arteriosclerotic calcifications without AAA. Osseous structures intact again with osteopenia, moderate degenerative changes throughout the visualized spine, minimal levoscoliosis, and mild right hip degenerative arthropathy. Impression: 1. New moderate diffuse fecal stasis. 2. Chronic findings including pulmonary fibrosis/scarring, colonic diverticulosis, fatty liver, enlarged prostate gland, arteriosclerotic disease, chronic bony findings, and old granulomatous disease.
[2023-06-26] MEDS ORDERED: Flagyl 500 MG PO ONE (16:33)
[2023-06-26] MEDS ORDERED: Flagyl 500 MG ONE (16:38)
[2023-06-26 17:04] VITALS: BP 153/122; RESP 15
== END 2023-06-26 17:40 | disposition home or self-care (01) ==
LOC: ED 13:56
DX: L03.116 Cellulitis of left lower limb (principal); L03.115 Cellulitis of right lower limb; K52.9 Noninfective gastroenteritis and colitis, unspecified; E11.42 Type 2 diabetes mellitus with diabetic polyneuropathy; E78.5 Hyperlipidemia, unspecified; I50.9 Heart failure, unspecified; Z79.02 Long term (current) use of antithrombotics/antiplatelets; Z79.84 Long term (current) use of oral hypoglycemic drugs; Z79.899 Other long term (current) drug therapy
CPT/HCPCS: 36000; 36415; 74176; 80053; 81001; 82150; 83605; 83690; 85025; 85610; 87077; 87086; 87186; 96365; 99284; J1956; A9270-GY

== ENCOUNTER 2024-02-05 01:17 | Observation (INO) | payer MEDICARE ==
--- NOTE | 2024-02-05 01:29 | ERPHSYRPT ---
- History of Present Illness Time Seen by Provider: 02/05/24 01:19 Source: patient Exam Limitations: no limitations Physician History: Pt states he felt palpitations about 1 hour ago and had a pulse rate 110; denies chest pain, shortness of air, vomiting, nausea, fever. Allergies/Adverse Reactions: No Known Drug Allergies Allergy (Verified 02/05/24 01:29) Home Medications: Clopidogrel Bisulfate [PLAVIX Tablet] 75 mg PO DAILY 01/12/16 [History] Famotidine [Pepcid] 40 mg PO HS 01/12/16 [History] Ferrous Sulfate 325 mg [Feosol 325 mg] 325 mg PO DAILY 01/12/16 [History] Glipizide [Glucotrol Xl] 10 mg PO DAILY 01/12/16 [History] Metformin HCl [Metformin ER Osmotic] 1,000 mg PO BID 01/12/16 [History] Amiodarone HCl 200 mg PO DAILY 10/11/19 [History] Ascorbic Acid [Vitamin C] 250 mg PO DAILY 10/11/19 [History] Atorvastatin Calcium 40 mg PO HS 10/11/19 [History] Cinnamon Bark [Cinnamon] 1,000 mg PO DAILY 10/11/19 [History] Desloratadine [Clarinex] 1 tab PO DAILY 10/11/19 [History] Furosemide 20 mg [Lasix 20 mg] 1 tab PO DAILY 10/11/19 [History] Gabapentin 100 mg PO TID 10/11/19 [History] Lidocaine [Lidocaine Pain Relief] 1 patch TOP DAILY PRN 10/11/19 [History] Losartan/Hydrochlorothiazide [Losartan-Hctz 100-25 mg Tab] 0.5 tab PO DAILY 10/11/19 [History] Magnesium Oxide [Magnesium] 400 mg PO DAILY 10/11/19 [History] Multivitamin [Multivitamins] 1 tab PO DAILY 10/11/19 [History] Potassium Chloride Tab* [Klor Con] 2 tab PO DAILY 10/11/19 [History] Vit B6/Me-Thfolate/Me-B12/Ala [Nufola Capsule] 1 tab PO DAILY 10/11/19 [History] Carvedilol [Coreg ] 3.25 mg PO BID 04/15/21 [History] Tadalafil [Cialis] 1 tab PO DIRECTIONS UNKNOWN PRN 04/17/22 [History] Hx Tetanus, Diphtheria Vaccination/Date Given: Yes Hx Influenza Vaccination/Date Given: Yes Hx Pneumococcal Vaccination/Date Given: Yes Travel Risk - Vaccine Status Have you recieved a Covid-19 vaccination: Yes (unknown) Bilingual Speech Language Pathologist: Moderna - Vaccination Dates Date of 2cond Vaccination (if applicable): 01/05/21 - Review of Systems Constitutional: No Fever Ears, Nose, & Throat: No Throat Pain Respiratory: No Dyspnea Cardiac: Palpitations, No Chest Pain Abdominal/Gastrointestinal: No Abdominal Pain, No Vomiting Neurological: No Headache - Past Medical History Pertinent Past Medical History: Yes Neurological History: Peripheral Neuropathy, Stroke ENT History: Cataracts Cardiac History: Arrhythmia, Coronary Artery Disease Respiratory History: CHF, Pneumonia, Sleep Apnea Endocrine Medical History: Diabetes Type II Musculoskeletal History: Arthritis GI Medical History: Diverticulitis, Gallbladder Disease, GI Bleed, Hemorrhoids History: No Pertinent History Psycho-Social History: No Pertinent History Male Reproductive Disorders: Prostate Problems Other Medical History: Multiple Co-Morbidities. Please see medical chart for complete medical history. - Past Surgical History Past Surgical History: Yes Neuro Surgical History: No Pertinent History Cardiac: No Pertinent History Respiratory: No Pertinent History Gastrointestinal: Appendectomy, Cholecystectomy Genitourinary: No Pertinent History Musculoskeletal: Joint Replacement, Orthopedic Surgery Male Surgical History: Vasectomy Other Surgical History: bilat knees and shoulders - Social History Smoking Status: Never smoker Exposure to second hand smoke: Yes Drug Use: none Patient Lives Alone: No - Nursing Vital Signs Nursing Vital Signs: Initial Vital Signs Temperature 98.1 F 02/05/24 01:22 Pulse Rate 82 02/05/24 01:22 Respiratory Rate 14 02/05/24 01:22 Blood Pressure 131/76 02/05/24 01:22 O2 Sat by Pulse Oximetry 96 02/05/24 01:22 Pain Scale Pain Intensity 0 - Physical Exam General Appearance: alert Ears, Nose, Throat Exam: pharynx normal Neck Exam: normal inspection Respiratory Exam: normal breath sounds Cardiovascular Exam: normal heart sounds Gastrointestinal/Abdomen Exam: normal bowel sounds Neurologic Exam: alert, cooperative Skin Exam: warm, dry SpO2 Interpretation: normal SpO2: 96 O2 Delivery: Room Air - Course EKG Interpreted by Me: RATE (82), Sinus Rhythm, Right Bundle Branch Block, Other (QTc = 504) - CT Exams Chest CT Interpretation: Tele-radiologist Report (Prominent bronchovascular markings and bilateral subpleural interlobular septal thickening with few fine subpleural cystic bronchiectatic changes, suggestive of interstitial lung disease. See rest of report. No significant interval changes compared to previous scan of 03/12/2022. ) Ordered Tests: Active Orders 24 hr Category Date Time Status EKG-ER Only STAT Care 02/05/24 01:27 Active IV Insertion STAT Care 02/05/24 01:27 Active CHEST 1 VIEW (PORTABLE) Stat Exams 02/05/24 01:28 Completed CHEST WITHOUT CONTRAST [CT] Stat Exams 02/05/24 04:00 Completed BMP Stat Lab 02/05/24 05:30 Completed CBC W DIFF Stat Lab 02/05/24 02:09 Completed CMP Stat Lab 02/05/24 02:09 Completed MAGNESIUM Stat Lab 02/05/24 02:09 Completed TROPONIN Q4H Lab 02/05/24 02:09 Completed TROPONIN Q4H Lab 02/05/24 05:30 Completed TROPONIN Q4H Lab 02/05/24 09:30 Ordered UA W/RFX UR CULTURE Stat Lab 02/05/24 05:05 Completed Medication Summary Generic Name Dose Route Start Last Admin Trade Name Freq PRN Reason Stop Dose Admin Sodium Chloride 1,000 mls @ 100 mls/hr 02/05/24 01:30 02/05/24 02:25 Sodium Chloride 0.9% 1000 Ml IV 03/06/24 01:29 100 mls/hr .Q10H VUAGHN Administration Discontinued Medications Generic Name Dose Route Start Last Admin Trade Name Freq PRN Reason Stop Dose Admin Potassium Chloride 20 meq in 100 mls @ 50 mls/hr 02/05/24 03:28 02/05/24 04:4 8 Potassium Chloride 20 Meq In Water 100ml IV 02/05/24 05:27 50 mls/hr STAT ONE Administration Potassium Chloride Confirm 02/05/24 04:43 Potassium Chloride 20 Meq In Water 100ml Administered 02/05/24 04:44 Dose 100 mls @ ud IV .STK-MED ONE Lab/Rad Data: Laboratory Result Diagrams 02/05/24 02:09 02/05/24 05:30 Laboratory Results 02/05/24 02/05/24 02/05/24 Range/Units 05:30 05:30 05:05 WBC (4.0-10.5) x10^3/uL RBC (4.1-5.6) x10^6/uL Hgb (12.5-18.0) g/dL Hct (42-50) % MCV (78-100) fL MCH (26-32) pg MCHC (32-36) g/dL RDW (11.5-14.0) % Plt Count (150-450) x10^3/uL MPV (7.5-11.0) fL Gran % (36.0-66.0) % Immature Gran % (Auto) (0.00-0.4) % Nucleat RBC Rel Count (0.00-0.1) % Eos # (Auto) (0-0.5) x10^3/uL Immature Gran # (Auto) (0.00-0.03) x10^3u/L Absolute Lymphs (auto) (1.0-4.6) x10^3/uL Absolute Monos (auto) (0.0-1.3) x10^3/uL Absolute Nucleated RBC (0.00-0.01) x10^3u/L Lymphocytes % (24.0-44.0) % Monocytes % (0.0-12.0) % Eosinophils % (0.00-5.0) % Basophils % (0.0-0.4) % Absolute Granulocytes (1.4-6.9) x10^3/uL Basophils # (0-0.4) x10^3/uL Sodium 142 (135-145) mmol/L Potassium 3.2 L (3.5-5.1) mmol/L Chloride 108 H (98-107) mmol/L Carbon Dioxide 23 (22-30) mmol/L Anion Gap 14.4 (5-15) MEQ/L BUN 19 (9-20) mg/dL Creatinine 0.94 (0.66-1.25) mg/dL Estimated GFR 79.4 ML/MIN Glucose 127 H (74-106) mg/dL Calcium 8.2 L (8.4-10.2) mg/dL Magnesium (1.6-2.3) mg/dL Total Bilirubin (0.2-1.3) mg/dL AST (17-59) U/L ALT (0-50) U/L Alkaline Phosphatase (38-126) U/L Troponin I 0.019 (0.000-0.034) ng/mL Serum Total Protein (6.3-8.2) g/dL Albumin (3.5-5.0) g/dL Urine Color Yellow (Yellow) Urine Appearance Clear (Clear) Urine pH 6.0 (4.6-8.0) Ur Specific [place] 1.020 (1.005-1.030) Urine Protein Negative (Negative) Urine Glucose (UA) >=1000 A (Negative) mg/dL Urine Ketones Negative (Negative) Urine Blood Negative (Negative) Urine Nitrite Negative (Negative) Urine Bilirubin Negative (Negative) Urine Urobilinogen 0.2 (0.2) mg/dL Ur Leukocyte Esterase Negative (Negative) U Hyaline Cast (Auto) NONE SEEN (0-2) /LPF Urine Microscopic RBC 0-2 (0-5) /HPF Urine Microscopic WBC 0-2 (0-5) /HPF Ur Epithelial Cells None Seen (None Seen) /HPF Urine Bacteria None Seen (None Seen) /HPF Urine Culture Reflexed NO (NO) 02/05/24 02/05/24 02/05/24 Range/Units 02:09 02:09 02:09 WBC 7.8 (4.0-10.5) x10^3/uL RBC 4.28 (4.1-5.6) x10^6/uL Hgb 13.3 (12.5-18.0) g/dL Hct 39.9 L (42-50) % MCV 93.2 (78-100) fL MCH 31.1 (26-32) pg MCHC 33.3 (32-36) g/dL RDW 13.3 (11.5-14.0) % Plt Count 244 (150-450) x10^3/uL MPV 8.8 (7.5-11.0) fL Gran % 51.2 (36.0-66.0) % Immature Gran % (Auto) 0.4 (0.00-0.4) % Nucleat RBC Rel Count 0.0 (0.00-0.1) % Eos # (Auto) 0.69 H (0-0.5) x10^3/uL Immature Gran # (Auto) 0.03 (0.00-0.03) x10^3u/L Absolute Lymphs (auto) 2.24 (1.0-4.6) x10^3/uL Absolute Monos (auto) 0.73 (0.0-1.3) x10^3/uL Absolute Nucleated RBC 0.00 (0.00-0.01) x10^3u/L Lymphocytes % 28.8 (24.0-44.0) % Monocytes % 9.4 (0.0-12.0) % Eosinophils % 8.9 H (0.00-5.0) % Basophils % 1.3 (0.0-0.4) % Absolute Granulocytes 4.00 (1.4-6.9) x10^3/uL Basophils # 0.10 (0-0.4) x10^3/uL Sodium 141 (135-145) mmol/L Potassium 3.2 L (3.5-5.1) mmol/L Chloride 105 (98-107) mmol/L Carbon Dioxide 24 (22-30) mmol/L Anion Gap 15.6 H (5-15) MEQ/L BUN 19 (9-20) mg/dL Creatinine 0.97 (0.66-1.25) mg/dL Estimated GFR 76.5 ML/MIN Glucose 177 H (74-106) mg/dL Calcium 8.6 (8.4-10.2) mg/dL Magnesium 2.0 (1.6-2.3) mg/dL Total Bilirubin 0.20 (0.2-1.3) mg/dL AST 25 (17-59) U/L ALT 17 (0-50) U/L Alkaline Phosphatase 95 (38-126) U/L Troponin I 0.018 (0.000-0.034) ng/mL Serum Total Protein 7.1 (6.3-8.2) g/dL Albumin 4.0 (3.5-5.0) g/dL Urine Color (Yellow) Urine Appearance (Clear) Urine pH (4.6-8.0) Ur Specific [place] (1.005-1.030) Urine Protein (Negative) Urine Glucose (UA) (Negative) mg/dL Urine Ketones (Negative) Urine Blood (Negative) Urine Nitrite (Negative) Urine Bilirubin (Negative) Urine Urobilinogen (0.2) mg/dL Ur Leukocyte Esterase (Negative) U Hyaline Cast (Auto) (0-2) /LPF Urine Microscopic RBC (0-5) /HPF Urine Microscopic WBC (0-5) /HPF Ur Epithelial Cells (None Seen) /HPF Urine Bacteria (None Seen) /HPF Urine Culture Reflexed (NO) - Progress Progress: unchanged Discussed with DrLucy: Eduardo (Spoke with & discussed case with Dr. Burnham([id number]) - obs.) Counseled pt/family regarding: lab results, diagnosis, need for follow-up, rad results Medical Desision Making - Diagnostic Testing Diagnostic test were ordered, analyzed, and reviewed by me: Yes Radiological Interpretation: Teleradiologist Report - Departure Departure Disposition: Home Clinical Impression: palpitations, tachycardia, hypokalemia, Diabetes Condition: Stable Critical Care Time: No Referrals: BENNIE GARCIA [NON-STAFF PHY W/O PRIVILEGES] - Follow up/PCP as directed
[2024-02-05 02:11] LABS: BASOPHIL % 1.3 % (0.0-0.4); Eosinophil % 8.9 % (0.00-5.0); Eosinophil (Absolute #) 0.69 x10^3/uL (0-0.5); Hematocrit 39.9 % (42-50); Hemoglobin 13.3 g/dL (12.5-18.0); IMMATURE GRAN # 0.03 x10^3u/L (0.00-0.03); IMMATURE GRAN % 0.4 % (0.00-0.4); Lymphocyte (Absolute #) 2.24 x10^3/uL (1.0-4.6); Lymphocytes % 28.8 % (24.0-44.0); Mean Cell Volume 93.2 fL (78-100); Mean Corpuscular Hemoglobin 31.1 pg (26-32); Mean Corpuscular Hgb Concent. 33.3 g/dL (32-36); Mean Platelet Volume 8.8 fL (7.5-11.0); Monocyte (Absolute #) 0.73 x10^3/uL (0.0-1.3); Monocytes % 9.4 % (0.0-12.0); Neutrophil % 51.2 % (36.0-66.0); Platelet Count 244 x10^3/uL (150-450); Red Blood Count 4.28 x10^6/uL (4.1-5.6); Red Cell Distribution Width 13.3 % (11.5-14.0); White Blood Count 7.8 x10^3/uL (4.0-10.5)
[2024-02-05 02:22] VITALS: TEMP 98.1
[2024-02-05] MEDS ORDERED: Sodium Chloride 0.9% 1000 ML 1,000 ML ONE (02:23)
[2024-02-05 02:24] LABS: ANION GAP 15.6 MEQ/L (5-15); BILIRUBIN,TOTAL 0.2 mg/dL (0.2-1.3); Calcium 8.6 mg/dL (8.4-10.2); Creatinine 1 0.97 mg/dL (0.66-1.25); EST GLOMERULAR FILTRATION RATE 76.5 ML/MIN; Potassium 3.2 mmol/L (3.5-5.1); Total Protein 7.1 g/dL (6.3-8.2)
[2024-02-05] MEDS: Sodium Chloride 0.9% 1000 ML 1,000 ML IV SCH (02:25)
--- NOTE | 2024-02-05 04:00 | XRAY ---
CLINICAL HISTORY: palpitations TECHNIQUE: X ray of the chest, PA 1 view. COMPARISON: None. FINDINGS: Mild rotation is seen. Coarsened pulmonary interstitium; likely senile changes. Bilateral middle and lower lung zone atelectatic bands and scattered reticulo-nodular densities. Normal configuration of the mediastinum. Prominent right hilar shadow, problably due to rotation. Mild cardiomegaly with prominant aortic kunckle. The costophrenic and cardiophrenic angles are clear. Elevated left diaphragmatic copula. Bilateral replacemnet of both humeral heads by metalic prosthesis and screws. Metallic radio-opaque shadows are seen projected upon both scapular blades. IMPRESSION: 1. Coarsened pulmonary interstitium; likely senile changes. 2. Bilateral middle and lower lung zone atelectatic bands and scattered reticulo-nodular densities. 3. For better assessment by CT study. 4. Mild cardiomegaly with prominant aortic kunckle, for better assessment by echocardiographic study. Electronically Signed by: Shin Almaguer MD. (02/05/2024 03:57:17 EDT)
[2024-02-05] MEDS ORDERED: POTASSIUM CHLORIDE 20 mEq IN WATER 100ML 100 ML IV ONE (04:43)
[2024-02-05] MEDS: POTASSIUM CHLORIDE 20 mEq IN WATER 100ML 20 MEQ/100 ML BAG IV ONE ×2 (04:48→09:57)
[2024-02-05 05:20] LABS: Appearance Clear (Clear); Bacteria None Seen /HPF (None Seen); Bilirubin Negative (Negative); Blood Negative (Negative); Epithelial Cells None Seen /HPF (None Seen); Glucose, Urine >=1000 mg/dL (Negative); Hyaline Casts NONE SEEN /LPF (0-2); Ketones Negative (Negative); Leukocyte Esterase Negative (Negative); Nitrite Negative (Negative); Protein,Urine Dip Negative (Negative); RBC 0-2 /HPF (0-5); Urobilinogen 0.2 mg/dL (0.2); WBC 0-2 /HPF (0-5)
[2024-02-05 05:22] LABS: ADD URINE CULTURE? NO (NO)
--- NOTE | 2024-02-05 05:29 | XRAY ---
CLINICAL HISTORY: tachycardia TECHNIQUE: Contiguous 3.[address] images of the chest were acquired without contrast administration. Coronal and sagittal reconstructions were obtained. COMPARISON: CT, dated: 03/12/2022. FINDINGS: Prominent bronchovascular markings and bilateral subpleural interlobular septal thickening with few fine subpleural cystic bronchiectatic changes. Few irregular bands of atelectasis in bilateral lungs. Calcified pretracheal and subcarinal lymph nodes. Atherosclerotic calcification of aortic nicolas noted. Mild sliding type of hiatus hernia. No free or encysted pleural effusion. Heart size is normal, and there is no pericardial effusion. Spondylodegenerative changes of dorsal spine as evidenced by anterior osteophytosis with lipping. There is no definite mass lesion in the chest wall. Multiple tiny parenchymal calcifications in spleen Rest of the scanned upper abdomen is unremarkable. 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 IMPRESSION: 1. Prominent bronchovascular markings and bilateral subpleural interlobular septal thickening with few fine subpleural cystic bronchiectatic changes, Suggestive of interstitial lung disease. 2. Calcified pretracheal and subcarinal lymph nodes. 3. Atherosclerotic calcification of aortic nicolas noted. 4. Mild hiatus hernia(Type 1). 5. Spondylodegenerative changes of dorsal spine. 6. Multiple tiny parenchymal calcifications in spleen 7. No significant interval changes compared to previous scan of 03/12/2022 Electronically Signed by: Shin Almaguer MD. (02/05/2024 05:24:55 EDT)
[2024-02-05 06:54] LABS: ANION GAP 14.4 MEQ/L (5-15); Calcium 8.2 mg/dL (8.4-10.2); Creatinine 1 0.94 mg/dL (0.66-1.25); EST GLOMERULAR FILTRATION RATE 79.4 ML/MIN; Potassium 3.2 mmol/L (3.5-5.1)
[2024-02-05 08:47] VITALS: BP 156/72; PULSE 48; O2SAT 99
[2024-02-05] MEDS ORDERED: Sodium Chloride 0.9% 1000 ML 1,000 ML IV SCH (09:15)
--- NOTE | 2024-02-05 09:17 | PCM.SSS ---
History of Present Illness - Chief Complaint Chief Complaint: Palpitations; Tachycardia; Hypokalemia Date: 02/05/24 History of Present Illness: is a 83 year old male with PMHX of peripheral neuropathy, stroke, cataracts, arrythmia, CAD, CHF, pneumonia, sleep apnea, TypeII DM, arthritis, diverticulitis, gallbladder disease, GI bleed, hemorrhoids, and prostate problems. He states he felt palpitations about 1 hour prior to coming to ER today. He reports he had a pulse rate 110; denies chest pain, shortness of air, vomiting, nausea, fever. Trop x3 negative. K+ was 3.2 and replaced in ER. Continued replacement on floor. HR is now SR on the monitor with HR of 85. He states he just got excited earlier and does not feel he needs to be here. If K+ improves will d/c later today. He denies CP, SOB, abd. pain, N/V/D. - Review of Systems Constitutional: No Fever, No Chills Eyes: No Symptoms Ears, Nose, & Throat: No Symptoms Respiratory: No Cough, No Short Of Breath Cardiac: No Chest Pain, No Edema, No Syncope Abdominal/Gastrointestinal: No Abdominal Pain, No Nausea, No Vomiting, No Diar margarita Genitourinary Symptoms: No Dysuria Musculoskeletal: No Back Pain, No Neck Pain Skin: No Rash Neurological: No Dizziness, No Focal Weakness, No Sensory Changes Psychological: No Symptoms Endocrine: No Symptoms Hematologic/Lymphatic: No Symptoms Immunological/Allergic: No Symptoms Medications & Allergies Home Medications: Home Medication List Clopidogrel Bisulfate [PLAVIX Tablet] 75 mg PO DAILY 01/12/16 [History Confirmed 02/05/24] Famotidine [Pepcid] 40 mg PO HS 01/12/16 [History Confirmed 02/05/24] Ferrous Sulfate 325 mg [Feosol 325 mg] 325 mg PO DAILY 01/12/16 [History Confirmed 02/05/24] Glipizide [Glucotrol Xl] 10 mg PO DAILY 01/12/16 [History Confirmed 02/05/24] Metformin HCl [Metformin ER Osmotic] 1,000 mg PO BID 01/12/16 [History Confirmed 02/05/24] Amiodarone HCl 200 mg PO DAILY 10/11/19 [History Confirmed 02/05/24] Ascorbic Acid [Vitamin C] 250 mg PO DAILY 10/11/19 [History Confirmed 02/05/24] Atorvastatin Calcium 40 mg PO HS 10/11/19 [History Confirmed 02/05/24] Cinnamon Bark [Cinnamon] 1,000 mg PO DAILY 10/11/19 [History Confirmed 02/05/24] Desloratadine [Clarinex] 1 tab PO DAILY 10/11/19 [History Confirmed 02/05/24] Furosemide 20 mg [Lasix 20 mg] 1 tab PO DAILY 10/11/19 [History Confirmed 02/05/24] Gabapentin 100 mg PO TID 10/11/19 [History Confirmed 02/05/24] Lidocaine [Lidocaine Pain Relief] 1 patch TOP DAILY PRN 10/11/19 [History Confirmed 02/05/24] Losartan/Hydrochlorothiazide [Losartan-Hctz 100-25 mg Tab] 0.5 tab PO DAILY 10/11/19 [History Confirmed 02/05/24] Magnesium Oxide [Magnesium] 400 mg PO DAILY 10/11/19 [History Confirmed 02/05/24] Multivitamin [Multivitamins] 1 tab PO DAILY 10/11/19 [History Confirmed 02/05/24] Potassium Chloride Tab* [Klor Con] 2 tab PO DAILY 10/11/19 [History Confirmed 02/05/24] Vit B6/Me-Thfolate/Me-B12/Ala [Nufola Capsule] 1 tab PO DAILY 10/11/19 [History Confirmed 02/05/24] Carvedilol [Coreg ] 3.25 mg PO BID 04/15/21 [History Confirmed 02/05/24] Blood Sugar Diagnostic [Freestyle Lite Test Strip] 1 each MC TID #2 box 04/16/21 [Rx Confirmed 02/05/24] Lidocaine [Salonpas] 1 each TP BID PRN #1 adh..patch 04/30/21 [Rx Confirmed 02/05/24] Tadalafil [Cialis] 1 tab PO DIRECTIONS UNKNOWN PRN 03/13/22 [History Confirmed 02/05/24] Polyethylene Glycol 3350 17 gm [Miralax Powder 17GM PACKET] 17 gm PO DAILY 20 Days #20 packet 03/16/22 [Rx Confirmed 02/05/24] ondansetron HCL [Ondansetron HCl] 4 mg PO TID PRN 30 Days #10 tablet 01/08/23 [Rx Confirmed 02/05/24] Potassium Chloride Tab* [Klor Con] 20 meq PO DAILY 4 Days #8 tab 02/05/24 [Rx] Allergies/Adverse Reactions: Allergies Allergy/AdvReac Type Severity Reaction Status Date / Time No Known Drug Allergies Allergy Verified 02/05/24 09:54 - Past Medical History Past Medical History: Yes Neurological History: Peripheral Neuropathy, Stroke ENT History: Cataracts Cardiac History: Arrhythmia, Coronary Artery Disease Respiratory History: CHF, Pneumonia, Sleep Apnea Endocrine Medical History: Diabetes Type II Musculoskelatal History: Arthritis GI Medical History: Diverticulitis, Gallbladder Disease, GI Bleed, Hemorrhoids History: No Pertinent History Pyscho-Social History: No Pertinent History Male Reproductive Disorders: Prostate Problems Comment: Multiple Co-Morbidities. Please see medical chart for complete medical history. - Past Surgical History Past Surgical History: Yes Neuro Surgical History: No Pertinent History Cardiac History: No Pertinent History Respiratory Surgery: No Pertinent History GI Surgical History: Appendectomy, Cholecystectomy Genitourinary Surgical Hx: No Pertinent History Musculskeletal Surgical Hx: Joint Replacement, Orthopedic Surgery Male Surgical History: Vasectomy Other Surgical History: bilat knees and shoulders - Social History Smoking Status: Never smoker Exposure to second hand smoke: Yes Alcohol: Weekly Drug Use: none - Physical Exam Vital Signs: Vital Signs - 24 hr Temp Pulse Resp BP BP Pulse Ox 02/05/24 08:38 98.1 F 48 L 16 156/72 99 02/05/24 08:00 69 18 130/85 96 02/05/24 07:33 96 02/05/24 07:32 71 15 135/70 96 02/05/24 07:00 73 16 100/50 97 02/05/24 06:30 72 17 123/67 95 02/05/24 06:00 67 19 131/62 97 02/05/24 05:30 65 16 114/62 95 02/05/24 05:00 69 17 117/57 02/05/24 04:36 67 16 105/75 95 02/05/24 04:35 71 17 94 L 02/05/24 04:00 111/65 02/05/24 03:30 66 16 128/67 97 02/05/24 03:00 67 17 127/73 98 02/05/24 02:30 72 17 131/80 97 02/05/24 02:18 83 17 142/82 97 02/05/24 01:22 98.1 F 82 14 131/76 96 General Appearance: no apparent distress, alert Neurologic Exam: alert, oriented x 3, cooperative, normal mood/affect, nml cerebellar function, nml station & gait, sensation nml, No motor deficits Eye Exam: PERRL/EOMI, eyes nml inspection Ears, Nose, Throat Exam: normal ENT inspection, TMs normal, pharynx normal, moist mucous membranes Neck Exam: normal inspection, non-tender, supple, full range of motion Respiratory Exam: normal breath sounds, lungs clear, No respiratory distress Cardiovascular Exam: regular rate/rhythm, normal heart sounds, normal peripheral pulses Gastrointestinal/Abdomen Exam: soft, normal bowel sounds, No tenderness, No mass Back Exam: normal inspection, normal range of motion, No CVA tenderness, No vertebral tenderness Extremity Exam: normal inspection, normal range of motion, pelvis stable Skin Exam: normal color, warm, dry, No rash Lymphatic Exam: No adenopathy Results - Labs Lab/Micro Results: Lab Results-Last 24 Hours 02/05/24 02/05/24 02/05/24 Range/Units 02:09 02:09 02:09 WBC 7.8 (4.0-10.5) x10^3/uL RBC 4.28 (4.1-5.6) x10^6/uL Hgb 13.3 (12.5-18.0) g/dL Hct 39.9 L (42-50) % MCV 93.2 (78-100) fL MCH 31.1 (26-32) pg MCHC 33.3 (32-36) g/dL RDW 13.3 (11.5-14.0) % Plt Count 244 (150-450) x10^3/uL MPV 8.8 (7.5-11.0) fL Gran % 51.2 (36.0-66.0) % Immature Gran % (Auto) 0.4 (0.00-0.4) % Nucleat RBC Rel Count 0.0 (0.00-0.1) % Eos # (Auto) 0.69 H (0-0.5) x10^3/uL Immature Gran # (Auto) 0.03 (0.00-0.03) x10^3u/L Absolute Lymphs (auto) 2.24 (1.0-4.6) x10^3/uL Absolute Monos (auto) 0.73 (0.0-1.3) x10^3/uL Absolute Nucleated RBC 0.00 (0.00-0.01) x10^3u/L Lymphocytes % 28.8 (24.0-44.0) % Monocytes % 9.4 (0.0-12.0) % Eosinophils % 8.9 H (0.00-5.0) % Basophils % 1.3 (0.0-0.4) % Absolute Granulocytes 4.00 (1.4-6.9) x10^3/uL Basophils # 0.10 (0-0.4) x10^3/uL Sodium 141 (135-145) mmol/L Potassium 3.2 L (3.5-5.1) mmol/L Chloride 105 (98-107) mmol/L Carbon Dioxide 24 (22-30) mmol/L Anion Gap 15.6 H (5-15) MEQ/L BUN 19 (9-20) mg/dL Creatinine 0.97 (0.66-1.25) mg/dL Estimated GFR 76.5 ML/MIN Glucose 177 H (74-106) mg/dL Calcium 8.6 (8.4-10.2) mg/dL Magnesium 2.0 (1.6-2.3) mg/dL Total Bilirubin 0.20 (0.2-1.3) mg/dL AST 25 (17-59) U/L ALT 17 (0-50) U/L Alkaline Phosphatase 95 (38-126) U/L Troponin I 0.018 (0.000-0.034) ng/mL Serum Total Protein 7.1 (6.3-8.2) g/dL Albumin 4.0 (3.5-5.0) g/dL Urine Color (Yellow) Urine Appearance (Clear) Urine pH (4.6-8.0) Ur Specific [place] (1.005-1.030) Urine Protein (Negative) Urine Glucose (UA) (Negative) mg/dL Urine Ketones (Negative) Urine Blood (Negative) Urine Nitrite (Negative) Urine Bilirubin (Negative) Urine Urobilinogen (0.2) mg/dL Ur Leukocyte Esterase (Negative) U Hyaline Cast (Auto) (0-2) /LPF Urine Microscopic RBC (0-5) /HPF Urine Microscopic WBC (0-5) /HPF Ur Epithelial Cells (None Seen) /HPF Urine Bacteria (None Seen) /HPF Urine Culture Reflexed (NO) 02/05/24 02/05/24 02/05/24 Range/Units 05:05 05:30 05:30 WBC (4.0-10.5) x10^3/uL RBC (4.1-5.6) x10^6/uL Hgb (12.5-18.0) g/dL Hct (42-50) % MCV (78-100) fL MCH (26-32) pg MCHC (32-36) g/dL RDW (11.5-14.0) % Plt Count (150-450) x10^3/uL MPV (7.5-11.0) fL Gran % (36.0-66.0) % Immature Gran % (Auto) (0.00-0.4) % Nucleat RBC Rel Count (0.00-0.1) % Eos # (Auto) (0-0.5) x10^3/uL Immature Gran # (Auto) (0.00-0.03) x10^3u/L Absolute Lymphs (auto) (1.0-4.6) x10^3/uL Absolute Monos (auto) (0.0-1.3) x10^3/uL Absolute Nucleated RBC (0.00-0.01) x10^3u/L Lymphocytes % (24.0-44.0) % Monocytes % (0.0-12.0) % Eosinophils % (0.00-5.0) % Basophils % (0.0-0.4) % Absolute Granulocytes (1.4-6.9) x10^3/uL Basophils # (0-0.4) x10^3/uL Sodium 142 (135-145) mmol/L Potassium 3.2 L (3.5-5.1) mmol/L Chloride 108 H (98-107) mmol/L Carbon Dioxide 23 (22-30) mmol/L Anion Gap 14.4 (5-15) MEQ/L BUN 19 (9-20) mg/dL Creatinine 0.94 (0.66-1.25) mg/dL Estimated GFR 79.4 ML/MIN Glucose 127 H (74-106) mg/dL Calcium 8.2 L (8.4-10.2) mg/dL Magnesium (1.6-2.3) mg/dL Total Bilirubin (0.2-1.3) mg/dL AST (17-59) U/L ALT (0-50) U/L Alkaline Phosphatase (38-126) U/L Troponin I 0.019 (0.000-0.034) ng/mL Serum Total Protein (6.3-8.2) g/dL Albumin (3.5-5.0) g/dL Urine Color Yellow (Yellow) Urine Appearance Clear (Clear) Urine pH 6.0 (4.6-8.0) Ur Specific [place] 1.020 (1.005-1.030) Urine Protein Negative (Negative) Urine Glucose (UA) >=1000 A (Negative) mg/dL Urine Ketones Negative (Negative) Urine Blood Negative (Negative) Urine Nitrite Negative (Negative) Urine Bilirubin Negative (Negative) Urine Urobilinogen 0.2 (0.2) mg/dL Ur Leukocyte Esterase Negative (Negative) U Hyaline Cast (Auto) NONE SEEN (0-2) /LPF Urine Microscopic RBC 0-2 (0-5) /HPF Urine Microscopic WBC 0-2 (0-5) /HPF Ur Epithelial Cells None Seen (None Seen) /HPF Urine Bacteria None Seen (None Seen) /HPF Urine Culture Reflexed NO (NO) - Radiology Impressions Radiology Exams & Impressions: Radiology Procedures Category Date Time Status CHEST 1 VIEW (PORTABLE) Stat Exams 02/05/24 01:28 Completed CHEST WITHOUT CONTRAST [CT] Stat Exams 02/05/24 04:00 Completed - Other Procedures and Tests Respiratory Therapy 02/05/24 08:38 EKG Q8HX2 Oxygen Nasal Cannula 2 lpm Assessment/Plan (1) Hypokalemia Current Visit: Yes Status: Acute Assessment & Plan: - K+ 3.2- replaced - Pt takes 20meq of K+ daily - will need increased dose at d/c for 3-4 days Code(s): E87.6 - HYPOKALEMIA (2) Tachycardia Current Visit: Yes Status: Acute Assessment & Plan: - tele - resolved - Will need f/u OP labs Code(s): R00.0 - TACHYCARDIA, UNSPECIFIED (3) Heart palpitations Current Visit: Yes Status: Acute Assessment & Plan: - resolved Code(s): R00.2 - PALPITATIONS (4) Diabetes Current Visit: Yes Status: Chronic Assessment & Plan: - s/s insulin - accuchecks ac/hs Code(s): E11.9 - TYPE 2 DIABETES MELLITUS WITHOUT COMPLICATIONS Hospital Summary - Hospital Course Hospital Course: is a 83 year old male with PMHX of peripheral neuropathy, stroke, cataracts, arrythmia, CAD, CHF, pneumonia, sleep apnea, TypeII DM, arthritis, diverticulitis, gallbladder disease, GI bleed, hemorrhoids, and prostate problems. He states he felt palpitations about 1 hour prior to coming to ER today. He reports he had a pulse rate 110; denies chest pain, shortness of air, vomiting, nausea, fever. Trop x3 negative. K+ was 3.2 and replaced in ER. Continued replacement on floor. HR is now SR on the monitor with HR of 85. He states he just got excited earlier and does not feel he needs to be here. If K+ improves will d/c later today. He denies CP, SOB, abd. pain, N/V/D. - Vitals & Intake/Output Vital Signs: Vital Signs Temperature 98.1 F 02/05/24 08:38 Pulse Rate 48 L 02/05/24 08:38 Respiratory Rate 16 02/05/24 08:38 Blood Pressure 156/72 02/05/24 08:38 O2 Sat by Pulse Oximetry 99 02/05/24 08:38 Intake & Output: Intake & Output 02/02/24 02/03/24 02/04/24 02/05/24 10:59 10:59 11:59 11:59 Weight 88.1 kg - Lab Result Diagrams: 02/05/24 02:09 02/05/24 12:35 Lab Results-Last 24 Hrs: Lab Results-Last 24 Hours 02/05/24 02/05/24 02/05/24 Range/Units 02:09 02:09 02:09 WBC 7.8 (4.0-10.5) x10^3/uL RBC 4.28 (4.1-5.6) x10^6/uL Hgb 13.3 (12.5-18.0) g/dL Hct 39.9 L (42-50) % MCV 93.2 (78-100) fL MCH 31.1 (26-32) pg MCHC 33.3 (32-36) g/dL RDW 13.3 (11.5-14.0) % Plt Count 244 (150-450) x10^3/uL MPV 8.8 (7.5-11.0) fL Gran % 51.2 (36.0-66.0) % Immature Gran % (Auto) 0.4 (0.00-0.4) % Nucleat RBC Rel Count 0.0 (0.00-0.1) % Eos # (Auto) 0.69 H (0-0.5) x10^3/uL Immature Gran # (Auto) 0.03 (0.00-0.03) x10^3u/L Absolute Lymphs (auto) 2.24 (1.0-4.6) x10^3/uL Absolute Monos (auto) 0.73 (0.0-1.3) x10^3/uL Absolute Nucleated RBC 0.00 (0.00-0.01) x10^3u/L Lymphocytes % 28.8 (24.0-44.0) % Monocytes % 9.4 (0.0-12.0) % Eosinophils % 8.9 H (0.00-5.0) % Basophils % 1.3 (0.0-0.4) % Absolute Granulocytes 4.00 (1.4-6.9) x10^3/uL Basophils # 0.10 (0-0.4) x10^3/uL Sodium 141 (135-145) mmol/L Potassium 3.2 L (3.5-5.1) mmol/L Chloride 105 (98-107) mmol/L Carbon Dioxide 24 (22-30) mmol/L Anion Gap 15.6 H (5-15) MEQ/L BUN 19 (9-20) mg/dL Creatinine 0.97 (0.66-1.25) mg/dL Estimated GFR 76.5 ML/MIN Glucose 177 H (74-106) mg/dL Calcium 8.6 (8.4-10.2) mg/dL Magnesium 2.0 (1.6-2.3) mg/dL Total Bilirubin 0.20 (0.2-1.3) mg/dL AST 25 (17-59) U/L ALT 17 (0-50) U/L Alkaline Phosphatase 95 (38-126) U/L Troponin I 0.018 (0.000-0.034) ng/mL Serum Total Protein 7.1 (6.3-8.2) g/dL Albumin 4.0 (3.5-5.0) g/dL Urine Color (Yellow) Urine Appearance (Clear) Urine pH (4.6-8.0) Ur Specific [place] (1.005-1.030) Urine Protein (Negative) Urine Glucose (UA) (Negative) mg/dL Urine Ketones (Negative) Urine Blood (Negative) Urine Nitrite (Negative) Urine Bilirubin (Negative) Urine Urobilinogen (0.2) mg/dL Ur Leukocyte Esterase (Negative) U Hyaline Cast (Auto) (0-2) /LPF Urine Microscopic RBC (0-5) /HPF Urine Microscopic WBC (0-5) /HPF Ur Epithelial Cells (None Seen) /HPF Urine Bacteria (None Seen) /HPF Urine Culture Reflexed (NO) 02/05/24 02/05/24 02/05/24 Range/Units 05:05 05:30 05:30 WBC (4.0-10.5) x10^3/uL RBC (4.1-5.6) x10^6/uL Hgb (12.5-18.0) g/dL Hct (42-50) % MCV (78-100) fL MCH (26-32) pg MCHC (32-36) g/dL RDW (11.5-14.0) % Plt Count (150-450) x10^3/uL MPV (7.5-11.0) fL Gran % (36.0-66.0) % Immature Gran % (Auto) (0.00-0.4) % Nucleat RBC Rel Count (0.00-0.1) % Eos # (Auto) (0-0.5) x10^3/uL Immature Gran # (Auto) (0.00-0.03) x10^3u/L Absolute Lymphs (auto) (1.0-4.6) x10^3/uL Absolute Monos (auto) (0.0-1.3) x10^3/uL Absolute Nucleated RBC (0.00-0.01) x10^3u/L Lymphocytes % (24.0-44.0) % Monocytes % (0.0-12.0) % Eosinophils % (0.00-5.0) % Basophils % (0.0-0.4) % Absolute Granulocytes (1.4-6.9) x10^3/uL Basophils # (0-0.4) x10^3/uL Sodium 142 (135-145) mmol/L Potassium 3.2 L (3.5-5.1) mmol/L Chloride 108 H (98-107) mmol/L Carbon Dioxide 23 (22-30) mmol/L Anion Gap 14.4 (5-15) MEQ/L BUN 19 (9-20) mg/dL Creatinine 0.94 (0.66-1.25) mg/dL Estimated GFR 79.4 ML/MIN Glucose 127 H (74-106) mg/dL Calcium 8.2 L (8.4-10.2) mg/dL Magnesium (1.6-2.3) mg/dL Total Bilirubin (0.2-1.3) mg/dL AST (17-59) U/L ALT (0-50) U/L Alkaline Phosphatase (38-126) U/L Troponin I 0.019 (0.000-0.034) ng/mL Serum Total Protein (6.3-8.2) g/dL Albumin (3.5-5.0) g/dL Urine Color Yellow (Yellow) Urine Appearance Clear (Clear) Urine pH 6.0 (4.6-8.0) Ur Specific [place] 1.020 (1.005-1.030) Urine Protein Negative (Negative) Urine Glucose (UA) >=1000 A (Negative) mg/dL Urine Ketones Negative (Negative) Urine Blood Negative (Negative) Urine Nitrite Negative (Negative) Urine Bilirubin Negative (Negative) Urine Urobilinogen 0.2 (0.2) mg/dL Ur Leukocyte Esterase Negative (Negative) U Hyaline Cast (Auto) NONE SEEN (0-2) /LPF Urine Microscopic RBC 0-2 (0-5) /HPF Urine Microscopic WBC 0-2 (0-5) /HPF Ur Epithelial Cells None Seen (None Seen) /HPF Urine Bacteria None Seen (None Seen) /HPF Urine Culture Reflexed NO (NO) - Radiology Exams Ordered Rad Exams-Entire Visit: Radiology Procedures Category Date Time Status CHEST 1 VIEW (PORTABLE) Stat Exams 02/05/24 01:28 Completed CHEST WITHOUT CONTRAST [CT] Stat Exams 02/05/24 04:00 Completed - Procedures and Test Procedures and Tests throughout Hospitalization: Therapy Orders & Screens 02/05/24 08:38 EKG Q8HX2 Comment: Oxygen Nasal Cannula 2 lpm Comment: - Discharge Discharge Date: 02/05/24 Disposition: HOME HEALTH SERVICE Condition: Stable Prescriptions: New Potassium Chloride Tab* [Klor Con] 20 meq PO DAILY 4 Days #8 tab Continue Glipizide [Glucotrol Xl] 10 mg PO DAILY Ferrous Sulfate 325 mg [Feosol 325 mg] 325 mg PO DAILY Metformin HCl [Metformin ER Osmotic] 1,000 mg PO BID Clopidogrel Bisulfate [PLAVIX Tablet] 75 mg PO DAILY Famotidine [Pepcid] 40 mg PO HS Desloratadine [Clarinex] 1 tab PO DAILY Cinnamon Bark [Cinnamon] 1,000 mg PO DAILY Atorvastatin Calcium 40 mg PO HS Ascorbic Acid [Vitamin C] 250 mg PO DAILY Gabapentin 100 mg PO TID Furosemide 20 mg [Lasix 20 mg] 1 tab PO DAILY Vit B6/Me-Thfolate/Me-B12/Ala [Nuf[place] Capsule] 1 tab PO DAILY Potassium Chloride Tab* [Klor Con] 2 tab PO DAILY Multivitamin [Multivitamins] 1 tab PO DAILY Magnesium Oxide [Magnesium] 400 mg PO DAILY Losartan/Hydrochlorothiazide [Losartan-Hctz 100-25 mg Tab] 0.5 tab PO DAILY Lidocaine [Lidocaine Pain Relief] 1 patch TOP DAILY PRN PRN Reason: Pain Amiodarone HCl 200 mg PO DAILY Carvedilol [Coreg ] 3.25 mg PO BID Blood Sugar Diagnostic [Freestyle Lite Test Strip] 1 each MC TID #2 box Lidocaine [Salonpas] 1 each TP BID PRN #1 adh..patch PRN Reason: Pain Tadalafil [Cialis] 1 tab PO DIRECTIONS UNKNOWN PRN PRN Reason: Sexual activity Polyethylene Glycol 3350 17 gm [Miralax Powder 17GM PACKET] 17 gm PO DAILY 20 Days #20 packet ondansetron HCL [Ondansetron HCl] 4 mg PO TID PRN 30 Days #10 tablet PRN Reason: Nausea/Vomiting Instructions: Hypokalemia (DC) Additional Instructions: Take potassium 20meq twice a day for 4 days, then go back to your normal dosing of potassium daily. Follow up with PCP for repeat labs. Please take all other meds as you were doing with home health care, as we do not have an updated home med list. Follow up with: AUGUST RAMIREZ MD [ACTIVE STAFF] - 02/15/24 3:30 pm Forms: Discharge Instructions
[2024-02-05] MEDS ORDERED: LIDOCAINE TOP PRN (10:11)
[2024-02-05] MEDS ORDERED: NON-FORMULARY ITEM (Ondansetron Hcl [Ondansetron Hcl] 4 MG Tablet) PO PRN (10:11)
[2024-02-05] MEDS ORDERED: LIDOCAINE TP PRN (10:11)
[2024-02-05] MEDS ORDERED: Cordarone 200 MG PO SCH (10:45)
[2024-02-05] MEDS ORDERED: FEOSOL 325 MG PO SCH (10:45)
[2024-02-05] MEDS ORDERED: Coreg PO SCH (10:45)
[2024-02-05] MEDS ORDERED: PLAVIX Tablet PO SCH (10:45)
[2024-02-05] MEDS ORDERED: THERAGRAN MULTIVITAMIN PO SCH (11:00)
[2024-02-05] MEDS ORDERED: Miralax Powder 17GM PACKET PO SCH (11:00)
[2024-02-05] MEDS ORDERED: LASIX 20 MG PO SCH (11:00)
[2024-02-05] MEDS ORDERED: FOLTX (FOLBIC) PO SCH (11:00)
[2024-02-05] MEDS ORDERED: MAG-OX 400 PO SCH (11:00)
[2024-02-05] MEDS ORDERED: Neurontin PO SCH (11:00)
[2024-02-05] MEDS ORDERED: ZOFRAN ODT 4 MG PO PRN (11:04)
[2024-02-05] MEDS: Klor Con PO ONE (11:10)
[2024-02-05] MEDS ORDERED: Glucophage XR 500 MG PO SCH (11:15)
[2024-02-05] MEDS ORDERED: hydroDIURIL 25 MG PO SCH (11:15)
[2024-02-05] MEDS: HUMALOG SQ PRN (11:51)
[2024-02-05 12:57] LABS: ANION GAP 14.4 MEQ/L (5-15)
[2024-02-05 12:59] LABS: Potassium 3.9 mmol/L (3.5-5.1)
[2024-02-05 13:52] VITALS: RESP 18
[2024-02-05] MEDS ORDERED: Pepcid 20 MG PO SCH (22:00)
[2024-02-05] MEDS ORDERED: LIPITOR 40MG PO SCH (22:00)
[2024-02-05] MEDS ORDERED: ZOCOR 20MG PO SCH (22:00)
[2024-02-05] MEDS ORDERED: METFORMIN HCL 500 MG PO SCH (22:00)
[2024-02-05] MEDS ORDERED: NON-FORMULARY ITEM (Famotidine [Pepcid] 40 MG Tablet) PO SCH (22:00)
[2024-02-06] MEDS ORDERED: CLARITIN 10 MG PO SCH (10:00)
[2024-02-06] MEDS ORDERED: NON-FORMULARY ITEM (Multivitamin [Multivitamins] 1 EACH Capsule) PO SCH (10:00)
[2024-02-06] MEDS ORDERED: THFOLATE PO SCH (10:00)
[2024-02-06] MEDS ORDERED: ASCORBIC ACID 250 MG PO SCH (10:00)
[2024-02-06] MEDS ORDERED: ALA PO SCH (10:00)
[2024-02-06] MEDS ORDERED: Klor Con PO SCH (10:00)
[2024-02-06] MEDS ORDERED: NON-FORMULARY ITEM (Magnesium Oxide [Magnesium] 400 MG Tablet) PO SCH (10:00)
[2024-02-06] MEDS ORDERED: DESLORATADINE 5 MG PO SCH (10:00)
[2024-02-06] MEDS ORDERED: Vitamin C 500 MG PO SCH (10:00)
[2024-02-06] MEDS ORDERED: VIT B6 PO SCH (10:00)
[2024-02-06] MEDS ORDERED: Lidoderm Patch 5% TOP SCH (10:00)
[2024-02-06] MEDS ORDERED: B12 PO SCH (10:00)
[2024-02-06] MEDS ORDERED: NON-FORMULARY ITEM (Losartan/Hydrochlorothiazide [Losartan-Hctz 100-25 Mg Tab] 1 EACH Tabl PO SCH (10:00)
[2024-02-06] MEDS ORDERED: Cozaar 50 MG PO SCH (10:00)
== END 2024-02-05 13:45 | disposition home health service (06) ==
LOC: ED 01:17 → MED SURG 08:35
PROVIDERS: ADMIT Internal Medicine; ATTEND Internal Medicine
DX: E87.6 Hypokalemia (principal); R00.0 Tachycardia, unspecified; R00.2 Palpitations; E11.9 Type 2 diabetes mellitus without complications; I25.10 Atherosclerotic heart disease of native coronary artery without angina pectoris; I50.9 Heart failure, unspecified; Z79.01 Long term (current) use of 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; Z79.899 Other long term (current) drug therapy; Z20.828 Contact with and (suspected) exposure to other viral communicable diseases; Z86.73 Personal history of transient ischemic attack (TIA), and cerebral infarction without residual deficits
CPT/HCPCS: 36000; 36415; 71045; 71250; 80048; 80051; 80053; 81001; 82947; 83735; 84484; 85025; 93005; 99285; J1817; J3480; A9270-GY

== ENCOUNTER 2024-09-06 13:35 | Observation (INO) | payer MEDICARE ==
--- NOTE | 2024-09-06 14:10 | ERPHSYRPT ---
- History of Present Illness Time Seen by Provider: 09/06/24 14:10 Source: patient, family Exam Limitations: no limitations Physician History: This is an overweight 83-year-old white male patient of Dr. 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 The swelling has been present for approximately 2 months. However in the last couple of days the powered bridge specialist has noticed it has been more difficult for him to move around and to get his shoes on. On arrival to emergency department took 1-2 individuals to help transfer him to the bed. He has 4+ edema to bilateral feet and ankles. Patient has a history of chronic anemia, atrial fibrillation on amiodarone, hyperlipidemia, hypertension, CHF and coronary artery disease. He denies shortness of breath and chest pain today. He also has swelling of the left hand with redness present. Patient is on Plavix Timing/Duration: worse Severity: moderate Associated Symptoms: No shortness of breath, No chest pain Allergies/Adverse Reactions: No Known Drug Allergies Allergy (Verified 02/05/24 09:54) Home Medications: Clopidogrel Bisulfate [PLAVIX Tablet] 75 mg PO DAILY 01/12/16 [History] Ferrous Sulfate 325 mg [Feosol 325 mg] 325 mg PO DAILY 01/12/16 [History] Glipizide [Glucotrol Xl] 10 mg PO DAILY 01/12/16 [History] Amiodarone HCl 200 mg PO DAILY 10/11/19 [History] Ascorbic Acid [Vitamin C] 250 mg PO DAILY 10/11/19 [History] Atorvastatin Calcium 40 mg PO HS 10/11/19 [History] Cinnamon Bark [Cinnamon] 1,000 mg PO DAILY 10/11/19 [History] Desloratadine [Clarinex] 1 tab PO DAILY 10/11/19 [History] Furosemide 20 mg [Lasix 20 mg] 1 tab PO DAILY 10/11/19 [History] Gabapentin 100 mg PO TID 10/11/19 [History] Losartan/Hydrochlorothiazide [Losartan-Hctz 100-25 mg Tab] 0.5 tab PO DAILY 10/11/19 [History] Magnesium Oxide [Magnesium] 400 mg PO DAILY 10/11/19 [History] Multivitamin [Multivitamins] 1 tab PO DAILY 10/11/19 [History] Potassium Chloride Tab* [Klor Con] 2 tab PO DAILY 10/11/19 [History] Vit B6/Me-Thfolate/Me-B12/Ala [Nufola Capsule] 1 tab PO DAILY 10/11/19 [History] Carvedilol [Coreg ] 3.25 mg PO BID 04/15/21 [History] tadalafiL [Cialis] 1 tab PO DIRECTIONS UNKNOWN PRN 03/13/22 [History] Hx Tetanus, Diphtheria Vaccination/Date Given: Yes Hx Influenza Vaccination/Date Given: Yes Hx Pneumococcal Vaccination/Date Given: Yes Travel Risk - International Travel Have you traveled outside of the country in past 3 weeks: No - Emerging Infectious Disease Are you exhibiting symptoms associated with any current EIDs: No - Review of Systems Constitutional: No Symptoms Eyes: No Symptoms Ears, Nose, & Throat: No Symptoms Respiratory: No Symptoms Cardiac: No Symptoms Abdominal/Gastrointestinal: No Symptoms Genitourinary Symptoms: No Symptoms Musculoskeletal: No Symptoms, Other Skin: Cellulitis (Left hand and bilateral lower extremity ankle with chronic venous stasis disease) Neurological: No Symptoms Psychological: No Symptoms Endocrine: No Symptoms Hematologic/Lymphatic: No Symptoms Immunological/Allergic: No Symptoms All Other Systems: Reviewed and Negative - Past Medical History Pertinent Past Medical History: Yes Neurological History: Peripheral Neuropathy, Stroke ENT History: Cataracts Cardiac History: Arrhythmia, Coronary Artery Disease Respiratory History: CHF, Pneumonia, Sleep Apnea Endocrine Medical History: Diabetes Type II Musculoskeletal History: Arthritis GI Medical History: Diverticulitis, Gallbladder Disease, GI Bleed, Hemorrhoids History: No Pertinent History Psycho-Social History: No Pertinent History Male Reproductive Disorders: Prostate Problems Other Medical History: Multiple Co-Morbidities. Please see medical chart for complete medical history. - Past Surgical History Past Surgical History: Yes Neuro Surgical History: No Pertinent History Cardiac: No Pertinent History Respiratory: No Pertinent History Gastrointestinal: Appendectomy, Cholecystectomy Genitourinary: No Pertinent History Musculoskeletal: Joint Replacement, Orthopedic Surgery Male Surgical History: Vasectomy Other Surgical History: bilat knees and shoulders - Social History Smoking Status: Never smoker Exposure to second hand smoke: Yes Drug Use: none Patient Lives Alone: No - Social Determinants of Health Will the patient participate in the screening: Declined to provide - Nursing Vital Signs Nursing Vital Signs: Initial Vital Signs Temperature 97.8 F 09/06/24 14:09 Pulse Rate 63 09/06/24 14:09 Respiratory Rate 20 09/06/24 14:09 Blood Pressure 160/68 09/06/24 14:09 O2 Sat by Pulse Oximetry 95 09/06/24 14:09 Pain Scale Pain Intensity 0 - Physical Exam General Appearance: no apparent distress, alert, obese Eye Exam: PERRL/EOMI, eyes nml inspection Ears, Nose, Throat Exam: normal ENT inspection, moist mucous membranes Neck Exam: normal inspection, non-tender, supple Respiratory Exam: normal breath sounds, lungs clear, airway intact, No chest tenderness, No respiratory distress Cardiovascular Exam: regular rate/rhythm, normal heart sounds, normal peripheral pulses Gastrointestinal/Abdomen Exam: soft, normal bowel sounds, No tenderness Rectal Exam: not done Back Exam: normal inspection, normal range of motion, No CVA tenderness Extremity Exam: pelvis stable, inflammation, pedal edema, tenderness (Left hand swelling, inflammation and cellulitis, chronic venous stasis disease with redness and swelling bilateral feet and ankles) Neurologic Exam: other (Chronic dysarthria, chronic residual left-sided weakness from prior CVA) Skin Exam: other (Cellulitis as described and located as above) Lymphatic Exam: No adenopathy SpO2 Interpretation: normal O2 Delivery: Room Air - Course Nursing assessment & vital signs reviewed: Yes Ordered Tests: Active Orders 24 hr Category Date Time Status IV Insertion STAT Care 09/06/24 15:21 Active Pulse Oximetry (ED) STAT Care 09/06/24 15:21 Active BLOOD CULTURE Stat Lab 09/06/24 15:45 Received CBC W DIFF Stat Lab 09/06/24 15:40 Completed CMP Stat Lab 09/06/24 15:36 Completed Lactic Acid Stat Lab 09/06/24 15:41 Completed MAGNESIUM Stat Lab 09/06/24 15:36 Completed NT PRO BNPII Stat Lab 09/06/24 15:36 Completed Medication Summary Generic Name Dose Route Start Last Admin Trade Name Freq PRN Reason Stop Dose Admin Ceftriaxone Sodium 1 gm in 100 mls @ 200 mls/hr 09/06/24 16:30 Rocephin 1 Gm / 100 Ml Nacl IV 09/06/24 16:59 STAT ONE Discontinued Medications Generic Name Dose Route Start Last Admin Trade Name Freq PRN Reason Stop Dose Admin Furosemide 40 mg 09/06/24 16:30 Furosemide 40 Mg/4 Ml Vial IV 09/06/24 16:31 STAT ONE Lab/Rad Data: Laboratory Result Diagrams 09/06/24 15:40 09/06/24 15:36 Laboratory Results 09/06/24 09/06/24 09/06/24 Range/Units 15:41 15:40 15:36 WBC 8.5 (4.23-9.07) x10^3/uL RBC 3.79 L (4.63-6.08) x10^6/uL Hgb 11.8 L (13.7-17.5) g/dL Hct 34.0 L (40.1-51.0) % MCV 89.7 (79.0-92.2) fL MCH 31.1 (25.7-32.2) pg MCHC 34.7 (32.3-36.5) g/dL RDW 13.1 (11.6-14.4) % Plt Count 219 (163-337) x10^3/uL MPV 9.3 L (9.4-12.4) fL Gran % 53.8 (34.0-67.9) % Immature Gran % (Auto) 0.2 (0.001-0.429) % Nucleat RBC Rel Count 0.0 (0.00-0.2) % Eos # (Auto) 0.52 (0.04-0.54) x10^3/uL Immature Gran # (Auto) 0.02 (0.001-0.031) x10^3u/L Absolute Lymphs (auto) 2.46 (1.32-3.57) x10^3/uL Absolute Monos (auto) 0.87 H (0.30-0.82) x10^3/uL Absolute Nucleated RBC 0.00 (0.00-0.012) x10^3u/L Lymphocytes % 28.8 (21.8-53.1) % Monocytes % 10.2 (5.3-12.2) % Eosinophils % 6.1 (0.8-7.0) % Basophils % 0.9 (0.2-1.2) % Absolute Granulocytes 4.59 (1.78-5.38) x10^3/uL Basophils # 0.08 (0.01-0.08) x10^3/uL Sodium (135-145) mmol/L Potassium (3.5-5.1) mmol/L Chloride (98-107) mmol/L Carbon Dioxide (22-30) mmol/L Anion Gap (5-15) MEQ/L BUN (9-20) mg/dL Creatinine (0.66-1.25) mg/dL Estimated GFR ML/MIN Glucose (74-106) mg/dL Lactic Acid 0.7 (0.4-2.0) Calcium (8.4-10.2) mg/dL Magnesium (1.6-2.3) mg/dL Total Bilirubin (0.2-1.3) mg/dL AST (17-59) U/L ALT (0-50) U/L Alkaline Phosphatase (38-126) U/L NT-Pro-B Natriuret Pep 344 (<300) pg/mL Serum Total Protein (6.3-8.2) g/dL Albumin (3.5-5.0) g/dL 09/06/24 Range/Units 15:36 WBC (4.23-9.07) x10^3/uL RBC (4.63-6.08) x10^6/uL Hgb (13.7-17.5) g/dL Hct (40.1-51.0) % MCV (79.0-92.2) fL MCH (25.7-32.2) pg MCHC (32.3-36.5) g/dL RDW (11.6-14.4) % Plt Count (163-337) x10^3/uL MPV (9.4-12.4) fL Gran % (34.0-67.9) % Immature Gran % (Auto) (0.001-0.429) % Nucleat RBC Rel Count (0.00-0.2) % Eos # (Auto) (0.04-0.54) x10^3/uL Immature Gran # (Auto) (0.001-0.031) x10^3u/L Absolute Lymphs (auto) (1.32-3.57) x10^3/uL Absolute Monos (auto) (0.30-0.82) x10^3/uL Absolute Nucleated RBC (0.00-0.012) x10^3u/L Lymphocytes % (21.8-53.1) % Monocytes % (5.3-12.2) % Eosinophils % (0.8-7.0) % Basophils % (0.2-1.2) % Absolute Granulocytes (1.78-5.38) x10^3/uL Basophils # (0.01-0.08) x10^3/uL Sodium 142 (135-145) mmol/L Potassium 3.5 (3.5-5.1) mmol/L Chloride 106 (98-107) mmol/L Carbon Dioxide 25 (22-30) mmol/L Anion Gap 14.3 (5-15) MEQ/L BUN 18 (9-20) mg/dL Creatinine 0.86 (0.66-1.25) mg/dL Estimated GFR 84.9 ML/MIN Glucose 75 (74-106) mg/dL Lactic Acid (0.4-2.0) Calcium 8.5 (8.4-10.2) mg/dL Magnesium 1.9 (1.6-2.3) mg/dL Total Bilirubin 0.50 (0.2-1.3) mg/dL AST 31 (17-59) U/L ALT 20 (0-50) U/L Alkaline Phosphatase 107 (38-126) U/L NT-Pro-B Natriuret Pep (<300) pg/mL Serum Total Protein 6.9 (6.3-8.2) g/dL Albumin 3.8 (3.5-5.0) g/dL - Progress Progress: unchanged Progress Note: 09/06/24 16:24 My medical decision making and the assignment of moderate to high complexity is based on review of the patient's past medical history, review of the patient's medication list, reviewed patient drug allergy list, history present illness and physical findings on examination. The workup in this patient includes placement of intravenous line, blood cultures, CBC, CMP, lactic acid level. Differential diagnosis includes but is not limited to CHF exacerbation, chronic renal issues, cellulitis 09/06/24 16:37 I interpreted the patient's laboratory data results. Based on the patient's laboratory data results there are no emergent issues. The patient does have evidence of cellulitis as well as peripheral edema of the hands and bilateral feet and ankles that is chronic but worsened over the last 2 days per caretakers report. He currently has no chest pain or shortness of breath. I feel increased swelling would improve quickly with some diuresis. I spoke with Dr. Burnham, the telehospitalist invoice control clerk at this time. I reviewed the patient history, presenting complaint, laboratory/workup results. He agrees wi th placing this patient in observation. Counseled pt/family regarding: lab results, diagnosis Medical Desision Making - Independent Historian Additional History obtained from: Locker Room Clerk - Diagnostic Testing Diagnostic test were ordered, analyzed, and reviewed by me: Yes - Risk of complications The pt has a high risk of morbidity or mortality based on: Decision regarding hospitilization or escalation of hosp level of care - Departure Departure Disposition: Observation Clinical Impression: Cellulitis, Peripheral edema, Chronic venous stasis dermatitis of both lower extremities Condition: Stable Critical Care Time: No Referrals: AUGUST RAMIREZ MD [Primary Care Provider] - Follow up/PCP as directed
[2024-09-06 15:49] LABS: Absolute Neutrophil Ct (ANC) 4.59 x10^3/uL (1.78-5.38); BASOPHIL % 0.9 % (0.2-1.2); Basophil (Absolute #) 0.08 x10^3/uL (0.01-0.08); Eosinophil % 6.1 % (0.8-7.0); Eosinophil (Absolute #) 0.52 x10^3/uL (0.04-0.54); Hemoglobin 11.8 g/dL (13.7-17.5); IMMATURE GRAN # 0.02 x10^3u/L (0.001-0.031); IMMATURE GRAN % 0.2 % (0.001-0.429); Lymphocyte (Absolute #) 2.46 x10^3/uL (1.32-3.57); Lymphocytes % 28.8 % (21.8-53.1); Mean Cell Volume 89.7 fL (79.0-92.2); Mean Corpuscular Hemoglobin 31.1 pg (25.7-32.2); Mean Corpuscular Hgb Concent. 34.7 g/dL (32.3-36.5); Mean Platelet Volume 9.3 fL (9.4-12.4); Monocyte (Absolute #) 0.87 x10^3/uL (0.30-0.82); Monocytes % 10.2 % (5.3-12.2); Neutrophil % 53.8 % (34.0-67.9); Platelet Count 219 x10^3/uL (163-337); Red Blood Count 3.79 x10^6/uL (4.63-6.08); Red Cell Distribution Width 13.1 % (11.6-14.4); White Blood Count 8.5 x10^3/uL (4.23-9.07)
[2024-09-06 16:03] LABS: ALBUMIN 3.8 g/dL (3.5-5.0); ANION GAP 14.3 MEQ/L (5-15); BILIRUBIN,TOTAL 0.5 mg/dL (0.2-1.3); Calcium 8.5 mg/dL (8.4-10.2); Creatinine 1 0.86 mg/dL (0.66-1.25); EST GLOMERULAR FILTRATION RATE 84.9 ML/MIN; MAGNESIUM 1.9 mg/dL (1.6-2.3); Potassium 3.5 mmol/L (3.5-5.1); Total Protein 6.9 g/dL (6.3-8.2)
[2024-09-06] MEDS ORDERED: Lasix 40 MG/4 ML ONE (16:53)
[2024-09-06] MEDS ORDERED: ROCEPHIN 1 GM / 100 ML NaCl 1 GM/100 ML IVPB IV ONE (16:54)
[2024-09-06] MEDS: Lasix 40 MG/4 ML IV ONE (16:59)
[2024-09-06] MEDS: ROCEPHIN 1 GM / 100 ML NaCl 1 GM/100 ML IVPB IV ONE (17:02)
[2024-09-06] MEDS ORDERED: Sodium Chloride 0.9% 1000 ML 1,000 ML IV SCH (18:22)
[2024-09-06] MEDS ORDERED: Zofran 4 MG/2 ML VIAL IV PRN (18:22)
[2024-09-06] MEDS ORDERED: Miralax Powder 17GM PACKET PO PRN (21:30)
--- NOTE | 2024-09-06 21:35 | PCM.HP ---
History of Present Illness - Chief Complaint Chief Complaint: Cellulitis History of Present Illness: is a 83 year old male who has a history of CVA with chronic left sided weakness who presented to the emergency department escorted by his private security guard secondary to bilateral lower extremity swelling and redness. The swelling has been present for approximately 2 months. However in the last couple of days the private security guard has noticed it has been more difficult for him to move around and to get his shoes on. On arrival to emergency department took 1- 2 individuals to help transfer him to the bed. He has 4+ edema to bilateral feet and ankles. Patient has a history of chronic anemia, atrial fibrillation on amiodarone, hyperlipidemia, hypertension, CHF and coronary artery disease. He denies shortness of breath and chest pain today. - Review of Systems Constitutional: No Fever, No Chills Eyes: No Symptoms Ears, Nose, & Throat: No Symptoms Respiratory: No Cough, No Short Of Breath Cardiac: No Chest Pain, No Edema, No Syncope Abdominal/Gastrointestinal: No Abdominal Pain, No Nausea, No Vomiting, No Diarrhea Genitourinary Symptoms: No Dysuria Musculoskeletal: No Back Pain, No Neck Pain Skin: No Rash Neurological: No Dizziness, No Focal Weakness, No Sensory Changes Psychological: No Symptoms Endocrine: No Symptoms Hematologic/Lymphatic: No Symptoms Immunological/Allergic: No Symptoms Medications & Allergies Home Medications: Home Medication List Clopidogrel Bisulfate [PLAVIX Tablet] 75 mg PO DAILY 01/12/16 [History Confirmed 09/06/24] Ferrous Sulfate 325 mg [Feosol 325 mg] 325 mg PO BID 01/12/16 [History Confirmed 09/06/24] Glipizide [Glucotrol Xl] 10 mg PO DAILY 01/12/16 [History Confirmed 09/06/24] Ascorbic Acid [Vitamin C] 250 mg PO DAILY 10/11/19 [History Confirmed 09/06/24] Atorvastatin Calcium 40 mg PO HS 10/11/19 [History Confirmed 09/06/24] Desloratadine [Clarinex] 1 tab PO DAILY 10/11/19 [History Confirmed 09/06/24] Furosemide 20 mg [Lasix 20 mg] 1 tab PO DAILY 10/11/19 [History Confirmed 09/06/24] Losartan/Hydrochlorothiazide [Losartan-Hctz 100-25 mg Tab] 0.5 tab PO DAILY 10/11/19 [History Confirmed 09/06/24] Magnesium Oxide [Magnesium] 400 mg PO DAILY 10/11/19 [History Confirmed 09/06/24] Multivitamin [Multivitamins] 1 tab PO DAILY 10/11/19 [History Confirmed 09/06/24] Vit B6/Me-Thfolate/Me-B12/Ala [Nufola Capsule] 1 tab PO DAILY 10/11/19 [History Confirmed 09/06/24] Carvedilol [Coreg ] 3.25 mg PO BID 04/15/21 [History Confirmed 09/06/24] Blood Sugar Diagnostic [Freestyle Lite Test Strip] 1 each MC TID #2 box 04/16/21 [Rx Confirmed 09/06/24] tadalafiL [Cialis] 1 tab PO DIRECTIONS UNKNOWN PRN 03/13/22 [History Confirmed 09/06/24] Potassium Chloride Tab* [Klor Con] 20 meq PO DAILY 4 Days #8 tab 02/05/24 [Rx Confirmed 09/06/24] Famotidine 20 mg [Pepcid 20 MG] 40 mg PO DAILY 09/06/24 [History Confirmed 09/06/24] Finasteride 5 mg [Proscar 5 MG] 5 mg PO DAILY 09/06/24 [History Confirmed 09/06/24] Gabapentin [Neurontin ] 100 mg PO TID 09/06/24 [History Confirmed 09/06/24] Polyethylene Glycol 3350 17 gm [Miralax Powder 17GM PACKET] 17 gm PO DAILY PRN PRN 09/06/24 [History Confirmed 09/06/24] Tamsulosin HCl 0.4 mg [Flomax 0.4 MG] 0.4 mg PO DAILY 09/06/24 [History Confirmed 09/06/24] Allergies/Adverse Reactions: Allergies Allergy/AdvReac Type Severity Reaction Status Date / Time No Known Drug Allergies Allergy Verified 02/05/24 09:54 - Past Medical History Past Medical History: Yes Neurological History: Peripheral Neuropathy, Stroke ENT History: Cataracts Cardiac History: Arrhythmia, Coronary Artery Disease Respiratory History: CHF, Pneumonia, Sleep Apnea Endocrine Medical History: Diabetes Type II Musculoskelatal History: Arthritis GI Medical History: Diverticulitis, Gallbladder Disease, GI Bleed, Hemorrhoids History: No Pertinent History Pyscho-Social History: No Pertinent History Male Reproductive Disorders: Prostate Problems Comment: Multiple Co-Morbidities. Please see medical chart for complete medical history. - Past Surgical History Past Surgical History: Yes Neuro Surgical History: No Pertinent History Cardiac History: No Pertinent History Respiratory Surgery: No Pertinent History GI Surgical History: Appendectomy, Cholecystectomy Genitourinary Surgical Hx: No Pertinent History Musculskeletal Surgical Hx: Joint Replacement, Orthopedic Surgery Male Surgical History: Vasectomy Other Surgical History: bilat knees and shoulders - Social History Smoking Status: Never smoker Exposure to second hand smoke: Yes Alcohol: Occasionally Drug Use: none - Social Determinants of Health Will the patient participate in the screening: Declined to provide - Physical Exam Vital Signs: Vital Signs - 24 hr Temp Pulse Resp BP BP Pulse Ox 09/06/24 20:02 92 L 09/06/24 19:45 97.6 F 74 19 155/70 97 09/06/24 18:47 97.6 F 74 19 155/70 97 09/06/24 18:00 62 17 126/62 99 09/06/24 17:45 70 19 115/55 96 09/06/24 17:30 61 15 119/54 09/06/24 17:15 59 L 15 109/52 95 09/06/24 17:00 60 15 134/62 09/06/24 16:45 65 19 138/61 96 09/06/24 16:30 69 22 137/67 97 09/06/24 16:15 66 19 145/68 97 09/06/24 16:00 63 14 157/71 97 09/06/24 15:45 58 L 20 150/79 97 09/06/24 15:38 94 L 09/06/24 15:31 54 L 22 157/66 96 09/06/24 15:15 53 L 21 131/64 95 09/06/24 15:00 54 L 19 124/58 94 L 09/06/24 14:45 55 L 19 151/63 94 L 09/06/24 14:30 59 L 17 157/76 95 09/06/24 14:15 58 L 23 167/70 96 09/06/24 14:09 97.8 F 63 20 160/68 95 General Appearance: no apparent distress, alert Neurologic Exam: alert, oriented x 3, cooperative, normal mood/affect, nml cerebellar function, nml station & gait, sensation nml, No motor deficits Eye Exam: PERRL/EOMI, eyes nml inspection Ears, Nose, Throat Exam: normal ENT inspection, TMs normal, pharynx normal, moist mucous membranes Neck Exam: normal inspection, non-tender, supple, full range of motion Respiratory Exam: normal breath sounds, lungs clear, No respiratory distress Cardiovascular Exam: regular rate/rhythm, normal heart sounds, normal peripheral pulses Gastrointestinal/Abdomen Exam: soft, normal bowel sounds, No tenderness, No mass Back Exam: normal inspection, normal range of motion, No CVA tenderness, No vertebral tenderness Extremity Exam: normal inspection, normal range of motion, pelvis stable Skin Exam: normal color, warm, dry, No rash Wound Assessment: Skin/Wound Assessment Wound/Incision Assessment Start: 09/06/24 18:33 Text: Status: Active Freq: Q6H Protocol: Document 09/06/24 18:33 RB (Rec: 09/06/24 19:19 RB [id number]) Wound/Incision Assessment right lateral lower leg Wound Assessment Admission Wound Type cellulitis Drainage Amount Minimal Drainage Description Serous Drainage Odor None/Absent General Appearance Well Approximated Length (cm) (cm) 4 Width (cm) (cm) 2 Wound Bed Greatest Portion Red (Granulation) Wound Bed Lesser Portion Red (Granulation) Surrounding Tissue Bright Red Comment open to air at this time Wound Photo Photo Taken Yes Date: 09/06/24 Time: 18:00 Comment: picture taken by adonay tyler rn Lymphatic Exam: No adenopathy Additional Findings: 09/06/24 21:33 bilateral leg swelling and redness Results - Labs Lab/Micro Results: Lab Results-Last 24 Hours 09/06/24 09/06/24 09/06/24 Range/Units 15:36 15:36 15:40 WBC 8.5 (4.23-9.07) x10^3/uL RBC 3.79 L (4.63-6.08) x10^6/uL Hgb 11.8 L (13.7-17.5) g/dL Hct 34.0 L (40.1-51.0) % MCV 89.7 (79.0-92.2) fL MCH 31.1 (25.7-32.2) pg MCHC 34.7 (32.3-36.5) g/dL RDW 13.1 (11.6-14.4) % Plt Count 219 (163-337) x10^3/uL MPV 9.3 L (9.4-12.4) fL Gran % 53.8 (34.0-67.9) % Immature Gran % (Auto) 0.2 (0.001-0.429) % Nucleat RBC Rel Count 0.0 (0.00-0.2) % Eos # (Auto) 0.52 (0.04-0.54) x10^3/uL Immature Gran # (Auto) 0.02 (0.001-0.031) x10^3u/L Absolute Lymphs (auto) 2.46 (1.32-3.57) x10^3/uL Absolute Monos (auto) 0.87 H (0.30-0.82) x10^3/uL Absolute Nucleated RBC 0.00 (0.00-0.012) x10^3u/L Lymphocytes % 28.8 (21.8-53.1) % Monocytes % 10.2 (5.3-12.2) % Eosinophils % 6.1 (0.8-7.0) % Basophils % 0.9 (0.2-1.2) % Absolute Granulocytes 4.59 (1.78-5.38) x10^3/uL Basophils # 0.08 (0.01-0.08) x10^3/uL Sodium 142 (135-145) mmol/L Potassium 3.5 (3.5-5.1) mmol/L Chloride 106 (98-107) mmol/L Carbon Dioxide 25 (22-30) mmol/L Anion Gap 14.3 (5-15) MEQ/L BUN 18 (9-20) mg/dL Creatinine 0.86 (0.66-1.25) mg/dL Estimated GFR 84.9 ML/MIN Glucose 75 (74-106) mg/dL Lactic Acid (0.4-2.0) Calcium 8.5 (8.4-10.2) mg/dL Magnesium 1.9 (1.6-2.3) mg/dL Total Bilirubin 0.50 (0.2-1.3) mg/dL AST 31 (17-59) U/L ALT 20 (0-50) U/L Alkaline Phosphatase 107 (38-126) U/L NT-Pro-B Natriuret Pep 344 (<300) pg/mL Serum Total Protein 6.9 (6.3-8.2) g/dL Albumin 3.8 (3.5-5.0) g/dL 09/06/24 Range/Units 15:41 WBC (4.23-9.07) x10^3/uL RBC (4.63-6.08) x10^6/uL Hgb (13.7-17.5) g/dL Hct (40.1-51.0) % MCV (79.0-92.2) fL MCH (25.7-32.2) pg MCHC (32.3-36.5) g/dL RDW (11.6-14.4) % Plt Count (163-337) x10^3/uL MPV (9.4-12.4) fL Gran % (34.0-67.9) % Immature Gran % (Auto) (0.001-0.429) % Nucleat RBC Rel Count (0.00-0.2) % Eos # (Auto) (0.04-0.54) x10^3/uL Immature Gran # (Auto) (0.001-0.031) x10^3u/L Absolute Lymphs (auto) (1.32-3.57) x10^3/uL Absolute Monos (auto) (0.30-0.82) x10^3/uL Absolute Nucleated RBC (0.00-0.012) x10^3u/L Lymphocytes % (21.8-53.1) % Monocytes % (5.3-12.2) % Eosinophils % (0.8-7.0) % Basophils % (0.2-1.2) % Absolute Granulocytes (1.78-5.38) x10^3/uL Basophils # (0.01-0.08) x10^3/uL Sodium (135-145) mmol/L Potassium (3.5-5.1) mmol/L Chloride (98-107) mmol/L Carbon Dioxide (22-30) mmol/L Anion Gap (5-15) MEQ/L BUN (9-20) mg/dL Creatinine (0.66-1.25) mg/dL Estimated GFR ML/MIN Glucose (74-106) mg/dL Lactic Acid 0.7 (0.4-2.0) Calcium (8.4-10.2) mg/dL Magnesium (1.6-2.3) mg/dL Total Bilirubin (0.2-1.3) mg/dL AST (17-59) U/L ALT (0-50) U/L Alkaline Phosphatase (38-126) U/L NT-Pro-B Natriuret Pep (<300) pg/mL Serum Total Protein (6.3-8.2) g/dL Albumin (3.5-5.0) g/dL Assessment/Plan (1) Cellulitis Current Visit: Yes Status: Acute Assessment & Plan: 1. Started on ceftriaxone in the ED, can likely switch to zosyn in the AM or PO abx 2. Lasix for swelling given in the ED with improvement Code(s): L03.90 - CELLULITIS, UNSPECIFIED Telemedicine Encounter - Telemedicine Encounter Telemedicine Encounter: "The entirety of this encounter was performed via Telemedicine" This visit was performed using real-time audio and video connection between my location and thepatients locationwith the assistance of a surrogateat the patients location. Written or verbal consent was obtained from the patient/guardian to perform this [facility]. Any patient questions regarding the telemedicine interaction were answered.
[2024-09-06] MEDS: VENTOLIN COMMON CANISTER IH PRN (21:40)
[2024-09-06] MEDS ORDERED: LIPITOR 40MG PO SCH (22:00)
[2024-09-06] MEDS ORDERED: ZOCOR 20MG ONE (22:48)
[2024-09-06] MEDS: FEOSOL 325 MG PO SCH (23:06)
[2024-09-06] MEDS: Neurontin PO SCH (23:06)
[2024-09-06] MEDS: Coreg PO SCH (23:07)
[2024-09-06] MEDS: ZOCOR 20MG PO SCH (23:16)
[2024-09-07 07:35] LABS: Hematocrit 34.3 % (40.1-51.0); Hemoglobin 11.9 g/dL (13.7-17.5); Mean Cell Volume 90.5 fL (79.0-92.2); Mean Corpuscular Hemoglobin 31.4 pg (25.7-32.2); Mean Corpuscular Hgb Concent. 34.7 g/dL (32.3-36.5); Mean Platelet Volume 9.1 fL (9.4-12.4); Platelet Count 198 x10^3/uL (163-337); Red Blood Count 3.79 x10^6/uL (4.63-6.08); Red Cell Distribution Width 13.1 % (11.6-14.4); White Blood Count 7.2 x10^3/uL (4.23-9.07)
[2024-09-07 07:49] LABS: ALBUMIN 3.6 g/dL (3.5-5.0); ANION GAP 13.7 MEQ/L (5-15); BILIRUBIN,TOTAL 0.4 mg/dL (0.2-1.3); Calcium 8.1 mg/dL (8.4-10.2); EST GLOMERULAR FILTRATION RATE 73.8 ML/MIN; Potassium 3.7 mmol/L (3.5-5.1); Total Protein 6.4 g/dL (6.3-8.2)
--- NOTE | 2024-09-07 08:52 | PCM.NOTE ---
Date and Time: 09/07/24 0819 Subjective Assessment: 09/07/14 is a 83 year old male who has a history of CVA, perpherial neuropathy, cataracts, arrythmia, CAD,CHF, sleep apnea, iron def. anemia, type II DM, OA, BPH with chronic left sided weakness from CVA. He presented to the emergency department on 09/06 escorted by his chair springer secondary to bilateral lower extremity swelling and redness. The swelling has been present for approximately 2 months. However in the last couple of days the chair springer has noticed it has been more difficult for him to move around and to get his shoes on. On arrival to emergency department took 1-2 individuals to help transfer him to the bed. He had 4+ edema to bilateral feet and ankles on admission. Per nursing staff legs were elevated overnight and edema and redness has greatly improved. Redness is isolated to BL calfs above ankles. IV Cefazolin started TID. Will continue to monitor and possibly d/c in tomorrow. He denies CP, SOB, abd. pain, N/V/D. - Review of Systems Constitutional: No Fever, No Chills Eyes: No Symptoms Ears, Nose, & Throat: No Symptoms Respiratory: No Cough, No Short Of Breath Cardiac: No Chest Pain, No Edema, No Syncope Abdominal/Gastrointestinal: No Abdominal Pain, No Nausea, No Vomiting, No Diarrhea Genitourinary Symptoms: No Dysuria Musculoskeletal: No Back Pain, No Neck Pain Skin: Cellulitis (BLLE), Dryness, No Rash Neurological: No Dizziness, No Focal Weakness, No Sensory Changes Psychological: No Symptoms Endocrine: No Symptoms Hematologic/Lymphatic: No Symptoms Immunological/Allergic: No Symptoms Objective Exam General Appearance: no apparent distress, alert Neurologic Exam: alert, oriented x 3, cooperative, normal mood/affect, nml cerebellar function, sensation nml, No motor deficits Skin Exam: normal color, warm, dry Wound Assessment: Skin/Wound Assessment Wound/Incision Assessment Start: 09/06/24 18:33 Text: Status: Active Freq: Q6H Protocol: Document 09/07/24 02:00 LB (Rec: 09/07/24 04:48 LB [id number]) Wound/Incision Assessment right lateral lower leg Wound Assessment Shift Assessment Wound Type Stasis Ulcer Wound Stage Non Pressure Wound General Appearance Open to air Length (cm) (cm) 4 Width (cm) (cm) 2 Wound Bed Greatest Portion Red (Granulation) Surrounding Tissue Bright Red Wound Photo Photo Taken No Eye Exam: PERRL, EOMI, eyes nml inspection Ears, Nose, Throat Exam: normal ENT inspection, pharynx normal, moist mucous membranes Neck Exam: normal inspection, non-tender, supple, full range of motion Respiratory Exam: normal breath sounds, lungs clear, No respiratory distress Cardiovascular Exam: regular rate/rhythm, normal heart sounds Gastrointestinal/Abdomen Exam: soft, No tenderness, No mass Extremity Exam: normal inspection, normal range of motion, inflammation, tenderness (BLLE erythema) Back Exam: normal inspection, normal range of motion, No CVA tenderness, No vertebral tenderness Male Genitalia Exam: deferred Rectal Exam: deferred Objective Data Vital Signs: Vital Signs - 24 hr Temp Pulse Resp BP BP Pulse Ox 09/07/24 07:09 97.7 F 61 23 112/78 95 09/07/24 03:53 98.4 F 75 18 122/56 96 09/07/24 03:41 78 18 93 L 09/07/24 00:00 97.9 F 75 18 145/66 93 L 09/06/24 21:50 75 18 92 L 09/06/24 20:02 92 L 09/06/24 19:45 97.6 F 74 19 155/70 97 09/06/24 18:47 97.6 F 74 19 155/70 97 09/06/24 18:00 62 17 126/62 99 09/06/24 17:45 70 19 115/55 96 09/06/24 17:30 61 15 119/54 09/06/24 17:15 59 L 15 109/52 95 09/06/24 17:00 60 15 134/62 09/06/24 16:45 65 19 138/61 96 09/06/24 16:30 69 22 137/67 97 09/06/24 16:15 66 19 145/68 97 09/06/24 16:00 63 14 157/71 97 09/06/24 15:45 58 L 20 150/79 97 09/06/24 15:38 94 L 09/06/24 15:31 54 L 22 157/66 96 09/06/24 15:15 53 L 21 131/64 95 09/06/24 15:00 54 L 19 124/58 94 L 09/06/24 14:45 55 L 19 151/63 94 L 09/06/24 14:30 59 L 17 157/76 95 09/06/24 14:15 58 L 23 167/70 96 09/06/24 14:09 97.8 F 63 20 160/68 95 Pain Assessment - Last Documented Pain Intensity 0 Intake and Output: Intake & Output 09/04/24 09/05/24 09/06/24 09/07/24 11:59 11:59 11:59 11:59 Intake Total 1020 Output Total 1975 Balance -955 Weight 83.7 kg Lab Results: Lab Results-Last 24 Hours 09/06/24 09/06/24 09/06/24 Range/Units 15:36 15:36 15:40 WBC 8.5 (4.23-9.07) x10^3/uL RBC 3.79 L (4.63-6.08) x10^6/uL Hgb 11.8 L (13.7-17.5) g/dL Hct 34.0 L (40.1-51.0) % MCV 89.7 (79.0-92.2) fL MCH 31.1 (25.7-32.2) pg MCHC 34.7 (32.3-36.5) g/dL RDW 13.1 (11.6-14.4) % Plt Count 219 (163-337) x10^3/uL MPV 9.3 L (9.4-12.4) fL Gran % 53.8 (34.0-67.9) % Immature Gran % (Auto) 0.2 (0.001-0.429) % Nucleat RBC Rel Count 0.0 (0.00-0.2) % Eos # (Auto) 0.52 (0.04-0.54) x10^3/uL Immature Gran # (Auto) 0.02 (0.001-0.031) x10^3u/L Absolute Lymphs (auto) 2.46 (1.32-3.57) x10^3/uL Absolute Monos (auto) 0.87 H (0.30-0.82) x10^3/uL Absolute Nucleated RBC 0.00 (0.00-0.012) x10^3u/L Lymphocytes % 28.8 (21.8-53.1) % Monocytes % 10.2 (5.3-12.2) % Eosinophils % 6.1 (0.8-7.0) % Basophils % 0.9 (0.2-1.2) % Absolute Granulocytes 4.59 (1.78-5.38) x10^3/uL Basophils # 0.08 (0.01-0.08) x10^3/uL Sodium 142 (135-145) mmol/L Potassium 3.5 (3.5-5.1) mmol/L Chloride 106 (98-107) mmol/L Carbon Dioxide 25 (22-30) mmol/L Anion Gap 14.3 (5-15) MEQ/L BUN 18 (9-20) mg/dL Creatinine 0.86 (0.66-1.25) mg/dL Estimated GFR 84.9 ML/MIN Glucose 75 (74-106) mg/dL Lactic Acid (0.4-2.0) Calcium 8.5 (8.4-10.2) mg/dL Magnesium 1.9 (1.6-2.3) mg/dL Total Bilirubin 0.50 (0.2-1.3) mg/dL AST 31 (17-59) U/L ALT 20 (0-50) U/L Alkaline Phosphatase 107 (38-126) U/L NT-Pro-B Natriuret Pep 344 (<300) pg/mL Serum Total Protein 6.9 (6.3-8.2) g/dL Albumin 3.8 (3.5-5.0) g/dL 09/06/24 09/07/24 09/07/24 Range/Units 15:41 07:32 07:32 WBC 7.2 (4.23-9.07) x10^3/uL RBC 3.79 L (4.63-6.08) x10^6/uL Hgb 11.9 L (13.7-17.5) g/dL Hct 34.3 L (40.1-51.0) % MCV 90.5 (79.0-92.2) fL MCH 31.4 (25.7-32.2) pg MCHC 34.7 (32.3-36.5) g/dL RDW 13.1 (11.6-14.4) % Plt Count 198 (163-337) x10^3/uL MPV 9.1 L (9.4-12.4) fL Gran % (34.0-67.9) % Immature Gran % (Auto) (0.001-0.429) % Nucleat RBC Rel Count (0.00-0.2) % Eos # (Auto) (0.04-0.54) x10^3/uL Immature Gran # (Auto) (0.001-0.031) x10^3u/L Absolute Lymphs (auto) (1.32-3.57) x10^3/uL Absolute Monos (auto) (0.30-0.82) x10^3/uL Absolute Nucleated RBC (0.00-0.012) x10^3u/L Lymphocytes % (21.8-53.1) % Monocytes % (5.3-12.2) % Eosinophils % (0.8-7.0) % Basophils % (0.2-1.2) % Absolute Granulocytes (1.78-5.38) x10^3/uL Basophils # (0.01-0.08) x10^3/uL Sodium 139 (135-145) mmol/L Potassium 3.7 (3.5-5.1) mmol/L Chloride 104 (98-107) mmol/L Carbon Dioxide 25 (22-30) mmol/L Anion Gap 13.7 (5-15) MEQ/L BUN 17 (9-20) mg/dL Creatinine 1.00 (0.66-1.25) mg/dL Estimated GFR 73.8 ML/MIN Glucose 165 H (74-106) mg/dL Lactic Acid 0.7 (0.4-2.0) Calcium 8.1 L (8.4-10.2) mg/dL Magnesium (1.6-2.3) mg/dL Total Bilirubin 0.40 (0.2-1.3) mg/dL AST 26 (17-59) U/L ALT 21 (0-50) U/L Alkaline Phosphatase 95 (38-126) U/L NT-Pro-B Natriuret Pep (<300) pg/mL Serum Total Protein 6.4 (6.3-8.2) g/dL Albumin 3.6 (3.5-5.0) g/dL Assessment/Plan (1) Cellulitis Current Visit: Yes Status: Acute Assessment & Plan: - Rocephin gave in ER on 09/06/24 - Cefazolin IV TID started today - Elevate legs - Erythema and edema improved today. Code(s): L03.90 - CELLULITIS, UNSPECIFIED (2) Chronic venous stasis dermatitis of both lower extremities Current Visit: Yes Status: Acute Assessment & Plan: - Elevate legs - IV antibiotics Code(s): I87.2 - VENOUS INSUFFICIENCY (CHRONIC) (PERIPHERAL) (3) Peripheral edema Current Visit: Yes Status: Acute Assessment & Plan: - Improved overnight with legs elevated to heart level on pillows- continue - Lasix 40 IV gave in ER pm 09/06 - Continue Lasix 20 po daily Code(s): R60.0 - LOCALIZED EDEMA (4) History of CVA with residual deficit Current Visit: No Status: Chronic Assessment & Plan: - Continue Plavix Code(s): I69.30 - UNSPECIFIED SEQUELAE OF CEREBRAL INFARCTION (5) Hypertension Current Visit: No Status: Chronic Qualifiers: Hypertension type: primary hypertension Qualified Code(s): I10 - Essential (primary) hypertension Assessment & Plan: - Continue home meds, BP stable- trend Code(s): I10 - ESSENTIAL (PRIMARY) HYPERTENSION (6) Iron deficiency anemia Current Visit: Yes Status: Chronic Assessment & Plan: - Continue ferrous sulfate - Hgb 11.9- trend Code(s): D50.9 - IRON DEFICIENCY ANEMIA, UNSPECIFIED (7) GERD (gastroesophageal reflux disease) Current Visit: Yes Status: Chronic Assessment & Plan: - Continue Pepcid Code(s): K21.9 - GASTRO-ESOPHAGEAL REFLUX DISEASE WITHOUT ESOPHAGITIS (8) Type II diabetes mellitus, well controlled Current Visit: Yes Status: Chronic Assessment & Plan: - A1C 8.00- 07/15/24 -Controlled with oral meds - Continue Glipizide VTE: Plavix PPI: Pepcid Next of KIN: Billy Ware [phone] D/C plan:1-2 days Code status: SCO/ DNR Code(s): E11.9 - TYPE 2 DIABETES MELLITUS WITHOUT COMPLICATIONS
[2024-09-07] MEDS: Pepcid 20 MG PO SCH (09:34)
[2024-09-07] MEDS: Flomax 0.4 MG PO SCH (09:35)
[2024-09-07] MEDS: Klor Con PO SCH (09:35)
[2024-09-07] MEDS: Vitamin C 500 MG PO SCH (09:35)
[2024-09-07] MEDS: Coreg 3.125 MG PO SCH (09:35)
[2024-09-07] MEDS: PLAVIX Tablet PO SCH (09:36)
[2024-09-07] MEDS: MAG-OX 400 PO SCH (09:36)
[2024-09-07] MEDS: THERAGRAN MULTIVITAMIN PO SCH (09:37)
[2024-09-07] MEDS: LASIX 20 MG PO SCH (09:37)
[2024-09-07] MEDS: hydroDIURIL 25 MG PO SCH (09:37)
[2024-09-07] MEDS: Cozaar 50 MG PO SCH (09:37)
[2024-09-07] MEDS ORDERED: NON-FORMULARY ITEM (Losartan/Hydrochlorothiazide [Losartan-Hctz 100-25 Mg Tab] 1 EACH Tabl PO SCH (10:00)
[2024-09-07] MEDS ORDERED: NON-FORMULARY ITEM (Multivitamin [Multivitamins] 1 EACH Capsule) PO SCH (10:00)
[2024-09-07] MEDS ORDERED: NON-FORMULARY ITEM (Magnesium Oxide [Magnesium] 400 MG Tablet) PO SCH (10:00)
[2024-09-07] MEDS ORDERED: ASCORBIC ACID 250 MG PO SCH (10:00)
[2024-09-07] MEDS: HUMALOG SQ PRN (10:05)
[2024-09-07] MEDS: Proscar 5 MG PO SCH (10:06)
[2024-09-07] MEDS: TYLENOL 325 MG PO PRN (10:37)
[2024-09-07] MEDS: CEFAZOLIN 2 GM/100 ML NaCl 2 GM/100 ML IVPB IV SCH (14:19)
[2024-09-08 05:29] LABS: Hemoglobin 11.3 g/dL (13.7-17.5); Mean Cell Volume 91.7 fL (79.0-92.2); Mean Corpuscular Hemoglobin 31.4 pg (25.7-32.2); Mean Corpuscular Hgb Concent. 34.2 g/dL (32.3-36.5); Mean Platelet Volume 9.6 fL (9.4-12.4); Platelet Count 203 x10^3/uL (163-337); Red Cell Distribution Width 13.3 % (11.6-14.4); White Blood Count 6.5 x10^3/uL (4.23-9.07)
[2024-09-08 05:52] LABS: ANION GAP 14.9 MEQ/L (5-15); Calcium 7.9 mg/dL (8.4-10.2); Creatinine 1 1.17 mg/dL (0.66-1.25); EST GLOMERULAR FILTRATION RATE 61.1 ML/MIN; Potassium 3.7 mmol/L (3.5-5.1)
[2024-09-08 06:58] VITALS: BP 139/63; TEMP 97.6
[2024-09-08 07:55] VITALS: PULSE 65; RESP 22; O2SAT 94
--- NOTE | 2024-09-08 09:00 | PCM.DS ---
Discharge Summary Date of Admission: 09/06/24 18:14 Date of Discharge: 09/08/24 Admitting Physician: JAKE SERNA MD Primary Care Provider: AUGUST RAMIREZ Allergies Allergies No Known Drug Allergies Allergy (Verified 02/05/24 09:54) Hospital Summary - Hospital Course Hospital Course: 09/07/24 is a 83 year old male who has a history of CVA, perpherial neuropathy, cataracts, arrythmia, CAD,CHF, sleep apnea, iron def. anemia, type II DM, OA, BPH with chronic left sided weakness from CVA. He presented to the emergency department on 09/06 escorted by his landscape contractor secondary to bilateral lower extremity swelling and redness. The swelling has been present for approximately 2 months. However in the last couple of days the landscape contractor has noticed it has been more difficult for him to move around and to get his shoes on. On arrival to emergency department took 1-2 individuals to help transfer him to the bed. He had 4+ edema to bilateral feet and ankles on admission. Per nursing staff legs were elevated overnight and edema and redness has greatly improved. Redness is isolated to BL calfs above ankles. IV Cefazolin started TID. Will continue to monitor and possibly d/c in tomorrow. He denies CP, SOB, abd. pain, N/V/D. 09/08/24 Pt resting in chair with his clothes on. He tells me he is ready to go home today and feels better. Edema resolved, he continues to have some erythema of BLLE but improved. Educated pt to continue to elevate legs at home after d/c. Will continue OP antibiotics. Will need to f/u with PCP this week for f/u. He denies CP, SOB, abd .pain, N/V/D. - Vitals & Intake/Output Vital Signs: Vital Signs Temperature 97.6 F 09/08/24 06:56 Pulse Rate 65 09/08/24 07:53 Respiratory Rate 22 09/08/24 07:53 Blood Pressure 139/63 09/08/24 06:56 O2 Sat by Pulse Oximetry 94 L 09/08/24 07:53 Intake & Output: Intake & Output 09/05/24 09/06/24 09/07/24 09/08/24 11:59 11:59 11:59 11:59 Intake Total 1138 1210 Output Total 5781 9316 Balance -987 -565 Weight 83.7 kg - Lab Result Diagrams: 09/08/24 05:26 09/08/24 05:26 Lab Results-Last 24 Hrs: Lab Results-Last 24 Hours 09/08/24 09/08/24 Range/Units 05:26 05:26 WBC 6.5 (4.23-9.07) x10^3/uL RBC 3.60 L (4.63-6.08) x10^6/uL Hgb 11.3 L (13.7-17.5) g/dL Hct 33.0 L (40.1-51.0) % MCV 91.7 (79.0-92.2) fL MCH 31.4 (25.7-32.2) pg MCHC 34.2 (32.3-36.5) g/dL RDW 13.3 (11.6-14.4) % Plt Count 203 (163-337) x10^3/uL MPV 9.6 (9.4-12.4) fL Sodium 139 (135-145) mmol/L Potassium 3.7 (3.5-5.1) mmol/L Chloride 103 (98-107) mmol/L Carbon Dioxide 25 (22-30) mmol/L Anion Gap 14.9 (5-15) MEQ/L BUN 19 (9-20) mg/dL Creatinine 1.17 (0.66-1.25) mg/dL Estimated GFR 61.1 ML/MIN Glucose 181 H (74-106) mg/dL Calcium 7.9 L (8.4-10.2) mg/dL Micro Results-Entire Visit: Microbiology 09/06/24 15:45 Blood Culture - Preliminary Blood 09/06/24 15:36 Blood Culture - Preliminary Blood Accuchecks Date 09/08/24 Date 09/07/24 Date 09/07/24 Date 09/07/24 Time 07:31 Time 21:00 Time 16:33 Time 12:12 - Procedures and Test Procedures and Tests throughout Hospitalization: Therapy Orders & Screens 09/06/24 21:50 Respiratory Therapy Assessment DAILY Comment: Diagnosis: Cellulitis Discharge Exam General Appearance: no apparent distress, alert Neurologic Exam: alert, oriented x 3, cooperative, normal mood/affect, nml cerebellar function, sensation nml, No motor deficits Eye Exam: PERRL, EOMI, eyes nml inspection Ears, Nose, Throat Exam: normal ENT inspection, pharynx normal, moist mucous membranes Neck Exam: normal inspection, non-tender, supple, full range of motion Respiratory Exam: normal breath sounds, lungs clear, No respiratory distress Cardiovascular Exam: regular rate/rhythm, normal heart sounds Gastrointestinal/Abdomen Exam: soft, No tenderness, No mass Male Genitalia Exam: deferred Rectal Exam: deferred Back Exam: normal inspection, normal range of motion, No CVA tenderness, No vertebral tenderness Extremity Exam: normal inspection, normal range of motion, inflammation (BLLE - improved) Skin Exam: normal color, warm, dry Wound Assessment: Skin/Wound Assessment Wound/Incision Assessment Start: 09/06/24 18:33 Text: Status: Active Freq: Q6H Protocol: Document 09/08/24 08:00 RB (Rec: 09/08/24 08:41 RB [id number]) Wound/Incision Assessment right lateral lower leg Wound Assessment Shift Assessment Wound Type blisterlike wound Wound Stage Non Pressure Wound Drainage Amount None General Appearance Open to air Length (cm) (cm) 4 Width (cm) (cm) 2 Wound Bed Greatest Portion Red (Granulation) Surrounding Tissue [place] Comment open to air at this time Wound Photo Photo Taken No Final Diagnosis/Problem List - Final Discharge Diagnosis/Problem (1) Cellulitis Current Visit: Yes Status: Acute Code(s): L03.90 - CELLULITIS, UNSPECIFIED (2) Chronic venous stasis dermatitis of both lower extremities Current Visit: Yes Status: Acute Code(s): I87.2 - VENOUS INSUFFICIENCY (CHRONIC) (PERIPHERAL) (3) Peripheral edema Current Visit: Yes Status: Acute Code(s): R60.0 - LOCALIZED EDEMA (4) History of CVA with residual deficit Current Visit: No Status: Chronic Code(s): I69.30 - UNSPECIFIED SEQUELAE OF CEREBRAL INFARCTION (5) Hypertension Current Visit: No Status: Chronic Code(s): I10 - ESSENTIAL (PRIMARY) HYPERTENSION (6) Iron deficiency anemia Current Visit: Yes Status: Chronic Code(s): D50.9 - IRON DEFICIENCY ANEMIA, UNSPECIFIED (7) GERD (gastroesophageal reflux disease) Current Visit: Yes Status: Chronic Code(s): K21.9 - GASTRO-ESOPHAGEAL REFLUX DISEASE WITHOUT ESOPHAGITIS (8) Type II diabetes mellitus, well controlled Current Visit: Yes Status: Chronic Assessment & Plan: 1) Cellulitis Current Visit: Yes Status: Acute Assessment & Plan: - Rocephin gave in ER on 09/06/24 - Cefazolin IV TID started today - Elevate legs - Erythema and edema improved today. Code(s): L03.90 - CELLULITIS, UNSPECIFIED (2) Chronic venous stasis dermatitis of both lower extremities Current Visit: Yes Status: Acute Assessment & Plan: - Elevate legs - IV antibiotics Code(s): I87.2 - VENOUS INSUFFICIENCY (CHRONIC) (PERIPHERAL) (3) Peripheral edema Current Visit: Yes Status: Acute Assessment & Plan: - Improved overnight with legs elevated to heart level on pillows- continue - Lasix 40 IV gave in ER pm 09/06 - Continue Lasix 20 po daily Code(s): R60.0 - LOCALIZED EDEMA (4) History of CVA with residual deficit Current Visit: No Status: Chronic Assessment & Plan: - Continue Plavix Code(s): I69.30 - UNSPECIFIED SEQUELAE OF CEREBRAL INFARCTION (5) Hypertension Current Visit: No Status: Chronic Qualifiers: Hypertension type: primary hypertension Qualified Code(s): I10 - Essential (primary) hypertension Assessment & Plan: - Continue home meds, BP stable- trend Code(s): I10 - ESSENTIAL (PRIMARY) HYPERTENSION (6) Iron deficiency anemia Current Visit: Yes Status: Chronic Assessment & Plan: - Continue ferrous sulfate - Hgb 11.9- trend Code(s): D50.9 - IRON DEFICIENCY ANEMIA, UNSPECIFIED (7) GERD (gastroesophageal reflux disease) Current Visit: Yes Status: Chronic Assessment & Plan: - Continue Pepcid Code(s): K21.9 - GASTRO-ESOPHAGEAL REFLUX DISEASE WITHOUT ESOPHAGITIS (8) Type II diabetes mellitus, well controlled Current Visit: Yes Status: Chronic Assessment & Plan: - A1C 8.00- 07/15/24 -Controlled with oral meds - Continue Glipizide Code(s): E11.9 - TYPE 2 DIABETES MELLITUS WITHOUT COMPLICATIONS - Discharge Discharge Date: 09/08/24 Disposition: HOME HEALTH SERVICE Condition: Stable Prescriptions: Continue Glipizide [Glucotrol Xl] 10 mg PO DAILY Ferrous Sulfate 325 mg [Feosol 325 mg] 325 mg PO BID Clopidogrel Bisulfate [PLAVIX Tablet] 75 mg PO DAILY Desloratadine [Clarinex] 1 tab PO DAILY Atorvastatin Calcium 40 mg PO HS Ascorbic Acid [Vitamin C] 250 mg PO DAILY Furosemide 20 mg [Lasix 20 mg] 1 tab PO DAILY Vit B6/Me-Thfolate/Me-B12/Ala [Nufola Capsule] 1 tab PO DAILY Multivitamin [Multivitamins] 1 tab PO DAILY Magnesium Oxide [Magnesium] 400 mg PO DAILY Losartan/Hydrochlorothiazide [Losartan-Hctz 100-25 mg Tab] 0.5 tab PO DAILY Carvedilol [Coreg ] 3.25 mg PO BID Blood Sugar Diagnostic [Freestyle Lite Test Strip] 1 each MC TID #2 box tadalafiL [Cialis] 1 tab PO DIRECTIONS UNKNOWN PRN PRN Reason: Sexual activity Potassium Chloride Tab* [Klor Con] 20 meq PO DAILY 4 Days #8 tab Polyethylene Glycol 3350 17 gm [Miralax Powder 17GM PACKET] 17 gm PO DAILY PRN PRN PRN Reason: Constipation Gabapentin [Neurontin ] 100 mg PO TID Finasteride 5 mg [Proscar 5 MG] 5 mg PO DAILY Famotidine 20 mg [Pepcid 20 MG] 40 mg PO DAILY Tamsulosin HCl 0.4 mg [Flomax 0.4 MG] 0.4 mg PO DAILY Instructions: Swelling, Cellulitis (Skin Infection), Adult ED, Varicose veins and other vein disease in the legs Follow up with: AUGUST RAMIREZ MD [Primary Care Provider] -
== END 2024-09-08 09:53 | disposition home health service (06) ==
LOC: ED 13:35 → MED SURG 18:14
PROVIDERS: ADMIT Internal Medicine; ATTEND Internal Medicine
DX: L03.116 Cellulitis of left lower limb (principal); L03.115 Cellulitis of right lower limb; I87.2 Venous insufficiency (chronic) (peripheral); R60.0 Localized edema; I69.30 Unspecified sequelae of cerebral infarction; D50.9 Iron deficiency anemia, unspecified; K21.9 Gastro-esophageal reflux disease without esophagitis; E11.9 Type 2 diabetes mellitus without complications; I48.91 Unspecified atrial fibrillation; I11.0 Hypertensive heart disease with heart failure; I50.9 Heart failure, unspecified; I25.10 Atherosclerotic heart disease of native coronary artery without angina pectoris; Z79.899 Other long term (current) drug therapy; Z79.01 Long term (current) use of 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
CPT/HCPCS: 36000; 36415; 80048; 80053; 83605; 83735; 83880; 85025; 85027; 87040; 94640; 94760; 96365; 96374; 99285; G0378; Q3014; J0690; J0696; J1817; J1940; A9270-GY

== ENCOUNTER 2024-09-17 07:26 | Observation (INO) | payer MEDICARE ==
--- NOTE | 2024-09-17 08:18 | ERPHSYRPT ---
- History of Present Illness Time Seen by Provider: 09/17/24 08:06 Source: patient Exam Limitations: no limitations Physician History: 84-year-old male history of CVA with residual left hemiparesis, presents to our emergency department for evaluation of elevated blood glucose. Patient's sugar this morning was 216. However we checked his Dexcom and he is right within the average of his usual glucose. Patient otherwise feels well. No numbness tingling or weakness. No nausea or vomiting no diarrhea no rash. No chest pain or shortness of breath. Patient does report observing blood in his stool. Patient reports his primary care doctor is aware and he is currently being scheduled for colonoscopy. No active bleeding at this time. Patient otherwise feels well. He voices no other complaints or concerns at this time. Portions of this note were created with voice recognition technology. There may be grammatical, spelling, punctuation or sound alike errors Timing/Duration: today Severity: moderate Modifying Factors: Improves With: nothing Associated Symptoms: denies symptoms Allergies/Adverse Reactions: No Known Drug Allergies Allergy (Verified 09/17/24 07:41) Home Medications: Clopidogrel Bisulfate [PLAVIX Tablet] 75 mg PO DAILY 01/12/16 [History] Ferrous Sulfate 325 mg [Feosol 325 mg] 325 mg PO BID 01/12/16 [History] Glipizide [Glucotrol Xl] 10 mg PO DAILY 01/12/16 [History] Ascorbic Acid [Vitamin C] 250 mg PO DAILY 10/11/19 [History] Atorvastatin Calcium 40 mg PO HS 10/11/19 [History] Desloratadine [Clarinex] 1 tab PO DAILY 10/11/19 [History] Furosemide 20 mg [Lasix 20 mg] 1 tab PO DAILY 10/11/19 [History] Losartan/Hydrochlorothiazide [Losartan-Hctz 100-25 mg Tab] 0.5 tab PO DAILY 10/11/19 [History] Magnesium Oxide [Magnesium] 400 mg PO DAILY 10/11/19 [History] Multivitamin [Multivitamins] 1 tab PO DAILY 10/11/19 [History] Vit B6/Me-Thfolate/Me-B12/Ala [Nufola Capsule] 1 tab PO DAILY 10/11/19 [History] Carvedilol [Coreg ] 3.25 mg PO BID 05/20/21 [History] tadalafiL [Cialis] 1 tab PO DIRECTIONS UNKNOWN PRN 03/13/22 [History] Famotidine 20 mg [Pepcid 20 MG] 40 mg PO DAILY 09/06/24 [History] Finasteride 5 mg [Proscar 5 MG] 5 mg PO DAILY 09/06/24 [History] Gabapentin [Neurontin ] 100 mg PO TID 09/06/24 [History] Polyethylene Glycol 3350 17 gm [Miralax Powder 17GM PACKET] 17 gm PO DAILY PRN PRN 09/06/24 [History] Tamsulosin HCl 0.4 mg [Flomax 0.4 MG] 0.4 mg PO DAILY 09/06/24 [History] Hx Tetanus, Diphtheria Vaccination/Date Given: Yes Hx Influenza Vaccination/Date Given: Yes Hx Pneumococcal Vaccination/Date Given: Yes Travel Risk - Emerging Infectious Disease Are you exhibiting symptoms associated with any current EIDs: No - Review of Systems Constitutional: No Symptoms, No Fever, No Chills Eyes: No Symptoms Ears, Nose, & Throat: No Symptoms Respiratory: No Symptoms, No Cough, No Dyspnea Cardiac: No Symptoms, No Chest Pain, No Edema, No Syncope Abdominal/Gastrointestinal: No Symptoms, No Abdominal Pain, No Nausea, No Vomiting, No Diarrhea Genitourinary Symptoms: No Symptoms, No Dysuria Musculoskeletal: No Symptoms, No Back Pain, No Neck Pain Skin: No Symptoms, No Rash Neurological: No Symptoms, No Dizziness, No Focal Weakness, No Sensory Changes Psychological: No Symptoms Endocrine: No Symptoms Hematologic/Lymphatic: No Symptoms Immunological/Allergic: No Symptoms All Other Systems: Reviewed and Negative - Past Medical History Pertinent Past Medical History: Yes Neurological History: Peripheral Neuropathy, Stroke ENT History: Cataracts Cardiac History: Arrhythmia, Coronary Artery Disease Respiratory History: CHF, Pneumonia, Sleep Apnea Endocrine Medical History: Diabetes Type II Musculoskeletal History: Arthritis GI Medical History: Diverticulitis, Gallbladder Disease, GI Bleed, Hemorrhoids History: No Pertinent History Psycho-Social History: No Pertinent History Male Reproductive Disorders: Prostate Problems Other Medical History: Multiple Co-Morbidities. Please see medical chart for complete medical history. - Past Surgical History Past Surgical History: Yes Neuro Surgical History: No Pertinent History Cardiac: No Pertinent History Respiratory: No Pertinent History Gastrointestinal: Appendectomy, Cholecystectomy Genitourinary: No Pertinent History Musculoskeletal: Joint Replacement, Orthopedic Surgery Male Surgical History: Vasectomy Other Surgical History: bilat knees and shoulders - Social History Smoking Status: Never smoker Exposure to second hand smoke: Yes Drug Use: none Patient Lives Alone: No - Social Determinants of Health Will the patient participate in the screening: Declined to provide - Nursing Vital Signs Nursing Vital Signs: Initial Vital Signs Temperature 97.6 F 09/17/24 07:27 Pulse Rate 80 09/17/24 07:27 Respiratory Rate 14 09/17/24 07:27 Blood Pressure 141/54 09/17/24 07:27 O2 Sat by Pulse Oximetry 95 09/17/24 07:27 Pain Scale Pain Intensity 0 - Physical Exam General Appearance: no apparent distress, alert, other (Patient appears pale) Eye Exam: PERRL/EOMI, eyes nml inspection Ears, Nose, Throat Exam: normal ENT inspection, moist mucous membranes Neck Exam: normal inspection, non-tender, supple, full range of motion Respiratory Exam: normal breath sounds, lungs clear, airway intact, No respiratory distress Cardiovascular Exam: regular rate/rhythm, normal heart sounds, normal peripheral pulses Gastrointestinal/Abdomen Exam: soft, normal bowel sounds, No tenderness, No mass Back Exam: normal inspection, normal range of motion, No CVA tenderness, No hortencia tebral tenderness Extremity Exam: normal inspection, normal range of motion, pelvis stable, other (1+ pitting edema bilaterally) Neurologic Exam: alert, oriented x 3, cooperative, normal mood/affect, sensation nml, No motor deficits Skin Exam: normal color, warm, dry, No rash Lymphatic Exam: No adenopathy SpO2 Interpretation: normal SpO2: 95 O2 Delivery: Room Air - Course Nursing assessment & vital signs reviewed: Yes Ordered Tests: Active Orders 24 hr Category Date Time Status Cutter Down STAT Care 09/17/24 07:33 Active IV Insertion STAT Care 09/17/24 07:32 Active Pulse Oximetry (ED) STAT Care 09/17/24 07:32 Active CBC W DIFF Stat Lab 09/17/24 08:05 Completed CMP Stat Lab 09/17/24 08:05 Completed CULTURE,URINE Stat Lab 09/17/24 09:37 Received Manual Differential NC Stat Lab 09/17/24 08:05 Completed POCT GLUCOSE Stat Lab 09/17/24 07:35 Completed TROPONIN Q4H Lab 09/17/24 08:05 Completed TROPONIN Q4H Lab 09/17/24 11:45 Ordered TROPONIN Q4H Lab 09/17/24 15:45 Ordered UA W/RFX UR CULTURE Stat Lab 09/17/24 08:25 Completed Transfer Order Routine Transfer 09/17/24 Ordered Medication Summary Generic Name Dose Route Start Last Admin Trade Name Freq PRN Reason Stop Dose Admin Pantoprazole Sodium 80 mg/ 500 mls @ 50 mls/hr 09/17/24 08:45 09/17/24 09:55 Sodium Chloride IV 10/17/24 08:44 50 mls/hr .Q10H VAUGHN 50 mls/hr Administration Discontinued Medications Generic Name Dose Route Start Last Admin Trade Name Freq PRN Reason Stop Dose Admin Sodium Chloride Confirm 09/17/24 09:27 Sodium Chloride 0.9% 250 Ml Administered 09/17/24 09:28 Dose 250 mls @ ud IV .STK-MED ONE Lab/Rad Data: Laboratory Result Diagrams 09/17/24 08:05 09/17/24 08:05 Laboratory Results 09/17/24 09/17/24 09/17/24 Range/Units 08:53 08:53 08:53 WBC (4.23-9.07) x10^3/uL RBC (4.63-6.08) x10^6/uL Hgb (13.7-17.5) g/dL Hct (40.1-51.0) % MCV (79.0-92.2) fL MCH (25.7-32.2) pg MCHC (32.3-36.5) g/dL RDW (11.6-14.4) % Plt Count (163-337) x10^3/uL MPV (9.4-12.4) fL Segmented Neutrophils (34.0-67.9) % Lymphocytes (Manual) (21.8-53.1) % Monocytes (Manual) (5.3-12.2) % Eosinophils (Manual) (0.8-7.0) % Basophils (Manual) (0.2-1.2) % Platelet Estimate (NORMAL) RBC Morphology Polychromasia Anisocytosis Sodium (135-145) mmol/L Potassium (3.5-5.1) mmol/L Chloride (98-107) mmol/L Carbon Dioxide (22-30) mmol/L Anion Gap (5-15) MEQ/L BUN (9-20) mg/dL Creatinine (0.66-1.25) mg/dL Estimated GFR ML/MIN Glucose (74-106) mg/dL POC Glucometer (74 to 106) mg/dL Calcium (8.4-10.2) mg/dL Total Bilirubin (0.2-1.3) mg/dL AST (17-59) U/L ALT (0-50) U/L Alkaline Phosphatase (38-126) U/L Troponin I (0.000-0.033) ng/mL Serum Total Protein (6.3-8.2) g/dL Albumin (3.5-5.0) g/dL Urine Color (Yellow) Urine Appearance (Clear) Urine pH (4.6-8.0) Ur Specific [place] (1.005-1.030) Urine Protein (Negative) Urine Glucose (UA) (Negative) mg/dL Urine Ketones (Negative) Urine Blood (Negative) Urine Nitrite (Negative) Urine Bilirubin (Negative) Urine Urobilinogen (0.2) mg/dL Ur Leukocyte Esterase (Negative) U Hyaline Cast (Auto) (0-2) /LPF Urine Microscopic RBC (0-5) /HPF Urine Microscopic WBC (0-5) /HPF Ur Epithelial Cells (None Seen) /HPF Urine Bacteria (None Seen) /HPF Urine Culture Reflexed (NO) ABO Group B Rh Factor POSITIVE Antibody Screen NEGATIVE (NEGATIVE) Crossmatch COMPATIBLE COMPATIBLE (COMPATIBLE) 09/17/24 09/17/24 09/17/24 Range/Units 08:25 08:05 08:05 WBC (4.23-9.07) x10^3/uL RBC (4.63-6.08) x10^6/uL Hgb (13.7-17.5) g/dL Hct (40.1-51.0) % MCV (79.0-92.2) fL MCH (25.7-32.2) pg MCHC (32.3-36.5) g/dL RDW (11.6-14.4) % Plt Count (163-337) x10^3/uL MPV (9.4-12.4) fL Segmented Neutrophils (34.0-67.9) % Lymphocytes (Manual) (21.8-53.1) % Monocytes (Manual) (5.3-12.2) % Eosinophils (Manual) (0.8-7.0) % Basophils (Manual) (0.2-1.2) % Platelet Estimate (NORMAL) RBC Morphology Polychromasia Anisocytosis Sodium 140 (135-145) mmol/L Potassium 3.8 (3.5-5.1) mmol/L Chloride 109 H (98-107) mmol/L Carbon Dioxide 19 L (22-30) mmol/L Anion Gap 16.2 H (5-15) MEQ/L BUN 42 H (9-20) mg/dL Creatinine 1.06 (0.66-1.25) mg/dL Estimated GFR 68.4 ML/MIN Glucose 267 H (74-106) mg/dL POC Glucometer (74 to 106) mg/dL Calcium 8.4 (8.4-10.2) mg/dL Total Bilirubin 0.30 (0.2-1.3) mg/dL AST 22 (17-59) U/L ALT 19 (0-50) U/L Alkaline Phosphatase 80 (38-126) U/L Troponin I 0.012 (0.000-0.033) ng/mL Serum Total Protein 6.2 L (6.3-8.2) g/dL Albumin 3.5 (3.5-5.0) g/dL Urine Color Yellow (Yellow) Urine Appearance Clear (Clear) Urine pH 5.0 (4.6-8.0) Ur Specific [place] 1.020 (1.005-1.030) Urine Protein Negative (Negative) Urine Glucose (UA) Negative (Negative) mg/dL Urine Ketones Negative (Negative) Urine Blood Negative (Negative) Urine Nitrite Negative (Negative) Urine Bilirubin Negative (Negative) Urine Urobilinogen 0.2 (0.2) mg/dL Ur Leukocyte Esterase Negative (Negative) U Hyaline Cast (Auto) NONE SEEN (0-2) /LPF Urine Microscopic RBC 0-2 (0-5) /HPF Urine Microscopic WBC 0-2 (0-5) /HPF Ur Epithelial Cells None Seen (None Seen) /HPF Urine Bacteria None Seen (None Seen) /HPF Urine Culture Reflexed ORDERED SEPARATELY (NO) ABO Group Rh Factor Antibody Screen (NEGATIVE) Crossmatch (COMPATIBLE) 09/17/24 09/17/24 Range/Units 08:05 07:35 WBC 8.5 (4.23-9.07) x10^3/uL RBC 1.88 L (4.63-6.08) x10^6/uL Hgb 5.9 L* (13.7-17.5) g/dL Hct 17.9 L (40.1-51.0) % MCV 95.2 H (79.0-92.2) fL MCH 31.4 (25.7-32.2) pg MCHC 33.0 (32.3-36.5) g/dL RDW 14.4 (11.6-14.4) % Plt Count 263 (163-337) x10^3/uL MPV 9.4 (9.4-12.4) fL Segmented Neutrophils 52 (34.0-67.9) % Lymphocytes (Manual) 39 (21.8-53.1) % Monocytes (Manual) 2 L (5.3-12.2) % Eosinophils (Manual) 5 (0.8-7.0) % Basophils (Manual) 2 H (0.2-1.2) % Platelet Estimate NORMAL (NORMAL) RBC Morphology ABNORMAL Polychromasia 1+ Anisocytosis 2+ Sodium (135-145) mmol/L Potassium (3.5-5.1) mmol/L Chloride (98-107) mmol/L Carbon Dioxide (22-30) mmol/L Anion Gap (5-15) MEQ/L BUN (9-20) mg/dL Creatinine (0.66-1.25) mg/dL Estimated GFR ML/MIN Glucose (74-106) mg/dL POC Glucometer 216 H (74 to 106) mg/dL Calcium (8.4-10.2) mg/dL Total Bilirubin (0.2-1.3) mg/dL AST (17-59) U/L ALT (0-50) U/L Alkaline Phosphatase (38-126) U/L Troponin I (0.000-0.033) ng/mL Serum Total Protein (6.3-8.2) g/dL Albumin (3.5-5.0) g/dL Urine Color (Yellow) Urine Appearance (Clear) Urine pH (4.6-8.0) Ur Specific [place] (1.005-1.030) Urine Protein (Negative) Urine Glucose (UA) (Negative) mg/dL Urine Ketones (Negative) Urine Blood (Negative) Urine Nitrite (Negative) Urine Bilirubin (Negative) Urine Urobilinogen (0.2) mg/dL Ur Leukocyte Esterase (Negative) U Hyaline Cast (Auto) (0-2) /LPF Urine Microscopic RBC (0-5) /HPF Urine Microscopic WBC (0-5) /HPF Ur Epithelial Cells (None Seen) /HPF Urine Bacteria (None Seen) /HPF Urine Culture Reflexed (NO) ABO Group Rh Factor Antibody Screen (NEGATIVE) Crossmatch (COMPATIBLE) - Progress Progress: improved Progress Note: Case discussed with Dr. Burnham who accepts admission at 8:13 AM. 09/17/24 10:13 84-year-old male presents to our ED for evaluation of hyperglycemia. Patient states he is feeling somewhat weak. Patient figured it was due to his hyperglycemia of 216. I checked his Dexcom and it appears the blood sugar is within his average range. Patient advised that he had been experiencing some intermittent bloody stools. Patient has reportedly bloody stools to his primary care doctor. Patient reports he is scheduled for colonoscopy has not had his colonoscopy yet. Laboratory workup revealed hemoglobin of 5.9. Patient typed and screened. Blood products ordered. Patient will require hospitalization for further evaluation and treatment. Plan of care discussed with patient. He agrees to admission [facility] for further evaluation and treatment. Portions of this note were created with voice recognition technology. There may be grammatical, spelling, punctuation or sound alike errors Complexity of problem addressed is moderate acute complicated. No critical care time. Complex of data reviewed and analyzed is moderate. Test ordered test reviewed results analyzed and correlated clinically with history and physical exam. Risk of complication and or risk of morbidity/mortality patient management is high. Patient requires hospitalization for further evaluation and treatment. Vital stable. Time spent admit patient approximately 20 minutes. Plan of care established for shared decision making. No social determinants of health present to impede follow-up. Portions of this note were created with voice recognition technology. There may be grammatical, spelling, punctuation or sound alike errors 09/17/24 10:16 Counseled pt/family regarding: lab results, diagnosis, need for follow-up - Departure Departure Disposition: Observation Clinical Impression: GI bleed, Macrocytic anemia Condition: Stable Critical Care Time: No Referrals: AUGUST RAMIREZ MD [Primary Care Provider] - Follow up/PCP as directed
[2024-09-17 08:24] LABS: Hematocrit 17.9 % (40.1-51.0); Mean Cell Volume 95.2 fL (79.0-92.2); Mean Corpuscular Hemoglobin 31.4 pg (25.7-32.2); Mean Platelet Volume 9.4 fL (9.4-12.4); Platelet Count 263 x10^3/uL (163-337); Red Blood Count 1.88 x10^6/uL (4.63-6.08); Red Cell Distribution Width 14.4 % (11.6-14.4); White Blood Count 8.5 x10^3/uL (4.23-9.07)
[2024-09-17 08:30] LABS: Hemoglobin 5.9 g/dL (13.7-17.5)
[2024-09-17 08:36] LABS: ALBUMIN 3.5 g/dL (3.5-5.0); ANION GAP 16.2 MEQ/L (5-15); BILIRUBIN,TOTAL 0.3 mg/dL (0.2-1.3); Calcium 8.4 mg/dL (8.4-10.2); Creatinine 1 1.06 mg/dL (0.66-1.25); EST GLOMERULAR FILTRATION RATE 68.4 ML/MIN; Potassium 3.8 mmol/L (3.5-5.1); Total Protein 6.2 g/dL (6.3-8.2)
[2024-09-17 09:16] LABS: ABO TYPING B; Antibody Screen NEGATIVE (NEGATIVE); RH TYPING POSITIVE
[2024-09-17 09:19] LABS: CROSS MATCH (PRBC) COMPATIBLE (COMPATIBLE)
[2024-09-17 09:20] LABS: CROSS MATCH (PRBC) COMPATIBLE (COMPATIBLE)
[2024-09-17] MEDS ORDERED: Sodium Chloride 0.9% 250 ML 250 ML IV ONE (09:27)
[2024-09-17] MEDS: PROTONIX 40 MG IV*** 80 MG in Sodium Chloride 0.9% 500 ML 500 ML IV SCH (09:55)
[2024-09-17 10:00] LABS: Appearance Clear (Clear); Bacteria None Seen /HPF (None Seen); Bilirubin Negative (Negative); Blood Negative (Negative); Epithelial Cells None Seen /HPF (None Seen); Glucose, Urine Negative (Negative); Hyaline Casts NONE SEEN /LPF (0-2); Ketones Negative (Negative); Leukocyte Esterase Negative (Negative); Nitrite Negative (Negative); Protein,Urine Dip Negative (Negative); RBC 0-2 /HPF (0-5); Urobilinogen 0.2 mg/dL (0.2); WBC 0-2 /HPF (0-5)
[2024-09-17 10:05] LABS: Basophil 2 % (0.2-1.2); Eosinophil 5 % (0.8-7.0); Lymphocytes 39 % (21.8-53.1); Monocyte 2 % (5.3-12.2); Neutrophils 52 % (34.0-67.9); Total Cells Counted 100
[2024-09-17 10:06] LABS: ANISOCYTOSIS 2+; Platelet Estimate NORMAL (NORMAL)
[2024-09-17 10:07] LABS: Polychromasia 1+
--- NOTE | 2024-09-17 12:02 | PCM.HP ---
History of Present Illness - Chief Complaint Chief Complaint: Symptomatic anemia, macrocytic anemia Date: 09/17/24 History of Present Illness: is a 84 year old male with PMHX of CVA, perpherial neuropathy, cataracts, arrythmia, CAD,CHF, sleep apnea, iron def. anemia, type II DM, OA, BPH with chronic left sided weakness from CVA. He presented to our emergency department for evaluation of elevated blood glucose. Patient's sugar this morning was 216. However we checked his Dexcom and he is right within the average of his usual glucose. Patient does report observing blood in his stool starting . At that time he reports he was pretty constipated. Patient reports his primary care doctor is aware and he is currently being scheduled for colonoscopy that is scheduled in September. He admits to some weakness, and generally not feeling well. He states he has been taking IBP with his Plavix. Discussed this is not advised and can cause bleeding. Will consult general surgery for possible colonoscopy. Pt already took Plavix this AM. Will hold medication. Will start clear liquid diet and make NPO at midnight. 1 unit PRBC transfused in ER. 2nd unit PRBC pending. Will recheck Hgb after blood completed. He denies any further concerns at this time. - Review of Systems Constitutional: No Fever, No Chills Eyes: No Symptoms Ears, Nose, & Throat: No Symptoms Respiratory: No Cough, No Short Of Breath Cardiac: No Chest Pain, No Edema, No Syncope Abdominal/Gastrointestinal: Constipation, Hematochezia, No Abdominal Pain, No Nausea, No Vomiting, No Diarrhea Genitourinary Symptoms: No Dysuria Musculoskeletal: No Back Pain, No Neck Pain Skin: No Rash Neurological: No Dizziness, No Focal Weakness, No Sensory Changes Psychological: No Symptoms Endocrine: No Symptoms Hematologic/Lymphatic: No Symptoms Immunological/Allergic: No Symptoms Medications & Allergies Home Medications: Home Medication List Clopidogrel Bisulfate [PLAVIX Tablet] 75 mg PO DAILY 01/12/16 [History Confirmed 09/06/24] Ferrous Sulfate 325 mg [Feosol 325 mg] 325 mg PO BID 01/12/16 [History Confirmed 09/06/24] Glipizide [Glucotrol Xl] 10 mg PO DAILY 01/12/16 [History Confirmed 09/06/24] Ascorbic Acid [Vitamin C] 250 mg PO DAILY 10/11/19 [History Confirmed 09/06/24] Atorvastatin Calcium 40 mg PO HS 10/11/19 [History Confirmed 09/06/24] Desloratadine [Clarinex] 1 tab PO DAILY 10/11/19 [History Confirmed 09/06/24] Furosemide 20 mg [Lasix 20 mg] 1 tab PO DAILY 10/11/19 [History Confirmed 09/06/24] Losartan/Hydrochlorothiazide [Losartan-Hctz 100-25 mg Tab] 0.5 tab PO DAILY 10/11/19 [History Confirmed 09/06/24] Magnesium Oxide [Magnesium] 400 mg PO DAILY 10/11/19 [History Confirmed 09/06/24] Multivitamin [Multivitamins] 1 tab PO DAILY 10/11/19 [History Confirmed 09/06/24] Vit B6/Me-Thfolate/Me-B12/Ala [Nufola Capsule] 1 tab PO DAILY 10/11/19 [History Confirmed 09/06/24] Carvedilol [Coreg ] 3.25 mg PO BID 04/15/21 [History Confirmed 09/06/24] Blood Sugar Diagnostic [Freestyle Lite Test Strip] 1 each MC TID #2 box 04/16/21 [Rx Confirmed 09/06/24] tadalafiL [Cialis] 1 tab PO DIRECTIONS UNKNOWN PRN 03/13/22 [History Confirmed 09/06/24] Potassium Chloride Tab* [Klor Con] 20 meq PO DAILY 4 Days #8 tab 02/05/24 [Rx Confirmed 09/06/24] Famotidine 20 mg [Pepcid 20 MG] 40 mg PO DAILY 09/06/24 [History Confirmed 09/06/24] Finasteride 5 mg [Proscar 5 MG] 5 mg PO DAILY 09/06/24 [History Confirmed 09/06/24] Gabapentin [Neurontin ] 100 mg PO TID 09/06/24 [History Confirmed 09/06/24] Polyethylene Glycol 3350 17 gm [Miralax Powder 17GM PACKET] 17 gm PO DAILY PRN PRN 09/06/24 [History Confirmed 09/06/24] Tamsulosin HCl 0.4 mg [Flomax 0.4 MG] 0.4 mg PO DAILY 09/06/24 [History Confirmed 09/06/24] Cefuroxime Axetil [Cefuroxime] 500 mg PO BID 7 Days #14 tablet 09/08/24 [Rx] Allergies/Adverse Reactions: Allergies Allergy/AdvReac Type Severity Reaction Status Date / Time No Known Drug Allergies Allergy Verified 09/17/24 07:41 - Past Medical History Past Medical History: Yes Neurological History: Peripheral Neuropathy, Stroke ENT History: Cataracts Cardiac History: Arrhythmia, Coronary Artery Disease Respiratory History: CHF, Pneumonia, Sleep Apnea Endocrine Medical History: Diabetes Type II Musculoskelatal History: Arthritis GI Medical History: Diverticulitis, Gallbladder Disease, GI Bleed, Hemorrhoids History: No Pertinent History Pyscho-Social History: No Pertinent History Male Reproductive Disorders: Prostate Problems Comment: Multiple Co-Morbidities. Please see medical chart for complete medical history. - Past Surgical History Past Surgical History: Yes Neuro Surgical History: No Pertinent History Cardiac History: No Pertinent History Respiratory Surgery: No Pertinent History GI Surgical History: Appendectomy, Cholecystectomy Genitourinary Surgical Hx: No Pertinent History Musculskeletal Surgical Hx: Joint Replacement, Orthopedic Surgery Male Surgical History: Vasectomy Other Surgical History: bilat knees and shoulders - Social History Smoking Status: Never smoker Exposure to second hand smoke: Yes Alcohol: Occasionally Drug Use: none - Social Determinants of Health Will the patient participate in the screening: Declined to provide - Physical Exam Vital Signs: Vital Signs - 24 hr Temp Pulse Resp BP BP Pulse Ox 09/17/24 11:46 97 09/17/24 10:30 61 20 127/55 90 L 09/17/24 10:24 63 17 119/48 90 L 09/17/24 10:23 61 20 09/17/24 10:22 95 09/17/24 10:10 60 22 113/64 91 L 09/17/24 10:00 62 33 H 109/58 90 L 09/17/24 09:50 59 L 19 121/64 98 09/17/24 09:40 62 19 111/64 98 09/17/24 09:30 66 22 98/45 98 09/17/24 09:21 63 23 87/37 97 09/17/24 09:20 63 19 96 09/17/24 09:10 66 24 96 09/17/24 09:03 66 20 95 09/17/24 08:31 66 19 127/38 96 09/17/24 08:24 74 22 109/40 99 09/17/24 07:42 77 27 H 141/54 94 L 09/17/24 07:32 96 09/17/24 07:27 97.6 F 80 14 141/54 95 General Appearance: no apparent distress, alert Neurologic Exam: alert, oriented x 3, cooperative, normal mood/affect, nml cerebellar function, nml station & gait, sensation nml, No motor deficits Eye Exam: PERRL/EOMI, eyes nml inspection Ears, Nose, Throat Exam: normal ENT inspection, TMs normal, pharynx normal, moist mucous membranes Neck Exam: normal inspection, non-tender, supple, full range of motion Respiratory Exam: normal breath sounds, lungs clear, No respiratory distress Cardiovascular Exam: regular rate/rhythm, normal heart sounds, normal peripheral pulses Gastrointestinal/Abdomen Exam: soft, normal bowel sounds, No tenderness, No mass Back Exam: normal inspection, normal range of motion, No CVA tenderness, No vertebral tenderness Extremity Exam: normal inspection, normal range of motion, pelvis stable Skin Exam: normal color, warm, dry, No rash Lymphatic Exam: No adenopathy Results - Labs Lab/Micro Results: Lab Results-Last 24 Hours 09/17/24 09/17/24 09/17/24 Range/Units 07:35 08:05 08:05 WBC 8.5 (4.23-9.07) x10^3/uL RBC 1.88 L (4.63-6.08) x10^6/uL Hgb 5.9 L* (13.7-17.5) g/dL Hct 17.9 L (40.1-51.0) % MCV 95.2 H (79.0-92.2) fL MCH 31.4 (25.7-32.2) pg MCHC 33.0 (32.3-36.5) g/dL RDW 14.4 (11.6-14.4) % Plt Count 263 (163-337) x10^3/uL MPV 9.4 (9.4-12.4) fL Segmented Neutrophils 52 (34.0-67.9) % Lymphocytes (Manual) 39 (21.8-53.1) % Monocytes (Manual) 2 L (5.3-12.2) % Eosinophils (Manual) 5 (0.8-7.0) % Basophils (Manual) 2 H (0.2-1.2) % Platelet Estimate NORMAL (NORMAL) RBC Morphology ABNORMAL Polychromasia 1+ Anisocytosis 2+ Sodium 140 (135-145) mmol/L Potassium 3.8 (3.5-5.1) mmol/L Chloride 109 H (98-107) mmol/L Carbon Dioxide 19 L (22-30) mmol/L Anion Gap 16.2 H (5-15) MEQ/L BUN 42 H (9-20) mg/dL Creatinine 1.06 (0.66-1.25) mg/dL Estimated GFR 68.4 ML/MIN Glucose 267 H (74-106) mg/dL POC Glucometer 216 H (74 to 106) mg/dL Calcium 8.4 (8.4-10.2) mg/dL Total Bilirubin 0.30 (0.2-1.3) mg/dL AST 22 (17-59) U/L ALT 19 (0-50) U/L Alkaline Phosphatase 80 (38-126) U/L Troponin I (0.000-0.033) ng/mL Serum Total Protein 6.2 L (6.3-8.2) g/dL Albumin 3.5 (3.5-5.0) g/dL Urine Color (Yellow) Urine Appearance (Clear) Urine pH (4.6-8.0) Ur Specific [place] (1.005-1.030) Urine Protein (Negative) Urine Glucose (UA) (Negative) mg/dL Urine Ketones (Negative) Urine Blood (Negative) Urine Nitrite (Negative) Urine Bilirubin (Negative) Urine Urobilinogen (0.2) mg/dL Ur Leukocyte Esterase (Negative) U Hyaline Cast (Auto) (0-2) /LPF Urine Microscopic RBC (0-5) /HPF Urine Microscopic WBC (0-5) /HPF Ur Epithelial Cells (None Seen) /HPF Urine Bacteria (None Seen) /HPF Urine Culture Reflexed (NO) ABO Group Rh Factor Antibody Screen (NEGATIVE) Crossmatch (COMPATIBLE) 09/17/24 09/17/24 09/17/24 Range/Units 08:05 08:25 08:53 WBC (4.23-9.07) x10^3/uL RBC (4.63-6.08) x10^6/uL Hgb (13.7-17.5) g/dL Hct (40.1-51.0) % MCV (79.0-92.2) fL MCH (25.7-32.2) pg MCHC (32.3-36.5) g/dL RDW (11.6-14.4) % Plt Count (163-337) x10^3/uL MPV (9.4-12.4) fL Segmented Neutrophils (34.0-67.9) % Lymphocytes (Manual) (21.8-53.1) % Monocytes (Manual) (5.3-12.2) % Eosinophils (Manual) (0.8-7.0) % Basophils (Manual) (0.2-1.2) % Platelet Estimate (NORMAL) RBC Morphology Polychromasia Anisocytosis Sodium (135-145) mmol/L Potassium (3.5-5.1) mmol/L Chloride (98-107) mmol/L Carbon Dioxide (22-30) mmol/L Anion Gap (5-15) MEQ/L BUN (9-20) mg/dL Creatinine (0.66-1.25) mg/dL Estimated GFR ML/MIN Glucose (74-106) mg/dL POC Glucometer (74 to 106) mg/dL Calcium (8.4-10.2) mg/dL Total Bilirubin (0.2-1.3) mg/dL AST (17-59) U/L ALT (0-50) U/L Alkaline Phosphatase (38-126) U/L Troponin I 0.012 (0.000-0.033) ng/mL Serum Total Protein (6.3-8.2) g/dL Albumin (3.5-5.0) g/dL Urine Color Yellow (Yellow) Urine Appearance Clear (Clear) Urine pH 5.0 (4.6-8.0) Ur Specific [place] 1.020 (1.005-1.030) Urine Protein Negative (Negative) Urine Glucose (UA) Negative (Negative) mg/dL Urine Ketones Negative (Negative) Urine Blood Negative (Negative) Urine Nitrite Negative (Negative) Urine Bilirubin Negative (Negative) Urine Urobilinogen 0.2 (0.2) mg/dL Ur Leukocyte Esterase Negative (Negative) U Hyaline Cast (Auto) NONE SEEN (0-2) /LPF Urine Microscopic RBC 0-2 (0-5) /HPF Urine Microscopic WBC 0-2 (0-5) /HPF Ur Epithelial Cells None Seen (None Seen) /HPF Urine Bacteria None Seen (None Seen) /HPF Urine Culture Reflexed ORDERED SEPARATELY (NO) ABO Group B Rh Factor POSITIVE Antibody Screen NEGATIVE (NEGATIVE) Crossmatch (COMPATIBLE) 09/17/24 09/17/24 09/17/24 Range/Units 08:53 08:53 11:14 WBC (4.23-9.07) x10^3/uL RBC (4.63-6.08) x10^6/uL Hgb (13.7-17.5) g/dL Hct (40.1-51.0) % MCV (79.0-92.2) fL MCH (25.7-32.2) pg MCHC (32.3-36.5) g/dL RDW (11.6-14.4) % Plt Count (163-337) x10^3/uL MPV (9.4-12.4) fL Segmented Neutrophils (34.0-67.9) % Lymphocytes (Manual) (21.8-53.1) % Monocytes (Manual) (5.3-12.2) % Eosinophils (Manual) (0.8-7.0) % Basophils (Manual) (0.2-1.2) % Platelet Estimate (NORMAL) RBC Morphology Polychromasia Anisocytosis Sodium (135-145) mmol/L Potassium (3.5-5.1) mmol/L Chloride (98-107) mmol/L Carbon Dioxide (22-30) mmol/L Anion Gap (5-15) MEQ/L BUN (9-20) mg/dL Creatinine (0.66-1.25) mg/dL Estimated GFR ML/MIN Glucose (74-106) mg/dL POC Glucometer (74 to 106) mg/dL Calcium (8.4-10.2) mg/dL Total Bilirubin (0.2-1.3) mg/dL AST (17-59) U/L ALT (0-50) U/L Alkaline Phosphatase (38-126) U/L Troponin I < 0.012 (0.000-0.033) ng/mL Serum Total Protein (6.3-8.2) g/dL Albumin (3.5-5.0) g/dL Urine Color (Yellow) Urine Appearance (Clear) Urine pH (4.6-8.0) Ur Specific [place] (1.005-1.030) Urine Protein (Negative) Urine Glucose (UA) (Negative) mg/dL Urine Ketones (Negative) Urine Blood (Negative) Urine Nitrite (Negative) Urine Bilirubin (Negative) Urine Urobilinogen (0.2) mg/dL Ur Leukocyte Esterase (Negative) U Hyaline Cast (Auto) (0-2) /LPF Urine Microscopic RBC (0-5) /HPF Urine Microscopic WBC (0-5) /HPF Ur Epithelial Cells (None Seen) /HPF Urine Bacteria (None Seen) /HPF Urine Culture Reflexed (NO) ABO Group Rh Factor Antibody Screen (NEGATIVE) Crossmatch COMPATIBLE COMPATIBLE (COMPATIBLE) Accuchecks Date 09/17/24 Time 07:35 Assessment/Plan (1) GI bleed Current Visit: Yes Status: Acute Assessment & Plan: - Hgb 5.9 on admission - surgery consulted - 2 units PRBC ordered- recheck H&H after complete - clear liquid diet - NPO after midnight - Protonix BID Code(s): K92.2 - GASTROINTESTINAL HEMORRHAGE, UNSPECIFIED (2) Chronic atrial fibrillation Current Visit: No Status: Chronic Assessment & Plan: - Tele - Continue home meds Code(s): I48.20 - CHRONIC ATRIAL FIBRILLATION, UNSPECIFIED (3) GERD (gastroesophageal reflux disease) Current Visit: No Status: Chronic Assessment & Plan: - Protonix BID Code(s): K21.9 - GASTRO-ESOPHAGEAL REFLUX DISEASE WITHOUT ESOPHAGITIS (4) Hypertension Current Visit: No Status: Chronic Qualifiers: Hypertension type: primary hypertension Qualified Code(s): I10 - Essential (primary) hypertension Assessment & Plan: - BP stable - continue home meds Code(s): I10 - ESSENTIAL (PRIMARY) HYPERTENSION (5) Iron deficiency anemia Current Visit: No Status: Chronic Assessment & Plan: - Continue ferrous sulfate - CBC reviewed Code(s): D50.9 - IRON DEFICIENCY ANEMIA, UNSPECIFIED (6) alf (current) use of 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 Current Visit: No Status: Chronic Assessment & Plan: - Hold plavix Code(s): Z79.01 - RETAIL REPRESENTATIVE (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 OF 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 (7) Type II diabetes mellitus, well controlled Current Visit: No Status: Chronic Assessment & Plan: - 07/15/24 - A1C 8.0 - Accuchecks ac/hs, low dose s/s - Hold oral diabetic med - CMP reviewed VTE: SCD's PPI: Protonix Next of KIN: Sister D/C plan: 1-2 days Code status: SCO/DNR Code(s): E11.9 - TYPE 2 DIABETES MELLITUS WITHOUT COMPLICATIONS
[2024-09-17] MEDS ORDERED: Miralax Powder 17GM PACKET PO PRN (15:38)
[2024-09-17] MEDS ORDERED: HUMALOG SQ PRN (15:41)
[2024-09-17] MEDS: Neurontin PO SCH (16:11)
[2024-09-17 16:49] LABS: Hematocrit 24.5 % (40.1-51.0)
[2024-09-17 16:50] LABS: Hemoglobin 8.3 g/dL (13.7-17.5)
[2024-09-17] MEDS: Golytely Solution 4000 ML PO ONE (17:49)
[2024-09-17] MEDS: Protonix 40MG Tablet PO SCH (20:57)
[2024-09-17] MEDS: Coreg 3.125 MG PO SCH (20:58)
[2024-09-17] MEDS: FEOSOL 325 MG PO SCH (20:58)
[2024-09-18 05:43] LABS: Hematocrit 21.9 % (40.1-51.0); Hemoglobin 7.3 g/dL (13.7-17.5); Mean Cell Volume 91.3 fL (79.0-92.2); Mean Corpuscular Hemoglobin 30.4 pg (25.7-32.2); Mean Corpuscular Hgb Concent. 33.3 g/dL (32.3-36.5); Mean Platelet Volume 9.5 fL (9.4-12.4); Platelet Count 217 x10^3/uL (163-337); Red Cell Distribution Width 15.1 % (11.6-14.4); White Blood Count 7.5 x10^3/uL (4.23-9.07)
[2024-09-18 06:32] LABS: ALBUMIN 2.9 g/dL (3.5-5.0); ANION GAP 11.3 MEQ/L (5-15); BILIRUBIN,TOTAL 0.4 mg/dL (0.2-1.3); Calcium 7.8 mg/dL (8.4-10.2); Creatinine 1 1.03 mg/dL (0.66-1.25); EST GLOMERULAR FILTRATION RATE 70.7 ML/MIN; Potassium 3.5 mmol/L (3.5-5.1); Total Protein 5.4 g/dL (6.3-8.2)
[2024-09-18] MEDS: Cozaar 50 MG PO SCH (10:04)
[2024-09-18] MEDS: THERAGRAN MULTIVITAMIN PO SCH (10:04)
[2024-09-18] MEDS: Pepcid 20 MG PO SCH (10:04)
[2024-09-18] MEDS: Vitamin C 500 MG PO SCH (10:05)
[2024-09-18] MEDS: LASIX 20 MG PO SCH (10:05)
[2024-09-18] MEDS: hydroDIURIL 25 MG PO SCH (10:05)
[2024-09-18] MEDS: CLARITIN 10 MG PO SCH (10:05)
[2024-09-18] MEDS: Klor Con PO SCH (10:05)
[2024-09-18] MEDS: Flomax 0.4 MG PO SCH (10:05)
[2024-09-18] MEDS: ZOCOR 20MG PO SCH (10:05)
[2024-09-18] MEDS: MAG-OX 400 PO SCH (10:06)
[2024-09-18] MEDS: FOLTX (FOLBIC) PO SCH (10:06)
[2024-09-18] MEDS: PLAVIX Tablet PO SCH (10:06)
[2024-09-18] MEDS: Proscar 5 MG PO SCH (10:06)
[2024-09-18 10:30] LABS: Hematocrit 24.3 % (40.1-51.0); Hemoglobin 8.3 g/dL (13.7-17.5)
[2024-09-18] MEDS: HUMALOG SQ PRN (11:20)
--- NOTE | 2024-09-18 13:01 | PCM.NOTE ---
Date and Time: 09/18/24 1254 Subjective Assessment: 09/17/24 is a 84 year old male with PMHX of CVA, perpherial neuropathy, cataracts, arrythmia, CAD,CHF, sleep apnea, iron def. anemia, type II DM, OA, BPH with chronic left sided weakness from CVA. He presented to our emergency department for evaluation of elevated blood glucose. Patient's sugar this morning was 216. However we checked his Dexcom and he is right within the average of his usual glucose. Patient does report observing blood in his stool starting . At that time he reports he was pretty constipated. Patient reports his primary care doctor is aware and he is currently being scheduled for colonoscopy that is scheduled in September. He admits to some weakness, and generally not feeling well. He states he has been taking IBP with his Plavix. Discussed this is not advised and can cause bleeding. Will consult general surgery for possible colonoscopy. Pt already took Plavix this AM. Will hold medication. Will start clear liquid diet and make NPO at midnight. 1 unit PRBC transfused in ER. 2nd unit PRBC pending. Will recheck Hgb after blood completed. He denies any further concerns at this time. 09/18/24 Pt resting in bed. He is asking to sit up in the [facility] today. He had bowel prep overnight for possible colonoscopy today. However, he is not clear yet and nursing has a call out to GS as to what more to do or delay until tomorrow. Hgb 7.3 today will continue H& H Q6 hours for close monitoring. Pt states he continues to have dark and bloody stools with prep. He denies Cp, SOB, abd. pain, N/V. - Review of Systems Constitutional: No Fever, No Chills Eyes: No Symptoms Ears, Nose, & Throat: No Symptoms Respiratory: No Cough, No Short Of Breath Cardiac: No Chest Pain, No Edema, No Syncope Abdominal/Gastrointestinal: Hematochezia, Melena, No Abdominal Pain, No Nausea, No Vomiting, No Diarrhea Genitourinary Symptoms: No Dysuria Musculoskeletal: No Back Pain, No Neck Pain Skin: No Rash Neurological: No Dizziness, No Focal Weakness, No Sensory Changes Psychological: No Symptoms Endocrine: No Symptoms Hematologic/Lymphatic: No Symptoms Immunological/Allergic: No Symptoms Objective Exam General Appearance: no apparent distress, alert Neurologic Exam: alert, oriented x 3, cooperative, normal mood/affect, nml cerebellar function, sensation nml, No motor deficits Skin Exam: normal color, warm, dry Eye Exam: PERRL, EOMI, eyes nml inspection Ears, Nose, Throat Exam: normal ENT inspection, pharynx normal, moist mucous membranes Neck Exam: normal inspection, non-tender, supple, full range of motion Respiratory Exam: normal breath sounds, lungs clear, No respiratory distress Cardiovascular Exam: regular rate/rhythm, normal heart sounds Gastrointestinal/Abdomen Exam: soft, No tenderness, No mass Extremity Exam: normal inspection, normal range of motion Back Exam: normal inspection, normal range of motion, No CVA tenderness, No vertebral tenderness Male Genitalia Exam: deferred Rectal Exam: deferred Objective Data Vital Signs: Vital Signs - 24 hr Temp Pulse Resp BP Pulse Ox 09/18/24 11:38 97.6 F 63 16 127/60 96 09/18/24 07:25 97.6 F 63 16 138/63 97 09/18/24 04:00 98.4 F 71 22 130/60 98 09/17/24 23:42 97.5 F 58 L 16 120/57 97 09/17/24 20:00 97.5 F 78 22 156/70 98 09/17/24 19:42 74 16 96 09/17/24 15:07 97.6 F 68 16 112/54 96 Pain Assessment - Last Documented Pain Intensity 0 Intake and Output: Intake & Output 09/16/24 09/17/24 09/18/24 09/19/24 11:59 11:59 11:59 11:59 Intake Total 5680 Output Total 1575 Balance 4105 Weight 81.4 kg Lab Results: Lab Results-Last 24 Hours 09/17/24 09/17/24 09/17/24 Range/Units 08:05 15:54 16:45 WBC (4.23-9.07) x10^3/uL RBC (4.63-6.08) x10^6/uL Hgb 8.3 L D (13.7-17.5) g/dL Hct 24.5 L (40.1-51.0) % MCV (79.0-92.2) fL MCH (25.7-32.2) pg MCHC (32.3-36.5) g/dL RDW (11.6-14.4) % Plt Count (163-337) x10^3/uL MPV (9.4-12.4) fL Sodium (135-145) mmol/L Potassium (3.5-5.1) mmol/L Chloride (98-107) mmol/L Carbon Dioxide (22-30) mmol/L Anion Gap (5-15) MEQ/L BUN (9-20) mg/dL Creatinine (0.66-1.25) mg/dL Estimated GFR ML/MIN Glucose (74-106) mg/dL Hemoglobin A1c 6.98 H (4.5-6.0) % Calcium (8.4-10.2) mg/dL Total Bilirubin (0.2-1.3) mg/dL AST (17-59) U/L ALT (0-50) U/L Alkaline Phosphatase (38-126) U/L Troponin I < 0.012 (0.000-0.033) ng/mL Serum Total Protein (6.3-8.2) g/dL Albumin (3.5-5.0) g/dL 09/18/24 09/18/24 09/18/24 Range/Units 05:27 05:27 10:26 WBC 7.5 (4.23-9.07) x10^3/uL RBC 2.40 L (4.63-6.08) x10^6/uL Hgb 7.3 L 8.3 L (13.7-17.5) g/dL Hct 21.9 L 24.3 L (40.1-51.0) % MCV 91.3 (79.0-92.2) fL MCH 30.4 (25.7-32.2) pg MCHC 33.3 (32.3-36.5) g/dL RDW 15.1 H (11.6-14.4) % Plt Count 217 (163-337) x10^3/uL MPV 9.5 (9.4-12.4) fL Sodium 142 (135-145) mmol/L Potassium 3.5 (3.5-5.1) mmol/L Chloride 110 H (98-107) mmol/L Carbon Dioxide 24 (22-30) mmol/L Anion Gap 11.3 (5-15) MEQ/L BUN 35 H (9-20) mg/dL Creatinine 1.03 (0.66-1.25) mg/dL Estimated GFR 70.7 ML/MIN Glucose 87 (74-106) mg/dL Hemoglobin A1c (4.5-6.0) % Calcium 7.8 L (8.4-10.2) mg/dL Total Bilirubin 0.40 (0.2-1.3) mg/dL AST 20 (17-59) U/L ALT 13 (0-50) U/L Alkaline Phosphatase 63 (38-126) U/L Troponin I (0.000-0.033) ng/mL Serum Total Protein 5.4 L (6.3-8.2) g/dL Albumin 2.9 L (3.5-5.0) g/dL Multi-Disciplinary Progress Notes: Multi-Disciplinary Progress Notes 09/17/24 13:52 Respiratory Note by Ania Collier pt 99% on rm air. pt has no breathing history. pt is breathing well at this time. pt b/s clear. Initialized on 09/17/24 13:52 - END OF NOTE Assessment/Plan (1) GI bleed Current Visit: Yes Status: Acute Code(s): K92.2 - GASTROINTESTINAL HEMORRHAGE, UNSPECIFIED (2) Chronic atrial fibrillation Current Visit: No Status: Chronic Code(s): I48.20 - CHRONIC ATRIAL FIBRILLATION, UNSPECIFIED (3) GERD (gastroesophageal reflux disease) Current Visit: No Status: Chronic Code(s): K21.9 - GASTRO-ESOPHAGEAL REFLUX DISEASE WITHOUT ESOPHAGITIS (4) Hypertension Current Visit: No Status: Chronic Qualifiers: Hypertension type: primary hypertension Qualified Code(s): I10 - Essential (primary) hypertension Code(s): I10 - ESSENTIAL (PRIMARY) HYPERTENSION (5) Iron deficiency anemia Current Visit: No Status: Chronic Code(s): D50.9 - IRON DEFICIENCY ANEMIA, UNSPECIFIED (6) care home (current) use of 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 Current Visit: No Status: Chronic Code(s): Z79.01 - SKILLED NURSING (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 OF 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 (7) Type II diabetes mellitus, well controlled Current Visit: No Status: Chronic Assessment & Plan: (1) GI bleed Current Visit: Yes Status: Acute Assessment & Plan: - Hgb 5.9 on admission - surgery consulted - 2 units PRBC ordered- recheck H&H after complete - clear liquid diet - NPO after midnight - Protonix BID 09/18 - plan was for colonoscopy today however BM's are not cear - GS notified by nursing as to further plan of care and to do colonoscopy today or tomorrow - Hgb 7.3 - H& H Q6 - CBC reviewed Code(s): K92.2 - GASTROINTESTINAL HEMORRHAGE, UNSPECIFIED (2) Chronic atrial fibrillation Current Visit: No Status: Chronic Assessment & Plan: - Tele - Continue home meds Code(s): I48.20 - CHRONIC ATRIAL FIBRILLATION, UNSPECIFIED (3) GERD (gastroesophageal reflux disease) Current Visit: No Status: Chronic Assessment & Plan: - Protonix BID Code(s): K21.9 - GASTRO-ESOPHAGEAL REFLUX DISEASE WITHOUT ESOPHAGITIS (4) Hypertension Current Visit: No Status: Chronic Qualifiers: Hypertension type: primary hypertension Qualified Code(s): I10 - Essential (primary) hypertension Assessment & Plan: - BP stable - continue home meds Code(s): I10 - ESSENTIAL (PRIMARY) HYPERTENSION (5) Iron deficiency anemia Current Visit: No Status: Chronic Assessment & Plan: - Continue ferrous sulfate - CBC reviewed - H& H Q6 Code(s): D50.9 - IRON DEFICIENCY ANEMIA, UNSPECIFIED (6) care home (current) use of 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 Current Visit: No Status: Chronic Assessment & Plan: - Hold plavix Code(s): Z79.01 - SKILLED NURSING (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 OF 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 (7) Type II diabetes mellitus, well controlled Current Visit: No Status: Chronic Assessment & Plan: - 07/15/24 - A1C 8.0 - Accuchecks ac/hs, low dose s/s - Hold oral diabetic med - CMP reviewed VTE: SCD's PPI: Protonix Next of KIN: Sister D/C plan: 1-2 days Code status: SCO/DNR Code(s): E11.9 - TYPE 2 DIABETES MELLITUS WITHOUT COMPLICATIONS Code(s): E11.9 - TYPE 2 DIABETES MELLITUS WITHOUT COMPLICATIONS
[2024-09-18] MEDS: Golytely Solution 4000 ML PO ONE (14:17)
[2024-09-18 16:11] LABS: Hemoglobin 8.7 g/dL (13.7-17.5)
[2024-09-18 22:07] LABS: Hematocrit 22.9 % (40.1-51.0); Hemoglobin 7.7 g/dL (13.7-17.5)
[2024-09-19 05:30] LABS: Hematocrit 21.7 % (40.1-51.0); Hemoglobin 7.3 g/dL (13.7-17.5); Mean Cell Volume 91.9 fL (79.0-92.2); Mean Corpuscular Hemoglobin 30.9 pg (25.7-32.2); Mean Corpuscular Hgb Concent. 33.6 g/dL (32.3-36.5); Mean Platelet Volume 9.5 fL (9.4-12.4); Platelet Count 241 x10^3/uL (163-337); Red Blood Count 2.36 x10^6/uL (4.63-6.08); Red Cell Distribution Width 16.1 % (11.6-14.4); White Blood Count 7.3 x10^3/uL (4.23-9.07)
[2024-09-19 05:58] LABS: ALBUMIN 3.1 g/dL (3.5-5.0); BILIRUBIN,TOTAL 0.5 mg/dL (0.2-1.3); Calcium 7.8 mg/dL (8.4-10.2); Creatinine 1 1.01 mg/dL (0.66-1.25); EST GLOMERULAR FILTRATION RATE 72.4 ML/MIN; Potassium 3.4 mmol/L (3.5-5.1); Total Protein 5.6 g/dL (6.3-8.2)
[2024-09-19] MEDS: POTASSIUM CHLORIDE 20 mEq IN WATER 100ML 100 ML IV SCH (08:43)
[2024-09-19] MEDS: Sodium Chloride 0.9% 250 ML 250 ML IV SCH (09:21)
--- NOTE | 2024-09-19 12:51 | PCM.NOTE ---
Date and Time: 09/19/24 1245 Subjective Assessment: 09/17/24 is a 84 year old male with PMHX of CVA, perpherial neuropathy, cataracts, arrythmia, CAD,CHF, sleep apnea, iron def. anemia, type II DM, OA, BPH with chronic left sided weakness from CVA. He presented to our emergency department for evaluation of elevated blood glucose. Patient's sugar this morning was 216. However we checked his Dexcom and he is right within the average of his usual glucose. Patient does report observing blood in his stool starting . At that time he reports he was pretty constipated. Patient reports his primary care doctor is aware and he is currently being scheduled for colonoscopy that is scheduled in September. He admits to some weakness, and generally not feeling well. He states he has been taking IBP with his Plavix. Discussed this is not advised and can cause bleeding. Will consult general surgery for possible colonoscopy. Pt already took Plavix this AM. Will hold medication. Will start clear liquid diet and make NPO at midnight. 1 unit PRBC transfused in ER. 2nd unit PRBC pending. Will recheck Hgb after blood completed. He denies any further concerns at this time. 09/18/24 Pt resting in bed. He is asking to sit up in the [facility] today. He had bowel prep overnight for possible colonoscopy today. However, he is not clear yet and nursing has a call out to as to what more to do or delay until tomorrow. Hgb 7.3 today will continue H& H Q6 hours for close monitoring. Pt states he continues to have dark and bloody stools with prep. He denies Cp, SOB, abd. pain, N/V. 09/19/24 Pt resting in bed. He is awaiting a colonoscopy today. Hgb 7.3 today. K+ 3.4 and replaced IV since he is having colonoscopy. He is rather irritale as the IV potassium is causing some pain. IV fluids added to help with discomfort. He denies any further concerns at this time. - Review of Systems Constitutional: No Fever, No Chills Eyes: No Symptoms Ears, Nose, & Throat: No Symptoms Respiratory: No Cough, No Short Of Breath Cardiac: No Chest Pain, No Edema, No Syncope Abdominal/Gastrointestinal: No Abdominal Pain, No Nausea, No Vomiting, No Diarrhea Genitourinary Symptoms: No Dysuria Musculoskeletal: No Back Pain, No Neck Pain Skin: No Rash Neurological: No Dizziness, No Focal Weakness, No Sensory Changes Psychological: No Symptoms Endocrine: No Symptoms Hematologic/Lymphatic: No Symptoms Immunological/Allergic: No Symptoms Objective Exam General Appearance: no apparent distress, alert Neurologic Exam: alert, oriented x 3, normal mood/affect, nml cerebellar function, sensation nml, agitation, No motor deficits Skin Exam: normal color, warm, dry Eye Exam: PERRL, EOMI, eyes nml inspection Ears, Nose, Throat Exam: normal ENT inspection, pharynx normal, moist mucous membranes Neck Exam: normal inspection, non-tender, supple, full range of motion Respiratory Exam: normal breath sounds, lungs clear, No respiratory distress Cardiovascular Exam: regular rate/rhythm, normal heart sounds Gastrointestinal/Abdomen Exam: soft, No tenderness, No mass Extremity Exam: normal inspection, normal range of motion Back Exam: normal inspection, normal range of motion, No CVA tenderness, No vertebral tenderness Male Genitalia Exam: deferred Rectal Exam: deferred Objective Data Vital Signs: Vital Signs - 24 hr Temp Pulse Resp BP Pulse Ox 09/19/24 12:22 97.5 F 59 L 18 153/66 95 09/19/24 11:37 97.5 F 59 L 18 153/66 95 09/19/24 07:58 97.5 F 66 16 106/54 95 09/19/24 04:00 97.3 F 71 20 103/55 97 09/19/24 00:00 97.8 F 69 22 132/63 97 09/18/24 20:00 97.8 F 68 18 108/77 97 09/18/24 16:00 97.7 F 68 16 152/76 97 Pain Assessment - Last Documented Pain Intensity 0 Intake and Output: Intake & Output 09/17/24 09/18/24 09/19/24 09/20/24 11:59 11:59 11:59 11:59 Intake Total 5680 2260 Output Total 1575 Balance 4105 2260 Weight 81.4 kg 81.4 kg Lab Results: Lab Results-Last 24 Hours 09/18/24 09/18/24 09/19/24 Range/Units 16:05 22:04 05:23 WBC 7.3 (4.23-9.07) x10^3/uL RBC 2.36 L (4.63-6.08) x10^6/uL Hgb 8.7 L 7.7 L 7.3 L (13.7-17.5) g/dL Hct 26.0 L 22.9 L 21.7 L (40.1-51.0) % MCV 91.9 (79.0-92.2) fL MCH 30.9 (25.7-32.2) pg MCHC 33.6 (32.3-36.5) g/dL RDW 16.1 H (11.6-14.4) % Plt Count 241 (163-337) x10^3/uL MPV 9.5 (9.4-12.4) fL Sodium (135-145) mmol/L Potassium (3.5-5.1) mmol/L Chloride (98-107) mmol/L Carbon Dioxide (22-30) mmol/L Anion Gap (5-15) MEQ/L BUN (9-20) mg/dL Creatinine (0.66-1.25) mg/dL Estimated GFR ML/MIN Glucose (74-106) mg/dL Calcium (8.4-10.2) mg/dL Total Bilirubin (0.2-1.3) mg/dL AST (17-59) U/L ALT (0-50) U/L Alkaline Phosphatase (38-126) U/L Serum Total Protein (6.3-8.2) g/dL Albumin (3.5-5.0) g/dL 09/19/24 Range/Units 05:23 WBC (4.23-9.07) x10^3/uL RBC (4.63-6.08) x10^6/uL Hgb (13.7-17.5) g/dL Hct (40.1-51.0) % MCV (79.0-92.2) fL MCH (25.7-32.2) pg MCHC (32.3-36.5) g/dL RDW (11.6-14.4) % Plt Count (163-337) x10^3/uL MPV (9.4-12.4) fL Sodium 140 (135-145) mmol/L Potassium 3.4 L (3.5-5.1) mmol/L Chloride 105 (98-107) mmol/L Carbon Dioxide 26 (22-30) mmol/L Anion Gap 12.0 (5-15) MEQ/L BUN 29 H (9-20) mg/dL Creatinine 1.01 (0.66-1.25) mg/dL Estimated GFR 72.4 ML/MIN Glucose 129 H (74-106) mg/dL Calcium 7.8 L (8.4-10.2) mg/dL Total Bilirubin 0.50 (0.2-1.3) mg/dL AST 22 (17-59) U/L ALT 13 (0-50) U/L Alkaline Phosphatase 73 (38-126) U/L Serum Total Protein 5.6 L (6.3-8.2) g/dL Albumin 3.1 L (3.5-5.0) g/dL Multi-Disciplinary Progress Notes: Multi-Disciplinary Progress Notes 09/19/24 10:45 (created 09/19/24 12:23) Case Management Note by Karyna Kelley S/W PATIENT- HE CONTINUES TO DECLINE A REHAB STAY. HE IS AWARE HHC WAS JUST STARTED FOR HIM AND HE IS AGREEABLE TO WORK WITH THEM. HE, OTHERWISE, FEELS HE IS FUNCTIONING AT HIS BASELINE AND PLANS TO RETURN HOME TO HIS PLF AT TIME OF DC. HE DENIES ANY NEW NEEDS Initialized on 09/19/24 12:23 - END OF NOTE 09/18/24 12:56 Case Management Note by Karyna Kelley PATIENT HAS [facility]. THEY WERE NOTIFIED PATIENT HERE OBS. THEY WILL NEED NOTIFIED AT TIME OF DC AT [phone]. THEY WILL NEED FAXED THE DC INSTRUCTIONS, DC MED LIST AND DC SUMMARY TO [phone] Initialized on 09/18/24 12:56 - END OF NOTE Assessment/Plan (1) GI bleed Current Visit: Yes Status: Acute Code(s): K92.2 - GASTROINTESTINAL HEMORRHAGE, UNSPECIFIED (2) Chronic atrial fibrillation Current Visit: No Status: Chronic Code(s): I48.20 - CHRONIC ATRIAL FIBRILLATION, UNSPECIFIED (3) GERD (gastroesophageal reflux disease) Current Visit: No Status: Chronic Code(s): K21.9 - GASTRO-ESOPHAGEAL REFLUX DISEASE WITHOUT ESOPHAGITIS (4) Hypertension Current Visit: No Status: Chronic Qualifiers: Hypertension type: primary hypertension Qualified Code(s): I10 - Essential (primary) hypertension Code(s): I10 - ESSENTIAL (PRIMARY) HYPERTENSION (5) Iron deficiency anemia Current Visit: No Status: Chronic Code(s): D50.9 - IRON DEFICIENCY ANEMIA, UNSPECIFIED (6) 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 Current Visit: No Status: Chronic Code(s): 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 (7) Type II diabetes mellitus, well controlled Current Visit: No Status: Chronic Assessment & Plan: (1) GI bleed Current Visit: Yes Status: Acute Assessment & Plan: - Hgb 5.9 on admission - surgery consulted - 2 units PRBC ordered- recheck H&H after complete - clear liquid diet - NPO after midnight - Protonix BID 09/18 - plan was for colonoscopy today however BM's are not cear - GS notified by nursing as to further plan of care and to do colonoscopy today or tomorrow - Hgb 7.3 - H& H Q6 - CBC reviewed 09/19 - Hgb 7.3- trend - Scheduled for colonoscopy today - CBC reviewed Code(s): K92.2 - GASTROINTESTINAL HEMORRHAGE, UNSPECIFIED (2) Chronic atrial fibrillation Current Visit: No Status: Chronic Assessment & Plan: - Tele - Continue home meds Code(s): I48.20 - CHRONIC ATRIAL FIBRILLATION, UNSPECIFIED (3) GERD (gastroesophageal reflux disease) Current Visit: No Status: Chronic Assessment & Plan: - Protonix BID Code(s): K21.9 - GASTRO-ESOPHAGEAL REFLUX DISEASE WITHOUT ESOPHAGITIS (4) Hypertension Current Visit: No Status: Chronic Qualifiers: Hypertension type: primary hypertension Qualified Code(s): I10 - Essential (primary) hypertension Assessment & Plan: - BP stable - continue home meds Code(s): I10 - ESSENTIAL (PRIMARY) HYPERTENSION (5) Iron deficiency anemia Current Visit: No Status: Chronic Assessment & Plan: - Continue ferrous sulfate - CBC reviewed - H& H Q6 09/19 - HGb 7.3- trend Code(s): D50.9 - IRON DEFICIENCY ANEMIA, UNSPECIFIED (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 Current Visit: No Status: Chronic Assessment & Plan: - Hold plavix Code(s): Z79.01 - [facility]DC (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 OF 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 (7) Type II diabetes mellitus, well controlled Current Visit: No Status: Chronic Assessment & Plan: - 07/15/24 - A1C 8.0 - Accuchecks ac/hs, low dose s/s - Hold oral diabetic med - CMP reviewed Code(s): E11.9 - TYPE 2 DIABETES MELLITUS WITHOUT COMPLICATIONS Code(s): E11.9 - TYPE 2 DIABETES MELLITUS WITHOUT COMPLICATIONS (8) Hypokalemia Current Visit: Yes Status: Acute Assessment & Plan: - K+ 3.4- replacement ordered- recheck 2 hours post completion VTE: SCD's PPI: Protonix Next of KIN: Sister D/C plan: tomorrow Code status: SCO/DNR Code(s): E87.6 - HYPOKALEMIA
[2024-09-19] MEDS: Lactated Ringers 1,000 ML IV SCH (15:05)
[2024-09-19] MEDS ORDERED: Amidate 20 MG/10 ML IV ONE (16:40)
[2024-09-19] MEDS ORDERED: Xylocaine-Mpf 2% 5 Ml Vial ONE (16:40)
[2024-09-19] MEDS ORDERED: DIPRIVAN 200 MG/20 ML IV ONE (16:40)
[2024-09-19 19:29] LABS: Hematocrit 22.4 % (40.1-51.0); Hemoglobin 7.6 g/dL (13.7-17.5)
[2024-09-20 05:03] LABS: Hematocrit 19.2 % (40.1-51.0); Mean Cell Volume 94.6 fL (79.0-92.2); Mean Corpuscular Hemoglobin 31.5 pg (25.7-32.2); Mean Corpuscular Hgb Concent. 33.3 g/dL (32.3-36.5); Mean Platelet Volume 9.2 fL (9.4-12.4); Platelet Count 244 x10^3/uL (163-337); Red Blood Count 2.03 x10^6/uL (4.63-6.08); Red Cell Distribution Width 16.8 % (11.6-14.4); White Blood Count 7.7 x10^3/uL (4.23-9.07)
[2024-09-20 05:10] LABS: Hemoglobin 6.4 g/dL (13.7-17.5)
[2024-09-20 05:22] LABS: ALBUMIN 2.8 g/dL (3.5-5.0); ANION GAP 12.4 MEQ/L (5-15); BILIRUBIN,TOTAL 0.2 mg/dL (0.2-1.3); Calcium 7.6 mg/dL (8.4-10.2); Creatinine 1 1.11 mg/dL (0.66-1.25); EST GLOMERULAR FILTRATION RATE 64.7 ML/MIN; MAGNESIUM 1.8 mg/dL (1.6-2.3); Potassium 4.1 mmol/L (3.5-5.1); Total Protein 5.2 g/dL (6.3-8.2)
[2024-09-20 07:36] LABS: ABO TYPING B; Antibody Screen NEGATIVE (NEGATIVE); RH TYPING POSITIVE
[2024-09-20 07:38] LABS: CROSS MATCH (PRBC) COMPATIBLE (COMPATIBLE)
[2024-09-20 09:11] LABS: CROSS MATCH (PRBC) COMPATIBLE (COMPATIBLE)
[2024-09-20] MEDS: Sodium Chloride 0.9% 250 ML 250 ML IV SCH (10:43)
[2024-09-20 11:17] VITALS: RESP 18; O2SAT 96
[2024-09-20] MEDS: HUMALOG SQ SCH (11:25)
--- NOTE | 2024-09-20 13:08 | PCM.DS ---
Discharge Summary Date of Admission: 09/17/24 11:39 Date of Discharge: 09/20/24 Admitting Physician: JAKE SERNA MD Consults: Consults on Case 09/17/24 12:00 Consult Surgery ROUTINE Primary Care Provider: AUGUST RAMIREZ Allergies Allergies No Known Drug Allergies Allergy (Verified 09/17/24 07:41) Hospital Summary - Hospital Course Hospital Course: 09/17/24 is a 84 year old male with PMHX of CVA, perpherial neuropathy, cataracts, arrythmia, CAD,CHF, sleep apnea, iron def. anemia, type II DM, OA, BPH with chronic left sided weakness from CVA. He presented to our emergency department for evaluation of elevated blood glucose. Patient's sugar this morning was 216. However we checked his Dexcom and he is right within the average of his usual glucose. Patient does report observing blood in his stool starting . At that time he reports he was pretty constipated. Patient reports his primary care doctor is aware and he is currently being scheduled for colonoscopy that is scheduled in September. He admits to some weakness, and generally not feeling well. He states he has been taking IBP with his Plavix. Discussed this is not advised and can cause bleeding. Will consult general surgery for possible colonoscopy. Pt already took Plavix this AM. Will hold medication. Will start clear liquid diet and make NPO at midnight. 1 unit PRBC transfused in ER. 2nd unit PRBC pending. Will recheck Hgb after blood completed. He denies any further concerns at this time. 09/18/24 Pt resting in bed. He is asking to sit up in the [facility] today. He had bowel prep overnight for possible colonoscopy today. However, he is not clear yet and nursing has a call out to as to what more to do or delay until tomorrow. Hgb 7.3 today will continue H& H Q6 hours for close monitoring. Pt states he continues to have dark and bloody stools with prep. He denies Cp, SOB, abd. pain, N/V. 09/19/24 Pt resting in bed. He is awaiting a colonoscopy today. Hgb 7.3 today. K+ 3.4 and replaced IV since he is having colonoscopy. He is rather irritale as the IV potassium is causing some pain. IV fluids added to help with discomfort. He denies any further concerns at this time. 09/20/24 Pt resting in the chair. He had a colonoscopy yesterday and severe diverticulosis, grade 3 GERD, and a hernia. They were unable to find the source of bleeding. He will need to f/u OP with GI. Hgb 6.4 today. He denies any stools since yesterday. 2 units PRBC ordered. If Hgb comes up pt is able to d/c today. Will need repeat Hgb check early next week with PCP. He denies any further conc erns at this time. - Vitals & Intake/Output Vital Signs: Vital Signs Temperature 97.9 F 09/20/24 11:15 Pulse Rate 72 09/20/24 11:15 Respiratory Rate 18 09/20/24 11:15 Blood Pressure 133/56 09/20/24 11:15 O2 Sat by Pulse Oximetry 96 09/20/24 11:15 Intake & Output: Intake & Output 09/18/24 09/19/24 09/20/24 09/21/24 11:59 11:59 11:59 11:59 Intake Total 5680 2260 1889 Output Total 1575 Balance 4105 2260 1889 Weight 81.4 kg - Lab Result Diagrams: 09/20/24 04:35 09/20/24 04:35 Lab Results-Last 24 Hrs: Lab Results-Last 24 Hours 09/19/24 09/19/24 09/19/24 Range/Units 13:39 19:20 19:20 WBC (4.23-9.07) x10^3/uL RBC (4.63-6.08) x10^6/uL Hgb 7.6 L (13.7-17.5) g/dL Hct 22.4 L (40.1-51.0) % MCV (79.0-92.2) fL MCH (25.7-32.2) pg MCHC (32.3-36.5) g/dL RDW (11.6-14.4) % Plt Count (163-337) x10^3/uL MPV (9.4-12.4) fL Sodium (135-145) mmol/L Potassium 4.4 D (3.5-5.1) mmol/L Chloride (98-107) mmol/L Carbon Dioxide (22-30) mmol/L Anion Gap (5-15) MEQ/L BUN (9-20) mg/dL Creatinine (0.66-1.25) mg/dL Estimated GFR ML/MIN Glucose (74-106) mg/dL POC Glucometer (74 to 106) mg/dL Calcium (8.4-10.2) mg/dL Magnesium 1.8 (1.6-2.3) mg/dL Total Bilirubin (0.2-1.3) mg/dL AST (17-59) U/L ALT (0-50) U/L Alkaline Phosphatase (38-126) U/L Serum Total Protein (6.3-8.2) g/dL Albumin (3.5-5.0) g/dL ABO Group Rh Factor Antibody Screen (NEGATIVE) Crossmatch (COMPATIBLE) 09/19/24 09/20/24 09/20/24 Range/Units 23:48 04:35 04:35 WBC 7.7 (4.23-9.07) x10^3/uL RBC 2.03 L (4.63-6.08) x10^6/uL Hgb 6.4 L* (13.7-17.5) g/dL Hct 19.2 L (40.1-51.0) % MCV 94.6 H (79.0-92.2) fL MCH 31.5 (25.7-32.2) pg MCHC 33.3 (32.3-36.5) g/dL RDW 16.8 H (11.6-14.4) % Plt Count 244 (163-337) x10^3/uL MPV 9.2 L (9.4-12.4) fL Sodium 136 (135-145) mmol/L Potassium 4.1 (3.5-5.1) mmol/L Chloride 105 (98-107) mmol/L Carbon Dioxide 23 (22-30) mmol/L Anion Gap 12.4 (5-15) MEQ/L BUN 27 H (9-20) mg/dL Creatinine 1.11 (0.66-1.25) mg/dL Estimated GFR 64.7 ML/MIN Glucose 328 H (74-106) mg/dL POC Glucometer 366 H (74 to 106) mg/dL Calcium 7.6 L (8.4-10.2) mg/dL Magnesium 1.8 (1.6-2.3) mg/dL Total Bilirubin 0.20 (0.2-1.3) mg/dL AST 31 (17-59) U/L ALT 23 (0-50) U/L Alkaline Phosphatase 82 (38-126) U/L Serum Total Protein 5.2 L (6.3-8.2) g/dL Albumin 2.8 L (3.5-5.0) g/dL ABO Group Rh Factor Antibody Screen (NEGATIVE) Crossmatch (COMPATIBLE) 09/20/24 09/20/24 09/20/24 Range/Units 05:56 05:56 07:45 WBC (4.23-9.07) x10^3/uL RBC (4.63-6.08) x10^6/uL Hgb (13.7-17.5) g/dL Hct (40.1-51.0) % MCV (79.0-92.2) fL MCH (25.7-32.2) pg MCHC (32.3-36.5) g/dL RDW (11.6-14.4) % Plt Count (163-337) x10^3/uL MPV (9.4-12.4) fL Sodium (135-145) mmol/L Potassium (3.5-5.1) mmol/L Chloride (98-107) mmol/L Carbon Dioxide (22-30) mmol/L Anion Gap (5-15) MEQ/L BUN (9-20) mg/dL Creatinine (0.66-1.25) mg/dL Estimated GFR ML/MIN Glucose (74-106) mg/dL POC Glucometer 321 H (74 to 106) mg/dL Calcium (8.4-10.2) mg/dL Magnesium (1.6-2.3) mg/dL Total Bilirubin (0.2-1.3) mg/dL AST (17-59) U/L ALT (0-50) U/L Alkaline Phosphatase (38-126) U/L Serum Total Protein (6.3-8.2) g/dL Albumin (3.5-5.0) g/dL ABO Group B Rh Factor POSITIVE Antibody Screen NEGATIVE (NEGATIVE) Crossmatch COMPATIBLE COMPATIBLE (COMPATIBLE) Micro Results-Entire Visit: Microbiology 10/22/24 09:37 Urine Culture - Final Catherized NO GROWTH Accuchecks Date 09/20/24 Date 09/20/24 Date 09/19/24 Time 11:40 Time 07:56 - Procedures and Test Procedures and Tests throughout Hospitalization: Therapy Orders & Screens 09/17/24 12:39 RT Screen per Nursing Assess ONCE Comment: Protocol Order Physician Instructions: Greater than 3 points order RT Admission Screen Reason For Exam: Triggered on Admission Diagnosis: Symptomatic anemia, macrocytic anemia Diagnosis: Symptomatic anemia, macrocytic anemia Pneumonia: No Home O2: No Asthma: No CHF: Yes Home CPAP/BIPAP: No Home Nebs/MDI: Yes Total Points: 8 09/18/24 11:27 PT Eval & Treat (MD Order) ONCE Reason for Eval:: weakness, possible rehab stay? patient normally independent with transfers- aid reports heavy assist of 2 at the moment Diagnosis: Symptomatic anemia, macrocytic anemia 09/19/24 12:47 EKG STAT Comment: Diagnosis: Symptomatic anemia, macrocytic anemia EKG Reason: Post Cardiac History Discharge Exam General Appearance: no apparent distress, alert Neurologic Exam: alert, oriented x 3, cooperative, normal mood/affect, nml cerebellar function, sensation nml, No motor deficits Eye Exam: PERRL, EOMI, eyes nml inspection Ears, Nose, Throat Exam: normal ENT inspection, pharynx normal, moist mucous membranes Neck Exam: normal inspection, non-tender, supple, full range of motion Respiratory Exam: normal breath sounds, lungs clear, No respiratory distress Cardiovascular Exam: regular rate/rhythm, normal heart sounds Gastrointestinal/Abdomen Exam: soft, No tenderness, No mass Male Genitalia Exam: deferred Rectal Exam: deferred Back Exam: normal inspection, normal range of motion, No CVA tenderness, No vertebral tenderness Extremity Exam: normal inspection, normal range of motion Skin Exam: normal color, warm, dry Final Diagnosis/Problem List - Final Discharge Diagnosis/Problem (1) GI bleed Current Visit: Yes Status: Acute Code(s): K92.2 - GASTROINTESTINAL HEMORRHAGE, UNSPECIFIED (2) Chronic atrial fibrillation Current Visit: No Status: Chronic Code(s): I48.20 - CHRONIC ATRIAL FIBRILLATION, UNSPECIFIED (3) GERD (gastroesophageal reflux disease) Current Visit: No Status: Chronic Code(s): K21.9 - GASTRO-ESOPHAGEAL REFLUX DISEASE WITHOUT ESOPHAGITIS (4) Hypertension Current Visit: No Status: Chronic Code(s): I10 - ESSENTIAL (PRIMARY) HYPERTENSION (5) Iron deficiency anemia Current Visit: No Status: Chronic Code(s): D50.9 - IRON DEFICIENCY ANEMIA, UNSPECIFIED (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 Current Visit: No Status: Chronic Code(s): Z79.01 - 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 (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 OF 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 (7) Type II diabetes mellitus, well controlled Current Visit: No Status: Chronic Code(s): E11.9 - TYPE 2 DIABETES MELLITUS WITHOUT COMPLICATIONS (8) Hypokalemia Current Visit: Yes Status: Acute Assessment & Plan: (1) GI bleed Current Visit: Yes Status: Acute Assessment & Plan: - Hgb 5.9 on admission - surgery consulted - 2 units PRBC ordered- recheck H&H after complete - clear liquid diet - NPO after midnight - Protonix BID - miralax daily 09/18 - plan was for colonoscopy today however BM's are not cear - GS notified by nursing as to further plan of care and to do colonoscopy today or tomorrow - Hgb 7.3 - H& H Q6 - CBC reviewed 09/19 - Hgb 7.3- trend - Scheduled for colonoscopy today - CBC reviewed 09/20 - Hgb 6.4- 2 units PRBC ordered- trend - Colonoscopy yesterday showed and severe diverticulosis, grade 3 GERD, and a hernia. - CBC reviewed - Needs OP GI f/u - F/U with PCP for repeat H&H early next week. Code(s): K92.2 - GASTROINTESTINAL HEMORRHAGE, UNSPECIFIED (2) Chronic atrial fibrillation Current Visit: No Status: Chronic Assessment & Plan: - Tele - Continue home meds Code(s): I48.20 - CHRONIC ATRIAL FIBRILLATION, UNSPECIFIED (3) GERD (gastroesophageal reflux disease) Current Visit: No Status: Chronic Assessment & Plan: - Protonix BID Code(s): K21.9 - GASTRO-ESOPHAGEAL REFLUX DISEASE WITHOUT ESOPHAGITIS (4) Hypertension Current Visit: No Status: Chronic Qualifiers: Hypertension type: primary hypertension Qualified Code(s): I10 - Essential (primary) hypertension Assessment & Plan: - BP stable - continue home meds Code(s): I10 - ESSENTIAL (PRIMARY) HYPERTENSION (5) Iron deficiency anemia Current Visit: No Status: Chronic Assessment & Plan: - Continue ferrous sulfate - CBC reviewed - H& H Q6 09/19 - HGb 7.3- trend 09/20 - Hgb 6.4- 2 units PRBC ordered- trend Code(s): D50.9 - IRON DEFICIENCY ANEMIA, UNSPECIFIED (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 Current Visit: No Status: Chronic Assessment & Plan: - Hold plavix Code(s): Z79.01 - 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 (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 OF 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 (7) Type II diabetes mellitus, well controlled Current Visit: No Status: Chronic Assessment & Plan: - 07/15/24 - A1C 8.0 - Accuchecks ac/hs, low dose s/s - Hold oral diabetic med - CMP reviewed 09/20 - added humalog 10 units with meals Code(s): E11.9 - TYPE 2 DIABETES MELLITUS WITHOUT COMPLICATIONS Code(s): E11.9 - TYPE 2 DIABETES MELLITUS WITHOUT COMPLICATIONS (8) Hypokalemia Current Visit: Yes Status: Acute Assessment & Plan: - K+ 3.4- replacement ordered- recheck 2 hours post completion 09/20 - K+ 4.1 Code(s): E87.6 - HYPOKALEMIA - Discharge Discharge Date: 09/20/24 Disposition: Home, Self-Care Condition: Stable Prescriptions: New PANTOPRAZOLE 40 mg Tablet [Protonix 40MG Tablet] 40 mg PO BID 30 Days #60 tablet Continue Ferrous Sulfate 325 mg [Feosol 325 mg] 325 mg PO BID Clopidogrel Bisulfate [PLAVIX Tablet] 75 mg PO DAILY Desloratadine [Clarinex] 1 tab PO DAILY Atorvastatin Calcium 20 mg PO DAILY Ascorbic Acid [Vitamin C] 250 mg PO DAILY Furosemide 20 mg [Lasix 20 mg] 1 tab PO DAILY Vit B6/Me-Thfolate/Me-B12/Ala [Nufola Capsule] 1 tab PO DAILY Multivitamin [Multivitamins] 1 tab PO DAILY Magnesium Oxide [Magnesium] 400 mg PO DAILY Losartan/Hydrochlorothiazide [Losartan-Hctz 100-25 mg Tab] 0.5 tab PO DAILY Blood Sugar Diagnostic [Freestyle Lite Test Strip] 1 each MC TID #2 box tadalafiL [Cialis] 1 tab PO DIRECTIONS UNKNOWN PRN PRN Reason: Sexual activity Polyethylene Glycol 3350 17 gm [Miralax Powder 17GM PACKET] 17 gm PO DAILY PRN PRN PRN Reason: Constipation Gabapentin [Neurontin ] 100 mg PO TID Finasteride 5 mg [Proscar 5 MG] 5 mg PO DAILY Famotidine 20 mg [Pepcid 20 MG] 40 mg PO DAILY Tamsulosin HCl 0.4 mg [Flomax 0.4 MG] 0.4 mg PO DAILY Carvedilol 3.125 mg [Coreg 3.125 MG] 3.125 mg PO BID Potassium Chloride [Klor-Con M10] 10 meq PO DAILY Follow up with: PENELOPE CARRENO FNP [NON-STAFF PHY W/O PRIVILEGES] - 01/22/25 2:30 pm (You are more than welcome to call office for sooner openings.) AUGUST RAMIREZ MD [Primary Care Provider] - 09/27/24 3:30 pm
[2024-09-20 16:05] VITALS: BP 117/56; PULSE 70; TEMP 97.7
[2024-09-20 17:37] LABS: Hematocrit 24.9 % (40.1-51.0)
[2024-09-20 17:39] LABS: Hemoglobin 8.3 g/dL (13.7-17.5)
--- NOTE | 2024-09-23 09:35 | OP ---
SURGERY DATE/TIME: 09/19/2024 1645_ PREOPERATIVE DIAGNOSIS: Gastrointestinal bleed. POSTOPERATIVE DIAGNOSES: Lower gastrointestinal bleed. Patient has pancolonic diverticulosis. Patient has pancolonic hemorrhage from cecum to anus. PROCEDURES: 1) Esophagogastroduodenoscopy. 2) Colonoscopic examination to cecum. SURGEON: Phu Spear M.D. ANESTHESIA: General. COMPLICATIONS: None. CONDITION: Stable. DESCRIPTION OF PROCEDURE: Patient taken to the endoscopy suite. Time-out was performed. MAC general anesthetic. Scope introduced. Pharyngoesophageal junction normal. Vocal cords normal. Esophagus normal down to EG junction. EG junction is satisfactory. Fundus, body, and antrum normal. Pylorus normal. Duodenal bulb normal. Second portion normal. Scope looped upon itself satisfactory. Scope was withdrawn. There was no blood on the upper examination at all. Anal digital examination, there was blood on the finger. Scope was introduced. There was blood in the rectum. This blood was old blood. It was generous and about 2 L irrigation was used throughout the course of the case. The scope was advanced over to the cecum. Appendiceal orifice, ileocecal valve area, base of the cecum were all normal. I could not absolutely tell of anything coming through the ileocecal valve. We did not cannulate the ileocecal valve. The blood in the cecum was old. It seemed like there was a little heavier concentration in the sigmoid of blood and clots than any place else. There was old blood all the way over to the cecum here. This means this would have to back wash all the way over here if it was from a sigmoid bleed. Ascending totally full of blood, transverse colon totally full of blood. Despite this old blood, it was suctioned down to very reasonable view but there was scattered pancolonic diverticulosis, quite numerous. There was no specific site of bleeding seen. Coming down to the sigmoid, the pouches were more numerous but it was a little harder to suction all the blood, but most of the blood was suctioned away. There was never the hint of new red blood. In the rectum this was also cleared fairly well and had old blood in it throughout. IMPRESSION: Old blood, bleeding from a day or two ago though. Specific site not seen but it was in the entire colon. I am not sure whether it is a right-sided bleed or a left-sided bleed. It certainly is back washing a fair amount of if it is left-sided bleed, but I think this is possible. I think it is also possible this is a right-sided bleed. It is certainly not an upper GI bleed, and I do not think it is a small bowel bleed, although it is not totally excluded by the exam. He was given a regular diet.
== END 2024-09-20 18:28 | disposition home health service (06) ==
LOC: ED 07:26 → MED SURG 11:39
PROVIDERS: ADMIT Internal Medicine; ATTEND Internal Medicine
DX: K92.2 Gastrointestinal hemorrhage, unspecified (principal); I48.20 Chronic atrial fibrillation, unspecified; K21.9 Gastro-esophageal reflux disease without esophagitis; I11.0 Hypertensive heart disease with heart failure; I50.9 Heart failure, unspecified; D50.9 Iron deficiency anemia, unspecified; E11.9 Type 2 diabetes mellitus without complications; E87.6 Hypokalemia; Z79.899 Other long term (current) drug therapy; Z79.01 Long term (current) use of 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; Z86.73 Personal history of transient ischemic attack (TIA), and cerebral infarction without residual deficits; I25.10 Atherosclerotic heart disease of native coronary artery without angina pectoris
CPT/HCPCS: 36000; 36415; 36430; 43235; 45378; 80053; 81001; 82947; 83036; 83735; 84132; 84484; 85014; 85018; 85025; 85027; 86850; 86900; 86901; 86922; 87086; 93005; 93041; 94760; 96365; 97161; 99285; P9016; Q3014; J1817; J2704; J3480; A9270-GY